=== PATIENT | female | born 1965 | race African-American/Black ===

== ENCOUNTER 2017-07-31 08:08 | Emergency (ER) | payer SELFPAY ==
[2017-07-31 08:39] LABS: #Basophils 0.1 thou/uL (0.0-0.2); #Eosinphils 0.2 thou/uL (0.0-0.7); #Lymphocytes 1.6 thou/uL (1.20-3.40); #Monocytes 0.5 thou/uL (0.11-0.59); #Neutrophils 3.9 thou/uL (1.40-6.50); %Eosinophils 3.8 % (0.0-10.0); %Lymphocytes 25.3 % (21.0-51.0); %Monocytes 7.4 % (0.0-10.0); Hematocrit 36.6 % (36.0-47.0); Mean Platelet Volume 6.9 fL (7.4-10.4); Red Blood Cell (RBC) Count 4.64 mill/uL (4.20-5.40); White Blood Cell (WBC) Count 6.3 thou/uL (4.8-10.8)
[2017-07-31] MEDS ORDERED: Insulin Regular 300 UNITS/3 ML VIAL ONE (08:43)
[2017-07-31 08:53] LABS: ALT (SGPT) 10 U/L (8-55); AST (SGOT) 18 U/L (5-34); Alkaline Phosphatase 95 U/L (40-150); Anion Gap 12 mmol/L (10-20); BUN (Urea Nitrogen) 6 mg/dL (9.8-20.1); Bilirubin, Total 0.2 mg/dL (0.2-1.2); Calc. Creatinine Clearance 0 mL/min (70-130); Calcium 9.2 mg/dL (7.8-10.44); Carbon Dioxide 24 mmol/L (22-29); Chloride 104 mmol/L (98-107); Estimated GFR-MDRD 80; Globulin 4.9 g/dL (2.4-3.5); Protein, Total 8.6 g/dL (6.0-8.3)
--- NOTE | 2017-09-07 12:18 | EKG ---
Test Reason : Blood Pressure : / mmHG Vent. Rate : 074 BPM Atrial Rate : 074 BPM P-R Int : 138 ms QRS Dur : 080 ms QT Int : 440 ms P-R-T Axes : 049 -37 012 degrees QTc Int : 488 ms Normal sinus rhythm Left axis deviation Prolonged QT Abnormal ECG Confirmed by ANDRÉS REILLY ([id number]), design editor IVANNA HOFF ([id number]) on 09/07/2017 12:17:53 PM Referred By: MELBA Confirmed By:ANDRÉS REILLY
== END 2017-07-31 09:42 | disposition home or self-care (01) ==
LOC: ERS 08:08
DX: E11.65 Type 2 diabetes mellitus with hyperglycemia (principal); E86.0 Dehydration; I10 Essential (primary) hypertension; D64.9 Anemia, unspecified; F41.9 Anxiety disorder, unspecified; F31.9 Bipolar disorder, unspecified; F20.9 Schizophrenia, unspecified; F17.210 Nicotine dependence, cigarettes, uncomplicated; Z71.6 Tobacco abuse counseling
CPT/HCPCS: 36415; 36416; 80053; 85025; 93005; 96361; 96374; J1815

== ENCOUNTER 2017-08-02 08:34 | Emergency (ER) | payer SELFPAY | END 2017-08-02 09:34 | disposition home or self-care (01) | LOC: ERS 08:34 | DX: M25.571 Pain in right ankle and joints of right foot (principal); E11.9 Type 2 diabetes mellitus without complications; D50.0 Iron deficiency anemia secondary to blood loss (chronic); I10 Essential (primary) hypertension; F20.9 Schizophrenia, unspecified; F31.9 Bipolar disorder, unspecified; F17.210 Nicotine dependence, cigarettes, uncomplicated | CPT/HCPCS: 99406 ==

== ENCOUNTER 2017-08-20 11:54 | Emergency (ER) | payer SELFPAY ==
--- NOTE | 2017-08-20 15:26 | ULT ---
RIGHT LOWER EXTREMITY VENOUS ULTRASOUND: Date: 08/20/17 COMPARISON: None. HISTORY: Right lower extremity pain and edema. TECHNIQUE: Multiplanar Blount scale and color Doppler images were obtained in a right lower extremity venous ultra sound. Spectral analysis of the Doppler waveforms were performed. FINDINGS: The right common femoral vein, profunda femoral vein, superficial femoral vein, and popliteal vein ar e normal in appearance without visible thrombus. These vessels demonstrate normal compression, flow, and augmentation. The right posterior tibial vein and greater saphenous vein are also patent. IMPRESSION: No evidence of right lower extremity deep venous thrombosis. POS: [facility]
[2017-08-20 15:28] LABS: #Eosinphils 0.3 thou/uL (0.0-0.7); #Lymphocytes 1.7 thou/uL (1.20-3.40); #Monocytes 0.8 thou/uL (0.11-0.59); #Neutrophils 5.6 thou/uL (1.40-6.50); %Basophils 0.3 % (0.0-1.0); %Eosinophils 3.1 % (0.0-10.0); %Lymphocytes 20.5 % (21.0-51.0); %Monocytes 9.1 % (0.0-10.0); Mean Platelet Volume 6.7 fL (7.4-10.4); Red Blood Cell (RBC) Count 4.13 mill/uL (4.20-5.40); White Blood Cell (WBC) Count 8.4 thou/uL (4.8-10.8)
[2017-08-20 15:47] LABS: Bilirubin Negative (Negative); Blood, Urine Small (Negative); Glucose, Urine (Dipstick) >=1000 mg/dL (Negative); Ketone, Urine Negative (Negative); Nitrite Negative (Negative); Protein, Urine (Dipstick) Negative (Neg-Trace); Urobilinogen 0.2 mg/dL (0.2-1.0)
[2017-08-20 15:50] LABS: Bacteria/HPF None Seen HPF (None Seen); Hyaline Casts/LPF 0-3 HYALINE CAST LPF (0-3 Hyaline); Squamous Epithelial None Seen HPF (0-3); WBC/HPF None Seen HPF (0-3)
[2017-08-20 15:51] LABS: ALT (SGPT) 8 U/L (8-55); AST (SGOT) 16 U/L (5-34); Alkaline Phosphatase 106 U/L (40-150); Anion Gap 12 mmol/L (10-20); BUN (Urea Nitrogen) 6 mg/dL (9.8-20.1); Bilirubin, Total 0.2 mg/dL (0.2-1.2); Calc. Creatinine Clearance 0 mL/min (70-130); Calcium 9.5 mg/dL (7.8-10.44); Carbon Dioxide 27 mmol/L (22-29); Chloride 99 mmol/L (98-107); Estimated GFR-MDRD 70; Globulin 5.4 g/dL (2.4-3.5); Protein, Total 8.8 g/dL (6.0-8.3)
== END 2017-08-20 16:41 | disposition home or self-care (01) ==
LOC: ERS 11:54
DX: E11.40 Type 2 diabetes mellitus with diabetic neuropathy, unspecified (principal); I10 Essential (primary) hypertension; I50.9 Heart failure, unspecified; F31.9 Bipolar disorder, unspecified; F41.9 Anxiety disorder, unspecified; F20.9 Schizophrenia, unspecified
CPT/HCPCS: 36415; 36416; 80053; 81003; 81015; 85025; 96360; 99406

== ENCOUNTER 2017-08-31 03:58 | Emergency (ER) | payer SELFPAY ==
[2017-08-31 04:27] LABS: Anion Gap 10 mmol/L (-14-95); T. Carbon Dioxide 23.5 mmol/L (1.0-85.0); pH (Venous) 7.434 (7.35-7.45); vO2 Saturation-calc 94.8 % (0.0-100.0)
[2017-08-31 04:38] LABS: #Basophils 0.1 thou/uL (0.0-0.2); #Lymphocytes 2.4 thou/uL (1.20-3.40); #Neutrophils 7.8 thou/uL (1.40-6.50); %Basophils 0.6 % (0.0-1.0); %Eosinophils 0.4 % (0.0-10.0); %Lymphocytes 21.4 % (21.0-51.0); %Monocytes 8.9 % (0.0-10.0); Hematocrit 31.7 % (36.0-47.0); Mean Platelet Volume 6.8 fL (7.4-10.4); Red Blood Cell (RBC) Count 4.03 mill/uL (4.20-5.40); White Blood Cell (WBC) Count 11.3 thou/uL (4.8-10.8)
[2017-08-31 04:49] LABS: ALT (SGPT) 9 U/L (8-55); AST (SGOT) 15 U/L (5-34); Alkaline Phosphatase 126 U/L (40-150); Anion Gap 18 mmol/L (10-20); BUN (Urea Nitrogen) 13 mg/dL (9.8-20.1); Bilirubin, Total 0.2 mg/dL (0.2-1.2); CK (CPK) 58 U/L (29-168); Calc. Creatinine Clearance 0 mL/min (70-130); Calcium 9.9 mg/dL (7.8-10.44); Carbon Dioxide 22 mmol/L (22-29); Chloride 97 mmol/L (98-107); Estimated GFR-MDRD 69; Globulin 5.7 g/dL (2.4-3.5); Lipase 25 U/L (8-78); Protein, Total 9.1 g/dL (6.0-8.3)
[2017-08-31 05:03] LABS: Troponin I 0.014 ng/mL (< 0.028)
[2017-08-31 05:08] LABS: Bilirubin Negative (Negative); Blood, Urine Trace (Negative); Glucose, Urine (Dipstick) >=1000 mg/dL (Negative); Ketone, Urine 40 mg/dL (Negative); Nitrite Negative (Negative); Protein, Urine (Dipstick) Trace mg/dL (Neg-Trace); Urobilinogen 0.2 mg/dL (0.2-1.0)
[2017-08-31] MEDS ORDERED: Insulin Regular 300 UNITS/3 ML VIAL ONE (05:10)
[2017-08-31 05:13] LABS: Bacteria/HPF 1+ HPF (None Seen); Hyaline Casts/LPF 0-3 HYALINE CAST LPF (0-3 Hyaline); Squamous Epithelial 0-3 HPF (0-3); WBC/HPF 21-50 HPF (0-3)
--- NOTE | 2017-08-31 08:33 | RAD ---
PORTABLE CHEST 1 VIEW: Date: 08/31/17 Time: 0418 hours HISTORY: Dyspnea, cough. FINDINGS: Comparison made with exam of 03/14/16. The heart size is normal. The lungs are well expanded without focal areas of consolidation, pneumotho rax, or pleural effusions. IMPRESSION: No radiographic evidence of acute cardiopulmonary process. POS: [facility]
== END 2017-08-31 06:00 | disposition home or self-care (01) ==
LOC: ERS 03:58
DX: E11.65 Type 2 diabetes mellitus with hyperglycemia (principal); J20.9 Acute bronchitis, unspecified; F41.9 Anxiety disorder, unspecified; N39.0 Urinary tract infection, site not specified; D64.9 Anemia, unspecified; D50.0 Iron deficiency anemia secondary to blood loss (chronic); I10 Essential (primary) hypertension; F20.9 Schizophrenia, unspecified; F31.9 Bipolar disorder, unspecified
CPT/HCPCS: 36416; 71010; 80053; 81003; 81015; 82010; 82330; 82553; 82803; 83690; 83880; 84484; 85025; 93005; 96361; 96374; J1815

== ENCOUNTER 2017-10-31 15:08 | Inpatient (IN) | payer SELFPAY ==
[2017-10-31 17:24] LABS: #Eosinphils 0.1 thou/uL (0.0-0.7); #Monocytes 0.9 thou/uL (0.11-0.59); #Neutrophils 9.4 thou/uL (1.40-6.50); %Basophils 0.3 % (0.0-1.0); %Eosinophils 1.1 % (0.0-10.0); %Lymphocytes 22.4 % (21.0-51.0); %Monocytes 6.8 % (0.0-10.0); %Neutrophils 69.4 % (42.0-75.0); Hemoglobin 9.3 g/dL (12.0-16.0); Mean Corpuscular HGB CONC 32.2 g/dL (32.0-36.0); Mean Corpuscular Hemoglobin 27.1 pg (27.0-31.0); Mean Corpuscular Volume 84.3 fl (81.0-99.0); Mean Platelet Volume 6.4 fL (7.4-10.4); Platelet Count 636 thou/uL (130-400); RBC Distribution Width 19.6 % (11.5-14.5); Red Blood Cell (RBC) Count 3.42 mill/uL (4.20-5.40); White Blood Cell (WBC) Count 13.5 thou/uL (4.8-10.8)
[2017-10-31 17:38] LABS: ALT (SGPT) 11 U/L (8-55); AST (SGOT) 15 U/L (5-34); Albumin 2.6 g/dL (3.5-5.0); Alkaline Phosphatase 107 U/L (40-150); Anion Gap 16 mmol/L (10-20); BUN (Urea Nitrogen) 14 mg/dL (9.8-20.1); Bilirubin, Total 0.2 mg/dL (0.2-1.2); Calc. Creatinine Clearance 0 mL/min (70-130); Calcium 9.3 mg/dL (7.8-10.44); Carbon Dioxide 23 mmol/L (22-29); Chloride 89 mmol/L (98-107); Estimated GFR-MDRD 47; Globulin 5.7 g/dL (2.4-3.5); Potassium 4.5 mmol/L (3.5-5.1); Protein, Total 8.3 g/dL (6.0-8.3); Sodium 123 mmol/L (136-145)
[2017-10-31 17:45] LABS: Glucose 599 mg/dL (70-105)
[2017-10-31 19:00] LABS: Base Excess-Venous -1.9 mmol/L (-30.0-30.0); Bicarbonate (HCO3v) 22.9 mmol/L (1.0-85.0); CO2 Tension (PvCO2) 38.1 mmHg (41.0-51.0); Calcium, Ionized 1.23 mmol/L (1.12-1.32); Hemoglobin - Calc 10.5 g/dL (12.0-18.0); O2 Tension (PvO2) 45.2 mmHg (35.0-45.0); Potassium 3.6 mmol/L (3.4-4.7); pH (Venous) 7.386 (7.35-7.45); vO2 Saturation-calc 80.5 % (0.0-100.0)
[2017-10-31] MEDS ORDERED: metFORMIN 500 MG TAB PO SCH (19:30)
--- NOTE | 2017-10-31 19:57 | PDOC.FPRHP ---
- History of Present Illness Chief Complaint: Weakness History of Present Illness: 52 year old female presents today with weakness. She was discharged today from [facility] where she was seen for DKA, NSTEMI, and sepsis 2/ 2 MRSA endocarditis s/p antibiotics for 6 weeks. She was hospitalized for approximately 2 months and was being treated with IV daptomycin for MRSA endocarditis. Last blood cultures were negative on 10/28/17. Patient was transitioned to oral antibiotics to include rifampin and minocycline to be taken for an additional month post discharge. Patient also had PICC line associated infection with Klebsiella which required treatment with Levoquin. Patient's friend reports that she went to visit patient in hospital today, and she was being prepped for discharge. She was given a voucher for [facility]. Her friend opted to take her to the facility, but upon getting there realized they were not capable of providing her with the care she needs. Patient 's friend then brought her to [facility] as she is still weak, cannot walk without assistance, and has difficulty caring for herself. Patient states that she has been weak and unable to walk with assistance or walker since being hospitalized. Additionally, patient endorses decreased appetite for about a month associated with nausea and vomiting. She reportedly vomited for 3 days last week, but denies diarrhea. Today patient complains of right shoulder pain. She denies any recent injury or trauma. She has had a productive cough over the last day, but denies associated fever or chills. ED Course: Given 500 mg metformin and 6 units insulin in ED. - Allergies/Adverse Reactions Allergies Allergy/AdvReac Type Severity Reaction Status Date / Time No Known Drug Allergies Allergy Verified 10/31/17 23:13 - Home Medications Medication Instructions Recorded Confirmed Type Aspirin [Ecotrin] 81 mg PO DAILY 11/01/17 11/01/17 History Atorvastatin Calcium [Lipitor] 20 mg PO HS 11/01/17 11/01/17 History Fluconazole [Diflucan] 150 mg PO Q72H 11/01/17 11/01/17 History Insulin Detemir 100 UNITS/ML 18 unit SQ HS 11/01/17 11/01/17 History [Levemir] Insulin Detemir 100 UNITS/ML 32 unit SQ QAM 11/01/17 11/01/17 History [Levemir] Lisinopril 2.5 mg PO DAILY 11/01/17 11/01/17 History Metoprolol Tartrate [Lopressor] 50 mg PO BID 11/01/17 11/01/17 History Minocycline [Minocycline] 100 mg PO BID 11/01/17 11/01/17 History Potassium Chloride [K-Dur] 20 meq PO DAILY 11/01/17 11/01/17 History QUEtiapine Fumarate [SEROquel] 50 mg PO HS 11/01/17 11/01/17 History Rifampin 300 mg PO BID 11/01/17 11/01/17 History metFORMIN [Glucophage] 500 mg PO BID-WM 11/01/17 11/01/17 History - History PMHx: Uncontrolled type II DM, CAD s/p NSTEMI in 09/2017, Chronic anemia, Urge incontinence, HTN, COPD, PVD small vessel, Schizophrenia PSHx: None FHx: Unknown Social: Patient denies tobacco use, although past records indicate that she has used to tobacco previously. Patient endorses cocaine and marijuana use. Last use was 3-4 months ago. Patient denies alcohol use. - Review of Systems General: reports: weight/appetite/sleep changes, fatigue. denies: fever/chills , night sweats ENT: denies: nasal congestion, rhinorrhea Respiratory: reports: cough (over past day), congestion. denies: shortness of breath Cardiovascular: reports: chest pain (pleuritic chest pain). denies: palpitation , edema, paroxysmal nocturnal dyspnea, orthopnea Gastrointestinal: reports: nausea, vomiting. denies: diarrhea, constipation, abdominal pain Genitourinary: reports: incontinence (urge incontinence requiring patient to wear briefs) Skin: denies: rashes, lesions Musculoskeletal: reports: pain, tenderness Neurological: reports: weakness. denies: numbness, syncope, seizure Psychological: reports: depression. denies: anxiety - Vital signs BP: 127/79 HR: 93 RR: 20 Tmax: 98 Pox: 100 % on RA Wt: 46 kg - Physical Exam Constitutional: NAD, awake, alert and oriented -Constitutional: Cachectic appearing HEENT: normocephalic and atraumatic, PERRLA, EOMI, no scleral icterus -HEENT: Poor dentition Neck: supple Heart: RRR, no murmurs/rubs/gallops, pulses present, no edema Lungs: no respiratory distress, no rales/rhonchi, no retractions -Lungs: Mild expiratory wheezing Abdomen: soft, non-tender, bowel sounds present, no masses/distention -Musculoskeletal: Poor tone Neurological: no focal deficit Skin: capillary refill <2 seconds -Skin: Plaque-like lesions on left hand and digits Psychiatric: other -Psychiatric: Depressed affect, tearful FMR H&P: Results - Labs Result Diagrams: 11/01/17 05:11 11/01/17 05:11 Lab results: WBC 13.5 thou/uL (4.8-10.8) H 10/31/17 17:11 Hgb 9.3 g/dL (12.0-16.0) L 10/31/17 17:11 Hct 28.8 % (36.0-47.0) L 10/31/17 17:11 MCV 84.3 fl (81.0-99.0) 10/31/17 17:11 Plt Count 636 thou/uL (130-400) H 10/31/17 17:11 Neutrophils % 69.4 % (42.0-75.0) 10/31/17 17:11 VBG pCO2 38.1 mmHg (41.0-51.0) L 10/31/17 18:59 VBG pO2 45.2 mmHg (35.0-45.0) H 10/31/17 18:59 Sodium 123 mmol/L (136-145) L 10/31/17 17:11 Potassium 4.5 mmol/L (3.5-5.1) 10/31/17 17:11 Chloride 89 mmol/L (98-107) L 10/31/17 17:11 Carbon Dioxide 23 mmol/L (22-29) 10/31/17 17:11 BUN 14 mg/dL (9.8-20.1) 10/31/17 17:11 Creatinine 1.43 mg/dL (0.6-1.1) H 10/31/17 17:11 Glucose 599 mg/dL (70-105) H* 10/31/17 17:11 Calcium 9.3 mg/dL (7.8-10.44) 10/31/17 17:11 Total Bilirubin 0.2 mg/dL (0.2-1.2) 10/31/17 17:11 AST 15 U/L (5-34) 10/31/17 17:11 ALT 11 U/L (8-55) 10/31/17 17:11 Alkaline Phosphatase 107 U/L (40-150) 10/31/17 17:11 Serum Total Protein 8.3 g/dL (6.0-8.3) 10/31/17 17:11 Albumin 2.6 g/dL (3.5-5.0) L 10/31/17 17:11 - Radiology Interpretation Other Status: image reviewed by me, report reviewed by me Additional comment: Mild AC degeneration on right FMR H&P: A/P - Problem List (1) Type 2 diabetes mellitus with hyperglycemia Current Visit: Yes Status: Suspected Code(s): E11.65 - TYPE 2 DIABETES MELLITUS WITH HYPERGLYCEMIA (2) Hyponatremia Current Visit: Yes Status: Acute Code(s): E87.1 - HYPO-OSMOLALITY AND HYPONATREMIA (3) Moderate protein-calorie malnutrition Current Visit: Yes Status: Chronic Code(s): E44.0 - MODERATE PROTEIN- CALORIE MALNUTRITION (4) CAD (coronary artery disease) Current Visit: Yes Status: Chronic Code(s): I25.10 - ATHSCL HEART DISEASE OF [place] CORONARY ARTERY W/O ANG PCTRS Qualifiers: Associated angina: without angina (5) Chronic anemia Current Visit: Yes Status: Chronic Code(s): D64.9 - ANEMIA, UNSPECIFIED (6) Physical deconditioning Current Visit: Yes Status: Chronic Code(s): R53.81 - OTHER MALAISE (7) Substance abuse Current Visit: Yes Status: Chronic Code(s): F19.10 - OTHER PSYCHOACTIVE SUBSTANCE ABUSE, UNCOMPLICATED (8) ECTOR (acute kidney injury) Current Visit: Yes Status: Resolved Code(s): N17.9 - ACUTE KIDNEY FAILURE, UNSPECIFIED (9) Urge incontinence Current Visit: Yes Status: Chronic Code(s): N39.41 - URGE INCONTINENCE (10) HTN (hypertension) Current Visit: Yes Status: Acute Code(s): I10 - ESSENTIAL (PRIMARY) HYPERTENSION (11) COPD (chronic obstructive pulmonary disease) Current Visit: Yes Status: Chronic (12) PVD (peripheral vascular disease) Current Visit: Yes Status: Chronic Code(s): I73.9 - PERIPHERAL VASCULAR DISEASE, UNSPECIFIED (13) Endocarditis due to Staphylococcus Current Visit: Yes Status: Resolved Code(s): I33.0 - ACUTE AND SUBACUTE INFECTIVE ENDOCARDITIS; B95.8 - UNSP STAPHYLOCOCCUS THE CAUSE OF DISEASES CLASSD ELSWHR - Plan 1. Physical Deconditioning - Patient unable to walk without assistance since being hospitalized past two months for sepsis 2/2 endocarditis, NSTEMI, and DKA at [facility] - Unable to care for self and homeless - No family support - CM consulted; appreciate recs - D/C planning process started - Linderman Operator consulted; appreciate recs - PT/OT to evaluate and treat patient - Working on potential harper bed at [facility] 2. Uncontrolled Type II DM with hyperglycemia - BG 599 on admission - Given 6 units of insulin in ED - Hyperglycemia protocol with mild SSI - Q4H accuchecks - HgA1c 15.2 during last hospitalization in September 3. Hyponatremia - Pseudohyponatremia 2/2 hyperglycemia - Na corrects to 135 - AM BMP 4. CAD s/p SC - Hospitalized recently at [facility]; discharged today - Lovenox for DVT PPX - Continue medications from last hospitalization - Echo with normal EF, no plans for cardiac catheterization - Troponin 4.4 with upper limit of 5, given lovenox 5. Moderate Protein-Calorie Malnutrition - Albumin 2.9 - Will check Mg and P to evaluate for other deficiencies - Ensure high protein supplementation - Linderman Operator consult; appreciate recommendations - Pre-albumin may be of utility as outpatient where a trend can be identified - TSH 6. Chronic Anemia - Has been iron deficiency in the past - Hg 9.4 on admission - Continue to trend - Patient asymptomatic currently - Normocytic today - Iron deficiency vs. ACD 7. ECTOR vs. CKD - GFR 47 - Uncertain whether CKD vs. ECTOR - IVF at 80 ml/hr - Continue to trend with AM BMP - Monitor I&O's 8. 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 Urge Incontinence - Unable to make it to restroom on time; wears briefs - Continue to supply briefs - Monitor I&O's 10. HTN - Continue metoprolol and lisinopril 11. COPD - Monitor O2 sats with goal >88% - Duoneb treatments PRN for shortness of breath/wheezing 12. PVD - Pulses intact 13. Endocarditis s/p treatment with IV abx - MRSA with pulmonary emboli, renal emboli, osteomyelitis, and discitis of C5-6 - Negative cultures on 10/28/2017 - s/p treatment with 6 weeks vancomycin/daptomycin - Complications include PICC line infection with Klebsiella requiring treatment with levoquin - Continue rifampin and minocycline x1 month - Echo showed normal EF 14. Mild anion gap metabolic acidosis - Likely 2/2 hyperglycemia - BMP in AM - HCO3 wnl - Anion gap 17 15. Sacral decubitus ulcer - Consult wound care - Frequent turning of patient 16. Schizophrenia - Was on quetiapine last hospitalization Disposition/LOS: Admit to telemetry for observation. D/C planning in process. Patient will likely need placement. Anticipate 1-2 day stay. FMR H&P: Upper Level - Plan Date/Time: 10/31/171948 IIban MD, have evaluated this patient and agree with findings/plan as outlined by graphics intern resident. Pertinent changes/additions are listed here. 52 yo F pmhx significant for T2DM, drug addiction, and medication non- compliance presents to [facility] for difficulty with ambulation and self-care after being discharged this morning from [facility] after an extended 2 month's stay for DKA , NSTEMI, ARF and sepsis 2/2 MRSA bacteremia w/ evidence of infectious seeding to the heart, lungs, kidneys, and cervical spine. Her friend was supposed to transport her to [facility] today but was apparently concerned that they would not provide her with the type of care she requires. On arrival, pt's blood sugar was also noted to be >500, and her friend stated that the patient has not had any of her medications today since they had not yet picked them up from the pharmacy. The patient denies any CP or SOB but does endorse chronic anorexia and a dry cough that has been ongoing for several days. States that she frequently abused marijuana and crack cocaine in the past but has not used any drugs in 3-4 months. States that, at baseline, she is able to ambulate with some difficulty if someone assists her or if she uses a walker. PE: Gen: cachectic and disheveled appearing, looks older than stated age CV: RRR, no m/g/r Lungs: CTAB Skin: seborrheic appearing plaques on distal fingertips and nails of L hand Ext: no c/c/e A/P: 52 yo AAF with: 1) Chronic deconditioning: likely 2/2 longtime drug use and chronic uncontrolled disease; needs PT/OT. CM consulted. Working on potential harper bed at [facility]. 2) Uncontrolled T2DM with acute hyperglycemia: Last A1c 15.2 upon review of records from recent hospitalization. 6 units regular insulin and metformin given in ER. Glucoses trending down. Will restart home medications and do q4 accuchecks until <250. Pt asx. B-hydroxybutyrate negative with minimal acidosis on labs. 3) MRSA bacteremia w/ endocarditis: s/p 6 wks IV daptomycin and transitioned to an additional 1 month of minocycline and rifampin prior to d/c from [facility], which has been resumed. Pt missed one dose of abx at the most. Last blood cultures negative 10/28/17. 4) Moderate protein-calorie malnutrition: Check Mg, phos. Verify TSH has been checked recently. Trending prealbumin would be of more utility if pt was here for extended stay. Nutrition supplementation. 2400 calorie CC diet. Linderman Operator consult placed. 5) CAD s/p SC: Restart BB, FRANTZ-I, ASA, statin, other related meds 6) Chronic anemia, ANDREW v. chronic disease: consider rechecking iron studies and restarting iron supplementation if indicated 7) H/o chronic substance abuse 8) Mild anion gap metabolic acidosis: BMP in AM, likely 2/2 #2 9) CKD: Believe this may be new baseline vs. pt still in the midst of recovery from acute renal insult 2 months ago 10) Pseudohyponatremia Attending Addendum - Attending Addendum Date/Time: 11/01/17 699 I personally evaluated the patient and discussed the management with Dr. Azul and Dr. Huertas at time of evaluation. I agree with the History, Examination, Assessment and Plan documented above with any addition or exceptions noted below. 52 yo unfortunate female admitted for further evaluation for shoulder/neck pain and deconditioning. Patient admitted on 09/14/17 and discharged on 10/31/17 at outside facility for MRSA bacteremia complicated by endocarditis, osteomylitis, pulmonary and renal septic emboli is brought to our facility by a friend due to concern for inability to care for herself. Patient currently homeless and uninsured. [facility]. Now reporting worsening pain to her neck and shoulder. Has not started outpatient antibiotics. Medical records from previous hospital stay reviewed extensively. Patient also dx with NSTEMI, sacral de-cub and PICC line infection with Klebsella. Reports completed 6 wk therapy of Daptomycin. Transitioned to Rifampin and Minocycline for discharge. Tearful on exam. Otherwise unchanged from above as documented. Afebrile. VS reviewed. Labs reviewed. A/P: Will admit. Restart antibx. Re-drawal blood cultures. Consult Hiro. Discuss osteo with ortho/neuro/gen surg. Consider repeating imaging to see if worsening. No significant neuro findings on exam today but limited due to patient's compliance with exam. Trend labs. Recent imaging and flow studies performed on patient's lower extremities. At that time no intervention needed. No evidence of DKA. Restart insulin. Need strict control due to seriousness of infection. CM consulted to see if able to set up correction care options. [facility] due to severe deconditioning. Will treat and adjust medications as needed for co-morbidities. Lovenox for VTE ppx. Filiberto
--- NOTE | 2017-10-31 20:15 | RAD ---
RIGHT SHOULDER THREE VIEW 10/31/17 HISTORY: Pain. COMPARISON: None. FINDINGS: No acute fracture or malalignment. Mild degenerative disease acromioclavicular joint. IMPRESSION: No acute abnormality. POS: [facility]
[2017-10-31] MEDS ORDERED: Insulin Regular 300 UNITS/3 ML VIAL ONE (20:54)
[2017-10-31] MEDS ORDERED: Ibuprofen 200 MG TAB ONE ×2 (20:54→20:59)
[2017-10-31] MEDS ORDERED: Ondansetron ODT 4 MG TAB PO PRN (22:13)
[2017-10-31] MEDS ORDERED: Enoxaparin Sodium 40 MG/0.4 ML SYRINGE SC SCH (22:13)
[2017-10-31] MEDS ORDERED: Dextrose 5% in Water 1,000 ML IV PRN (22:13)
[2017-10-31] MEDS ORDERED: Sodium Chloride 0.9% 1,000 ML IV SCH (22:13)
[2017-10-31] MEDS ORDERED: Dextrose 50% Abboject 50 ML SYRINGE SLOW IVP PRN (22:13)
[2017-10-31] MEDS ORDERED: Ondansetron HCl/PF 4 MG/2 ML Vial IVP PRN (22:13)
[2017-11-01] MEDS ORDERED: Rifampin 300 MG CAP PO SCH (02:00)
[2017-11-01 04:37] LABS: Amphetamine Not Detected (NotDetected); Barbiturates Screen Not Detected (NotDetected); Benzodiazepine Screen Not Detected (NotDetected); Cocaine Metabolite Screen Not Detected (NotDetected); Medtox Control Line Valid? VALID (VALID); Medtox Reader # READER 4; Methadone Not Detected (NotDetected); Methamphetamine Not Detected (NotDetected); Opiate Screen Not Detected (NotDetected); Oxycodone Screen Not Detected (NotDetected); Phencyclidine (PCP) Not Detected (NotDetected); THC/Cannabinoid Screen Not Detected (NotDetected); Tricyclic Screen Not Detected (NotDetected)
[2017-11-01] MEDS: Acetaminophen 325 MG TAB PO PRN ×3 (05:11→22:46)
[2017-11-01 05:29] LABS: #Eosinphils 0.2 thou/uL (0.0-0.7); #Lymphocytes 2.6 thou/uL (1.20-3.40); #Monocytes 0.7 thou/uL (0.11-0.59); #Neutrophils 10.7 thou/uL (1.40-6.50); %Basophils 0.1 % (0.0-1.0); %Eosinophils 1.7 % (0.0-10.0); %Monocytes 4.9 % (0.0-10.0); %Neutrophils 75.2 % (42.0-75.0); Hemoglobin 9.5 g/dL (12.0-16.0); Mean Corpuscular HGB CONC 32.1 g/dL (32.0-36.0); Mean Corpuscular Hemoglobin 27.3 pg (27.0-31.0); Mean Platelet Volume 5.7 fL (7.4-10.4); Platelet Count 652 thou/uL (130-400); RBC Distribution Width 19.3 % (11.5-14.5); Red Blood Cell (RBC) Count 3.48 mill/uL (4.20-5.40); White Blood Cell (WBC) Count 14.2 thou/uL (4.8-10.8)
[2017-11-01 05:37] LABS: Anion Gap 13 mmol/L (10-20); BUN (Urea Nitrogen) 13 mg/dL (9.8-20.1); Calc. Creatinine Clearance 53 mL/min (70-130); Calcium 9.3 mg/dL (7.8-10.44); Carbon Dioxide 23 mmol/L (22-29); Chloride 99 mmol/L (98-107); Estimated GFR-MDRD 79; Glucose 199 mg/dL (70-105); Magnesium 1.5 mg/dL (1.6-2.6); Potassium 3.5 mmol/L (3.5-5.1); Sodium 131 mmol/L (136-145)
--- NOTE | 2017-11-01 06:38 | PDOC.FM ---
- Subjective Subjective: Pt doing fine. Denies any acute events overnight. Just reports being weak. Says she needs someone to help her up and to walk. Pt very tearful during exam. Gets worked up easily. - Objective MAR Reviewed: Yes Vital Signs & Weight: Vital Signs (12 hours) Temp Pulse Resp BP BP Pulse Ox 11/01/17 04:00 97.7 F 111 H 18 124/73 97 10/31/17 22:13 100 10/31/17 21:40 98.0 F 93 20 127/79 127/79 100 Weight Weight 46.357 kg Result Diagrams: 11/01/17 05:11 11/01/17 05:11 EKG Reviewed by me: Yes Radiology Reviewed by me: Yes (Shoulder xray shows chronic changes) <Chilo Bhardwaj - Last Filed: 11/01/17 08:29> - Objective Vital Signs & Weight: Vital Signs (12 hours) Temp Pulse Pulse Pulse Resp BP BP 11/01/17 15:17 98.3 F 107 H 16 11/01/17 10:52 97.9 F 104 H 16 11/01/17 10:50 104 H 97 117/75 119/66 11/01/17 09:22 101 H 11/01/17 09:20 101 H 11/01/17 09:06 97.5 F L 101 H 16 11/01/17 08:41 101 H 120/82 BP Pulse Ox 11/01/17 15:17 120/76 99 11/01/17 10:52 117/75 98 11/01/17 10:50 11/01/17 09:22 11/01/17 09:20 11/01/17 09:06 120/82 98 11/01/17 08:41 Weight Admit Weight 46.357 kg Weight 46.357 kg Result Diagrams: 11/01/17 05:11 11/01/17 05:11 <Ariane Arguelles - Last Filed: 11/01/17 18:28> Phys Exam - Physical Examination Constitutional: NAD pt very thin HEENT: PERRLA dry mucous membranes Neck: no nodes, supple, full ROM Respiratory: no wheezing, no rales, clear to auscultation bilateral Cardiovascular: RRR Gastrointestinal: soft, non-tender, positive bowel sounds Musculoskeletal: no edema, pulses present Neurological: non-focal weak with movements. Strenght 3-4/5 Lymphatic: no nodes Psychiatric: A&O x 3 Deviation from normal: Very tearful Skin: no rash, normal turgor <BentonChilo - Last Filed: 11/01/17 08:29> Dx/Plan (1) HTN (hypertension) Code(s): I10 - ESSENTIAL (PRIMARY) HYPERTENSION Status: Acute (2) CAD (coronary artery disease) Code(s): I25.10 - ATHSCL HEART DISEASE OF [place] CORONARY ARTERY W/O ANG PCTRS Status: Chronic QualifierTitle: Associated angina: without angina (3) COPD (chronic obstructive pulmonary disease) Status: Chronic (4) Chronic anemia Code(s): D64.9 - ANEMIA, UNSPECIFIED Status: Chronic (5) Moderate protein-calorie malnutrition Code(s): E44.0 - MODERATE PROTEIN-CALORIE MALNUTRITION Status: Chronic (6) PVD (peripheral vascular disease) Code(s): I73.9 - PERIPHERAL VASCULAR DISEASE, UNSPECIFIED Status: Chronic (7) Physical deconditioning Code(s): R53.81 - OTHER MALAISE Status: Chronic (8) Substance abuse Code(s): F19.10 - OTHER PSYCHOACTIVE SUBSTANCE ABUSE, UNCOMPLICATED Status: Chronic (9) Urge incontinence Code(s): N39.41 - URGE INCONTINENCE Status: Chronic (10) Type 2 diabetes mellitus with hyperglycemia Code(s): E11.65 - TYPE 2 DIABETES MELLITUS WITH HYPERGLYCEMIA Status: Suspected (11) Endocarditis due to Staphylococcus Code(s): I33.0 - ACUTE AND SUBACUTE INFECTIVE ENDOCARDITIS; B95.8 - UNSP STAPHYLOCOCCUS THE CAUSE OF DISEASES CLASSD ELSWHR Status: Resolved (12) ECTOR (acute kidney injury) Code(s): N17.9 - ACUTE KIDNEY FAILURE, UNSPECIFIED Status: Resolved - Plan Plan: Physical Deconditioning - Patient unable to walk without assistance since being hospitalized past two months for sepsis 2/2 endocarditis, NSTEMI, and DKA at [facility] - Unable to care for self and homeless - No family support - CM consulted; appreciate recs - D/C planning process started - Hogshead Salvage consulted; appreciate recs - PT/OT to evaluate and treat patient - Working on potential harper bed at [facility] Uncontrolled Type II DM with hyperglycemia - BG 599 on admission - Given 6 units of insulin in ED - Hyperglycemia protocol with mild SSI -Levemir 36 u am and 18 u hs. Will continue to check blood sugar and adjust accordingly. this was her regimen on discharge from the med - Q4H accuchecks - HgA1c 15.2 during last hospitalization in September. Hgb A1c pending. CAD s/p [place] - Hospitalized recently at [facility]; discharged today - Lovenox for DVT PPX - Continue medications from last hospitalization - Echo with normal EF, no plans for cardiac catheterization Moderate Protein-Calorie Malnutrition - Albumin 2.6. Prealbumin pending, Prealbumin lower than 5 - P normal. Mag low replacing - Ensure high protein supplementation - Hogshead Salvage consult; appreciate recommendations - TSH Chronic Anemia - Has been iron deficiency in the past - Hg 9.4 on admission. At baseline - Continue to trend - Patient asymptomatic currently - Normocytic today - Iron deficiency vs. 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 - Has been hospitalized last 2 months; discharged today - Recent HIV, Hep B Ag, and RPR negative -UDS negative Urge Incontinence - Unable to make it to restroom on time; wears briefs - Continue to supply briefs - Monitor I&O's HTN - Continue metoprolol and lisinopril COPD - Monitor O2 sats with goal >88% - Duoneb treatments PRN for shortness of breath/wheezing PVD - Pulses intact Endocarditis s/p treatment with IV abx - MRSA with pulmonary emboli, renal emboli, osteomyelitis, and discitis of C5-6 - Negative cultures on 10/28/2017 - s/p treatment with 6 weeks vancomycin/daptomycin - Complications include PICC line infection with Klebsiella requiring treatment with levoquin - Continue rifampin and minocycline x1 month - Echo showed normal EF Mild anion gap metabolic acidosis-Resolved - Likely 2/2 hyperglycemia - BMP in AM - HCO3 wnl - Anion gap 17->11 Sacral decubitus ulcer - Consult wound care - Frequent turning of patient Schizophrenia - continue on home meds <Chilo Bhardwaj - Last Filed: 11/01/17 08:29> Attending Addendum - Attending Addendum Date/Time: [id number] I personally evaluated the patient and discussed the management with Dr. Bhardwaj. I agree with the History, Examination, Assessment and Plan documented above with any addition or exceptions noted below. Patient with necrotic right great and 5th toe as well as necrosis in fingers. Will consult surgery for debridement, amputation. Cultures are pending as patient's WBC is increasing. Continue antibiotics. Will add calorie count as pt is malnourished. <Ariane Arguelles - Last Filed: 11/01/17 18:28>
[2017-11-01 06:55] LABS: Hemoglobin A1c 7.3 % (4.0-6.0)
[2017-11-01] MEDS ORDERED: metFORMIN 500 MG TAB PO SCH (08:00)
[2017-11-01] MEDS ORDERED: Fluconazole 100 MG TAB PO SCH (09:00)
[2017-11-01] MEDS: Sodium Chloride 0.9% 1,000 ML IV SCH ×2 (09:10→22:41)
[2017-11-01] MEDS: Enoxaparin Sodium 40 MG/0.4 ML SYRINGE SC SCH (09:11)
[2017-11-01] MEDS: HumaLOG 300 UNITS/3 ML VIAL SC PRN ×2 (09:13→12:52)
[2017-11-01] MEDS ORDERED: Magnesium Sulfate 1 GM, Admixture Fee 1 EACH in Sodium Chloride 0.9% 100 ML IVPB SCH (09:15)
[2017-11-01] MEDS: Magnesium Chloride 64 MG TAB PO SCH ×2 (09:17→22:43)
[2017-11-01] MEDS: PRE FILLED SC SCH (09:17)
[2017-11-01] MEDS: INSULIN DETEMIR SC SCH (09:17)
[2017-11-01] MEDS: Rifampin 300 MG CAP PO SCH ×2 (09:20→22:46)
[2017-11-01] MEDS: Metoprolol Tartrate 50 MG TAB PO SCH ×2 (09:20→22:44)
[2017-11-01] MEDS: Lisinopril 2.5 MG TAB PO SCH ×2 (09:20→09:22)
[2017-11-01] MEDS: Potassium Chloride 20 MEQ TAB PO SCH (09:23)
[2017-11-01] MEDS: Aspirin 81 mg Enteric Coated Tablet PO SCH (09:23)
--- NOTE | 2017-11-01 12:42 | RAD ---
RIGHT FOOT 3 VIEWS: HISTORY: Necrotic toe. Assess for osteomyelitis. Tarsals appear unremarkable. Metatarsals are unremarkable. There may be mild soft tissue swelling involving the 5th toe. There is evidence of erosion involving the tuft and distal aspect of the distal phalanx of the 5th toe which could indicate osteomyelitis. The phalanges are otherwise unremarkable. IMPRESSION: Evidence of erosion involving the tuft and distal aspect of the distal phalanx of the 5th toe. POS: [facility]
--- NOTE | 2017-11-01 12:43 | RAD ---
LEFT HAND RADIOGRAPHS 3 VIEWS: DATE: 11/01/17. PROVIDED CLINICAL HISTORY: Cellulitis. FINDINGS: There is no evidence for fracture or other acute osseous abnormality. Alignment appears anatomic. J oint spaces appear preserved. No definite lytic or blastic processes are evident. IMPRESSION: No radiographic evidence for an acute osseous abnormality. Early changes of osteomyelitis may be rad iographically occult. If there is persistent clinical concern, consider further evaluation with MRI. POS: YOCASTA
[2017-11-01] MEDS ORDERED: Dexamethasone 20 MG/5 ML VIAL ONE (16:49)
[2017-11-01] MEDS ORDERED: Ondansetron HCl/PF 4 MG/2 ML Vial ONE (16:49)
[2017-11-01] MEDS ORDERED: PROPOFOL 200 MG/20 ML VIAL ONE (16:49)
[2017-11-01] MEDS ORDERED: PHENYLEPHRINE-NS 100 MCG/ML 10 ML SYRINGE ONE (16:49)
[2017-11-01] MEDS ORDERED: Lidocaine 1% PF 5 ML VIAL ONE (16:49)
[2017-11-01] MEDS ORDERED: Labetalol 100 MG/20 ML MDV ONE (16:49)
[2017-11-01] MEDS ORDERED: Thrombin 5000 UNITS/5 ML VIAL ONE (19:06)
[2017-11-01] MEDS ORDERED: Bacitracin Zinc Ointment 30 gm TUBE ONE (19:06)
[2017-11-01] MEDS ORDERED: Lidocaine 1% (PF) 30 ML VIAL ONE (19:06)
[2017-11-01] MEDS ORDERED: Bupivacaine 0.5% 10 ML VIAL ONE (19:06)
[2017-11-01] MEDS ORDERED: Fentanyl 100 MCG/2 ML VIAL ONE (19:17)
[2017-11-01] MEDS ORDERED: Promethazine HCl 25 MG/ML VIAL SLOW IVP PRN (20:53)
[2017-11-01] MEDS ORDERED: Promethazine HCl 25 MG/ML VIAL IM PRN (20:53)
[2017-11-01] MEDS ORDERED: Ondansetron HCl/PF 4 MG/2 ML Vial IVP PRN (20:53)
[2017-11-01] MEDS: Insulin Detemir 100 UNITS/ML 18 UNITS in Pre-Filled Syringe 1 EACH SC SCH (22:42)
[2017-11-01] MEDS: Atorvastatin Calcium 20 MG TAB PO SCH (22:42)
[2017-11-02 05:29] LABS: #Lymphocytes 3.2 thou/uL (1.20-3.40); #Monocytes 0.5 thou/uL (0.11-0.59); #Neutrophils 12.5 thou/uL (1.40-6.50); %Basophils 0.1 % (0.0-1.0); %Eosinophils 0.1 % (0.0-10.0); %Lymphocytes 19.6 % (21.0-51.0); %Monocytes 2.9 % (0.0-10.0); %Neutrophils 77.3 % (42.0-75.0); Hemoglobin 8.5 g/dL (12.0-16.0); Mean Corpuscular HGB CONC 31.5 g/dL (32.0-36.0); Mean Corpuscular Volume 85.7 fl (81.0-99.0); Mean Platelet Volume 5.6 fL (7.4-10.4); Platelet Count 657 thou/uL (130-400); Red Blood Cell (RBC) Count 3.16 mill/uL (4.20-5.40); White Blood Cell (WBC) Count 16.2 thou/uL (4.8-10.8)
[2017-11-02 05:37] LABS: Anion Gap 12 mmol/L (10-20); BUN (Urea Nitrogen) 14 mg/dL (9.8-20.1); Calc. Creatinine Clearance 62 mL/min (70-130); Calcium 9.1 mg/dL (7.8-10.44); Carbon Dioxide 23 mmol/L (22-29); Chloride 102 mmol/L (98-107); Estimated GFR-MDRD Greater than 90; Glucose 194 mg/dL (70-105); Potassium 4.1 mmol/L (3.5-5.1); Sodium 133 mmol/L (136-145)
--- NOTE | 2017-11-02 06:18 | CON ---
DATE OF CONSULT: 11/01/2017 HISTORY OF PRESENT ILLNESS: Shanique Stephenson is a 50-year-old female hospitalized recently [facility] for endocarditis, history of drug use. She presented here shortly after dischar from that facility. She was appreciated to have a severe infection left hand and dry gangrene suresh nges right small and great toe. She had purulent drainage from the right small toe medially. Explan benigno x-rays reveal osteomyelitis of the right small toe distal phalanx. Patient is admitted to [facility]. By the time, I saw her, she was asleep in the operating room for surgical debride ment of her left hand per Dr. Guerra. I was not informed that she was going to the operating room or else she would have had both procedures performed under the same anesthesia tonight. At this poin t, consent cannot be obtained. I will talk to the patient in the morning. PHYSICAL EXAMINATION: GENERAL: Patient is cachectic and thin. LUNGS: Clear to auscultation. CARDIAC: Regular rate and rhythm without murmur or gallop. ABDOMEN: Soft, nontender. EXTREMITIES: Palpable femoral, popliteal pulses, dry gangrene. Right great and small toe nonpalpabl e pedal pulses. Patient has a purulent discharge on compression of the right small toe. IMAGING: X-rays of the right foot reveals osteomyelitis of the distal right flank and small toe. Cu ltures pending. Basic metabolic profile essentially normal. White count 14, hemoglobin 9.5. ASSESSMENT AND PLAN: History of endocarditis. We will discuss with the patient tomorrow and obtain a history and obtain consent for amputation in the right small toe; cannot do that tonight as she is under anesthesia. She has dry gangrene of the right great toe. We will ask Cardiovascular to see re garding her PAD. She definitely has gzath-ypa-ldbi vascular disease related to her diabetes. She gillis s dry gangrene of right great toe and no surgical treatment is indicated. She has purulent discharge at right small toe, amputation of the small toe is indicated. Wound healing concern exists.
--- NOTE | 2017-11-02 06:43 | PDOC.FM ---
- Subjective Subjective: Pt again very tearful when talking with her. Hard to make sense of patient. Says that pain is being well controlled. Says she hasn't been hungry lately. Denies any other acute events overnight. Pt understands about needing surgery on her hand and foot. pt seemed to understand. - Objective Vital Signs & Weight: Vital Signs (12 hours) Temp Pulse Resp BP Pulse Ox 11/01/17 21:32 98.9 F 105 H 20 98/56 L 100 Weight Admit Weight 46.357 kg Weight 47.854 kg I&O: 10/31/17 11/01/17 11/02/17 06:59 06:59 06:59 Intake Total 1472 Balance 1472 Result Diagrams: 11/02/17 05:04 11/02/17 05:04 Radiology Reviewed by me: Yes Radiology: MRI UE: Possible osteomyelitis in L. thumb. Correlate with Foot MRI <Chilo Bhardwaj - Last Filed: 11/02/17 09:21> - Objective Vital Signs & Weight: Vital Signs (12 hours) Temp Pulse Resp BP Pulse Ox 11/02/17 08:19 98.8 F 106 H 17 126/74 100 Weight Admit Weight 46.357 kg Weight 47.854 kg I&O: 11/01/17 11/02/17 11/03/17 06:59 06:59 06:59 Intake Total 1472 Balance 1472 Result Diagrams: 11/02/17 05:04 11/02/17 05:04 <Ariane Arguelles - Last Filed: 11/02/17 11:02> Phys Exam - Physical Examination Constitutional: NAD dry mucous membranes Neck: no nodes, supple, full ROM Respiratory: clear to auscultation bilateral Cardiovascular: RRR, no significant murmur, no rub Gastrointestinal: soft, non-tender, no distention, positive bowel sounds Musculoskeletal: no edema Neurological: non-focal Lymphatic: no nodes Deviation from normal: tearful affect. Hard to get history Deviation from normal: L. thumb wrapped. No drainage noted -: R. big toe black. 5th toe black and some redness noted. Dry skin on feet <Chilo Bhardwaj - Last Filed: 11/02/17 09:21> Dx/Plan (1) Dry gangrene Code(s): I96 - GANGRENE, NOT ELSEWHERE CLASSIFIED Status: Acute (2) Osteomyelitis Code(s): M86.9 - OSTEOMYELITIS, UNSPECIFIED Status: Acute QualifierTitle: Osteomyelitis location: hand Laterality: left (3) HTN (hypertension) Code(s): I10 - ESSENTIAL (PRIMARY) HYPERTENSION Status: Acute (4) CAD (coronary artery disease) Code(s): I25.10 - ATHSCL HEART DISEASE OF [place] CORONARY ARTERY W/O ANG PCTRS Status: Chronic QualifierTitle: Associated angina: without angina (5) COPD (chronic obstructive pulmonary disease) Status: Chronic (6) Chronic anemia Code(s): D64.9 - ANEMIA, UNSPECIFIED Status: Chronic (7) Moderate protein-calorie malnutrition Code(s): E44.0 - MODERATE PROTEIN-CALORIE MALNUTRITION Status: Chronic (8) PVD (peripheral vascular disease) Code(s): I73.9 - PERIPHERAL VASCULAR DISEASE, UNSPECIFIED Status: Chronic (9) Physical deconditioning Code(s): R53.81 - OTHER MALAISE Status: Chronic (10) Substance abuse Code(s): F19.10 - OTHER PSYCHOACTIVE SUBSTANCE ABUSE, UNCOMPLICATED Status: Chronic (11) Urge incontinence Code(s): N39.41 - URGE INCONTINENCE Status: Chronic (12) Type 2 diabetes mellitus with hyperglycemia Code(s): E11.65 - TYPE 2 DIABETES MELLITUS WITH HYPERGLYCEMIA Status: Suspected (13) Endocarditis due to Staphylococcus Code(s): I33.0 - ACUTE AND SUBACUTE INFECTIVE ENDOCARDITIS; B95.8 - UNSP STAPHYLOCOCCUS THE CAUSE OF DISEASES CLASSD ELSWHR Status: Resolved (14) ECTOR (acute kidney injury) Code(s): N17.9 - ACUTE KIDNEY FAILURE, UNSPECIFIED Status: Resolved - Plan Plan: Gangrenous Toes -General Surgery Consulted-Aleksey- will follow recs -plan for amputation of 5 toe at this time. Big toe dry gangrene will continue to monitor -MRI foot pending Osteomyelitis R. Thumb -ESR elevated. X-ray shows early osteomyelitis -MRI UE- shows osteomyelitis of L. Thumb. Correlate with LE MRI as could be systemic disease as well. Scleroderma or Raynouds. -Hand Surgery consulted- Dr. Guerra- will follow recs Physical Deconditioning - Patient unable to walk without assistance since being hospitalized past two months for sepsis 2/2 endocarditis, NSTEMI, and DKA at [facility] - Unable to care for self and homeless - No family support - CM consulted; appreciate recs - D/C planning process started - Sleeve Wheel Maker consulted; appreciate recs - PT/OT to evaluate and treat patient - Working on potential harper bed at [facility] Uncontrolled Type II DM with hyperglycemia - BG 599 on admission, Has sicne stabilized - Given 6 units of insulin in ED - Hyperglycemia protocol with mild SSI -Levemir 36 u am and 18 u hs. Will continue to check blood sugar and adjust accordingly. this was her regimen on discharge from the [facility] - Q4H accuchecks - HgA1c 7.3 during last hospitalization in September. Hgb A1c pending. CAD s/p [place] - Hospitalized recently at [facility]; discharged today - Lovenox for DVT PPX - Continue medications from last hospitalization - Echo with normal EF, no plans for cardiac catheterization at outside hospital Moderate Protein-Calorie Malnutrition - Albumin 2.6. Prealbumin lower than 5 - P normal. Mag low replacing - Ensure high protein supplementation - Sleeve Wheel Maker consult; appreciate recommendations - TSH normal Chronic Anemia - Has been iron deficiency in the past - Hg 9.4 on admission. At baseline - Continue to trend - Patient asymptomatic currently - Normocytic today - Iron deficiency vs. 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 Bp a little low, may need to cut back on medication COPD - Monitor O2 sats with goal >88% - Duoneb treatments PRN for shortness of breath/wheezing PVD - Pulses intact -CV surgery consulted- Will assess PAD for healing in legs. Will follow recs Endocarditis s/p treatment with IV abx - MRSA with pulmonary emboli, renal emboli, osteomyelitis, and discitis of C5-6 - Negative cultures on 10/28/2017 - s/p treatment with 6 weeks vancomycin/daptomycin - Complications include PICC line infection with Klebsiella requiring treatment with levoquin at outside facility - Continue rifampin and minocycline x1 month - Echo showed normal EF Mild anion gap metabolic acidosis-Resolved - Likely 2/2 hyperglycemia - BMP in AM - HCO3 wnl - Anion gap 17->11 Sacral decubitus ulcer - Consult wound care - Frequent turning of patient Schizophrenia - continue on home meds <Chilo Bhardwaj - Last Filed: 11/02/17 09:21> Attending Addendum - Attending Addendum Date/Time: 11/02/17 1101 I personally evaluated the patient and discussed the management with Dr. Bhardwaj. I agree with the History, Examination, Assessment and Plan documented above with any addition or exceptions noted below. The patient had debridement of hand last night and cultures are pending. Osteomyelitis seen on MRI in the hand. WBC increasing. Will stop minocycline and start vancomycin. Dr. Bosch has been consulted and will f/u with his recommendations. Dr. Ryder plans to amputate right 5th toe. Continue wound care. Will also add mirtazapine as patient has depression and extremely poor appetite. <Ariane Arguelles - Last Filed: 11/02/17 11:02>
[2017-11-02] MEDS ORDERED: Sodium Chloride 0.9% 1,000 ML IV SCH (07:00)
[2017-11-02] MEDS: Sodium Chloride 0.9% 1,000 ML IV SCH ×2 (08:22→14:12)
[2017-11-02] MEDS: Aspirin 81 mg Enteric Coated Tablet PO SCH (08:22)
[2017-11-02] MEDS: Magnesium Chloride 64 MG TAB PO SCH ×2 (08:22→21:44)
[2017-11-02] MEDS: INSULIN DETEMIR SC SCH ×2 (08:22→13:57)
[2017-11-02] MEDS: PRE FILLED SC SCH ×2 (08:22→13:57)
[2017-11-02] MEDS: Potassium Chloride 20 MEQ TAB PO SCH (08:22)
[2017-11-02] MEDS: Enoxaparin Sodium 40 MG/0.4 ML SYRINGE SC SCH (08:22)
[2017-11-02] MEDS: Rifampin 300 MG CAP PO SCH ×2 (08:25→21:45)
[2017-11-02] MEDS: Metoprolol Tartrate 50 MG TAB PO SCH ×2 (08:26→21:44)
--- NOTE | 2017-11-02 09:21 | MRI ---
LEFT UPPER EXTREMITY MRI WITHOUT IV CONTRAST: Date: 11/01/17 HISTORY: 52-year-old female with history of abnormal distal thumb with clinical concern for osteomyelitis. FINDINGS: Exam is very limited because of severe patient motion artifact. There are some soft tissue changes involving the distal thumb with some minimally increased T2 hyperi ntensity within the phalanges of the thumb, as well as some mild T1 hypointensity. There appears to b e some intense T2 hyperintensity involving the thumb nail which appears to be thickened. No evidence for acute tenderness or ligamentous injury. IMPRESSION: Some abnormal marrow signal within the proximal and distal phalanges of the thumb with some associate d soft tissue changes, as well as some T2 hyperintensity and edematous changes and thickening of the thumb nail. These findings certainly could represent osteomyelitis, although given the abnormal zamudio es of the right first and fifth toes, some other type of acro-osteolysis, including Raynaud's disease or scleroderma, are considerations as well. Correlate with clinical findings. POS: TPC
--- NOTE | 2017-11-02 09:23 | MRI ---
RIGHT FOOT MRI WITHOUT IV CONTRAST: HISTORY: A 52-year-old female with a history of 1st and 5th toe abnormalities with clinical concern for osteom yelitis. COMPARISON: Plain film examination 11/01/17. FINDINGS: There are some bony destructive changes of the distal phalanx of the 5th toe with what also appears t o be some soft tissue loss of the distal tip of the 5th toe as well. The middle and proximal phalang es of the 5th toe, however, do not show any significant abnormal marrow signal. In the 1st toe, there are some abnormal soft tissue changes of the distal great toe with abnormal mar row signal within the distal phalanx. There is also some minimal scattered abnormal STIR and T2 hype rintensity within the 1st metatarsal which has more of a nonspecific appearance. There are some gene ralized degenerative changes. IMPRESSION: 1. Bony destructive changes of the distal portion of the distal phalanx of the 5th toe with some ass ociated soft tissue loss as well as some abnormal marrow signal and soft tissue changes in the distal aspect of the great toe, evidence for some type of acroosteolysis. The certainly could represent mu ltifocal distal toe osteomyelitis. However, other types of acroosteolysis including Raynaud's diseas e as well as scleroderma are possibilities as well. 2. Minimal nonspecific patchy signal changes in the 1st metatarsal would be very unlikely to represe nt osteomyelitis but could represent some nonspecific osteitis or possibly even reactive changes or s tress-related changes within the 1st toe metatarsal. POS: TPC
[2017-11-02] MEDS ORDERED: Fentanyl 100 MCG/2 ML VIAL ONE ×2 (11:55→13:03)
[2017-11-02] MEDS ORDERED: Ondansetron HCl/PF 4 MG/2 ML Vial IVP PRN (12:53)
[2017-11-02] MEDS ORDERED: Promethazine HCl 25 MG/ML VIAL SLOW IVP PRN (12:53)
[2017-11-02] MEDS ORDERED: Promethazine HCl 25 MG/ML VIAL IM PRN (12:53)
--- NOTE | 2017-11-02 13:53 | OP ---
DATE OF PROCEDURE: 11/02/2017 PREOPERATIVE DIAGNOSES: Peripheral artery disease, diabetes, history of IV drug abuse, endocarditis status post IV antibiotic treatment in [facility], dry gangrene right great toe o steomyelitis, right small toe distal phalanx with open wound, purulent discharge, and diabetic ulcera tion. POSTOPERATIVE DIAGNOSES: Peripheral artery disease, diabetes, history of IV drug abuse, endocarditis status post IV antibiotic treatment in [facility], dry gangrene right great toe osteomyelitis, right small toe distal phalanx with open wound, purulent discharge, and diabetic ulcer ation. PROCEDURE: Amputation of the right small toe through the proximal phalanx, wound left open healing b y secondary intention, good bleeding at the amputation site despite clinical evidence of PAD, and his tory of cocaine inhalational abuse. Wound care placed the wound VAC, right foot. Plan, change the w ound VAC on Sunday, view the wound and if it is looking good, she could have non-wound VAC care as an outpatient beginning Sunday. SURGEON: Brian Ryder M.D. ESTIMATED BLOOD LOSS: 5 mL. PROCEDURE IN DETAIL: Patient taken to the operating room, where under general anesthesia, right foot was prepared with ChloraPrep, draped in routine fashion. Amputation of right small toe through the proximal phalanx, carried out by making a skin incision, fishmouth type, carried down through the ski n and subcutaneous tissue and bone transected with a bone cutter, resected proximally with a rongeur. Good hemostasis obtained, not requiring cautery. Wound irrigated. Wound care team arrived to plac e the wound VAC. The patient tolerated the procedure well.
[2017-11-02] MEDS: Vancomycin HCl 750 MG, Admixture Fee 1 EACH in Sodium Chloride 0.9% 250 ML 250 ML IVPB SCH (14:12)
[2017-11-02] MEDS ORDERED: Lidocaine 1% PF 5 ML VIAL ONE (14:29)
[2017-11-02] MEDS ORDERED: Ondansetron HCl/PF 4 MG/2 ML Vial ONE (14:29)
[2017-11-02] MEDS ORDERED: PROPOFOL 200 MG/20 ML VIAL ONE (14:29)
[2017-11-02] MEDS: Acetaminophen 325 MG TAB PO PRN ×2 (16:18→21:49)
--- NOTE | 2017-11-02 16:42 | CON ---
DATE OF CONSULTATION: 11/02/2017 HISTORY OF PRESENT ILLNESS: This is a 52-year-old woman who was recently discharged from the [facility] she was treated for MRSA endocarditis. She was transitioned to [facility], but when arriv ing there, they were told that she could not be taking care of, and was brought to [facility]. Sin ce being here, she has had fingernails on her left hand debrided and right fifth toe amputation. The pattern of disease appears to me to be an embolic type pattern. She has had no atrial arrhythmias s james being in the hospital. She has not had an echocardiogram performed. I was asked to see her to evaluate her vascular status. PAST MEDICAL HISTORY: 1. History of IV drug abuse. 2. Diabetes mellitus. 3. Hypertension. 4. Methicillin-resistant Staphylococcus aureus endocarditis. 5. Hyperlipidemia. 6. COPD. 7. Small vessel peripheral vascular disease. 8. Schizophrenia. 9. Status post non-ST elevation myocardial infarction in 09/2017. SOCIAL HISTORY: The patient has not used any drugs in the last 3-4 months. She denies alcohol or to bacco use. REVIEW OF SYSTEMS: Not performed due to the patient's mental status currently. PHYSICAL EXAMINATION: VITAL SIGNS: Height 5 feet 1 inches, weight 105 pounds. Pulse is 100 and regular, blood pressure is 98/56. NECK: Supple, without adenopathy. CHEST: Clear bilaterally. HEART: Rhythm is regular. ABDOMEN: Soft and nontender. VASCULAR: She has palpable carotid, radial, femoral, and popliteal pulses bilaterally. Her right fo ot is wrapped and I cannot get her pulses to palpate them, but I can Doppler dorsalis pedis. Her lef t dorsalis pedis is dopplerable. ASSESSMENT AND PLAN: Known small vessel peripheral vascular disease and may have had an embolic even t causing both her finger and toe issues. I would put her on adult aspirin -- she is unreliable and I do not think she is going to take any medicines when she leaves the hospital anyway.
[2017-11-02] MEDS: HumaLOG 300 UNITS/3 ML VIAL SC PRN (18:05)
--- NOTE | 2017-11-02 20:15 | RAD ---
PORTABLE CHEST: 11/02/17 HISTORY: Endocarditis with septic emboli. Lungs are well aerated. No definite infiltrate. There is a question of a nodular density in the left upper lung. Heart and mediastinum are unremarkable. IMPRESSION: No evidence of inflammatory infiltrate. Question nodular density in the left upper lung. This may be vascular and is not adequately evaluated on this portable projection. Recommend followup PA and later al views of the chest. Code T POS: YOCASTA
[2017-11-02] MEDS ORDERED: Vancomycin HCl 1 GM in Premix Bag 1 BAG IVPB SCH (21:00)
[2017-11-02] MEDS: Mirtazapine 15 MG TAB PO SCH (21:44)
[2017-11-02] MEDS: Atorvastatin Calcium 20 MG TAB PO SCH (21:44)
[2017-11-02] MEDS: Insulin Detemir 100 UNITS/ML 18 UNITS in Pre-Filled Syringe 1 EACH SC SCH (21:44)
[2017-11-03] MEDS: Vancomycin HCl 750 MG, Admixture Fee 1 EACH in Sodium Chloride 0.9% 250 ML 250 ML IVPB SCH ×2 (02:07→12:19)
[2017-11-03] MEDS: Sodium Chloride 0.9% 1,000 ML IV SCH ×2 (04:41→21:58)
[2017-11-03 05:27] LABS: #Eosinphils 0.2 thou/uL (0.0-0.7); #Lymphocytes 2.4 thou/uL (1.20-3.40); #Monocytes 0.7 thou/uL (0.11-0.59); #Neutrophils 7.1 thou/uL (1.40-6.50); %Basophils 0.2 % (0.0-1.0); %Eosinophils 2.1 % (0.0-10.0); %Lymphocytes 23.4 % (21.0-51.0); %Monocytes 6.5 % (0.0-10.0); %Neutrophils 67.8 % (42.0-75.0); Hemoglobin 8.9 g/dL (12.0-16.0); Mean Corpuscular HGB CONC 31.9 g/dL (32.0-36.0); Mean Corpuscular Hemoglobin 27.4 pg (27.0-31.0); Mean Corpuscular Volume 85.9 fl (81.0-99.0); Mean Platelet Volume 5.6 fL (7.4-10.4); Platelet Count 659 thou/uL (130-400); RBC Distribution Width 20.3 % (11.5-14.5); Red Blood Cell (RBC) Count 3.23 mill/uL (4.20-5.40); White Blood Cell (WBC) Count 10.4 thou/uL (4.8-10.8)
[2017-11-03 05:44] LABS: Anion Gap 9 mmol/L (10-20); BUN (Urea Nitrogen) 13 mg/dL (9.8-20.1); Calc. Creatinine Clearance 76 mL/min (70-130); Calcium 9.3 mg/dL (7.8-10.44); Carbon Dioxide 26 mmol/L (22-29); Chloride 106 mmol/L (98-107); Estimated GFR-MDRD Greater than 90; Glucose 186 mg/dL (70-105); Potassium 3.5 mmol/L (3.5-5.1); Sodium 137 mmol/L (136-145)
--- NOTE | 2017-11-03 07:44 | PDOC.FM ---
- Subjective Subjective: Pt had a good night per nursing. She is still confused however this seems to be improving somewhat. She has significant R LE pain with motion and she cannot/ will not move it on her own. - Objective Vital Signs & Weight: Vital Signs (12 hours) Temp Resp BP Pulse Ox 11/03/17 04:40 98 11/03/17 03:29 99.3 F 17 164/83 H 98 Weight Admit Weight 46.357 kg Weight 49.759 kg I&O: 11/02/17 11/03/17 11/04/17 06:59 06:59 06:59 Intake Total 1472 3851 Balance 1472 3851 Result Diagrams: 11/03/17 04:40 11/03/17 04:40 <Xavier Padilla - Last Filed: 11/03/17 07:42> - Objective Vital Signs & Weight: Vital Signs (12 hours) Temp Pulse Resp BP BP Pulse Ox 11/03/17 08:55 98 F 112 H 16 160/93 H 97 11/03/17 08:24 98 F 112 H 16 11/03/17 04:40 98 11/03/17 03:29 99.3 F 17 164/83 H 98 Weight Admit Weight 46.357 kg Weight 49.759 kg I&O: 11/02/17 11/03/17 11/04/17 06:59 06:59 06:59 Intake Total 1472 3851 Balance 1472 3851 Result Diagrams: 11/03/17 04:40 11/03/17 04:40 <Ariane Arguelles - Last Filed: 11/03/17 11:19> Phys Exam - Physical Examination Constitutional: NAD HEENT: PERRLA, moist MMs Neck: no nodes Respiratory: clear to auscultation bilateral Cardiovascular: RRR Gastrointestinal: soft, non-tender Musculoskeletal: no edema Dressings on L hand and right foot are clean and dry Neurological: non-focal Psychiatric: normal affect, A&O x 3 Skin: no rash <Xavier Padilla - Last Filed: 11/03/17 07:42> Dx/Plan (1) Dry gangrene Code(s): I96 - GANGRENE, NOT ELSEWHERE CLASSIFIED Status: Acute (2) HTN (hypertension) Code(s): I10 - ESSENTIAL (PRIMARY) HYPERTENSION Status: Chronic (3) Osteomyelitis Code(s): M86.9 - OSTEOMYELITIS, UNSPECIFIED Status: Chronic QualifierTitle: Osteomyelitis location: hand Laterality: left (4) CAD (coronary artery disease) Code(s): I25.10 - ATHSCL HEART DISEASE OF [place] CORONARY ARTERY W/O ANG PCTRS Status: Chronic QualifierTitle: Associated angina: without angina (5) COPD (chronic obstructive pulmonary disease) Status: Chronic (6) Chronic anemia Code(s): D64.9 - ANEMIA, UNSPECIFIED Status: Chronic (7) Moderate protein-calorie malnutrition Code(s): E44.0 - MODERATE PROTEIN-CALORIE MALNUTRITION Status: Chronic (8) PVD (peripheral vascular disease) Code(s): I73.9 - PERIPHERAL VASCULAR DISEASE, UNSPECIFIED Status: Chronic (9) Physical deconditioning Code(s): R53.81 - OTHER MALAISE Status: Chronic (10) Substance abuse Code(s): F19.10 - OTHER PSYCHOACTIVE SUBSTANCE ABUSE, UNCOMPLICATED Status: Chronic (11) Urge incontinence Code(s): N39.41 - URGE INCONTINENCE Status: Chronic (12) Type 2 diabetes mellitus with hyperglycemia Code(s): E11.65 - TYPE 2 DIABETES MELLITUS WITH HYPERGLYCEMIA Status: Suspected (13) ECTOR (acute kidney injury) Code(s): N17.9 - ACUTE KIDNEY FAILURE, UNSPECIFIED Status: Resolved - Plan Plan: Gangrenous Toes -S/p amputation R 5th toe -MRI foot pending Osteomyelitis R. Thumb -ESR elevated. X-ray shows early osteomyelitis/ S/p I&D -MRI UE- shows osteomyelitis of L. Thumb. Correlate with LE MRI as could be systemic disease as well. Scleroderma or Raynouds. -Hand Surgery consulted- Dr. Guerra- will follow recs Physical Deconditioning - Patient unable to walk without assistance since being hospitalized past two months for sepsis 2/2 endocarditis, NSTEMI, and DKA at [facility] - Unable to care for self and homeless - No family support - CM consulted; appreciate recs - D/C planning process started - Acrylic Fabricator consulted; appreciate recs - PT/OT to evaluate and treat patient - Working on potential harper bed at [facility] Uncontrolled Type II DM with hyperglycemia - BG 599 on admission, Has since stabilized. - Hyperglycemia protocol with mild SSI -Levemir 36 u am and 18 u hs. Will continue to check blood sugar and adjust accordingly. this was her regimen on discharge from the med. Levemir morning dose was held yesterday. Will adjust insulin based on todays findings. - Q4H accuchecks CAD s/p [place] - Hospitalized recently at [facility]; discharged earlier this week. - Lovenox for DVT PPX - Continue medications from last hospitalization - Echo with normal EF, no plans for cardiac catheterization at outside hospital Moderate Protein-Calorie Malnutrition - Albumin 2.6. Prealbumin lower than 5 - P normal. Mag low replacing - Ensure high protein supplementation - Acrylic Fabricator consult; appreciate recommendations - TSH normal Chronic Anemia - Stable today - Has been iron deficiency in the past - Hg 9.4 on admission. At baseline - Continue to trend - Patient asymptomatic currently - Normocytic today - Iron deficiency vs. ACD ECTOR on CKD- Resolved - Stable. 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 Bp a little low, may need to cut back on medication COPD - Monitor O2 sats with goal >88% - Duoneb treatments PRN for shortness of breath/wheezing PVD - Pulses intact -CV surgery consulted- Will assess PAD for healing in legs. Will follow recs Endocarditis s/p treatment with IV abx - MRSA with pulmonary emboli, renal emboli, osteomyelitis, and discitis of C5-6 - Negative cultures on 10/28/2017 - s/p treatment with 6 weeks vancomycin/daptomycin - Complications include PICC line infection with Klebsiella requiring treatment with levoquin at outside facility - Continue rifampin and minocycline x1 month - Echo showed normal EF Mild anion gap metabolic acidosis-Resolved - Resolved Sacral decubitus ulcer - Consult wound care - Frequent turning of patient Schizophrenia - continue on home meds <Xavier Padilla - Last Filed: 11/03/17 07:42> Attending Addendum - Attending Addendum Date/Time: 11/03/17 1118 I personally evaluated the patient and discussed the management with Dr. Padilla. I agree with the History, Examination, Assessment and Plan documented above with any addition or exceptions noted below. The patient underwent amputation of toe yesterday. Pt now on IV vancomycin. Will get MRI and echo today. Dr. Bosch has been consulted. Case management is working with patient for discharge planning. Will also get CXR today. Patient is starting to feel hungry and will try to eat breakfast. <Ariane Arguelles - Last Filed: 11/03/17 11:19>
[2017-11-03] MEDS: Potassium Chloride 20 MEQ TAB PO SCH (08:55)
[2017-11-03] MEDS: Aspirin 325 mg Enteric Coated Tablet PO SCH (08:55)
[2017-11-03] MEDS: Lisinopril 2.5 MG TAB PO SCH (08:55)
[2017-11-03] MEDS: Aspirin 81 mg Enteric Coated Tablet PO SCH (08:55)
[2017-11-03] MEDS: Magnesium Chloride 64 MG TAB PO SCH ×2 (08:56→21:49)
[2017-11-03] MEDS: Enoxaparin Sodium 40 MG/0.4 ML SYRINGE SC SCH (08:56)
[2017-11-03] MEDS: Metoprolol Tartrate 50 MG TAB PO SCH ×2 (08:56→21:49)
[2017-11-03] MEDS: PRE FILLED SC SCH (08:57)
[2017-11-03] MEDS: INSULIN DETEMIR SC SCH (08:57)
[2017-11-03] MEDS: Acetaminophen 325 MG TAB PO PRN (08:59)
[2017-11-03] MEDS: Rifampin 300 MG CAP PO SCH ×2 (09:01→21:50)
--- NOTE | 2017-11-03 11:41 | RAD ---
PA AND LATERAL VIEWS OF CHEST: Date: 11/03/17 HISTORY: Endocarditis with septic emboli and questioned nodular density in the left upper lung on the previous day's portable exam. FINDINGS: Comparison made with exam of previous day. The heart size is normal. The aorta is tortuous. The lungs are expanded without focal areas of consol idation, pneumothorax, or pleural effusions. The questionable nodular density in the left upper lobe is not definitely seen on the current exam. IMPRESSION: No acute process. POS: [facility]
--- NOTE | 2017-11-03 15:18 | MRI ---
CERVICAL SPINE MRI WITHOUT CONTRAST: Date: 11/03/17 COMPARISON: None. HISTORY: Diskitis. TECHNIQUE: Multiplanar, multisequence MR imaging of the cervical spine is provided without contrast. FINDINGS: The STIR imaging demonstrates extensive abnormal increased signal intensity within the C5 and C6 vert ebral body and the C5-6 intervertebral disc. The T1-weighted imaging demonstrates abnormal decreased signal intensity within C5 and C6 with irregularity involving the inferior end plate of C5, superior end plate of C6, and anterior cortex of both the C5 and C6 vertebral body blending in to the adjacent prevertebral soft tissues. There is linear fluid signal intensity in the prevertebral space anterior to C3, C4, C5, and C6. STIR and T2-weighted imaging demonstrates fluid signal intensity in the region of bilateral facet melissa nts at the C5 and C6 levels extending into the interspinous ligament region at C5-6 and to a lesser d egree C6-7. Motion limits detailed assessment of axial T2 and T1-weighted imaging. No definite abnormal signal in tensity is identified within the cervical cord. C2-3: Intervertebral disc height and signal intensity grossly unremarkable with no significant central shalini l or neural foraminal stenosis. C3-4: There is disc desiccation and mild disc bulge with partial effacement of the intrathecal sac and mild central canal stenosis. No significant neural foraminal stenosis. C4-5: Disc desiccation and mild disc space narrowing. Minimal disc bulge with partial effacement of the rubina tral thecal sac. No significant central canal stenosis. Bilateral facet and uncovertebral osteophyte formation with mild bilateral neural foraminal stenosis noted. C5-6: The intervertebral disc is completely replaced with abnormal T1 and T2 signal as described above. Mil d disc bulge effaces ventral thecal sac and causes a mild degree of central canal stenosis. There is mild to moderate bilateral neural foraminal stenosis, left greater than right, which may be on the ba sis of inflammatory/infectious material extending into the neural foramina and/or facet and uncoverte bral osteophyte formation. C6-7: There is disc space narrowing and disc desiccation. There is anterior osteophyte formation. There is moderate to severe left neural foraminal stenosis and mild right neural foraminal stenosis on the bas is of degenerative osteophyte formation. C7-T1: No significant central canal or neural foraminal stenosis. The STIR imaging demonstrates increased signal intensity in the region of the first left costovertebr al junction. In addition, there is slight increased signal intensity on T2-weighted imaging just late ral to the neural foramen at T1-2 on the left, which may signify inflammatory/infectious process, inc ompletely assessed. IMPRESSION: 1. Findings concerning for prominent diskitis/osteomyelitis at C5-6 extending into the prevertebral regions with bilateral neural foraminal and central canal stenosis. In addition, there may be septic arthritis at the first costovertebral joint on the left, only partially imaged on this exam. This cou ld be better assessed with follow-up MRI of thoracic spine. Of note, the lack of contrast media limit s detailed assessment, as does the degree of motion artifact on the axial sequences. 2. Abnormal signal intensity in bilateral facet joints at C5-6 may represent bilateral facet joint s eptic arthritis. Results discussed with Dr. Kenny at approximately 1345 hours on 11/03/17. CODE CR. POS: [facility]
[2017-11-03] MEDS: HumaLOG 300 UNITS/3 ML VIAL SC PRN (16:11)
--- NOTE | 2017-11-03 16:28 | CON ---
DATE OF CONSULTATION: 11/03/2017 REASON FOR CONSULTATION: Readmission after recent discharge from [facility] where she was treated for extensive MRSA infection. HISTORY OF PRESENT ILLNESS: A 52-year-old known to me from recent admission to [facility] where she was admitted with sepsis. The patient remained in the hospital for 6 weeks, during which she had extensive evaluation. 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 The patient in addition to that had some issues related to psychiatric diagnosis stated as schizophrenia, homelessness, and for that reason she remained in the hospital for a protracted period of time. She was basically unwilling to be discharged from the other hospital, she was put in her friend's car and sent to the [facility] and reportedly the patient decided to instead come to the emergency room here at [facility] and has been admitted. The initial findings showed blood pressure 127/79, heart rate 93, respiratory rate 18, temperature 98, O2 sat 100%. She had areas of ischemic necrosis of the right first and fifth toes and areas of ulceration on the left thumb. She did not have any IV access on admission. Initial labs, her white cell count 14,000, hemoglobin 9.5, platelets 652 with sodium 131, creatinine 1.43, carbon dioxide 23, and glucose 599. Initial reports included a shoulder x-ray with normal findings. A foot x- ray right side with erosion of tuft distal aspect of the distal phalanx of fifth toe. Hand x-ray left with no evidence of osseous abnormality. The lower extremity MRI from the right foot with bony destructive changes fifth toe and soft tissue changes, abnormal marrow signal right great toe. The upper extremity MRI with abnormal marrow signal distal phalanges of the thumb, soft tissue changes as well. The patient had a chest x-ray with no inflammatory infiltrate with question of nodular density left upper lobe. Currently, Ms. Stephenson is awake. Her overall appearance is much improved compared with what I had seen in [facility]. She is awake and alert, and in good spirits. She denies any neck pain anymore when previously she had severe limitations of cervical motion due to pain. Still with quite a bit of pain in the left hand following surgical interventions, partial debridement and pain in the right foot associated with the recent procedure as well as ischemic process. The patient denies any respiratory symptoms. No abdominal pain or diarrhea. No genitourinary symptoms. No other joint symptoms outside the areas of involvement noted above. PAST MEDICAL HISTORY: Type 2 diabetes, coronary artery disease, schizophrenia, hypertension, COPD, peripheral vascular disease, and findings noted for the recent admission at [facility]. PAST SURGICAL HISTORY: Negative prior to this current admission. FAMILY HISTORY: Noncontributory. SOCIAL HISTORY: Homeless, former smoker. No IV drug use, but some use of cocaine. No alcoholic beverage use. CURRENT MEDICATIONS: Tylenol, aspirin, Lipitor, dextrose, Lovenox, insulin, lisinopril, lorazepam, metoprolol, mirtazapine, ondansetron, potassium, rifampin , and vancomycin. PHYSICAL EXAMINATION: VITAL SIGNS: The patient has been afebrile. T-max 99.3. Other vital signs are within normal limits. SKIN: Shows the areas of necrosis right first and fifth toe, area of amputation right fifth toe and areas of partial amputation of the left hand digits ulcerations. She has a stage I area of pressure damage presacral region. Peripheral IV access noted. No Carlos catheter. HEENT: Ocular movements are conjugate. Oral cavity is with numerous missing teeth. Remainder ones with marked decay. There is somewhat dry oral mucosa, but no lesions. NECK: Supple, much improved range of motion of the neck, both flexion as well as lateral movement. LUNGS: With a few scattered rhonchi and crackles, particularly on the right side. HEART: S1, S2, without obvious murmurs. Regular rate. No S3. ABDOMEN: Soft, not distended or tender. No ascites. No bladder distention. EXTREMITIES: No knee inflammatory process, no effusion, ankles also without any effusion and swelling, no inflammatory toe. Pulses are diminished in dorsalis pedis. She has cool distal extremities. She is able to move extremities with some limitation because of inflammatory process and ischemia. NEUROLOGIC: Cognitive function appears to be intact. LABORATORY DATA: White cell count is down to 10.4, hemoglobin 8.9, platelets 659 with still some neutrophilia in the differential, but no bands. Creatinine 0.68, sodium 137, glucose is down to 186. The liver profile was normal. Albumin is 2.6. Microbiology thus far we have Staph aureus and Melissa albicans from the thumb and nail cultures. Blood cultures 2 sets thus far negative 48 hours. ASSESSMENT AND PLAN: Extensive methicillin-resistant Staphylococcus aureus infection with bacteremia, C-spine, lung, endocardial involvements and embolic lesions noted above with extensive stay at the [facility] where she received complete treatment or what we felt would be a complete treatment course. Evidently, she still has evidence of inflammatory activity in view of the elevated white cell count and platelet count. The areas of concern include mostly the C-spine, the toes and the fingers on the left hand as well as the lung involvement. Repeat blood cultures will be monitored. Advised repeating C-spine MRI and a chest x-ray seems to be okay. For the time being, she will be on vancomycin if the blood cultures remain negative and depending on the findings in the C-spine film, and then would be able to go back to the oral regimen that she had been discharged on from [facility]. Again, the main issue here regarding disposition is homelessness and her psychiatric diagnosis. She obviously will need to have either a place to stay with family members to care for her or be admitted to a supervised setting, and this will be the main limitation in disposition. Followup echocardiogram also advised if not yet ordered. RICHARD
[2017-11-03] MEDS: Insulin Detemir 100 UNITS/ML 18 UNITS in Pre-Filled Syringe 1 EACH SC SCH (21:48)
[2017-11-03] MEDS: Atorvastatin Calcium 20 MG TAB PO SCH (21:48)
[2017-11-03] MEDS: Mirtazapine 15 MG TAB PO SCH (21:49)
[2017-11-04 00:53] LABS: Vancomycin, Trough 12.8 ug/mL
[2017-11-04] MEDS: Vancomycin HCl 750 MG, Admixture Fee 1 EACH in Sodium Chloride 0.9% 250 ML 250 ML IVPB SCH (01:15)
[2017-11-04] MEDS ORDERED: Dextrose 5% in Water 1,000 ML IV PRN (07:24)
[2017-11-04] MEDS ORDERED: Dextrose 50% Abboject 50 ML SYRINGE SLOW IVP PRN (07:24)
--- NOTE | 2017-11-04 07:28 | PDOC.FM ---
- Subjective Subjective: Pt states that she is doing well today and that her pain is well controlled. She has no specific complaints today. There were no acute events over night. She states that her appetite is improving and that she ate her dinner last night and plans to eat breakfast today. - Objective Vital Signs & Weight: Weight Admit Weight 46.357 kg Weight 49.759 kg I&O: 11/03/17 11/04/17 11/05/17 06:59 06:59 06:59 Intake Total 3851 2628 Balance 3851 2628 Result Diagrams: 11/03/17 04:40 11/03/17 04:40 <Xavier Padilla - Last Filed: 11/04/17 07:26> - Objective Vital Signs & Weight: Vital Signs (12 hours) Temp Pulse Resp BP BP Pulse Ox 11/04/17 12:04 97.7 F 88 20 120/76 98 11/04/17 08:40 100 141/81 H 11/04/17 08:17 98.2 F 100 20 141/81 H 100 11/04/17 08:00 98.2 F 100 20 100 11/04/17 04:00 96 Weight Admit Weight 46.357 kg Weight 49.85 kg I&O: 11/03/17 11/04/17 11/05/17 06:59 06:59 06:59 Intake Total 3851 4438 Balance 3851 4438 Result Diagrams: 11/03/17 04:40 11/03/17 04:40 <Ariane Arguelles - Last Filed: 11/04/17 14:01> Phys Exam - Physical Examination Constitutional: NAD HEENT: PERRLA, moist MMs Neck: full ROM No point tenderness. No pain w/ROM Respiratory: clear to auscultation bilateral Cardiovascular: RRR, no significant murmur Gastrointestinal: soft, non-tender Musculoskeletal: no edema Dressings are clean and dry. No change to right great toe which has known gangrene Neurological: non-focal, normal sensation Psychiatric: normal affect, A&O x 3 Skin: no rash, normal turgor <Xavier Padilla - Last Filed: 11/04/17 07:26> Dx/Plan (1) Septic arthritis of cervical spine Code(s): M46.52 - OTHER INFECTIVE SPONDYLOPATHIES, CERVICAL REGION Status: Acute (2) Discitis of cervical region Code(s): M46.42 - DISCITIS, UNSPECIFIED, CERVICAL REGION Status: Acute (3) Dry gangrene Code(s): I96 - GANGRENE, NOT ELSEWHERE CLASSIFIED Status: Acute (4) HTN (hypertension) Code(s): I10 - ESSENTIAL (PRIMARY) HYPERTENSION Status: Chronic (5) Osteomyelitis Code(s): M86.9 - OSTEOMYELITIS, UNSPECIFIED Status: Chronic QualifierTitle: Osteomyelitis location: hand Laterality: left (6) CAD (coronary artery disease) Code(s): I25.10 - ATHSCL HEART DISEASE OF [place] CORONARY ARTERY W/O ANG PCTRS Status: Chronic QualifierTitle: Associated angina: without angina (7) COPD (chronic obstructive pulmonary disease) Status: Chronic (8) Chronic anemia Code(s): D64.9 - ANEMIA, UNSPECIFIED Status: Chronic (9) Moderate protein-calorie malnutrition Code(s): E44.0 - MODERATE PROTEIN-CALORIE MALNUTRITION Status: Chronic (10) PVD (peripheral vascular disease) Code(s): I73.9 - PERIPHERAL VASCULAR DISEASE, UNSPECIFIED Status: Chronic (11) Physical deconditioning Code(s): R53.81 - OTHER MALAISE Status: Chronic (12) Substance abuse Code(s): F19.10 - OTHER PSYCHOACTIVE SUBSTANCE ABUSE, UNCOMPLICATED Status: Chronic (13) Urge incontinence Code(s): N39.41 - URGE INCONTINENCE Status: Chronic (14) Type 2 diabetes mellitus with hyperglycemia Code(s): E11.65 - TYPE 2 DIABETES MELLITUS WITH HYPERGLYCEMIA Status: Suspected (15) ECTOR (acute kidney injury) Code(s): N17.9 - ACUTE KIDNEY FAILURE, UNSPECIFIED Status: Resolved - Plan Plan: Discitis/Septic arthritis of C5-6 - Concern for this dx based on yesterdays MRI - Dr Bosch has been consulted, will continue IV vanc - Vanc trough low this morning, adjusted dose and recheck in 4 doses - Will consult neuro surg today Gangrenous Toes -S/p amputation R 5th toe -MRI foot pending Osteomyelitis R. Thumb -ESR elevated. X-ray shows early osteomyelitis/ S/p I&D -MRI UE- shows osteomyelitis of L. Thumb. Correlate with LE MRI as could be systemic disease as well. Scleroderma or Raynouds. -Hand Surgery consulted- Dr. Guerra- will follow recs Physical Deconditioning - Patient unable to walk without assistance since being hospitalized past two months for sepsis 2/2 endocarditis, NSTEMI, and DKA at [facility] - Unable to care for self and homeless - No family support - CM consulted; appreciate recs - D/C planning process started - Independent Crop Consultant consulted; appreciate recs - PT/OT to evaluate and treat patient - Working on potential harper bed at [facility] Uncontrolled Type II DM with hyperglycemia - BG 599 on admission, Has since stabilized. - Hyperglycemia protocol with mod SSI -Levemir 36 u am and 18 u hs. Will continue to check blood sugar and adjust accordingly. this was her regimen on discharge from the med. Still elevated this morning. Changed to mod SSI. Will look at total dosing and adjust basal/ scheduled Humalog - Q4H accuchecks CAD s/p SD - Hospitalized recently at [facility]; discharged earlier this week. - Lovenox for DVT PPX - Continue medications from last hospitalization - Echo with normal EF, no plans for cardiac catheterization at outside hospital Moderate Protein-Calorie Malnutrition - Albumin 2.6. Prealbumin lower than 5 - P normal. Mag low replacing - Ensure high protein supplementation - Independent Crop Consultant consult; appreciate recommendations - TSH normal Chronic Anemia - Stable today - Has been iron deficiency in the past - Hg 9.4 on admission. At baseline - Continue to trend - Patient asymptomatic currently - Normocytic today - Iron deficiency vs. ACD ECTOR on CKD- Resolved - Stable. 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 Bp a little low, may need to cut back on medication COPD - Monitor O2 sats with goal >88% - Duoneb treatments PRN for shortness of breath/wheezing PVD - Pulses intact -CV surgery consulted- Will assess PAD for healing in legs. Will follow recs Endocarditis s/p treatment with IV abx - MRSA with pulmonary emboli, renal emboli, osteomyelitis, and discitis of C5-6 - Negative cultures on 10/28/2017 - s/p treatment with 6 weeks vancomycin/daptomycin - Complications include PICC line infection with Klebsiella requiring treatment with levoquin at outside facility - Continue rifampin and minocycline x1 month - Echo showed normal EF Mild anion gap metabolic acidosis-Resolved - Resolved Sacral decubitus ulcer - Consult wound care - Frequent turning of patient Schizophrenia - continue on home meds <Xavier Padilla - Last Filed: 11/04/17 07:26> Attending Addendum - Attending Addendum Date/Time: 11/04/17 1400 I personally evaluated the patient and discussed the management with Dr. Padilla. I agree with the History, Examination, Assessment and Plan documented above with any addition or exceptions noted below. MRI c-spine reviewed. Will consult neurosurgery to see if further intervention is needed. Continue vancomycin. Dose being adjusted as trough was low. Pt will continue wound care. Appetite improving on remeron. Appreciate recs from Dr. Bosch. <Ariane Arguelles - Last Filed: 11/04/17 14:01>
[2017-11-04] MEDS: Polyethylene Glycol 3350 17 GM Packet PO SCH (08:37)
[2017-11-04] MEDS: Potassium Chloride 20 MEQ TAB PO SCH (08:37)
[2017-11-04] MEDS: Aspirin 325 mg Enteric Coated Tablet PO SCH (08:38)
[2017-11-04] MEDS: INSULIN DETEMIR SC SCH (08:38)
[2017-11-04] MEDS: Enoxaparin Sodium 40 MG/0.4 ML SYRINGE SC SCH (08:38)
[2017-11-04] MEDS: PRE FILLED SC SCH (08:38)
[2017-11-04] MEDS: Lisinopril 2.5 MG TAB PO SCH (08:40)
[2017-11-04] MEDS: Metoprolol Tartrate 50 MG TAB PO SCH ×2 (08:41→21:29)
[2017-11-04] MEDS: HumaLOG 300 UNITS/3 ML VIAL SC PRN ×3 (08:41→15:42)
[2017-11-04] MEDS: Magnesium Chloride 64 MG TAB PO SCH ×2 (08:41→21:30)
[2017-11-04] MEDS: Sodium Chloride 0.9% 1,000 ML IV SCH (08:52)
[2017-11-04] MEDS: Rifampin 300 MG CAP PO SCH (11:23)
--- NOTE | 2017-11-04 12:17 | CON ---
DATE OF CONSULTATION: 11/04/2017 DATE OF ADMISSION: 10/31/2017 HISTORY OF PRESENT ILLNESS: Ms. Stephenson is a 52-year-old female that presents with weakness. She wa s discharged on 10/31/2017 from [facility] as she was seen for DKA, N-STEMI, seps is, 2/2 MRSA endocarditis status post antibiotics for 6 weeks in which she was treated by Dr. Bosch. She was hospitalized for approximately 2 months and being treated with IV daptomycin for MRSA endoca rditis. Her last blood cultures were negative on 10/28/2017. She has been on oral antibiotics since that time in which she has taken an additional month post-discharge. She had a PICC line associated infection with Klebsiella, which required treatment with Levaquin. She is currently homeless and gillis s a history of cocaine use. Patient has generalized weakness, cannot walk without assistance. She h as had difficulty caring for herself. She has had decreased appetite for about a month associated wi th nausea and vomiting and looks cachectic on exam. She denies any recent injury or trauma and she h as had productive cough. Denies any fever or chills. CT scan of the cervical spine shows prominent diskitis, osteomyelitis at C5-C6 and bilateral neural foraminal and central canal stenosis. Since rob bates has been here at the hospital, she has had an amputation of the right first and fifth toes, evidenc e of PAD. She has osteomyelitis of the left thumb in which required an operation. Her white blood c ell count is currently at 10.4 and she was discharged. She is currently being treated with IV vancom ycin. On exam, she denies any cervical radicular symptoms; however, she has generalized weakness in the upper extremity. Her ESR is 87 and she is afebrile. She also had a history of cervical spine ep idural abscess, pneumonia secondary to septic MRSA and endocarditis. Neurosurgery was consulted edelmira use of the findings on CT scan of the C5-6 concerned for osteomyelitis. PAST MEDICAL HISTORY: Includes type 2 diabetes, coronary artery disease, schizophrenia, hypertension , COPD, peripheral artery disease, MRSA bacteremia, associated endocarditis, C-spine epidural abscess , pulmonary pneumonia secondary to septic MRSA. PAST SURGICAL HISTORY: Negative prior to this current admission. FAMILY HISTORY: Noncontributory. SOCIAL HISTORY: The patient is homeless. She is a former smoker. She has no IV drug use except cortney bernard use. No alcoholic beverages. CURRENT MEDICATIONS: Include Tylenol, aspirin, Lipitor, dextrose, Lovenox, insulin, lisinopril, ming zepam, metoprolol, mirtazapine, ondansetron, potassium, rifampin and vancomycin. PHYSICAL EXAMINATION: VITAL SIGNS: Have been reviewed and she is afebrile and stable. GENERAL: Patient is alert and oriented x4. She is cachectic in appearance and looks nutritional def icient. She is in no acute distress at this time. HEENT: Normocephalic, atraumatic. Hearing is intact. Moist mucous membranes. Oral cavity is kenton ng numerous teeth. Marked with decay the ones that are remaining. She has no lesions in the mouth. SKIN: Areas of necrosis of the right first and fifth toe, amputation of the right fifth toe and area s of partial amputation of the left hand digits ulceration. Stage I pressure ulcer in the presacral region and peripheral IV access noted. There is no Carlos catheter in placed. NECK: Supple. Limited range of motion due to pain. RESPIRATORY: Patient has bilateral symmetric chest rise. Appears to have no shortness of breath. S he has scattered rhonchi and crackles on the right lung. HEART: Regular rate and rhythm, normal S1, S2 heart sounds. MUSCULOSKELETAL: There is no distal cyanosis or clubbing noted other than necrotic toes. Extremitie s; patient has pulses that are diminished in the dorsal pedis pulse. She has cool extremities. She is able to move extremities with some limitations because of inflammatory process of ischemia. NEUROLOGIC: Cognitive function seems intact. Cranial nerves II-XII are grossly intact. Her speech is fluent. She answers to my questions appropriately. ASSESSMENT: Ms. Stephenson is a 52-year-old female with extensive methicillin-resistant Staphylococcus aureus infection with bacteremia, C-spine, lung, cardiac involvement with embolic lesions noted above with extensive stay at [facility] where she received complete treatment. She al so has C5-C6 osteomyelitis diskitis. PLAN: From a neurosurgical perspective, she should continue her antibiotic therapy. We will order a cervical orthosis for her to alleviate neck pain and to stabilize the cervical spine. I will collec t the images from [facility], so that we can better assess the changes that we se e at [facility] compared to the images at [facility]. Infectious Disease treatment with recommendations from Dr. Bosch. Dr. Herzog has reviewed the mariana n and has agreed with assessment and plan. If there are any further questions, please feel free to c ontact Neurosurgery.
[2017-11-04] MEDS: Vancomycin HCl 1 GM in Premix Bag 1 BAG IVPB SCH (13:48)
[2017-11-04] MEDS: Atorvastatin Calcium 20 MG TAB PO SCH (21:29)
[2017-11-04] MEDS: Mirtazapine 15 MG TAB PO SCH (21:29)
[2017-11-04] MEDS: Insulin Detemir 100 UNITS/ML 18 UNITS in Pre-Filled Syringe 1 EACH SC SCH (21:31)
[2017-11-04] MEDS: Acetaminophen 325 MG TAB PO PRN (21:37)
[2017-11-05] MEDS: Vancomycin HCl 1 GM in Premix Bag 1 BAG IVPB SCH ×2 (02:00→14:27)
[2017-11-05] MEDS: Rifampin 300 MG CAP PO SCH ×3 (02:04→22:17)
[2017-11-05] MEDS: Acetaminophen 325 MG TAB PO PRN ×3 (05:55→22:25)
[2017-11-05 06:54] LABS: #Basophils 0.1 thou/uL (0.0-0.2); #Eosinphils 0.2 thou/uL (0.0-0.7); #Lymphocytes 2.4 thou/uL (1.20-3.40); #Monocytes 0.6 thou/uL (0.11-0.59); #Neutrophils 6.4 thou/uL (1.40-6.50); %Basophils 0.5 % (0.0-1.0); %Eosinophils 2.2 % (0.0-10.0); %Lymphocytes 24.7 % (21.0-51.0); %Monocytes 6.1 % (0.0-10.0); %Neutrophils 66.5 % (42.0-75.0); Hemoglobin 9.2 g/dL (12.0-16.0); Mean Corpuscular HGB CONC 31.6 g/dL (32.0-36.0); Mean Corpuscular Hemoglobin 27.5 pg (27.0-31.0); Mean Corpuscular Volume 86.8 fl (81.0-99.0); Mean Platelet Volume 5.7 fL (7.4-10.4); Platelet Count 673 thou/uL (130-400); RBC Distribution Width 20.8 % (11.5-14.5); Red Blood Cell (RBC) Count 3.36 mill/uL (4.20-5.40); White Blood Cell (WBC) Count 9.6 thou/uL (4.8-10.8)
--- NOTE | 2017-11-05 08:02 | PRG ---
DATE OF SERVICE: 11/05/2017 I personally interviewed and examined the patient and agree with documentation of Khris Duarte PA-C, d ated 11/04/2017. Briefly, Shanique Stephenson is a 52-year-old woman, known to Dr. Bosch for endocarditis, cervical spine diskitis, and septic emboli. Our Neurosurgery team was consulted after MR imaging showed the diskiti s and osteomyelitis at C5-6 yesterday. We had the chance to review films at [facility] and compare those. I am seeing Ms. Stephenson this morning. I note that her last fever was on 11/03/2017 and that was 99.8 degrees Fahrenheit. Her neurological examination is stable. She has some neck pain. I reviewed the imaging and reviewed the [facility] imaging. I think the diskitis and osteomyelitis look stable to slightly improved. I am recommending we finish antibiotic therapy and avoid surgery. I asked Ms. Stephenson to wear her cervical collar when she is out of bed and when s he is sleeping she does not need it on. They can follow up in our neurosurgery clinic in 1 month aft er the antibiotics are done, and I will get a followup CBC, sed rate, and C-reactive protein.
--- NOTE | 2017-11-05 08:42 | PDOC.FM ---
- Subjective Subjective: Patient has no complaints this AM, but refused an examination. She would not let me uncover her and was angry that so many people kept coming in to wake her up. She reports that the pain in her hand and foot have improved as well as her neck. She just wanted me to leave her alone. - Objective MAR Reviewed: Yes Vital Signs & Weight: Vital Signs (12 hours) Temp Pulse Resp BP Pulse Ox 11/05/17 07:20 98.1 F 88 17 155/81 H 98 Weight Admit Weight 46.357 kg Weight 48.534 kg I&O: 11/04/17 11/05/17 11/06/17 06:59 06:59 06:59 Intake Total 4438 3328 Balance 4438 3328 Result Diagrams: 11/05/17 06:40 11/03/17 04:40 <Hayde Molina - Last Filed: 11/05/17 08:41> - Objective Vital Signs & Weight: Vital Signs (12 hours) Temp Pulse Resp BP BP Pulse Ox 11/05/17 15:30 98.3 F 76 16 141/80 H 97 11/05/17 09:18 88 155/81 H 11/05/17 07:20 98.1 F 88 17 155/81 H 98 Weight Admit Weight 46.357 kg Weight 48.534 kg I&O: 11/04/17 11/05/17 11/06/17 06:59 06:59 06:59 Intake Total 4476 332 Balance 4438 3328 Result Diagrams: 11/05/17 06:40 11/03/17 04:40 <Efren Albrecht - Last Filed: 11/05/17 18:05> Phys Exam - Physical Examination Constitutional: NAD HEENT: moist MMs no spinal tenderness Respiratory: no wheezing, no rales, no rhonchi, clear to auscultation bilateral Cardiovascular: RRR, no significant murmur, no rub Psychiatric: A&O x 3 Deviation from normal: agitated affect Deviation from normal: dressing in place on R foot, patient would not allow me to examine hands <Hayde Molina - Last Filed: 11/05/17 08:41> Dx/Plan (1) Discitis of cervical region Code(s): M46.42 - DISCITIS, UNSPECIFIED, CERVICAL REGION Status: Acute (2) Dry gangrene Code(s): I96 - GANGRENE, NOT ELSEWHERE CLASSIFIED Status: Acute (3) Septic arthritis of cervical spine Code(s): M46.52 - OTHER INFECTIVE SPONDYLOPATHIES, CERVICAL REGION Status: Acute (4) Endocarditis due to Staphylococcus Code(s): I33.0 - ACUTE AND SUBACUTE INFECTIVE ENDOCARDITIS; B95.8 - UNSP STAPHYLOCOCCUS THE CAUSE OF DISEASES CLASSD ELSWHR Status: Resolved (5) CAD (coronary artery disease) Code(s): I25.10 - ATHSCL HEART DISEASE OF [place] CORONARY ARTERY W/O ANG PCTRS Status: Chronic QualifierTitle: Associated angina: without angina (6) Chronic anemia Code(s): D64.9 - ANEMIA, UNSPECIFIED Status: Chronic (7) HTN (hypertension) Code(s): I10 - ESSENTIAL (PRIMARY) HYPERTENSION Status: Chronic QualifierTitle: Hypertension type: essential hypertension Qualified Code( s): I10 - Essential (primary) hypertension (8) Moderate protein-calorie malnutrition Code(s): E44.0 - MODERATE PROTEIN-CALORIE MALNUTRITION Status: Chronic (9) Osteomyelitis Code(s): M86.9 - OSTEOMYELITIS, UNSPECIFIED Status: Chronic QualifierTitle: Osteomyelitis location: hand Laterality: left (10) PVD (peripheral vascular disease) Code(s): I73.9 - PERIPHERAL VASCULAR DISEASE, UNSPECIFIED Status: Chronic (11) Physical deconditioning Code(s): R53.81 - OTHER MALAISE Status: Chronic (12) Type 2 diabetes mellitus with hyperglycemia Code(s): E11.65 - TYPE 2 DIABETES MELLITUS WITH HYPERGLYCEMIA Status: Suspected QualifierTitle: Diabetes mellitus mcfp insulin use: with mcfp use Qualified Code(s): E11.65 - Type 2 diabetes mellitus with hyperglycemia; Z79.4 - [facility] (current) use of insulin; Z79.4 - senior living (current) use of insulin; Z79.4 - [facility] (current) use of insulin; Z79.4 - senior living (current ) use of insulin (13) Schizophrenia Code(s): F20.9 - SCHIZOPHRENIA, UNSPECIFIED Status: Acute QualifierTitle: Schizophrenia type: unspecified Qualified Code(s): F20.9 - Schizophrenia, unspecified (14) Substance abuse Code(s): F19.10 - OTHER PSYCHOACTIVE SUBSTANCE ABUSE, UNCOMPLICATED Status: Chronic (15) COPD (chronic obstructive pulmonary disease) Status: Chronic QualifierTitle: COPD type: unspecified COPD Qualified Code(s): J44.9 - Chronic obstructive pulmonary disease, unspecified - Plan Plan: Discitis/Septic arthritis of C5-6 - Concern for this dx based on yesterdays MRI - Dr Bosch has been consulted, will continue IV vanc - Vanc day 4 - Vanc trough low yesterday, dose was adjusted, will be rechecked at midnight tonight - Neuro surgery on board, appreciate recs - will likely wear collar and f/u outpatient Gangrenous Toes -S/p amputation R 5th toe Osteomyelitis R. Thumb -ESR elevated. X-ray shows early osteomyelitis/ S/p I&D -MRI UE- shows osteomyelitis of L. Thumb. Correlate with LE MRI as could be systemic disease as well. Scleroderma or Raynouds. -Hand Surgery consulted- Dr. Guerra- will follow recs -R thumb cx grew MRSA and chloe albicans, continue vanc Physical Deconditioning - Patient unable to walk without assistance since being hospitalized past two months for sepsis 2/2 endocarditis, NSTEMI, and DKA at [facility] - Unable to care for self and homeless - No family support - CM consulted; appreciate recs - D/C planning process started - Cryogenic Transport Driver consulted; appreciate recs - PT/OT to evaluate and treat patient - [facility] Uncontrolled Type II DM with hyperglycemia - BG 599 on admission, Has since stabilized. - Hyperglycemia protocol with mod SSI -Levemir 36 u am and 18 u hs. Will continue to check blood sugar and adjust accordingly. this was her regimen on discharge from the med. Still elevated this morning. Changed to mod SSI. Will look at total dosing and adjust basal/ scheduled Humalog - Q4H accuchecks CAD s/p [place] - Hospitalized recently at [facility]; discharged earlier this week. - Lovenox for DVT PPX - Continue medications from last hospitalization - Echo with normal EF, no plans for cardiac catheterization at outside hospital Moderate Protein-Calorie Malnutrition - Albumin 2.6. Prealbumin lower than 5 - P normal. Mag low replacing - Ensure high protein supplementation - Cryogenic Transport Driver consult; appreciate recommendations - TSH normal Chronic Anemia - Stable today - Has been iron deficiency in the past - Hg 9.4 on admission. At baseline - Continue to trend - Patient asymptomatic currently - Normocytic today - Iron deficiency vs. ACD ECTOR on CKD- Resolved - Stable. Monitor BMP Hx of Chronic Substance Abuse - Last used crack and marijuana 3-4 months ago - Metallurgical Specialist on cessation - Has been hospitalized last 2 months; discharged today - Recent HIV, Hep B Ag, and RPR negative - UDS negative Urge Incontinence - Unable to make it to restroom on time; wears briefs - Continue to supply briefs - Monitor I&O's HTN - Continue metoprolol and lisinopril. BP elevated today, will monitor closely and adjust as needed COPD - Monitor O2 sats with goal >88% - Duoneb treatments PRN for shortness of breath/wheezing PVD - Pulses intact -CV surgery consulted- Will assess PAD for healing in legs. Will follow recs Endocarditis s/p treatment with IV abx - MRSA with pulmonary emboli, renal emboli, osteomyelitis, and discitis of C5-6 - Negative cultures on 10/28/2017 - s/p treatment with 6 weeks vancomycin/daptomycin - Complications include PICC line infection with Klebsiella requiring treatment with levaquin at outside facility - Continue rifampin x1 month - Echo showed normal EF Mild anion gap metabolic acidosis-Resolved - Resolved Sacral decubitus ulcer - Consult wound care - Frequent turning of patient Schizophrenia - continue on home meds <Hayde Molina - Last Filed: 11/05/17 08:41> Attending Addendum - Attending Addendum Date/Time: 11/05/17 1805 I personally evaluated the patient and discussed the management with Dr. Molina. I agree with the History, Examination, Assessment and Plan documented above with any addition or exceptions noted below. <Efren Albrecht - Last Filed: 11/05/17 18:05>
[2017-11-05] MEDS: Potassium Chloride 20 MEQ TAB PO SCH (09:15)
[2017-11-05] MEDS: Enoxaparin Sodium 40 MG/0.4 ML SYRINGE SC SCH (09:16)
[2017-11-05] MEDS: Aspirin 325 mg Enteric Coated Tablet PO SCH (09:16)
[2017-11-05] MEDS: INSULIN DETEMIR SC SCH (09:17)
[2017-11-05] MEDS: PRE FILLED SC SCH (09:17)
[2017-11-05] MEDS: Lisinopril 2.5 MG TAB PO SCH (09:18)
[2017-11-05] MEDS: Magnesium Chloride 64 MG TAB PO SCH ×2 (09:19→22:18)
[2017-11-05] MEDS: Metoprolol Tartrate 50 MG TAB PO SCH ×2 (09:19→22:18)
[2017-11-05] MEDS: Polyethylene Glycol 3350 17 GM Packet PO SCH (09:19)
[2017-11-05] MEDS: HumaLOG 300 UNITS/3 ML VIAL SC PRN ×2 (11:34→17:02)
[2017-11-05] MEDS ORDERED: Lorazepam 2 MG/ML VIAL SLOW IVP SCH (17:00)
[2017-11-05] MEDS ORDERED: HYDROcodone/Acetaminophen 5/325 mg Tablet PO SCH (17:00)
[2017-11-05] MEDS: Mirtazapine 15 MG TAB PO SCH (22:17)
[2017-11-05] MEDS: Atorvastatin Calcium 20 MG TAB PO SCH (22:17)
[2017-11-05] MEDS: Insulin Detemir 100 UNITS/ML 18 UNITS in Pre-Filled Syringe 1 EACH SC SCH (22:18)
[2017-11-06 00:59] LABS: Vancomycin, Trough 17.2 ug/mL
[2017-11-06] MEDS: Lorazepam 2 MG/ML VIAL SLOW IVP PRN ×2 (01:41→20:49)
[2017-11-06] MEDS: Vancomycin HCl 1 GM in Premix Bag 1 BAG IVPB SCH ×2 (01:42→13:37)
[2017-11-06] MEDS: HumaLOG 300 UNITS/3 ML VIAL SC PRN ×2 (03:39→16:58)
[2017-11-06 05:33] LABS: #Basophils 0.1 thou/uL (0.0-0.2); #Eosinphils 0.3 thou/uL (0.0-0.7); #Lymphocytes 2.4 thou/uL (1.20-3.40); #Monocytes 0.6 thou/uL (0.11-0.59); #Neutrophils 6.5 thou/uL (1.40-6.50); %Basophils 0.6 % (0.0-1.0); %Eosinophils 2.7 % (0.0-10.0); %Lymphocytes 24.6 % (21.0-51.0); %Monocytes 5.8 % (0.0-10.0); %Neutrophils 66.3 % (42.0-75.0); Hemoglobin 9.4 g/dL (12.0-16.0); Mean Corpuscular Volume 87.1 fl (81.0-99.0); Mean Platelet Volume 5.6 fL (7.4-10.4); Platelet Count 704 thou/uL (130-400); RBC Distribution Width 20.7 % (11.5-14.5); Red Blood Cell (RBC) Count 3.47 mill/uL (4.20-5.40); White Blood Cell (WBC) Count 9.8 thou/uL (4.8-10.8)
--- NOTE | 2017-11-06 08:22 | PRG ---
DATE OF SERVICE: 11/06/2016 Shanique isaacs is doing well today. Her wound VAC has been discontinued and she is undergoing non-VAC wound care. She can wash this foot wound with soap and water and apply antibiotic ointment and Band-Aid versus silver dressing every 1- 2 days. She can follow up in my office in about 2 weeks. She can weightbear as tolerated with a pos toperative shoe. At this point, I will see her as needed this hospitalization. Please call if marion [email or web address]. NOTE: The patient has dry gangrene of her great toe and I will follow this up as an outpatient. No antibiotics are necessary for this. She can complete a week and a half to 2 weeks of oral antibiotic s for the toe. She can discontinue antibiotics after that.
--- NOTE | 2017-11-06 09:12 | PDOC.FM ---
- Subjective Subjective: Patient has no complaints this AM. She is refusing the PICC line adamantly, even when risks/benefits are discussed with her. She denies pain in her foot, hand, or neck. She denies SOB, chest pain, N/V. She reports that she is eating well. - Objective MAR Reviewed: Yes Vital Signs & Weight: Vital Signs (12 hours) Temp Pulse Resp BP Pulse Ox 11/06/17 04:00 97.8 F 102 H 18 137/92 H 97 11/05/17 22:10 98.1 F 105 H 18 149/81 H 95 Weight Admit Weight 46.357 kg Weight 49.895 kg I&O: 11/05/17 11/06/17 11/07/17 06:59 06:59 06:59 Intake Total 3328 930 Balance 3328 930 Result Diagrams: 11/06/17 05:00 11/03/17 04:40 <Hayde Molina - Last Filed: 11/06/17 09:10> - Objective Vital Signs & Weight: Vital Signs (12 hours) Temp Pulse Resp BP Pulse Ox 11/06/17 10:08 102 H 11/06/17 04:00 97.8 F 102 H 18 137/92 H 97 Weight Admit Weight 46.357 kg Weight 49.895 kg I&O: 11/05/17 11/06/17 11/07/17 06:59 06:59 06:59 Intake Total 3328 930 Balance 3328 930 Result Diagrams: 11/06/17 05:00 11/03/17 04:40 <Miguel Reece - Last Filed: 11/06/17 11:42> - Objective Vital Signs & Weight: Vital Signs (12 hours) Temp Pulse Resp BP Pulse Ox 11/06/17 12:35 97.5 F L 86 16 132/90 97 11/06/17 10:08 102 H 11/06/17 08:30 98.5 F 100 16 133/87 97 11/06/17 04:00 97.8 F 102 H 18 137/92 H 97 Weight Admit Weight 46.357 kg Weight 49.895 kg I&O: 11/05/17 11/06/17 11/07/17 06:59 06:59 06:59 Intake Total 3328 930 Balance 3328 930 Result Diagrams: 11/06/17 05:00 11/03/17 04:40 <Juliane Bradford - Last Filed: 11/06/17 14:33> Phys Exam - Physical Examination Constitutional: NAD HEENT: moist MMs Respiratory: no wheezing, no rales, no rhonchi, clear to auscultation bilateral Cardiovascular: RRR, no significant murmur, no rub Musculoskeletal: no edema, pulses present dressing in place over R foot and L hand Psychiatric: A&O x 3 Deviation from normal: guarded affect <MolinaHayde - Last Filed: 11/06/17 09:10> Dx/Plan (1) Discitis of cervical region Code(s): M46.42 - DISCITIS, UNSPECIFIED, CERVICAL REGION Status: Acute (2) Dry gangrene Code(s): I96 - GANGRENE, NOT ELSEWHERE CLASSIFIED Status: Acute (3) Septic arthritis of cervical spine Code(s): M46.52 - OTHER INFECTIVE SPONDYLOPATHIES, CERVICAL REGION Status: Acute (4) Endocarditis due to Staphylococcus Code(s): I33.0 - ACUTE AND SUBACUTE INFECTIVE ENDOCARDITIS; B95.8 - UNSP STAPHYLOCOCCUS THE CAUSE OF DISEASES CLASSD ELSWHR Status: Resolved (5) CAD (coronary artery disease) Code(s): I25.10 - ATHSCL HEART DISEASE OF [place] CORONARY ARTERY W/O ANG PCTRS Status: Chronic QualifierTitle: Associated angina: without angina (6) Chronic anemia Code(s): D64.9 - ANEMIA, UNSPECIFIED Status: Chronic (7) HTN (hypertension) Code(s): I10 - ESSENTIAL (PRIMARY) HYPERTENSION Status: Chronic QualifierTitle: Hypertension type: essential hypertension Qualified Code( s): I10 - Essential (primary) hypertension (8) Moderate protein-calorie malnutrition Code(s): E44.0 - MODERATE PROTEIN-CALORIE MALNUTRITION Status: Chronic (9) Osteomyelitis Code(s): M86.9 - OSTEOMYELITIS, UNSPECIFIED Status: Chronic QualifierTitle: Osteomyelitis location: hand Laterality: left (10) PVD (peripheral vascular disease) Code(s): I73.9 - PERIPHERAL VASCULAR DISEASE, UNSPECIFIED Status: Chronic (11) Physical deconditioning Code(s): R53.81 - OTHER MALAISE Status: Chronic (12) Type 2 diabetes mellitus with hyperglycemia Code(s): E11.65 - TYPE 2 DIABETES MELLITUS WITH HYPERGLYCEMIA Status: Suspected QualifierTitle: Diabetes mellitus exterminator termite insulin use: with nursing home use Qualified Code(s): E11.65 - Type 2 diabetes mellitus with hyperglycemia; Z79.4 - group home (current) use of insulin; Z79.4 - group home (current) use of insulin; Z79.4 - group home (current) use of insulin; Z79.4 - group home (current ) use of insulin (13) Schizophrenia Code(s): F20.9 - SCHIZOPHRENIA, UNSPECIFIED Status: Acute QualifierTitle: Schizophrenia type: unspecified Qualified Code(s): F20.9 - Schizophrenia, unspecified (14) Substance abuse Code(s): F19.10 - OTHER PSYCHOACTIVE SUBSTANCE ABUSE, UNCOMPLICATED Status: Chronic (15) COPD (chronic obstructive pulmonary disease) Status: Chronic QualifierTitle: COPD type: unspecified COPD Qualified Code(s): J44.9 - Chronic obstructive pulmonary disease, unspecified - Plan Plan: Discitis/Septic arthritis of C5-6 - Concern for this dx based on MRI - Dr Bosch has been consulted, will continue IV vanc - Vanc day 5, vanc will be continued for 4 weeks. End date 12/03/2017. Patient refusing PICC line, will continue to prevocational/rehabilitation counselor about the importance of this as she will need 4 weeks of treatment. - Vanc trough appropriate - Neuro surgery on board, appreciate recs - will likely wear collar and f/u outpatient in 4 weeks. Gangrenous Toes -S/p amputation R 5th toe. -Continue wound care Osteomyelitis R. Thumb -ESR elevated. X-ray shows early osteomyelitis/ S/p I&D -MRI UE- shows osteomyelitis of L. Thumb. Correlate with LE MRI as could be systemic disease as well. Scleroderma or Raynouds. -Hand Surgery consulted- Dr. Guerra- will follow recs -R thumb cx grew MRSA and chloe albicans, continue vanc -Continue wound care Physical Deconditioning - Patient unable to walk without assistance since being hospitalized past two months for sepsis 2/2 endocarditis, NSTEMI, and DKA at [facility] - Unable to care for self and homeless - No family support - CM consulted; appreciate recs - D/C planning process started - Medicaid Service Coordinator consulted; appreciate recs - PT/OT to evaluate and treat patient - Working on potential [facility] bed at [facility] Uncontrolled Type II DM with hyperglycemia - BG 599 on admission, Has since stabilized. - Hyperglycemia protocol with mod SSI -Levemir 36 u am and 18 u hs, increased HS dose to 25 U as blood sugar has continued to be elevated and required 21 units of SSI in the past 24 hours - Q4H accuchecks CAD s/p PR - Hospitalized recently at [facility]; discharged earlier this week. - Lovenox for DVT PPX - Continue medications from last hospitalization - Echo with normal EF, no plans for cardiac catheterization at outside hospital Moderate Protein-Calorie Malnutrition - Albumin 2.6. Prealbumin lower than 5 - P normal. Mag low replacing - Ensure high protein supplementation - Medicaid Service Coordinator consult; appreciate recommendations - TSH normal Chronic Anemia - Stable today - Has been iron deficiency in the past - Hg 9.4 on admission. At baseline - Continue to trend - Patient asymptomatic currently - Normocytic today - Iron deficiency vs. ACD ECTOR on CKD- Resolved - Stable. Monitor BMP Hx of Chronic Substance Abuse - Last used crack and marijuana 3-4 months ago - Placement Interviewer on cessation - Has been hospitalized last 2 months; discharged today - Recent HIV, Hep B Ag, and RPR negative - UDS negative Urge Incontinence - Unable to make it to restroom on time; wears briefs - Continue to supply briefs - Monitor I&O's HTN - Continue metoprolol and lisinopril. BP elevated today, will monitor closely and adjust as needed COPD - Monitor O2 sats with goal >88% - Duoneb treatments PRN for shortness of breath/wheezing PVD - Pulses intact -CV surgery consulted- Will assess PAD for healing in legs. Will follow recs Endocarditis s/p treatment with IV abx - MRSA with pulmonary emboli, renal emboli, osteomyelitis, and discitis of C5-6 - Negative cultures on 10/28/2017 - s/p treatment with 6 weeks vancomycin/daptomycin - Complications include PICC line infection with Klebsiella requiring treatment with levaquin at outside facility - Continue rifampin x1 month - Echo showed normal EF Mild anion gap metabolic acidosis-Resolved - Resolved Sacral decubitus ulcer - Consult wound care - Frequent turning of patient Schizophrenia - continue on home meds <Hayde Molina - Last Filed: 11/06/17 09:10> - Plan Plan: I personally evaluated the patient and discussed it with Dr. Molina. I agree with her evaluation, assessment, and plan with exceptions as listed below: 1) Discitis/septic arthritis C5-6 - Continue IV antibiotics. Patient refusing PICC line. Discussed with patient at length. Neurosurg does not plan intervention at this time 2) Schizophrenia - Home meds. Dr. Molina is going to perform a mental status exam today to determine if patient is competent to make her own decisions or if ethics consult is needed. <Miguel Reece - Last Filed: 11/06/17 11:42> Attending Addendum - Attending Addendum Date/Time: 11/06/17 4113 I personally evaluated the patient and discussed the management with Dr. Molina on 11/06/17. I agree with the History, Examination, Assessment and Plan documented above with any addition or exceptions noted below. Patient needs a PICC line for treatment of endocarditis and possible osteomyelitis of the hand, failed oral abx. However, patient adamantly refuses a PICC line. She is unable to articulate further about why, other than she had pain with her last one at the [facility]. Apparently she had a PICC line infection while there, which may be the cause of her refusal. Discussed potentially treating her pain with medications, but patient continues to refuse. Patient angry that we are bringing it up so often. Given her underlying psychiatric and social history, there are questions given her capacity at this time. She does exhibit some paranoid behaviors. Will perform objective test of her capacity this afternoon, and discuss possible alternatives to PICC line with Dr. Bosch. If patient is felt based on further evaluation to be incapable of making this decision, will consider psychiatric or ethics consult. <Juliane Bradford - Last Filed: 11/06/17 14:33>
[2017-11-06] MEDS: Metoprolol Tartrate 50 MG TAB PO SCH ×2 (10:08→20:47)
[2017-11-06] MEDS: Lisinopril 2.5 MG TAB PO SCH (10:08)
[2017-11-06] MEDS: Rifampin 300 MG CAP PO SCH ×2 (10:09→21:13)
[2017-11-06] MEDS: PRE FILLED SC SCH (10:09)
[2017-11-06] MEDS: Potassium Chloride 20 MEQ TAB PO SCH (10:09)
[2017-11-06] MEDS: Aspirin 325 mg Enteric Coated Tablet PO SCH (10:09)
[2017-11-06] MEDS: INSULIN DETEMIR SC SCH (10:09)
[2017-11-06] MEDS: Magnesium Chloride 64 MG TAB PO SCH ×2 (10:10→20:47)
[2017-11-06] MEDS: Polyethylene Glycol 3350 17 GM Packet PO SCH ×2 (10:10→10:22)
[2017-11-06] MEDS: Enoxaparin Sodium 40 MG/0.4 ML SYRINGE SC SCH (10:10)
[2017-11-06 10:19] LABS: Fungus Stain Final report (.)
[2017-11-06 10:19] LABS: Fungus Stain Final report (.)
[2017-11-06] MEDS: Atorvastatin Calcium 20 MG TAB PO SCH (20:47)
[2017-11-06] MEDS: Acetaminophen 325 MG TAB PO PRN (20:47)
[2017-11-06] MEDS: Mirtazapine 15 MG TAB PO SCH (20:48)
[2017-11-06] MEDS ORDERED: Insulin Detemir 100 UNITS/ML 25 UNITS in Pre-Filled Syringe 1 EACH SC SCH (21:00)
[2017-11-07] MEDS: Vancomycin HCl 1 GM in Premix Bag 1 BAG IVPB SCH ×2 (01:11→12:34)
[2017-11-07] MEDS: Acetaminophen 325 MG TAB PO PRN ×4 (01:16→20:01)
[2017-11-07] MEDS: HumaLOG 300 UNITS/3 ML VIAL SC PRN ×4 (05:56→19:56)
[2017-11-07] MEDS: Enoxaparin Sodium 40 MG/0.4 ML SYRINGE SC SCH (08:30)
[2017-11-07] MEDS: Polyethylene Glycol 3350 17 GM Packet PO SCH (08:30)
[2017-11-07] MEDS: INSULIN DETEMIR SC SCH (08:31)
[2017-11-07] MEDS: PRE FILLED SC SCH (08:31)
[2017-11-07] MEDS: Aspirin 325 mg Enteric Coated Tablet PO SCH (08:32)
[2017-11-07] MEDS: Lisinopril 2.5 MG TAB PO SCH (08:32)
[2017-11-07] MEDS: Metoprolol Tartrate 50 MG TAB PO SCH ×2 (08:32→19:57)
[2017-11-07] MEDS: Magnesium Chloride 64 MG TAB PO SCH ×2 (08:33→19:58)
[2017-11-07] MEDS: Potassium Chloride 20 MEQ TAB PO SCH (08:33)
--- NOTE | 2017-11-07 09:15 | PDOC.FM ---
- Subjective Subjective: Patient doing well this morning and has no specific complaints. She has consented to the PICC line. Denies pain and is tolerating PO well. - Objective MAR Reviewed: Yes Vital Signs & Weight: Vital Signs (12 hours) Temp Pulse Resp BP Pulse Ox 11/07/17 08:32 95 11/07/17 08:00 98.4 F 90 16 128/88 11/07/17 04:00 98.0 F 95 16 131/88 99 11/07/17 00:00 98.1 F 93 18 114/73 96 Weight Admit Weight 46.357 kg Weight 45.841 kg I&O: 11/06/17 11/07/17 11/08/17 06:59 06:59 06:59 Intake Total 930 860 Balance 930 860 Result Diagrams: 11/06/17 05:00 11/03/17 04:40 <Hayde Molina - Last Filed: 11/07/17 09:13> - Objective Vital Signs & Weight: Vital Signs (12 hours) Temp Pulse Resp BP Pulse Ox 11/07/17 08:32 95 11/07/17 08:00 97.3 F L 95 18 128/88 98 11/07/17 04:00 98.0 F 95 16 131/88 99 Weight Admit Weight 46.357 kg Weight 45.841 kg I&O: 11/06/17 11/07/17 11/08/17 06:59 06:59 06:59 Intake Total 930 860 600 Balance 930 860 600 Result Diagrams: 11/06/17 05:00 11/03/17 04:40 <Juliane Bradford - Last Filed: 11/07/17 14:27> Phys Exam - Physical Examination Constitutional: NAD HEENT: moist MMs Respiratory: no wheezing, no rales, no rhonchi, clear to auscultation bilateral Cardiovascular: RRR, no significant murmur, no rub Gastrointestinal: soft, non-tender, no distention, positive bowel sounds Musculoskeletal: no edema, pulses present Neurological: non-focal, moves all 4 limbs Psychiatric: A&O x 3 Deviation from normal: guarded affect Deviation from normal: dry gangrene of R great toe, dressings in place over R foot and L hand <Hayde Molina - Last Filed: 11/07/17 09:13> Dx/Plan (1) Discitis of cervical region Code(s): M46.42 - DISCITIS, UNSPECIFIED, CERVICAL REGION Status: Acute (2) Dry gangrene Code(s): I96 - GANGRENE, NOT ELSEWHERE CLASSIFIED Status: Acute (3) Septic arthritis of cervical spine Code(s): M46.52 - OTHER INFECTIVE SPONDYLOPATHIES, CERVICAL REGION Status: Acute (4) Endocarditis due to Staphylococcus Code(s): I33.0 - ACUTE AND SUBACUTE INFECTIVE ENDOCARDITIS; B95.8 - UNSP STAPHYLOCOCCUS THE CAUSE OF DISEASES CLASSD ELSWHR Status: Resolved (5) CAD (coronary artery disease) Code(s): I25.10 - ATHSCL HEART DISEASE OF [place] CORONARY ARTERY W/O ANG PCTRS Status: Chronic QualifierTitle: Associated angina: without angina (6) Chronic anemia Code(s): D64.9 - ANEMIA, UNSPECIFIED Status: Chronic (7) HTN (hypertension) Code(s): I10 - ESSENTIAL (PRIMARY) HYPERTENSION Status: Chronic QualifierTitle: Hypertension type: essential hypertension Qualified Code( s): I10 - Essential (primary) hypertension (8) Moderate protein-calorie malnutrition Code(s): E44.0 - MODERATE PROTEIN-CALORIE MALNUTRITION Status: Chronic (9) Osteomyelitis Code(s): M86.9 - OSTEOMYELITIS, UNSPECIFIED Status: Chronic QualifierTitle: Osteomyelitis location: hand Laterality: left (10) PVD (peripheral vascular disease) Code(s): I73.9 - PERIPHERAL VASCULAR DISEASE, UNSPECIFIED Status: Chronic (11) Physical deconditioning Code(s): R53.81 - OTHER MALAISE Status: Chronic (12) Type 2 diabetes mellitus with hyperglycemia Code(s): E11.65 - TYPE 2 DIABETES MELLITUS WITH HYPERGLYCEMIA Status: Suspected QualifierTitle: Diabetes mellitus supervisor intermediates insulin use: with supervisor intermediates use Qualified Code(s): E11.65 - Type 2 diabetes mellitus with hyperglycemia; Z79.4 - detention (current) use of insulin; Z79.4 - long term care administrator (current) use of insulin; Z79.4 - long term care administrator (current) use of insulin; Z79.4 - long term care administrator (current ) use of insulin (13) Schizophrenia Code(s): F20.9 - SCHIZOPHRENIA, UNSPECIFIED Status: Acute QualifierTitle: Schizophrenia type: unspecified Qualified Code(s): F20.9 - Schizophrenia, unspecified (14) Substance abuse Code(s): F19.10 - OTHER PSYCHOACTIVE SUBSTANCE ABUSE, UNCOMPLICATED Status: Chronic (15) COPD (chronic obstructive pulmonary disease) Status: Chronic QualifierTitle: COPD type: unspecified COPD Qualified Code(s): J44.9 - Chronic obstructive pulmonary disease, unspecified - Plan Plan: Discitis/Septic arthritis of C5-6 - Concern for this dx based on MRI - Dr Bosch has been consulted, will continue IV vanc - Vanc day 5, vanc will be continued for 4 weeks. Patient consented to PICC line , will be placed today. - Vanc trough appropriate - Neuro surgery on board, appreciate recs - will likely wear collar and f/u outpatient in 4 weeks. Gangrenous Toes -S/p amputation R 5th toe. -Continue wound care Osteomyelitis R. Thumb -ESR elevated. X-ray shows early osteomyelitis/ S/p I&D -MRI UE- shows osteomyelitis of L. Thumb. Correlate with LE MRI as could be systemic disease as well. Scleroderma or Raynouds. -Hand Surgery consulted- Dr. Guerra- will follow recs -R thumb cx grew MRSA and chloe albicans, continue vanc -Continue wound care Physical Deconditioning - Patient unable to walk without assistance since being hospitalized past two months for sepsis 2/2 endocarditis, NSTEMI, and DKA at [facility] - Unable to care for self and homeless - No family support - CM consulted; appreciate recs - D/C planning process started - Water Quality Manager consulted; appreciate recs - PT/OT to evaluate and treat patient - [facility] Un[facility] Type II DM with hyperglycemia - BG 599 on admission, Has since stabilized. - Hyperglycemia protocol with mod SSI - Levemir 36 u am and 25 u hs, Glucose has remained elevated, likely 2/2 infection. Will continue to titrate as necessary. - Q4H accuchecks CAD s/p PA - Hospitalized recently at [facility]; discharged earlier this week. - Lovenox for DVT PPX - Continue medications from last hospitalization - Echo with normal EF, no plans for cardiac catheterization at outside hospital Moderate Protein-Calorie Malnutrition - Albumin 2.6. Prealbumin lower than 5 - P normal. Mag low replacing - Ensure high protein supplementation - Water Quality Manager consult; appreciate recommendations - TSH normal Chronic Anemia - Stable - Has been iron deficiency in the past - Hg 9.4 on admission. At baseline - Continue to trend with weekly labs - Patient asymptomatic currently - Normocytic today - Iron deficiency vs. ACD ECTOR on CKD- Resolved - Stable. 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 - Will monitor closely and adjust as needed COPD - Monitor O2 sats with goal >88% - Duoneb treatments PRN for shortness of breath/wheezing PVD - Pulses intact - CV surgery consulted- Will assess PAD for healing in legs. Will follow recs Endocarditis s/p treatment with IV abx - MRSA with pulmonary emboli, renal emboli, osteomyelitis, and discitis of C5-6 - Negative cultures on 10/28/2017 - s/p treatment with 6 weeks vancomycin/daptomycin - Complications include PICC line infection with Klebsiella requiring treatment with levaquin at outside facility - Continue rifampin x1 month - Echo showed normal EF Mild anion gap metabolic acidosis-Resolved - Resolved Sacral decubitus ulcer - Consult wound care - Frequent turning of patient Schizophrenia - continue on home meds <Hayde Molina - Last Filed: 11/07/17 09:13> Attending Addendum - Attending Addendum Date/Time: 11/07/17 4399 I personally evaluated the patient and discussed the management with Dr. Molina on 11/07/17. I agree with the History, Examination, Assessment and Plan documented above with any addition or exceptions noted below. PICC line placed. Will arrange outpatient Vanc and placement for aggressive PT and antibiotic management. <Juliane Bradford - Last Filed: 11/07/17 14:27>
[2017-11-07] MEDS: Rifampin 300 MG CAP PO SCH ×2 (11:40→19:57)
--- NOTE | 2017-11-07 12:36 | SPC ---
FLUOROSCOPIC GUIDED PICC LINE PLACEMENT: History Need for long-term IV access. COMPARISON: None. FINDINGS: The patient is brought to the specials suite. All questions were answered. Informed consent was alr shivani obtained. Timeout was performed. The patient's left arm was prepped and draped in normal sterile fashion. The left basilic vein was accessed after infiltration of the superficial soft tissues with 2 mL of bu ffered Lidocaine. Using a micropuncture set, the left basilic vein was accessed. Over and a wire and through a peelawa y sheath, a 40 cm single lumen and PICC was placed. The patient tolerated the procedure well. No co mplication. IMPRESSION: Technically successful left basilic vein fluoroscopic and ultrasound guided PICC line placement. POS: [facility]OCASTA
[2017-11-07 12:44] LABS: Vancomycin, Trough 20.4 ug/mL
[2017-11-07] MEDS ORDERED: Heparin 1,000 UNITS/ML VIAL ONE (16:29)
--- NOTE | 2017-11-07 17:25 | PRG ---
DATE OF SERVICE: 11/07/2017 SUBJECTIVE: Ms. Stephenson is upset with her sister for some reason. Still with some pain in the right foot, first toe from the ischemic lesion, some pain in the left hand, but other than that, her neck is feeling pretty good. She has no respiratory symptoms or abdominal pain, no diarrhea. She has had a PICC line reinserted and she is afebrile. Other vital signs are normal. OBJECTIVE: GENERAL: Awake, alert, oriented. LUNGS: Clear. The right lung is much improved compared with status at the [facility]. HEART: S1, S2, regular rate without murmurs. NECK: Range of motion of the neck is normal without tenderness. ABDOMEN: No abdominal pain. LABORATORY DATA: White cell count 9.8, hemoglobin 9.4, platelets 704,000. Neurosurgery has evaluated the patient and recommended continuation of conservative management. 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 Extensive sta y at [facility] where she was treated for 6 weeks and now has been readmitted rig after discharge, has completed some areas of debridement in the extremities and now she will paty nue with vancomycin intravenously for another extensive period of time. This time end date of therap y probably will be around 12/08, depending on progress of her markers for inflammatory change such as CBC, platelets, and C-reactive protein. Disposition will depend on case hardener assistance with placement.
[2017-11-07] MEDS: Insulin Detemir 100 UNITS/ML 30 UNITS in Pre-Filled Syringe 1 EACH SC SCH (19:56)
[2017-11-07] MEDS: Atorvastatin Calcium 20 MG TAB PO SCH (19:57)
[2017-11-07] MEDS: Mirtazapine 15 MG TAB PO SCH (19:57)
[2017-11-08] MEDS: Vancomycin HCl 1 GM in Premix Bag 1 BAG IVPB SCH ×2 (00:53→14:40)
[2017-11-08] MEDS: Acetaminophen 325 MG TAB PO PRN ×3 (01:48→17:15)
--- NOTE | 2017-11-08 08:39 | PDOC.FM ---
- Subjective Subjective: Patient reports continued pain in her L hand, R foot, and neck. She does not feel like the tylenol is helping with her pain. She denies any SOB, chest pain, abdominal pain, N/V. - Objective MAR Reviewed: Yes Vital Signs & Weight: Vital Signs (12 hours) Temp Pulse Resp BP BP Pulse Ox 11/08/17 08:06 98.2 F 101 H 18 141/97 H 97 11/08/17 04:00 98 F 95 18 160/90 H 99 11/08/17 00:00 98.3 F 99 18 149/99 H 95 Weight Admit Weight 46.357 kg Weight 45.841 kg I&O: 11/07/17 11/08/17 11/09/17 06:59 06:59 06:59 Intake Total 860 1960 240 Balance 860 1960 240 Result Diagrams: 11/06/17 05:00 11/03/17 04:40 <Hayde Molina - Last Filed: 11/08/17 08:36> - Objective Vital Signs & Weight: Vital Signs (12 hours) Temp Pulse Resp BP BP BP Pulse Ox 11/08/17 08:55 99 141/97 H 11/08/17 08:06 98.2 F 101 H 18 141/97 H 97 11/08/17 04:00 98 F 95 18 160/90 H 99 Weight Admit Weight 46.357 kg Weight 45.841 kg I&O: 11/07/17 11/08/17 11/09/17 06:59 06:59 06:59 Intake Total 860 1960 480 Balance 860 1960 480 Result Diagrams: 11/06/17 05:00 11/03/17 04:40 <Juliane Bradford - Last Filed: 11/08/17 12:38> Phys Exam - Physical Examination Constitutional: NAD HEENT: moist MMs Neck: supple Respiratory: no wheezing, no rales, no rhonchi, clear to auscultation bilateral Cardiovascular: RRR, no significant murmur, no rub Gastrointestinal: soft, non-tender, no distention, positive bowel sounds Musculoskeletal: no edema, pulses present Neurological: non-focal, normal sensation, moves all 4 limbs Psychiatric: A&O x 3 Deviation from normal: dressing in place over L hand and R foot <Hayde Molina - Last Filed: 11/08/17 08:36> Dx/Plan (1) Discitis of cervical region Code(s): M46.42 - DISCITIS, UNSPECIFIED, CERVICAL REGION Status: Acute (2) Dry gangrene Code(s): I96 - GANGRENE, NOT ELSEWHERE CLASSIFIED Status: Acute (3) Septic arthritis of cervical spine Code(s): M46.52 - OTHER INFECTIVE SPONDYLOPATHIES, CERVICAL REGION Status: Acute (4) Endocarditis due to Staphylococcus Code(s): I33.0 - ACUTE AND SUBACUTE INFECTIVE ENDOCARDITIS; B95.8 - UNSP STAPHYLOCOCCUS THE CAUSE OF DISEASES CLASSD ELSWHR Status: Resolved (5) CAD (coronary artery disease) Code(s): I25.10 - ATHSCL HEART DISEASE OF [place] CORONARY ARTERY W/O ANG PCTRS Status: Chronic QualifierTitle: Associated angina: without angina (6) Chronic anemia Code(s): D64.9 - ANEMIA, UNSPECIFIED Status: Chronic (7) HTN (hypertension) Code(s): I10 - ESSENTIAL (PRIMARY) HYPERTENSION Status: Chronic QualifierTitle: Hypertension type: essential hypertension Qualified Code( s): I10 - Essential (primary) hypertension (8) Moderate protein-calorie malnutrition Code(s): E44.0 - MODERATE PROTEIN-CALORIE MALNUTRITION Status: Chronic (9) Osteomyelitis Code(s): M86.9 - OSTEOMYELITIS, UNSPECIFIED Status: Chronic QualifierTitle: Osteomyelitis location: hand Laterality: left (10) PVD (peripheral vascular disease) Code(s): I73.9 - PERIPHERAL VASCULAR DISEASE, UNSPECIFIED Status: Chronic (11) Physical deconditioning Code(s): R53.81 - OTHER MALAISE Status: Chronic (12) Type 2 diabetes mellitus with hyperglycemia Code(s): E11.65 - TYPE 2 DIABETES MELLITUS WITH HYPERGLYCEMIA Status: Suspected QualifierTitle: Diabetes mellitus fdc insulin use: with fdc use Qualified Code(s): E11.65 - Type 2 diabetes mellitus with hyperglycemia; Z79.4 - [facility]CC (current) use of insulin; Z79.4 - long term care administrator (current) use of insulin; Z79.4 - MCC (current) use of insulin; Z79.4 - MCC (current ) use of insulin (13) Schizophrenia Code(s): F20.9 - SCHIZOPHRENIA, UNSPECIFIED Status: Acute QualifierTitle: Schizophrenia type: unspecified Qualified Code(s): F20.9 - Schizophrenia, unspecified (14) Substance abuse Code(s): F19.10 - OTHER PSYCHOACTIVE SUBSTANCE ABUSE, UNCOMPLICATED Status: Chronic (15) COPD (chronic obstructive pulmonary disease) Status: Chronic QualifierTitle: COPD type: unspecified COPD Qualified Code(s): J44.9 - Chronic obstructive pulmonary disease, unspecified - Plan Plan: Discitis/Septic arthritis of C5-6 - Concern for this dx based on MRI - Dr Bosch has been consulted, will continue IV vanc - Vanc day 6, vanc will be continued at least until 12/08/17. PICC line placed on 11/07 in L arm. - Vanc trough appropriate - Neuro surgery on board, appreciate recs - will likely wear collar and f/u outpatient in 4 weeks. - Patient pending placement, but has been declined from 3 facilities so far. CM is working on placement, but this might prove difficult with patient's homeless status - Will add ibuprofen for better pain control Gangrenous Toes -S/p amputation R 5th toe. -Continue wound care Osteomyelitis R. Thumb -ESR elevated. X-ray shows early osteomyelitis/ S/p I&D -MRI UE- shows osteomyelitis of L. Thumb. Correlate with LE MRI as could be systemic disease as well. Scleroderma or Raynouds. -Hand Surgery consulted- Dr. Guerra- will follow recs -R thumb cx grew MRSA and chloe albicans, continue vanc -Continue wound care Physical Deconditioning - Patient unable to walk without assistance since being hospitalized past two months for sepsis 2/2 endocarditis, NSTEMI, and DKA at [facility] - Unable to care for self and homeless - No family support - CM consulted; appreciate recs - D/C planning process started - Charcoal Kiln Burner consulted; appreciate recs - PT/OT to evaluate and treat patient - Working on placement Uncontrolled Type II DM with hyperglycemia - BG 599 on admission, Has since stabilized. - SSI increased to aggressive - Levemir 35 u am and 30 u hs, Glucose has remained elevated, likely 2/2 infection. Will continue to titrate as necessary. - Q4H accuchecks CAD s/p [place] - Hospitalized recently at [facility]; discharged earlier this week. - Lovenox for DVT PPX - Continue medications from last hospitalization - Echo with normal EF, no plans for cardiac catheterization at outside hospital Moderate Protein-Calorie Malnutrition - Albumin 2.6. Prealbumin lower than 5 - P normal. Mag low replaced - Ensure high protein supplementation - Charcoal Kiln Burner consult; appreciate recommendations - TSH normal Chronic Anemia - Stable - Has been iron deficiency in the past - Hg 9.4 on admission. At baseline - Continue to trend with weekly labs - Patient asymptomatic currently - Normocytic today - Iron deficiency vs. ACD ECTOR on CKD- Resolved - Stable. 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 - Will monitor closely and adjust as needed COPD - Monitor O2 sats with goal >88% - Duoneb treatments PRN for shortness of breath/wheezing PVD - Pulses intact - CV surgery consulted- Will assess PAD for healing in legs. Will follow recs Endocarditis s/p treatment with IV abx - MRSA with pulmonary emboli, renal emboli, osteomyelitis, and discitis of C5-6 - Negative cultures on 10/28/2017 - s/p treatment with 6 weeks vancomycin/daptomycin - Complications include PICC line infection with Klebsiella requiring treatment with levaquin at outside facility - Continue rifampin x1 month - Echo showed normal EF Mild anion gap metabolic acidosis-Resolved - Resolved Sacral decubitus ulcer - Consult wound care - Frequent turning of patient Schizophrenia - continue on home meds <Hayde Molina - Last Filed: 11/08/17 08:36> Attending Addendum - Attending Addendum Date/Time: 11/08/17 1233 I personally evaluated the patient and discussed the management with Dr. Molina on 11/08/17. I agree with the History, Examination, Assessment and Plan documented above with any addition or exceptions noted below. Attempted a prolonged discussion today with Ms. Stephenson to evaluate her mental status futher. She still has significant functional mental capacity, likely as an outcome of prolonged untreated schizophrenia. She has significantly decreased ability to reason and converse, with the conversational ability during our discussion of a 6-10 year old child. These symptoms do not appear to wax and wane and may indicate an underlying issue with significant intellectual disabilities as a result of her mental health issues. Her next of kin (her sister) have not returned phone messages and do not appear to be involved with her care. She would benefit from long-term placement and care because of her underlying mental health issues. She feels improved today although with some residual pain still in her neck. Will consider [facility] consult for further evaluation. <Juliane Bradford - Last Filed: 11/08/17 12:38>
[2017-11-08] MEDS: Polyethylene Glycol 3350 17 GM Packet PO SCH (08:54)
[2017-11-08] MEDS: metFORMIN 500 MG TAB PO SCH ×2 (08:54→17:15)
[2017-11-08] MEDS: Potassium Chloride 20 MEQ TAB PO SCH (08:54)
[2017-11-08] MEDS: Enoxaparin Sodium 40 MG/0.4 ML SYRINGE SC SCH (08:55)
[2017-11-08] MEDS: Lisinopril 2.5 MG TAB PO SCH (08:55)
[2017-11-08] MEDS: Metoprolol Tartrate 50 MG TAB PO SCH ×2 (08:55→20:20)
[2017-11-08] MEDS: Aspirin 325 mg Enteric Coated Tablet PO SCH (08:55)
[2017-11-08] MEDS: Magnesium Chloride 64 MG TAB PO SCH ×2 (08:55→21:00)
[2017-11-08] MEDS: Rifampin 300 MG CAP PO SCH ×2 (08:59→21:58)
[2017-11-08] MEDS: Insulin Detemir 100 UNITS/ML 35 UNITS in Pre-Filled Syringe 1 EACH SC SCH (09:56)
[2017-11-08] MEDS: HumaLOG 300 UNITS/3 ML VIAL SC PRN ×3 (09:59→17:15)
[2017-11-08 14:21] VITALS: BMI 19.1
[2017-11-08] MEDS: Atorvastatin Calcium 20 MG TAB PO SCH (20:20)
[2017-11-08] MEDS: Insulin Detemir 100 UNITS/ML 30 UNITS in Pre-Filled Syringe 1 EACH SC SCH (20:20)
[2017-11-08] MEDS: Mirtazapine 15 MG TAB PO SCH (20:20)
[2017-11-09] MEDS: Vancomycin HCl 1 GM in Premix Bag 1 BAG IVPB SCH ×2 (01:30→15:24)
[2017-11-09] MEDS: Ibuprofen 800 MG TAB PO PRN ×2 (01:40→21:09)
--- NOTE | 2017-11-09 07:00 | PDOC.FM ---
- Subjective Subjective: Patient reports no complaints this AM. She reports that the ibuprofen helped with her pain. She is eating and drinking without difficulty. She denies any fevers or chills. - Objective MAR Reviewed: Yes Vital Signs & Weight: Vital Signs (12 hours) Temp Pulse Resp BP Pulse Ox 11/08/17 20:00 98.4 F 108 H 18 137/91 H 97 Weight Admit Weight 46.357 kg Weight 45.813 kg I&O: 11/07/17 11/08/17 11/09/17 06:59 06:59 06:59 Intake Total 860 1960 1690 Output Total 2 Balance 860 1960 1688 Result Diagrams: 11/06/17 05:00 11/03/17 04:40 <Hayde Molina - Last Filed: 11/09/17 08:10> - Objective Vital Signs & Weight: Vital Signs (12 hours) Temp Pulse Resp BP BP Pulse Ox 11/10/17 08:25 96 125/84 11/10/17 08:00 97.5 F L 96 18 125/84 99 11/10/17 00:00 98.2 F 89 18 137/90 99 Weight Admit Weight 46.357 kg Weight 45.813 kg I&O: 11/09/17 11/10/17 11/11/17 06:59 06:59 06:59 Intake Total 1690 2230 Output Total 2 Balance 168 2230 Result Diagrams: 11/06/17 05:00 11/03/17 04:40 <Juliane Bradford - Last Filed: 11/10/17 09:03> Phys Exam - Physical Examination Constitutional: NAD HEENT: moist MMs Respiratory: no wheezing, no rales, no rhonchi, clear to auscultation bilateral Cardiovascular: RRR, no significant murmur, no rub Gastrointestinal: soft, non-tender, no distention, positive bowel sounds Musculoskeletal: no edema, pulses present Neurological: non-focal, moves all 4 limbs Psychiatric: A&O x 3 Deviation from normal: wound dressings in place over L hand and R foot <Hayde Molina - Last Filed: 11/09/17 08:10> Dx/Plan (1) Discitis of cervical region Code(s): M46.42 - DISCITIS, UNSPECIFIED, CERVICAL REGION Status: Acute (2) Dry gangrene Code(s): I96 - GANGRENE, NOT ELSEWHERE CLASSIFIED Status: Acute (3) Septic arthritis of cervical spine Code(s): M46.52 - OTHER INFECTIVE SPONDYLOPATHIES, CERVICAL REGION Status: Acute (4) Endocarditis due to Staphylococcus Code(s): I33.0 - ACUTE AND SUBACUTE INFECTIVE ENDOCARDITIS; B95.8 - UNSP STAPHYLOCOCCUS THE CAUSE OF DISEASES CLASSD ELSWHR Status: Resolved (5) CAD (coronary artery disease) Code(s): I25.10 - ATHSCL HEART DISEASE OF [place] CORONARY ARTERY W/O ANG PCTRS Status: Chronic QualifierTitle: Associated angina: without angina (6) Chronic anemia Code(s): D64.9 - ANEMIA, UNSPECIFIED Status: Chronic (7) HTN (hypertension) Code(s): I10 - ESSENTIAL (PRIMARY) HYPERTENSION Status: Chronic QualifierTitle: Hypertension type: essential hypertension Qualified Code( s): I10 - Essential (primary) hypertension (8) Moderate protein-calorie malnutrition Code(s): E44.0 - MODERATE PROTEIN-CALORIE MALNUTRITION Status: Chronic (9) Osteomyelitis Code(s): M86.9 - OSTEOMYELITIS, UNSPECIFIED Status: Chronic QualifierTitle: Osteomyelitis location: hand Laterality: left (10) PVD (peripheral vascular disease) Code(s): I73.9 - PERIPHERAL VASCULAR DISEASE, UNSPECIFIED Status: Chronic (11) Physical deconditioning Code(s): R53.81 - OTHER MALAISE Status: Chronic (12) Type 2 diabetes mellitus with hyperglycemia Code(s): E11.65 - TYPE 2 DIABETES MELLITUS WITH HYPERGLYCEMIA Status: Suspected QualifierTitle: Diabetes mellitus terminal clerk insulin use: with [facility] use Qualified Code(s): E11.65 - Type 2 diabetes mellitus with hyperglycemia; Z79.4 - buttermaker (current) use of insulin; Z79.4 - [facility] (current) use of insulin; Z79.4 - [facility] (current) use of insulin; Z79.4 - [facility] (current ) use of insulin (13) Schizophrenia Code(s): F20.9 - SCHIZOPHRENIA, UNSPECIFIED Status: Acute QualifierTitle: Schizophrenia type: unspecified Qualified Code(s): F20.9 - Schizophrenia, unspecified (14) Substance abuse Code(s): F19.10 - OTHER PSYCHOACTIVE SUBSTANCE ABUSE, UNCOMPLICATED Status: Chronic (15) COPD (chronic obstructive pulmonary disease) Status: Chronic QualifierTitle: COPD type: unspecified COPD Qualified Code(s): J44.9 - Chronic obstructive pulmonary disease, unspecified (16) Mental disability Code(s): F79 - UNSPECIFIED INTELLECTUAL DISABILITIES Status: Acute - Plan Plan: Discitis/Septic arthritis of C5-6 - Concern for this dx based on MRI - Dr Bosch has been consulted, will continue IV vanc - Vanc day 7, vanc will be continued at least until 12/08/17. PICC line placed on 11/07 in L arm. - Vanc trough appropriate - Neuro surgery on board, appreciate recs - will likely wear collar and f/u outpatient in 4 weeks. - Patient pending placement, but has been declined from 3 facilities so far. CM is working on placement, but this might prove difficult with patient's homeless status - Ibuprofen and tylenol for pain control Gangrenous Toes -S/p amputation R 5th toe. -Continue wound care Osteomyelitis R. Thumb -ESR elevated. X-ray shows early osteomyelitis/ S/p I&D -MRI UE- shows osteomyelitis of L. Thumb. Correlate with LE MRI as could be systemic disease as well. Scleroderma or Raynouds. -Hand Surgery consulted- Dr. Guerra- will follow recs -R thumb cx grew MRSA and chloe albicans, continue vanc -Continue wound care Physical Deconditioning - Patient unable to walk without assistance since being hospitalized past two months for sepsis 2/2 endocarditis, NSTEMI, and DKA at [facility] - Unable to care for self and homeless - No family support - CM consulted; appreciate recs - D/C planning process started - Press Officer consulted; appreciate recs - PT/OT to evaluate and treat patient - Working on placement Uncontrolled Type II DM with hyperglycemia - BG 599 on admission, Has since stabilized. - SSI increased to aggressive - Levemir 35 u am and 30 u hs, Glucose has improved on this regimen, will continue to monitor closely for hypoglycemia - Q4H accuchecks Mental Disability 2/2 schizophrenia. The patient has decreased mental functional capacity. She functions at the level of a child. It is likely that this is part of the natural progression of her schizophrenia. The patient does not have the ability to care for herself in any capacity. - Will consult case management for potential [facility] placement - Will contact [facility] and attempt to have them come evaluate her as well CAD s/p CA - Hospitalized recently at [facility]; discharged earlier this week. - Lovenox for DVT PPX - Continue medications from last hospitalization - Echo with normal EF, no plans for cardiac catheterization at outside hospital Moderate Protein-Calorie Malnutrition - Albumin 2.6. Prealbumin lower than 5 - P normal. Mag low replaced - Ensure high protein supplementation - Press Officer consult; appreciate recommendations - TSH normal Chronic Normocytic Anemia - Stable - Has been iron deficiency in the past - Hg 9.4 on admission. At baseline - Continue to trend with weekly labs - Patient asymptomatic currently - Iron deficiency vs. ACD ECTOR on CKD- Resolved - Stable. 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 - Will monitor closely and adjust as needed COPD - Monitor O2 sats with goal >88% - Duoneb treatments PRN for shortness of breath/wheezing PVD - Pulses intact - CV surgery consulted- Will assess PAD for healing in legs. Will follow recs Endocarditis s/p treatment with IV abx - MRSA with pulmonary emboli, renal emboli, osteomyelitis, and discitis of C5-6 - Negative cultures on 10/28/2017 - s/p treatment with 6 weeks vancomycin/daptomycin - Complications include PICC line infection with Klebsiella requiring treatment with levaquin at outside facility - Continue rifampin x1 month - Echo showed normal EF Mild anion gap metabolic acidosis-Resolved - Resolved Sacral decubitus ulcer - Consult wound care - Frequent turning of patient Schizophrenia - continue on home meds <Hayde Molina - Last Filed: 11/09/17 08:10> Attending Addendum - Attending Addendum Date/Time: 11/10/17 0903 I personally evaluated the patient and discussed the management with Dr. Molina on 11/09/17. I agree with the History, Examination, Assessment and Plan documented above with any addition or exceptions noted below. Doing well, no pain today. Eating, working with PT. PICC in place, getting IV abx until December 08. Case management working on dispo, pt needs SNF, rehab, or permanent NH placement, but does not have insurance. <Juliane Bradford - Last Filed: 11/10/17 09:03>
[2017-11-09] MEDS: Magnesium Chloride 64 MG TAB PO SCH ×2 (08:40→20:51)
[2017-11-09] MEDS: Enoxaparin Sodium 40 MG/0.4 ML SYRINGE SC SCH (08:41)
[2017-11-09] MEDS: Lisinopril 2.5 MG TAB PO SCH (08:41)
[2017-11-09] MEDS: Aspirin 325 mg Enteric Coated Tablet PO SCH (08:42)
[2017-11-09] MEDS: Metoprolol Tartrate 50 MG TAB PO SCH ×2 (08:42→20:52)
[2017-11-09] MEDS: Potassium Chloride 20 MEQ TAB PO SCH (08:42)
[2017-11-09] MEDS: metFORMIN 500 MG TAB PO SCH ×2 (08:42→17:24)
[2017-11-09] MEDS: Insulin Detemir 100 UNITS/ML 35 UNITS in Pre-Filled Syringe 1 EACH SC SCH (08:43)
[2017-11-09] MEDS: Polyethylene Glycol 3350 17 GM Packet PO SCH (08:43)
[2017-11-09] MEDS: Acetaminophen 325 MG TAB PO PRN (08:46)
[2017-11-09] MEDS: HumaLOG 300 UNITS/3 ML VIAL SC PRN (11:53)
[2017-11-09] MEDS: Rifampin 300 MG CAP PO SCH ×2 (11:54→20:52)
[2017-11-09] MEDS ORDERED: Insulin Detemir 100 UNITS/ML 15 UNITS in Pre-Filled Syringe 1 EACH SC SCH (12:15)
[2017-11-09 13:02] LABS: Vancomycin, Trough 24.8 ug/mL
[2017-11-09] MEDS: Mirtazapine 15 MG TAB PO SCH (20:52)
[2017-11-09] MEDS: Insulin Detemir 100 UNITS/ML 25 UNITS in Pre-Filled Syringe 1 EACH SC SCH (20:52)
[2017-11-09] MEDS: Atorvastatin Calcium 20 MG TAB PO SCH (20:52)
[2017-11-09] MEDS: Vancomycin HCl 750 MG in Sodium Chloride 0.9% 250 ML 250 ML IVPB SCH (20:53)
[2017-11-10] MEDS: HumaLOG 300 UNITS/3 ML VIAL SC PRN ×2 (06:39→21:34)
[2017-11-10] MEDS: Ibuprofen 800 MG TAB PO PRN ×2 (06:41→17:39)
--- NOTE | 2017-11-10 07:17 | PDOC.FM ---
- Subjective Subjective: Patient doing well this AM. She reports some R shoulder pain that has been resolved with ibuprofen. The patient is tolerating PO well and denies N/V. - Objective MAR Reviewed: Yes Vital Signs & Weight: Vital Signs (12 hours) Temp Pulse Resp BP Pulse Ox 11/10/17 00:00 98.2 F 89 18 137/90 99 11/09/17 20:00 98.4 F 98 18 99 Weight Admit Weight 46.357 kg Weight 45.813 kg I&O: 11/09/17 11/10/17 11/11/17 06:59 06:59 06:59 Intake Total 1690 2230 Output Total 2 Balance 1688 2230 Result Diagrams: 11/06/17 05:00 11/03/17 04:40 <Hayde Molina - Last Filed: 11/10/17 07:14> - Objective Vital Signs & Weight: Vital Signs (12 hours) Temp Pulse Resp BP BP Pulse Ox 11/10/17 08:25 96 125/84 11/10/17 08:00 97.5 F L 96 18 125/84 99 11/10/17 00:00 98.2 F 89 18 137/90 99 Weight Admit Weight 46.357 kg Weight 45.813 kg I&O: 11/09/17 11/10/17 11/11/17 06:59 06:59 06:59 Intake Total 1690 2230 Output Total 2 Balance 1688 2230 Result Diagrams: 11/06/17 05:00 11/03/17 04:40 <Kevin Kelley - Last Filed: 11/10/17 10:40> Phys Exam - Physical Examination Constitutional: NAD HEENT: moist MMs Respiratory: no wheezing, no rales, no rhonchi, clear to auscultation bilateral Cardiovascular: RRR, no significant murmur, no rub Gastrointestinal: soft, non-tender, no distention, positive bowel sounds Musculoskeletal: no edema, pulses present Neurological: non-focal, moves all 4 limbs Psychiatric: A&O x 3 Deviation from normal: guarded affect Skin: normal turgor Deviation from normal: dressings in place over R foot and L hand <Hayde Molina - Last Filed: 11/10/17 07:14> Dx/Plan (1) Discitis of cervical region Code(s): M46.42 - DISCITIS, UNSPECIFIED, CERVICAL REGION Status: Acute (2) Dry gangrene Code(s): I96 - GANGRENE, NOT ELSEWHERE CLASSIFIED Status: Acute (3) Septic arthritis of cervical spine Code(s): M46.52 - OTHER INFECTIVE SPONDYLOPATHIES, CERVICAL REGION Status: Acute (4) Endocarditis due to Staphylococcus Code(s): I33.0 - ACUTE AND SUBACUTE INFECTIVE ENDOCARDITIS; B95.8 - UNSP STAPHYLOCOCCUS THE CAUSE OF DISEASES CLASSD ELSWHR Status: Resolved (5) CAD (coronary artery disease) Code(s): I25.10 - ATHSCL HEART DISEASE OF [place] CORONARY ARTERY W/O ANG PCTRS Status: Chronic QualifierTitle: Associated angina: without angina (6) Chronic anemia Code(s): D64.9 - ANEMIA, UNSPECIFIED Status: Chronic (7) HTN (hypertension) Code(s): I10 - ESSENTIAL (PRIMARY) HYPERTENSION Status: Chronic QualifierTitle: Hypertension type: essential hypertension Qualified Code( s): I10 - Essential (primary) hypertension (8) Moderate protein-calorie malnutrition Code(s): E44.0 - MODERATE PROTEIN-CALORIE MALNUTRITION Status: Chronic (9) Osteomyelitis Code(s): M86.9 - OSTEOMYELITIS, UNSPECIFIED Status: Chronic QualifierTitle: Osteomyelitis location: hand Laterality: left (10) PVD (peripheral vascular disease) Code(s): I73.9 - PERIPHERAL VASCULAR DISEASE, UNSPECIFIED Status: Chronic (11) Physical deconditioning Code(s): R53.81 - OTHER MALAISE Status: Chronic (12) Type 2 diabetes mellitus with hyperglycemia Code(s): E11.65 - TYPE 2 DIABETES MELLITUS WITH HYPERGLYCEMIA Status: Suspected QualifierTitle: Diabetes mellitus intermodal truck driver insulin use: with prison use Qualified Code(s): E11.65 - Type 2 diabetes mellitus with hyperglycemia; Z79.4 - retirement (current) use of insulin; Z79.4 - retirement (current) use of insulin; Z79.4 - exterminator helper (current) use of insulin; Z79.4 - retirement (current ) use of insulin (13) Schizophrenia Code(s): F20.9 - SCHIZOPHRENIA, UNSPECIFIED Status: Acute QualifierTitle: Schizophrenia type: unspecified Qualified Code(s): F20.9 - Schizophrenia, unspecified (14) Substance abuse Code(s): F19.10 - OTHER PSYCHOACTIVE SUBSTANCE ABUSE, UNCOMPLICATED Status: Chronic (15) COPD (chronic obstructive pulmonary disease) Status: Chronic QualifierTitle: COPD type: unspecified COPD Qualified Code(s): J44.9 - Chronic obstructive pulmonary disease, unspecified (16) Mental disability Code(s): F79 - UNSPECIFIED INTELLECTUAL DISABILITIES Status: Acute - Plan Plan: Discitis/Septic arthritis of C5-6 - Concern for this dx based on MRI - Dr Bosch has been consulted, will continue IV vanc - Vanc day 8, vanc will be continued at least until 12/08/17. PICC line placed on 11/07 in L arm. - Vanc trough appropriate - Neuro surgery on board, appreciate recs - will likely wear collar and f/u outpatient in 4 weeks. - Patient pending placement, but has been declined from 3 facilities so far. CM is working on placement, but this might prove difficult with patient's homeless status - Ibuprofen and tylenol for pain control Gangrenous Toes -S/p amputation R 5th toe. -Continue wound care Osteomyelitis R. Thumb -ESR elevated. X-ray shows early osteomyelitis/ S/p I&D -MRI UE- shows osteomyelitis of L. Thumb. Correlate with LE MRI as could be systemic disease as well. Scleroderma or Raynouds. -Hand Surgery consulted- Dr. Guerra- will follow recs -R thumb cx grew MRSA and chloe albicans, continue vanc -Continue wound care Physical Deconditioning - Patient unable to walk without assistance since being hospitalized past two months for sepsis 2/2 endocarditis, NSTEMI, and DKA at [facility] - Unable to care for self and homeless - No family support - CM consulted; appreciate recs - D/C planning process started - Psych Sales Specialist consulted; appreciate recs - PT/OT to evaluate and treat patient - Working on placement Uncontrolled Type II DM with hyperglycemia - BG 599 on admission, Has since stabilized. - SSI increased to aggressive - Levemir 35 u am and 25 u hs - Q4H accuchecks Mental Disability 2/2 schizophrenia. The patient has decreased mental functional capacity. She functions at the level of a child. It is likely that this is part of the natural progression of her schizophrenia. The patient does not have the ability to care for herself in any capacity. - Will consult case management for potential prison placement - Will contact [facility] and attempt to have them come evaluate her as well CAD s/p MS - Hospitalized recently at [facility]; discharged earlier this week. - Lovenox for DVT PPX - Continue medications from last hospitalization - Echo with normal EF, no plans for cardiac catheterization at outside hospital Moderate Protein-Calorie Malnutrition - Albumin 2.6. Prealbumin lower than 5 - P normal. Mag low replaced - Ensure high protein supplementation - Psych Sales Specialist consult; appreciate recommendations - TSH normal Chronic Normocytic Anemia - Stable - Has been iron deficiency in the past - Hg 9.4 on admission. At baseline - Continue to trend with weekly labs - Patient asymptomatic currently - Iron deficiency vs. ACD ECTOR on CKD- Resolved - Stable. 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 - Will monitor closely and adjust as needed COPD - Monitor O2 sats with goal >88% - Duoneb treatments PRN for shortness of breath/wheezing PVD - Pulses intact - CV surgery consulted- Will assess PAD for healing in legs. Will follow recs Endocarditis s/p treatment with IV abx - MRSA with pulmonary emboli, renal emboli, osteomyelitis, and discitis of C5-6 - Negative cultures on 10/28/2017 - s/p treatment with 6 weeks vancomycin/daptomycin - Complications include PICC line infection with Klebsiella requiring treatment with levaquin at outside facility - Continue rifampin x1 month - Echo showed normal EF Mild anion gap metabolic acidosis-Resolved - Resolved Sacral decubitus ulcer - Consult wound care - Frequent turning of patient Schizophrenia - continue on home meds <Hayde Molina - Last Filed: 11/10/17 07:14> Attending Addendum - Attending Addendum Date/Time: 11/10/17 1039 I personally evaluated the patient and discussed the management with Dr. Molina. I agree with the History, Examination, Assessment and Plan documented above with any addition or exceptions noted below. Patient doing well. Stable. Continuing antibiotic therapy till approximately . Will work on improving glycemic control with increasing insulin regimen. No other changes to plan at this time. <Kevin Kelley - Last Filed: 11/10/17 10:40>
[2017-11-10] MEDS: metFORMIN 500 MG TAB PO SCH ×2 (08:21→17:39)
[2017-11-10] MEDS: Magnesium Chloride 64 MG TAB PO SCH ×2 (08:22→21:39)
[2017-11-10] MEDS: Aspirin 325 mg Enteric Coated Tablet PO SCH (08:22)
[2017-11-10] MEDS: Potassium Chloride 20 MEQ TAB PO SCH (08:22)
[2017-11-10] MEDS: Metoprolol Tartrate 50 MG TAB PO SCH ×2 (08:23→21:29)
[2017-11-10] MEDS: Rifampin 300 MG CAP PO SCH ×2 (08:23→21:28)
[2017-11-10] MEDS: Polyethylene Glycol 3350 17 GM Packet PO SCH (08:23)
[2017-11-10] MEDS: Lisinopril 2.5 MG TAB PO SCH (08:25)
[2017-11-10] MEDS: Enoxaparin Sodium 40 MG/0.4 ML SYRINGE SC SCH (08:31)
[2017-11-10] MEDS: Vancomycin HCl 750 MG in Sodium Chloride 0.9% 250 ML 250 ML IVPB SCH ×2 (08:36→21:28)
[2017-11-10] MEDS: Acetaminophen 325 MG TAB PO PRN ×2 (08:36→21:39)
[2017-11-10] MEDS: Insulin Detemir 100 UNITS/ML 35 UNITS in Pre-Filled Syringe 1 EACH SC SCH (08:41)
[2017-11-10] MEDS: Insulin Detemir 100 UNITS/ML 25 UNITS in Pre-Filled Syringe 1 EACH SC SCH (21:27)
[2017-11-10] MEDS: Mirtazapine 15 MG TAB PO SCH (21:29)
[2017-11-10] MEDS: Atorvastatin Calcium 20 MG TAB PO SCH (21:29)
[2017-11-11] MEDS: HumaLOG 300 UNITS/3 ML VIAL SC PRN ×2 (06:34→16:43)
[2017-11-11] MEDS: metFORMIN 500 MG TAB PO SCH ×2 (07:49→16:43)
[2017-11-11] MEDS: Lisinopril 2.5 MG TAB PO SCH (07:49)
[2017-11-11] MEDS: Magnesium Chloride 64 MG TAB PO SCH ×2 (07:50→21:21)
[2017-11-11] MEDS: Aspirin 325 mg Enteric Coated Tablet PO SCH (07:50)
[2017-11-11] MEDS: Metoprolol Tartrate 50 MG TAB PO SCH ×2 (07:50→21:20)
[2017-11-11] MEDS: Potassium Chloride 20 MEQ TAB PO SCH (07:50)
[2017-11-11] MEDS: Enoxaparin Sodium 40 MG/0.4 ML SYRINGE SC SCH (07:51)
[2017-11-11] MEDS: Rifampin 300 MG CAP PO SCH ×2 (07:51→21:20)
[2017-11-11] MEDS: Insulin Detemir 100 UNITS/ML 35 UNITS in Pre-Filled Syringe 1 EACH SC SCH (07:52)
[2017-11-11] MEDS: Polyethylene Glycol 3350 17 GM Packet PO SCH (07:52)
[2017-11-11] MEDS: Ibuprofen 800 MG TAB PO PRN (07:54)
--- NOTE | 2017-11-11 07:59 | PDOC.FM ---
- Subjective Subjective: Patient has no complaints this AM. She is excited that her aunt is going to come visit the hospital today since it is her aunts birthday. She denies any pain, N/V, F/C. She reports that she is eating well. - Objective MAR Reviewed: Yes Vital Signs & Weight: Vital Signs (12 hours) Temp Pulse Resp BP Pulse Ox 11/10/17 20:41 98.2 F 97 18 142/94 H 99 11/10/17 20:00 98.2 F 97 18 99 Weight Admit Weight 46.357 kg Weight 45.813 kg I&O: 11/10/17 11/11/17 11/12/17 06:59 06:59 06:59 Intake Total 2230 1700 Balance 2230 1700 Result Diagrams: 11/06/17 05:00 11/03/17 04:40 <Hayde Molina - Last Filed: 11/11/17 07:57> - Objective Vital Signs & Weight: Vital Signs (12 hours) Temp Pulse Resp BP BP Pulse Ox 11/11/17 08:00 97.6 F 96 16 100 11/11/17 07:49 96 124/83 11/11/17 07:45 97.6 F 97 16 124/83 100 Weight Admit Weight 46.357 kg Weight 45.813 kg I&O: 11/10/17 11/11/17 11/12/17 06:59 06:59 06:59 Intake Total 2230 1700 Balance 2230 1700 Result Diagrams: 11/06/17 05:00 11/03/17 04:40 <Kevin Kelley - Last Filed: 11/11/17 11:10> Phys Exam - Physical Examination Constitutional: NAD HEENT: moist MMs Respiratory: no wheezing, no rales, no rhonchi, clear to auscultation bilateral Cardiovascular: RRR, no significant murmur, no rub Gastrointestinal: soft, non-tender, no distention, positive bowel sounds Musculoskeletal: no edema, pulses present Neurological: non-focal, moves all 4 limbs Psychiatric: normal affect, A&O x 3 Skin: normal turgor, cap refill <2 seconds Deviation from normal: Dressing in place over L hand and R foot <Hayde Molina - Last Filed: 11/11/17 07:57> Dx/Plan (1) Discitis of cervical region Code(s): M46.42 - DISCITIS, UNSPECIFIED, CERVICAL REGION Status: Acute (2) Dry gangrene Code(s): I96 - GANGRENE, NOT ELSEWHERE CLASSIFIED Status: Acute (3) Septic arthritis of cervical spine Code(s): M46.52 - OTHER INFECTIVE SPONDYLOPATHIES, CERVICAL REGION Status: Acute (4) Endocarditis due to Staphylococcus Code(s): I33.0 - ACUTE AND SUBACUTE INFECTIVE ENDOCARDITIS; B95.8 - UNSP STAPHYLOCOCCUS THE CAUSE OF DISEASES CLASSD ELSWHR Status: Resolved (5) CAD (coronary artery disease) Code(s): I25.10 - ATHSCL HEART DISEASE OF [place] CORONARY ARTERY W/O ANG PCTRS Status: Chronic QualifierTitle: Associated angina: without angina (6) Chronic anemia Code(s): D64.9 - ANEMIA, UNSPECIFIED Status: Chronic (7) HTN (hypertension) Code(s): I10 - ESSENTIAL (PRIMARY) HYPERTENSION Status: Chronic QualifierTitle: Hypertension type: essential hypertension Qualified Code( s): I10 - Essential (primary) hypertension (8) Moderate protein-calorie malnutrition Code(s): E44.0 - MODERATE PROTEIN-CALORIE MALNUTRITION Status: Chronic (9) Osteomyelitis Code(s): M86.9 - OSTEOMYELITIS, UNSPECIFIED Status: Chronic QualifierTitle: Osteomyelitis location: hand Laterality: left (10) PVD (peripheral vascular disease) Code(s): I73.9 - PERIPHERAL VASCULAR DISEASE, UNSPECIFIED Status: Chronic (11) Physical deconditioning Code(s): R53.81 - OTHER MALAISE Status: Chronic (12) Type 2 diabetes mellitus with hyperglycemia Code(s): E11.65 - TYPE 2 DIABETES MELLITUS WITH HYPERGLYCEMIA Status: Suspected QualifierTitle: Diabetes mellitus longterm insulin use: with 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 Qualified Code(s): E11.65 - Type 2 diabetes mellitus with hyperglycemia; Z79.4 - residential (current) use of insulin; Z79.4 - residential (current) use of insulin; Z79.4 - intermediate card tender (current) use of insulin; Z79.4 - intermediate card tender (current ) use of insulin (13) Schizophrenia Code(s): F20.9 - SCHIZOPHRENIA, UNSPECIFIED Status: Acute QualifierTitle: Schizophrenia type: unspecified Qualified Code(s): F20.9 - Schizophrenia, unspecified (14) Substance abuse Code(s): F19.10 - OTHER PSYCHOACTIVE SUBSTANCE ABUSE, UNCOMPLICATED Status: Chronic (15) COPD (chronic obstructive pulmonary disease) Status: Chronic QualifierTitle: COPD type: unspecified COPD Qualified Code(s): J44.9 - Chronic obstructive pulmonary disease, unspecified (16) Mental disability Code(s): F79 - UNSPECIFIED INTELLECTUAL DISABILITIES Status: Acute - Plan Plan: Discitis/Septic arthritis of C5-6 - Concern for this dx based on MRI - Dr Bosch has been consulted, will continue IV vanc - Vanc day 9, vanc will be continued at least until 12/08/17. PICC line placed on 11/07 in L arm. - Neuro surgery on board, appreciate recs - will likely wear collar and f/u outpatient in 4 weeks. - Patient pending placement, but has been declined from 3 facilities so far. CM is working on placement, but this might prove difficult with patient's homeless status - Ibuprofen and tylenol for pain control Gangrenous Toes -S/p amputation R 5th toe. -Continue wound care Osteomyelitis R. Thumb -ESR elevated. X-ray shows early osteomyelitis/ S/p I&D -MRI UE- shows osteomyelitis of L. Thumb. Correlate with LE MRI as could be systemic disease as well. Scleroderma or Raynouds. -Hand Surgery consulted- Dr. Guerra- will follow recs -R thumb cx grew MRSA and chloe albicans, continue vanc -Continue wound care Physical Deconditioning - Patient unable to walk without assistance since being hospitalized past two months for sepsis 2/2 endocarditis, NSTEMI, and DKA at [facility] - Unable to care for self and homeless - No family support - CM consulted; appreciate recs - D/C planning process started - Director Of Vital Statistics consulted; appreciate recs - PT/OT to evaluate and treat patient - Working on placement Uncontrolled Type II DM with hyperglycemia - BG 599 on admission, Has since stabilized. - SSI increased to aggressive - Levemir 35 u am and 25 u hs - Q4H accuchecks Mental Disability 2/2 schizophrenia. The patient has decreased mental functional capacity. She functions at the level of a child. It is likely that this is part of the natural progression of her schizophrenia. The patient does not have the ability to care for herself in any capacity. - Will consult case management for potential longterm placement - Will contact [facility] and attempt to have them come evaluate her as well CAD s/p LA - Hospitalized recently at [facility]; discharged earlier this week. - Lovenox for DVT PPX - Continue medications from last hospitalization - Echo with normal EF, no plans for cardiac catheterization at outside hospital Moderate Protein-Calorie Malnutrition - Albumin 2.6. Prealbumin lower than 5 - P normal. Mag low replaced - Ensure high protein supplementation - Director Of Vital Statistics consult; appreciate recommendations - TSH normal Chronic Normocytic Anemia - Stable - Has been iron deficiency in the past - Hg 9.4 on admission. At baseline - Continue to trend with weekly labs - Patient asymptomatic currently - Iron deficiency vs. ACD ECTOR on CKD- Resolved - Stable. 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 - Will monitor closely and adjust as needed COPD - Monitor O2 sats with goal >88% - Duoneb treatments PRN for shortness of breath/wheezing PVD - Pulses intact - CV surgery consulted- Will assess PAD for healing in legs. Will follow recs Endocarditis s/p treatment with IV abx - MRSA with pulmonary emboli, renal emboli, osteomyelitis, and discitis of C5-6 - Negative cultures on 10/28/2017 - s/p treatment with 6 weeks vancomycin/daptomycin - Complications include PICC line infection with Klebsiella requiring treatment with levaquin at outside facility - Continue rifampin x1 month - Echo showed normal EF Mild anion gap metabolic acidosis-Resolved - Resolved Sacral decubitus ulcer - Consult wound care - Frequent turning of patient Schizophrenia - continue on home meds - Will attempt to obtain records from [facility] to see if pt is supposed to be on any other psych meds <Hayde Molina - Last Filed: 11/11/17 07:57> Attending Addendum - Attending Addendum Date/Time: 11/11/17 9458 I personally evaluated the patient and discussed the management with Dr. Molina. I agree with the History, Examination, Assessment and Plan documented above with any addition or exceptions noted below. Patient stable. Continue on antibiotics for her severe infections. Denies complaints. Her blood sugars continue to need augmentation of insulin therapy. <Kevin Kelley - Last Filed: 11/11/17 11:10>
[2017-11-11 08:30] LABS: Vancomycin, Trough 16.5 ug/mL
[2017-11-11] MEDS: Vancomycin HCl 750 MG in Sodium Chloride 0.9% 250 ML 250 ML IVPB SCH ×2 (09:58→21:19)
[2017-11-11] MEDS: Acetaminophen 325 MG TAB PO PRN (16:43)
[2017-11-11] MEDS: Atorvastatin Calcium 20 MG TAB PO SCH (21:20)
[2017-11-11] MEDS: Mirtazapine 15 MG TAB PO SCH (21:20)
[2017-11-11] MEDS: Insulin Detemir 100 UNITS/ML 30 UNITS in Pre-Filled Syringe 1 EACH SC SCH (21:21)
[2017-11-12] MEDS: Ibuprofen 800 MG TAB PO PRN ×2 (01:16→23:44)
[2017-11-12] MEDS: HumaLOG 300 UNITS/3 ML VIAL SC PRN ×2 (06:27→20:50)
[2017-11-12] MEDS: Vancomycin HCl 750 MG in Sodium Chloride 0.9% 250 ML 250 ML IVPB SCH ×2 (08:37→20:42)
[2017-11-12] MEDS: metFORMIN 500 MG TAB PO SCH ×2 (08:38→16:47)
[2017-11-12] MEDS: Metoprolol Tartrate 50 MG TAB PO SCH ×2 (08:38→20:43)
[2017-11-12] MEDS: Rifampin 300 MG CAP PO SCH ×2 (08:39→21:09)
[2017-11-12] MEDS: Lisinopril 2.5 MG TAB PO SCH (08:40)
[2017-11-12] MEDS: Polyethylene Glycol 3350 17 GM Packet PO SCH (08:40)
[2017-11-12] MEDS: Aspirin 325 mg Enteric Coated Tablet PO SCH (08:40)
[2017-11-12] MEDS: Magnesium Chloride 64 MG TAB PO SCH ×2 (08:40→20:43)
[2017-11-12] MEDS: Potassium Chloride 20 MEQ TAB PO SCH (08:40)
[2017-11-12] MEDS: Enoxaparin Sodium 40 MG/0.4 ML SYRINGE SC SCH (08:41)
[2017-11-12] MEDS: Insulin Detemir 100 UNITS/ML 35 UNITS in Pre-Filled Syringe 1 EACH SC SCH (08:41)
--- NOTE | 2017-11-12 09:23 | PDOC.FM ---
- Subjective Subjective: Patient doing well this AM. No problems or complaints. She is not having any pain today. She is eating well. She denies D/C, F/C - Objective MAR Reviewed: Yes Vital Signs & Weight: Vital Signs (12 hours) Temp Pulse Resp BP BP Pulse Ox 11/12/17 08:00 98.1 F 97 16 132/88 99 11/12/17 04:44 97.4 F L 89 20 128/89 98 Weight Admit Weight 46.357 kg Weight 45.813 kg I&O: 11/11/17 11/12/17 11/13/17 06:59 06:59 06:59 Intake Total 1700 1900 Balance 1700 1900 Result Diagrams: 11/06/17 05:00 11/03/17 04:40 <Hayde Molina - Last Filed: 11/12/17 09:21> - Objective Vital Signs & Weight: Vital Signs (12 hours) Temp Pulse Resp BP BP BP Pulse Ox 11/12/17 08:40 97 122/83 11/12/17 08:00 98.1 F 97 16 132/88 99 11/12/17 04:44 97.4 F L 89 20 128/89 98 Weight Admit Weight 46.357 kg Weight 45.813 kg I&O: 11/11/17 11/12/17 11/13/17 06:59 06:59 06:59 Intake Total 1700 1900 Balance 1700 1900 Result Diagrams: 11/06/17 05:00 11/03/17 04:40 <Efren Albrecht - Last Filed: 11/12/17 16:03> Phys Exam - Physical Examination Constitutional: NAD HEENT: moist MMs Respiratory: no wheezing, no rales, no rhonchi, clear to auscultation bilateral Cardiovascular: RRR, no significant murmur, no rub Gastrointestinal: soft, non-tender, no distention, positive bowel sounds Musculoskeletal: no edema, pulses present Neurological: non-focal, moves all 4 limbs Psychiatric: normal affect, A&O x 3 Skin: normal turgor, cap refill <2 seconds <Hayde Molina - Last Filed: 11/12/17 09:21> Dx/Plan (1) Discitis of cervical region Code(s): M46.42 - DISCITIS, UNSPECIFIED, CERVICAL REGION Status: Acute (2) Dry gangrene Code(s): I96 - GANGRENE, NOT ELSEWHERE CLASSIFIED Status: Acute (3) Septic arthritis of cervical spine Code(s): M46.52 - OTHER INFECTIVE SPONDYLOPATHIES, CERVICAL REGION Status: Acute (4) Endocarditis due to Staphylococcus Code(s): I33.0 - ACUTE AND SUBACUTE INFECTIVE ENDOCARDITIS; B95.8 - UNSP STAPHYLOCOCCUS THE CAUSE OF DISEASES CLASSD ELSWHR Status: Resolved (5) CAD (coronary artery disease) Code(s): I25.10 - ATHSCL HEART DISEASE OF [place] CORONARY ARTERY W/O ANG PCTRS Status: Chronic QualifierTitle: Associated angina: without angina (6) Chronic anemia Code(s): D64.9 - ANEMIA, UNSPECIFIED Status: Chronic (7) HTN (hypertension) Code(s): I10 - ESSENTIAL (PRIMARY) HYPERTENSION Status: Chronic QualifierTitle: Hypertension type: essential hypertension Qualified Code( s): I10 - Essential (primary) hypertension (8) Moderate protein-calorie malnutrition Code(s): E44.0 - MODERATE PROTEIN-CALORIE MALNUTRITION Status: Chronic (9) Osteomyelitis Code(s): M86.9 - OSTEOMYELITIS, UNSPECIFIED Status: Chronic QualifierTitle: Osteomyelitis location: hand Laterality: left (10) PVD (peripheral vascular disease) Code(s): I73.9 - PERIPHERAL VASCULAR DISEASE, UNSPECIFIED Status: Chronic (11) Physical deconditioning Code(s): R53.81 - OTHER MALAISE Status: Chronic (12) Type 2 diabetes mellitus with hyperglycemia Code(s): E11.65 - TYPE 2 DIABETES MELLITUS WITH HYPERGLYCEMIA Status: Suspected QualifierTitle: Diabetes mellitus residential insulin use: with residential use Qualified Code(s): E11.65 - Type 2 diabetes mellitus with hyperglycemia; Z79.4 - prison (current) use of insulin; Z79.4 - prison (current) use of insulin; Z79.4 - traveling passenger agent (current) use of insulin; Z79.4 - traveling passenger agent (current ) use of insulin (13) Schizophrenia Code(s): F20.9 - SCHIZOPHRENIA, UNSPECIFIED Status: Acute QualifierTitle: Schizophrenia type: unspecified Qualified Code(s): F20.9 - Schizophrenia, unspecified (14) Substance abuse Code(s): F19.10 - OTHER PSYCHOACTIVE SUBSTANCE ABUSE, UNCOMPLICATED Status: Chronic (15) COPD (chronic obstructive pulmonary disease) Status: Chronic QualifierTitle: COPD type: unspecified COPD Qualified Code(s): J44.9 - Chronic obstructive pulmonary disease, unspecified (16) Mental disability Code(s): F79 - UNSPECIFIED INTELLECTUAL DISABILITIES Status: Acute - Plan Plan: Discitis/Septic arthritis of C5-6 - Concern for this dx based on MRI - Dr Bosch has been consulted, will continue IV vanc - Vanc day 10, vanc will be continued at least until 12/08/17. PICC line placed on 11/07 in L arm. - Neuro surgery on board, appreciate recs - will likely wear collar and f/u outpatient in 4 weeks. - Patient pending placement, but has been declined from 3 facilities so far. CM is working on placement, but this might prove difficult with patient's homeless status - Ibuprofen and tylenol for pain control Gangrenous Toes -S/p amputation R 5th toe. -Continue wound care Osteomyelitis R. Thumb -ESR elevated. X-ray shows early osteomyelitis/ S/p I&D -MRI UE- shows osteomyelitis of L. Thumb. Correlate with LE MRI as could be systemic disease as well. Scleroderma or Raynouds. -Hand Surgery consulted- Dr. Guerra- will follow recs -R thumb cx grew MRSA and chloe albicans, continue vanc -Continue wound care Physical Deconditioning - Patient unable to walk without assistance since being hospitalized past two months for sepsis 2/2 endocarditis, NSTEMI, and DKA at [facility] - Unable to care for self and homeless - No family support - CM consulted; appreciate recs - D/C planning process started - Director [employer] consulted; appreciate recs - PT/OT to evaluate and treat patient - Working on placement Uncontrolled Type II DM with hyperglycemia - BG 599 on admission, Has since stabilized. - SSI increased to aggressive - Levemir 35 u am and 30 u hs - Q4H accuchecks Mental Disability 2/2 schizophrenia. The patient has decreased mental functional capacity. She functions at the level of a child. It is likely that this is part of the natural progression of her schizophrenia. The patient does not have the ability to care for herself in any capacity. 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 - Lovenox for DVT PPX - Continue medications from last hospitalization - Echo with normal EF, no plans for cardiac catheterization at outside hospital Moderate Protein-Calorie Malnutrition - Albumin 2.6. Prealbumin lower than 5 - P normal. Mag low replaced - Ensure high protein supplementation - Director [employer] consult; appreciate recommendations - TSH normal Chronic Normocytic Anemia - Stable - Has been iron deficiency in the past - Hg 9.4 on admission. At baseline - Continue to trend with weekly labs - Patient asymptomatic currently - Iron deficiency vs. ACD ECTOR on CKD- Resolved - Stable. 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 - Will monitor closely and adjust as needed COPD - Monitor O2 sats with goal >88% - Duoneb treatments PRN for shortness of breath/wheezing PVD - Pulses intact - CV surgery consulted- Will assess PAD for healing in legs. Will follow recs Endocarditis s/p treatment with IV abx - MRSA with pulmonary emboli, renal emboli, osteomyelitis, and discitis of C5-6 - Negative cultures on 10/28/2017 - s/p treatment with 6 weeks vancomycin/daptomycin - Complications include PICC line infection with Klebsiella requiring treatment with levaquin at outside facility - Continue rifampin x1 month - Echo showed normal EF Mild anion gap metabolic acidosis-Resolved - Resolved Sacral decubitus ulcer - Consult wound care - Frequent turning of patient Schizophrenia - continue on home meds - Will attempt to obtain records from [facility] to see if pt is supposed to be on any other psych meds <Hayde Molina - Last Filed: 11/12/17 09:21> Attending Addendum - Attending Addendum Date/Time: 11/12/17 0281 I personally evaluated the patient and discussed the management with Dr. Molina. I agree with the History, Examination, Assessment and Plan documented above with any addition or exceptions noted below. <Efren Albrecht - Last Filed: 11/12/17 16:03>
[2017-11-12] MEDS: Acetaminophen 325 MG TAB PO PRN (12:50)
--- NOTE | 2017-11-12 15:46 | PRG ---
DATE OF SERVICE: 11/12/2017 SUBJECTIVE: Ms. Stephenson is sitting up. She was able to walk today, is feeling stronger every day. OBJECTIVE: VITAL SIGNS: Normal. GENERAL: Exam shows she is smiling and has a neck brace in place. LUNGS: Clear. HEART: S1 and S2, regular rate. ABDOMEN: Soft, but distended. LABORATORY DATA: White cell count 9.8, hemoglobin 9.4, platelets 704. ASSESSMENT AND DISCUSSION: Extended methicillin-resistant Staphylococcus aureus infection involving multiple areas of her body, particularly C-spine and lungs as well as endocarditis and necrotic lesio ns in the toes from embolic phenomenon, steadily improving. Scheduled to continue with antimicrobial therapy with vancomycin until the end of this month. The right first toe is necrotic and will event ually probably self-amputate.
[2017-11-12] MEDS: Atorvastatin Calcium 20 MG TAB PO SCH (20:43)
[2017-11-12] MEDS: Mirtazapine 15 MG TAB PO SCH (20:45)
[2017-11-12] MEDS: Insulin Detemir 100 UNITS/ML 30 UNITS in Pre-Filled Syringe 1 EACH SC SCH (20:49)
[2017-11-13 08:20] LABS: #Basophils 0.1 thou/uL (0.0-0.2); #Eosinphils 0.2 thou/uL (0.0-0.7); #Lymphocytes 2.2 thou/uL (1.20-3.40); #Monocytes 0.5 thou/uL (0.11-0.59); #Neutrophils 3.9 thou/uL (1.40-6.50); %Basophils 0.9 % (0.0-1.0); %Eosinophils 2.8 % (0.0-10.0); %Lymphocytes 32.5 % (21.0-51.0); %Monocytes 7.2 % (0.0-10.0); %Neutrophils 56.7 % (42.0-75.0); Hemoglobin 9.8 g/dL (12.0-16.0); Mean Corpuscular HGB CONC 31.4 g/dL (32.0-36.0); Mean Corpuscular Hemoglobin 28.2 pg (27.0-31.0); Mean Corpuscular Volume 89.7 fl (81.0-99.0); Mean Platelet Volume 5.9 fL (7.4-10.4); Platelet Count 484 thou/uL (130-400); RBC Distribution Width 20.6 % (11.5-14.5); Red Blood Cell (RBC) Count 3.47 mill/uL (4.20-5.40); White Blood Cell (WBC) Count 6.8 thou/uL (4.8-10.8)
[2017-11-13 08:29] LABS: Vancomycin, Trough 16.8 ug/mL
[2017-11-13 08:54] LABS: Calcium 10.4 mg/dL (7.8-10.44); Chloride 102 mmol/L (98-107); Potassium 4.4 mmol/L (3.5-5.1); Sodium 134 mmol/L (136-145)
[2017-11-13 08:55] LABS: Glucose 121 mg/dL (70-105)
[2017-11-13 08:57] LABS: Anion Gap 11 mmol/L (10-20); Carbon Dioxide 25 mmol/L (22-29)
[2017-11-13 08:58] LABS: Calc. Creatinine Clearance 65 mL/min (70-130); Estimated GFR-MDRD Greater than 90
--- NOTE | 2017-11-13 08:58 | PDOC.FM ---
- Subjective Subjective: Patient doing well this AM. She is eating well and reports that she got up and took two steps with PT yesterday and then spent 30 minutes sitting in the chair with her neck collar in place. She also had a BM yesterday. She denies any hand or foot pain. She denies N/V, F/C. - Objective MAR Reviewed: Yes Vital Signs & Weight: Weight Admit Weight 46.357 kg Weight 45.813 kg I&O: 11/12/17 11/13/17 11/14/17 06:59 06:59 06:59 Intake Total 1900 2180 Balance 1900 2180 Result Diagrams: 11/13/17 08:06 11/13/17 08:06 <Hayde Molina - Last Filed: 11/13/17 11:11> - Objective Vital Signs & Weight: Vital Signs (12 hours) Temp Pulse Resp BP BP Pulse Ox 11/13/17 09:26 85 135/90 11/13/17 08:00 97.6 F 85 18 135/90 98 Weight Admit Weight 46.357 kg Weight 45.813 kg I&O: 11/12/17 11/13/17 11/14/17 06:59 06:59 06:59 Intake Total 1900 2180 Balance 1900 2180 Result Diagrams: 11/13/17 08:06 11/13/17 08:06 <Efren Albrecht - Last Filed: 11/13/17 16:38> Phys Exam - Physical Examination Constitutional: NAD HEENT: moist MMs Respiratory: no wheezing, no rales, no rhonchi, clear to auscultation bilateral Cardiovascular: RRR, no significant murmur, no rub Gastrointestinal: soft, non-tender, no distention, positive bowel sounds Musculoskeletal: no edema, pulses present Neurological: non-focal, moves all 4 limbs Psychiatric: A&O x 3 Skin: normal turgor, cap refill <2 seconds Deviation from normal: dry skin on the palms of the hands, L thumb with healing incision -: R foot dressing in place <Hayde Molina - Last Filed: 11/13/17 11:11> Dx/Plan (1) Discitis of cervical region Code(s): M46.42 - DISCITIS, UNSPECIFIED, CERVICAL REGION Status: Acute (2) Dry gangrene Code(s): I96 - GANGRENE, NOT ELSEWHERE CLASSIFIED Status: Acute (3) Septic arthritis of cervical spine Code(s): M46.52 - OTHER INFECTIVE SPONDYLOPATHIES, CERVICAL REGION Status: Acute (4) Endocarditis due to Staphylococcus Code(s): I33.0 - ACUTE AND SUBACUTE INFECTIVE ENDOCARDITIS; B95.8 - UNSP STAPHYLOCOCCUS THE CAUSE OF DISEASES CLASSD ELSWHR Status: Resolved (5) CAD (coronary artery disease) Code(s): I25.10 - ATHSCL HEART DISEASE OF [place] CORONARY ARTERY W/O ANG PCTRS Status: Chronic QualifierTitle: Associated angina: without angina (6) Chronic anemia Code(s): D64.9 - ANEMIA, UNSPECIFIED Status: Chronic (7) HTN (hypertension) Code(s): I10 - ESSENTIAL (PRIMARY) HYPERTENSION Status: Chronic QualifierTitle: Hypertension type: essential hypertension Qualified Code( s): I10 - Essential (primary) hypertension (8) Moderate protein-calorie malnutrition Code(s): E44.0 - MODERATE PROTEIN-CALORIE MALNUTRITION Status: Chronic (9) Osteomyelitis Code(s): M86.9 - OSTEOMYELITIS, UNSPECIFIED Status: Chronic QualifierTitle: Osteomyelitis location: hand Laterality: left (10) PVD (peripheral vascular disease) Code(s): I73.9 - PERIPHERAL VASCULAR DISEASE, UNSPECIFIED Status: Chronic (11) Physical deconditioning Code(s): R53.81 - OTHER MALAISE Status: Chronic (12) Type 2 diabetes mellitus with hyperglycemia Code(s): E11.65 - TYPE 2 DIABETES MELLITUS WITH HYPERGLYCEMIA Status: Suspected QualifierTitle: Diabetes mellitus terminal gauger insulin use: with alf use Qualified Code(s): E11.65 - Type 2 diabetes mellitus with hyperglycemia; Z79.4 - senior care (current) use of insulin; Z79.4 - senior care (current) use of insulin; Z79.4 - joint terminal attack controller (current) use of insulin; Z79.4 - joint terminal attack controller (current ) use of insulin (13) Schizophrenia Code(s): F20.9 - SCHIZOPHRENIA, UNSPECIFIED Status: Acute QualifierTitle: Schizophrenia type: unspecified Qualified Code(s): F20.9 - Schizophrenia, unspecified (14) Substance abuse Code(s): F19.10 - OTHER PSYCHOACTIVE SUBSTANCE ABUSE, UNCOMPLICATED Status: Chronic (15) COPD (chronic obstructive pulmonary disease) Status: Chronic QualifierTitle: COPD type: unspecified COPD Qualified Code(s): J44.9 - Chronic obstructive pulmonary disease, unspecified (16) Mental disability Code(s): F79 - UNSPECIFIED INTELLECTUAL DISABILITIES Status: Acute - Plan Plan: Discitis/Septic arthritis of C5-6 - Concern for this dx based on MRI - Dr Bosch has been consulted, will continue IV vanc - Vanc day 11, vanc will be continued at least until 12/08/17. PICC line placed on 11/07 in L arm. - Neuro surgery on board, appreciate recs - will likely wear collar and f/u outpatient in 4 weeks. - Patient pending placement, but has been declined from 3 facilities so far. CM is working on placement, but this might prove difficult with patient's homeless status - Ibuprofen and tylenol for pain control Gangrenous Toes -S/p amputation R 5th toe. -Continue wound care Osteomyelitis R. Thumb -ESR elevated. X-ray shows early osteomyelitis/ S/p I&D -MRI UE- shows osteomyelitis of L. Thumb. Correlate with LE MRI as could be systemic disease as well. Scleroderma or Raynouds. -Hand Surgery consulted- Dr. Guerra- will follow recs -R thumb cx grew MRSA and chloe albicans, continue vanc -Continue wound care Physical Deconditioning - Patient unable to walk without assistance since being hospitalized past two months for sepsis 2/2 endocarditis, NSTEMI, and DKA at [facility] - Unable to care for self and homeless - No family support - CM consulted; appreciate recs - D/C planning process started - District Recruiter consulted; appreciate recs - PT/OT to evaluate and treat patient - Working on placement Uncontrolled Type II DM with hyperglycemia - BG 599 on admission, Has since stabilized. - SSI increased to aggressive - Levemir 35 u am and 30 u hs - Q4H accuchecks Mental Disability 2/2 schizophrenia. The patient has decreased mental functional capacity. She functions at the level of a child. It is likely that this is part of the natural progression of her schizophrenia. The patient does not have the ability to care for herself in any capacity. - Will consult case management for potential alf placement - Will contact [facility] and attempt to have them come evaluate her as well CAD s/p OR - Hospitalized recently at [facility]; discharged earlier this week. - Lovenox for DVT PPX - Continue medications from last hospitalization - Echo with normal EF, no plans for cardiac catheterization at outside hospital Moderate Protein-Calorie Malnutrition - Albumin 2.6. Prealbumin lower than 5 - P normal. Mag low replaced - Ensure high protein supplementation - District Recruiter consult; appreciate recommendations - TSH normal Chronic Normocytic Anemia - Stable - Has been iron deficiency in the past - Hg 9.4 on admission. At baseline - Continue to trend with weekly labs - Patient asymptomatic currently - Iron deficiency vs. ACD ECTOR on CKD- Resolved - Stable. Monitor BMP Hx of Chronic Substance Abuse - Last used crack and marijuana 3-4 months ago - Goal Umpire on cessation - Has been hospitalized last 2 months - Recent HIV, Hep B Ag, and RPR negative - UDS negative Urge Incontinence - Unable to make it to restroom on time; wears briefs - Continue to supply briefs - Monitor I&O's HTN - Continue metoprolol and lisinopril. - Will monitor closely and adjust as needed COPD - Monitor O2 sats with goal >88% - Duoneb treatments PRN for shortness of breath/wheezing PVD - Pulses intact - CV surgery consulted- Will assess PAD for healing in legs. Will follow recs Endocarditis s/p treatment with IV abx - MRSA with pulmonary emboli, renal emboli, osteomyelitis, and discitis of C5-6 - Negative cultures on 10/28/2017 - s/p treatment with 6 weeks vancomycin/daptomycin - Complications include PICC line infection with Klebsiella requiring treatment with levaquin at outside facility - Continue rifampin x1 month - Echo showed normal EF Mild anion gap metabolic acidosis-Resolved - Resolved Sacral decubitus ulcer - Consult wound care - Frequent turning of patient Schizophrenia - continue on home meds - Will attempt to obtain records from [facility] to see if pt is supposed to be on any other psych meds <Hayde Molina - Last Filed: 11/13/17 11:11> Attending Addendum - Attending Addendum Date/Time: 11/13/17 7728 I personally evaluated the patient and discussed the management with Dr. Molina. I agree with the History, Examination, Assessment and Plan documented above with any addition or exceptions noted below. <Efren Albrecht - Last Filed: 11/13/17 16:38>
[2017-11-13 08:59] LABS: BUN (Urea Nitrogen) 17 mg/dL (9.8-20.1)
[2017-11-13] MEDS: Potassium Chloride 20 MEQ TAB PO SCH (09:24)
[2017-11-13] MEDS: metFORMIN 500 MG TAB PO SCH ×2 (09:25→17:33)
[2017-11-13] MEDS: Metoprolol Tartrate 50 MG TAB PO SCH ×2 (09:26→20:57)
[2017-11-13] MEDS: Lisinopril 2.5 MG TAB PO SCH (09:26)
[2017-11-13] MEDS: Aspirin 325 mg Enteric Coated Tablet PO SCH (09:26)
[2017-11-13] MEDS: Magnesium Chloride 64 MG TAB PO SCH ×2 (09:27→20:55)
[2017-11-13] MEDS: Enoxaparin Sodium 40 MG/0.4 ML SYRINGE SC SCH (09:27)
[2017-11-13] MEDS: Rifampin 300 MG CAP PO SCH ×2 (09:27→21:16)
[2017-11-13] MEDS: Insulin Detemir 100 UNITS/ML 35 UNITS in Pre-Filled Syringe 1 EACH SC SCH (09:29)
[2017-11-13] MEDS: Vancomycin HCl 750 MG in Sodium Chloride 0.9% 250 ML 250 ML IVPB SCH ×2 (09:30→20:59)
[2017-11-13] MEDS: Polyethylene Glycol 3350 17 GM Packet PO SCH (09:30)
[2017-11-13] MEDS: Ibuprofen 800 MG TAB PO PRN ×2 (09:37→17:33)
[2017-11-13] MEDS: HumaLOG 300 UNITS/3 ML VIAL SC PRN ×3 (11:41→21:00)
[2017-11-13] MEDS: Atorvastatin Calcium 20 MG TAB PO SCH (20:54)
[2017-11-13] MEDS: Insulin Detemir 100 UNITS/ML 30 UNITS in Pre-Filled Syringe 1 EACH SC SCH (20:55)
[2017-11-13] MEDS: Mirtazapine 15 MG TAB PO SCH (20:57)
[2017-11-13] MEDS: Acetaminophen 325 MG TAB PO PRN (20:59)
[2017-11-14] MEDS: Ibuprofen 800 MG TAB PO PRN ×3 (05:07→20:01)
[2017-11-14] MEDS: Lisinopril 2.5 MG TAB PO SCH (08:25)
[2017-11-14] MEDS: Metoprolol Tartrate 50 MG TAB PO SCH ×2 (08:25→20:01)
[2017-11-14] MEDS: Rifampin 300 MG CAP PO SCH ×2 (08:25→20:02)
[2017-11-14] MEDS: metFORMIN 500 MG TAB PO SCH ×2 (08:25→16:39)
[2017-11-14] MEDS: Aspirin 325 mg Enteric Coated Tablet PO SCH (08:25)
[2017-11-14] MEDS: Enoxaparin Sodium 40 MG/0.4 ML SYRINGE SC SCH (08:26)
[2017-11-14] MEDS: Polyethylene Glycol 3350 17 GM Packet PO SCH (08:26)
[2017-11-14] MEDS: Magnesium Chloride 64 MG TAB PO SCH ×2 (08:26→19:58)
[2017-11-14] MEDS: Potassium Chloride 20 MEQ TAB PO SCH (08:27)
[2017-11-14] MEDS: Insulin Detemir 100 UNITS/ML 40 UNITS in Pre-Filled Syringe 1 EACH SC SCH (08:33)
[2017-11-14] MEDS: Vancomycin HCl 750 MG in Sodium Chloride 0.9% 250 ML 250 ML IVPB SCH ×2 (08:34→20:01)
--- NOTE | 2017-11-14 08:52 | PDOC.FM ---
- Subjective Subjective: Patient doing well this AM. She has been working with PT and got up and walked to the door of her room and back twice yesterday. She also sat in her chair yesterday. Denies F/C. Denies pain. She is eating well. - Objective MAR Reviewed: Yes Vital Signs & Weight: Vital Signs (12 hours) Temp Pulse Resp BP BP Pulse Ox 11/14/17 08:25 83 144/91 H 11/14/17 08:10 97.7 F 83 16 144/91 H 100 Weight Admit Weight 46.357 kg Weight 45.813 kg I&O: 11/13/17 11/14/17 11/15/17 06:59 06:59 06:59 Intake Total 2180 370 Balance 2180 370 Result Diagrams: 11/13/17 08:06 11/13/17 08:06 <Hayde Molina - Last Filed: 11/14/17 08:51> - Objective Vital Signs & Weight: Vital Signs (12 hours) Temp Pulse Resp BP BP Pulse Ox 11/14/17 08:25 83 144/91 H 11/14/17 08:10 97.7 F 83 16 144/91 H 100 11/14/17 08:00 97.7 F 83 16 Weight Admit Weight 46.357 kg Weight 45.813 kg I&O: 11/13/17 11/14/17 11/15/17 06:59 06:59 06:59 Intake Total 2180 370 Balance 2180 370 Result Diagrams: 11/13/17 08:06 11/13/17 08:06 <Efren Albrecht - Last Filed: 11/14/17 17:08> Phys Exam - Physical Examination Constitutional: NAD HEENT: moist MMs Respiratory: no wheezing, no rales, no rhonchi, clear to auscultation bilateral Cardiovascular: RRR, no significant murmur, no rub Gastrointestinal: soft, non-tender, no distention, positive bowel sounds Musculoskeletal: no edema, pulses present Neurological: non-focal, moves all 4 limbs Psychiatric: normal affect, A&O x 3 Skin: no rash, cap refill <2 seconds <Hayde Molina - Last Filed: 11/14/17 08:51> Dx/Plan (1) Discitis of cervical region Code(s): M46.42 - DISCITIS, UNSPECIFIED, CERVICAL REGION Status: Acute (2) Dry gangrene Code(s): I96 - GANGRENE, NOT ELSEWHERE CLASSIFIED Status: Acute (3) Septic arthritis of cervical spine Code(s): M46.52 - OTHER INFECTIVE SPONDYLOPATHIES, CERVICAL REGION Status: Acute (4) Endocarditis due to Staphylococcus Code(s): I33.0 - ACUTE AND SUBACUTE INFECTIVE ENDOCARDITIS; B95.8 - UNSP STAPHYLOCOCCUS THE CAUSE OF DISEASES CLASSD ELSWHR Status: Resolved (5) CAD (coronary artery disease) Code(s): I25.10 - ATHSCL HEART DISEASE OF [place] CORONARY ARTERY W/O ANG PCTRS Status: Chronic QualifierTitle: Associated angina: without angina (6) Chronic anemia Code(s): D64.9 - ANEMIA, UNSPECIFIED Status: Chronic (7) HTN (hypertension) Code(s): I10 - ESSENTIAL (PRIMARY) HYPERTENSION Status: Chronic QualifierTitle: Hypertension type: essential hypertension Qualified Code( s): I10 - Essential (primary) hypertension (8) Moderate protein-calorie malnutrition Code(s): E44.0 - MODERATE PROTEIN-CALORIE MALNUTRITION Status: Chronic (9) Osteomyelitis Code(s): M86.9 - OSTEOMYELITIS, UNSPECIFIED Status: Chronic QualifierTitle: Osteomyelitis location: hand Laterality: left (10) PVD (peripheral vascular disease) Code(s): I73.9 - PERIPHERAL VASCULAR DISEASE, UNSPECIFIED Status: Chronic (11) Physical deconditioning Code(s): R53.81 - OTHER MALAISE Status: Chronic (12) Type 2 diabetes mellitus with hyperglycemia Code(s): E11.65 - TYPE 2 DIABETES MELLITUS WITH HYPERGLYCEMIA Status: Suspected QualifierTitle: Diabetes mellitus terminal system operator insulin use: with care home use Qualified Code(s): E11.65 - Type 2 diabetes mellitus with hyperglycemia; Z79.4 - terminal system operator (current) use of insulin; Z79.4 - penitentiary (current) use of insulin; Z79.4 - penitentiary (current) use of insulin; Z79.4 - penitentiary (current ) use of insulin (13) Schizophrenia Code(s): F20.9 - SCHIZOPHRENIA, UNSPECIFIED Status: Acute QualifierTitle: Schizophrenia type: unspecified Qualified Code(s): F20.9 - Schizophrenia, unspecified (14) Substance abuse Code(s): F19.10 - OTHER PSYCHOACTIVE SUBSTANCE ABUSE, UNCOMPLICATED Status: Chronic (15) COPD (chronic obstructive pulmonary disease) Status: Chronic QualifierTitle: COPD type: unspecified COPD Qualified Code(s): J44.9 - Chronic obstructive pulmonary disease, unspecified (16) Mental disability Code(s): F79 - UNSPECIFIED INTELLECTUAL DISABILITIES Status: Acute - Plan Plan: Discitis/Septic arthritis of C5-6 - Concern for this dx based on MRI - Dr Bosch has been consulted, will continue IV vanc - Vanc day 12, vanc will be continued at least until 12/08/17. PICC line placed on 11/07 in L arm. - Neuro surgery on board, appreciate recs - will likely wear collar and f/u outpatient in 4 weeks. - Patient pending placement, but has been declined from 3 facilities so far. CM is working on placement, but this might prove difficult with patient's homeless status - Ibuprofen and tylenol for pain control Gangrenous Toes -S/p amputation R 5th toe. -Continue wound care Osteomyelitis R. Thumb -ESR elevated. X-ray shows early osteomyelitis/ S/p I&D -MRI UE- shows osteomyelitis of L. Thumb. Correlate with LE MRI as could be systemic disease as well. Scleroderma or Raynouds. -Hand Surgery consulted- Dr. Guerra- will follow recs -R thumb cx grew MRSA and chloe albicans, continue vanc -Continue wound care Physical Deconditioning - Patient unable to walk without assistance since being hospitalized past two months for sepsis 2/2 endocarditis, NSTEMI, and DKA at [facility] - Unable to care for self and homeless - No family support - CM consulted; appreciate recs - D/C planning process started - M[employer] Records Clerk consulted; appreciate recs - PT/OT to evaluate and treat patient - Working on placement Uncontrolled Type II DM with hyperglycemia - BG 599 on admission, Has since stabilized. - SSI increased to aggressive - Levemir 35 u am and 30 u hs - Q4H accuchecks Mental Disability 2/2 schizophrenia. The patient has decreased mental functional capacity. She functions at the level of a child. It is likely that this is part of the natural progression of her schizophrenia. The patient does not have the ability to care for herself in any capacity. - Will consult case management for potential care home placement - Will contact [facility] and attempt to have them come evaluate her as well CAD s/p PR - Hospitalized recently at [facility]; discharged earlier this week. - Lovenox for DVT PPX - Continue medications from last hospitalization - Echo with normal EF, no plans for cardiac catheterization at outside hospital Moderate Protein-Calorie Malnutrition - Albumin 2.6. Prealbumin lower than 5 - P normal. Mag low replaced - Ensure high protein supplementation - Meter Changes Records Clerk consult; appreciate recommendations - TSH normal Chronic Normocytic Anemia - Stable - Has been iron deficiency in the past - Hg 9.4 on admission. At baseline - Continue to trend with weekly labs - Patient asymptomatic currently - Iron deficiency vs. ACD ECTOR on CKD- Resolved - Stable. Monitor BMP Hx of Chronic Substance Abuse - Last used crack and marijuana 3-4 months ago - Sugar Boiler on cessation - Has been hospitalized last 2 months - Recent HIV, Hep B Ag, and RPR negative - UDS negative Urge Incontinence - Unable to make it to restroom on time; wears briefs - Continue to supply briefs - Monitor I&O's HTN - Continue metoprolol and lisinopril. - Will monitor closely and adjust as needed COPD - Monitor O2 sats with goal >88% - Duoneb treatments PRN for shortness of breath/wheezing PVD - Pulses intact - CV surgery consulted- Will assess PAD for healing in legs. Will follow recs Endocarditis s/p treatment with IV abx - MRSA with pulmonary emboli, renal emboli, osteomyelitis, and discitis of C5-6 - Negative cultures on 10/28/2017 - s/p treatment with 6 weeks vancomycin/daptomycin - Complications include PICC line infection with Klebsiella requiring treatment with levaquin at outside facility - Continue rifampin x1 month - Echo showed normal EF Mild anion gap metabolic acidosis-Resolved - Resolved Sacral decubitus ulcer - Consult wound care - Frequent turning of patient Schizophrenia - continue on home meds - Will attempt to obtain records from [facility] to see if pt is supposed to be on any other psych meds <Hayde Molina - Last Filed: 11/14/17 08:51> Attending Addendum - Attending Addendum Date/Time: 11/14/17 9343 I personally evaluated the patient and discussed the management with Dr. Molina. I agree with the History, Examination, Assessment and Plan documented above with any addition or exceptions noted below. <Efren Albrecht - Last Filed: 11/14/17 17:08>
[2017-11-14] MEDS: Mirtazapine 15 MG TAB PO SCH (19:58)
[2017-11-14] MEDS: Atorvastatin Calcium 20 MG TAB PO SCH (19:58)
[2017-11-14] MEDS: Insulin Detemir 100 UNITS/ML 30 UNITS in Pre-Filled Syringe 1 EACH SC SCH (19:58)
[2017-11-15] MEDS: Magnesium Chloride 64 MG TAB PO SCH ×2 (08:33→20:59)
[2017-11-15] MEDS: Ibuprofen 800 MG TAB PO PRN ×3 (08:33→21:01)
[2017-11-15] MEDS: Polyethylene Glycol 3350 17 GM Packet PO SCH (08:34)
[2017-11-15] MEDS: Metoprolol Tartrate 50 MG TAB PO SCH ×2 (08:35→21:00)
[2017-11-15] MEDS: Rifampin 300 MG CAP PO SCH ×2 (08:35→21:01)
[2017-11-15] MEDS: Lisinopril 2.5 MG TAB PO SCH (08:35)
[2017-11-15] MEDS: Potassium Chloride 20 MEQ TAB PO SCH (08:35)
[2017-11-15] MEDS: Insulin Detemir 100 UNITS/ML 40 UNITS in Pre-Filled Syringe 1 EACH SC SCH (08:36)
[2017-11-15] MEDS: metFORMIN 500 MG TAB PO SCH ×2 (08:36→16:30)
[2017-11-15] MEDS: Aspirin 325 mg Enteric Coated Tablet PO SCH (08:36)
[2017-11-15] MEDS: Enoxaparin Sodium 40 MG/0.4 ML SYRINGE SC SCH (08:36)
[2017-11-15] MEDS: Vancomycin HCl 750 MG in Sodium Chloride 0.9% 250 ML 250 ML IVPB SCH ×2 (08:37→21:01)
--- NOTE | 2017-11-15 09:01 | PDOC.FM ---
- Subjective Subjective: Patient doing well this AM. She reports that she has a headache, but otherwise has no complaints. She is eating well. She worked with PT yesterday and walked to the door and back 10 times. She denies pain in her hand, foot, or neck. She denies N/V. - Objective MAR Reviewed: Yes Vital Signs & Weight: Vital Signs (12 hours) Pulse BP 11/15/17 08:35 92 139/86 Weight Admit Weight 46.357 kg Weight 45.813 kg I&O: 11/14/17 11/15/17 11/16/17 06:59 06:59 06:59 Intake Total 370 400 Balance 370 400 Result Diagrams: 11/13/17 08:06 11/13/17 08:06 <Hayde Molina - Last Filed: 11/15/17 11:48> - Objective Vital Signs & Weight: Vital Signs (12 hours) Temp Pulse Resp BP BP Pulse Ox 11/15/17 08:35 92 139/86 11/15/17 08:00 98.1 F 92 18 151/98 H 100 Weight Admit Weight 46.357 kg Weight 45.813 kg I&O: 11/14/17 11/15/17 11/16/17 06:59 06:59 06:59 Intake Total 370 400 Balance 370 400 Result Diagrams: 11/13/17 08:06 11/13/17 08:06 <Efren Albrecht - Last Filed: 11/15/17 13:48> Phys Exam - Physical Examination Constitutional: NAD HEENT: moist MMs Respiratory: no wheezing, no rales, no rhonchi, clear to auscultation bilateral Cardiovascular: RRR, no significant murmur, no rub Gastrointestinal: soft, non-tender, no distention, positive bowel sounds Musculoskeletal: no edema, pulses present Neurological: non-focal, moves all 4 limbs Psychiatric: normal affect, A&O x 3 Skin: no rash, cap refill <2 seconds <Hayde Molina - Last Filed: 11/15/17 11:48> Dx/Plan (1) Discitis of cervical region Code(s): M46.42 - DISCITIS, UNSPECIFIED, CERVICAL REGION Status: Acute (2) Dry gangrene Code(s): I96 - GANGRENE, NOT ELSEWHERE CLASSIFIED Status: Acute (3) Septic arthritis of cervical spine Code(s): M46.52 - OTHER INFECTIVE SPONDYLOPATHIES, CERVICAL REGION Status: Acute (4) Endocarditis due to Staphylococcus Code(s): I33.0 - ACUTE AND SUBACUTE INFECTIVE ENDOCARDITIS; B95.8 - UNSP STAPHYLOCOCCUS THE CAUSE OF DISEASES CLASSD ELSWHR Status: Resolved (5) CAD (coronary artery disease) Code(s): I25.10 - ATHSCL HEART DISEASE OF [place] CORONARY ARTERY W/O ANG PCTRS Status: Chronic QualifierTitle: Associated angina: without angina (6) Chronic anemia Code(s): D64.9 - ANEMIA, UNSPECIFIED Status: Chronic (7) HTN (hypertension) Code(s): I10 - ESSENTIAL (PRIMARY) HYPERTENSION Status: Chronic QualifierTitle: Hypertension type: essential hypertension Qualified Code( s): I10 - Essential (primary) hypertension (8) Moderate protein-calorie malnutrition Code(s): E44.0 - MODERATE PROTEIN-CALORIE MALNUTRITION Status: Chronic (9) Osteomyelitis Code(s): M86.9 - OSTEOMYELITIS, UNSPECIFIED Status: Chronic QualifierTitle: Osteomyelitis location: hand Laterality: left (10) PVD (peripheral vascular disease) Code(s): I73.9 - PERIPHERAL VASCULAR DISEASE, UNSPECIFIED Status: Chronic (11) Physical deconditioning Code(s): R53.81 - OTHER MALAISE Status: Chronic (12) Type 2 diabetes mellitus with hyperglycemia Code(s): E11.65 - TYPE 2 DIABETES MELLITUS WITH HYPERGLYCEMIA Status: Suspected QualifierTitle: Diabetes mellitus terminal worker insulin use: with terminal worker use Qualified Code(s): E11.65 - Type 2 diabetes mellitus with hyperglycemia; Z79.4 - snf (current) use of insulin; Z79.4 - termite helper (current) use of insulin; Z79.4 - termite helper (current) use of insulin; Z79.4 - snf (current ) use of insulin (13) Schizophrenia Code(s): F20.9 - SCHIZOPHRENIA, UNSPECIFIED Status: Acute QualifierTitle: Schizophrenia type: unspecified Qualified Code(s): F20.9 - Schizophrenia, unspecified (14) Substance abuse Code(s): F19.10 - OTHER PSYCHOACTIVE SUBSTANCE ABUSE, UNCOMPLICATED Status: Chronic (15) COPD (chronic obstructive pulmonary disease) Status: Chronic QualifierTitle: COPD type: unspecified COPD Qualified Code(s): J44.9 - Chronic obstructive pulmonary disease, unspecified (16) Mental disability Code(s): F79 - UNSPECIFIED INTELLECTUAL DISABILITIES Status: Acute - Plan Plan: Discitis/Septic arthritis of C5-6 - Concern for this dx based on MRI - Dr Bosch has been consulted, will continue IV vanc - Vanc day 13, vanc will be continued at least until 12/08/17. PICC line placed on 11/07 in L arm. - Neuro surgery on board, appreciate recs - will likely wear collar and f/u outpatient in 4 weeks. - Patient pending placement, but has been declined from 3 facilities so far. CM is working on placement, but this might prove difficult with patient's homeless status - Ibuprofen and tylenol for pain control Gangrenous Toes -S/p amputation R 5th toe. -Continue wound care Osteomyelitis R. Thumb -ESR elevated. X-ray shows early osteomyelitis/ S/p I&D -MRI UE- shows osteomyelitis of L. Thumb. Correlate with LE MRI as could be systemic disease as well. Scleroderma or Raynouds. -Hand Surgery consulted- Dr. Guerra- will follow recs -R thumb cx grew MRSA and chloe albicans, continue vanc -Continue wound care Physical Deconditioning - Patient unable to walk without assistance since being hospitalized past two months for sepsis 2/2 endocarditis, NSTEMI, and DKA at [facility] - Unable to care for self and homeless - No family support - CM consulted; appreciate recs - D/C planning process started - Morning Nanny consulted; appreciate recs - PT/OT to evaluate and treat patient - Working on placement Uncontrolled Type II DM with hyperglycemia - BG 599 on admission, Has since stabilized. - SSI increased to aggressive - Levemir 40 u am and 30 u hs, will likely need to be titrated down once infection starts resolving. - Q4H accuchecks Mental Disability 2/2 schizophrenia. The patient has decreased mental functional capacity. She functions at the level of a child. It is likely that this is part of the natural progression of her schizophrenia. The patient does not have the ability to care for herself in any capacity. - Will consult case management for potential residential placement - Will contact [facility] and attempt to have them come evaluate her as well CAD s/p [place] - Hospitalized recently at [facility]; discharged earlier this week. - Lovenox for DVT PPX - Continue medications from last hospitalization - Echo with normal EF, no plans for cardiac catheterization at outside hospital Moderate Protein-Calorie Malnutrition - Albumin 2.6. Prealbumin lower than 5 - P normal. Mag low replaced - Ensure high protein supplementation - Morning Nanny consult; appreciate recommendations - TSH normal Chronic Normocytic Anemia - Stable - Has been iron deficiency in the past - Hg 9.4 on admission. At baseline - Continue to trend with weekly labs - Patient asymptomatic currently - Iron deficiency vs. ACD ECTOR on CKD- Resolved - Stable. Monitor BMP Hx of Chronic Substance Abuse - Last used crack and marijuana 3-4 months ago - Ply Bander on cessation - Has been hospitalized last 2 months - Recent HIV, Hep B Ag, and RPR negative - UDS negative Urge Incontinence - Unable to make it to restroom on time; wears briefs - Continue to supply briefs - Monitor I&O's HTN - Continue metoprolol and lisinopril. - Will monitor closely and adjust as needed COPD - Monitor O2 sats with goal >88% - Duoneb treatments PRN for shortness of breath/wheezing PVD - Pulses intact - CV surgery consulted- Will assess PAD for healing in legs. Will follow recs Endocarditis s/p treatment with IV abx - MRSA with pulmonary emboli, renal emboli, osteomyelitis, and discitis of C5-6 - Negative cultures on 10/28/2017 - s/p treatment with 6 weeks vancomycin/daptomycin - Complications include PICC line infection with Klebsiella requiring treatment with levaquin at outside facility - Continue rifampin x1 month - Echo showed normal EF Mild anion gap metabolic acidosis-Resolved - Resolved Sacral decubitus ulcer - Consult wound care - Frequent turning of patient Schizophrenia - continue on home meds - Will attempt to obtain records from [facility] to see if pt is supposed to be on any other psych meds <Hayde Molina - Last Filed: 11/15/17 11:48> Attending Addendum - Attending Addendum Date/Time: 11/15/17 1348 I personally evaluated the patient and discussed the management with Dr. Molina. I agree with the History, Examination, Assessment and Plan documented above with any addition or exceptions noted below. <Efren Albrecht - Last Filed: 11/15/17 13:48>
[2017-11-15] MEDS: HumaLOG 300 UNITS/3 ML VIAL SC PRN ×2 (16:28→22:20)
[2017-11-15] MEDS: Atorvastatin Calcium 20 MG TAB PO SCH (20:59)
[2017-11-15] MEDS: Insulin Detemir 100 UNITS/ML 30 UNITS in Pre-Filled Syringe 1 EACH SC SCH (20:59)
[2017-11-15] MEDS: Mirtazapine 15 MG TAB PO SCH (21:00)
--- NOTE | 2017-11-16 08:52 | PDOC.FM ---
- Subjective Subjective: Patient doing well this AM. She denies pain in her L hand, R foot, or neck. She is eating well and having regular BM's. She reports that she is working with PT and wearing her neck brace while she is not laying in bed. - Objective MAR Reviewed: Yes Vital Signs & Weight: Vital Signs (12 hours) Temp Pulse Resp BP Pulse Ox 11/16/17 07:45 98.3 F 72 18 144/89 H 99 Weight Admit Weight 46.357 kg Weight 45.813 kg I&O: 11/15/17 11/16/17 11/17/17 06:59 06:59 06:59 Intake Total 400 460 Balance 400 460 Result Diagrams: 11/13/17 08:06 11/13/17 08:06 <Hayde Molina - Last Filed: 11/16/17 10:57> - Objective Vital Signs & Weight: Vital Signs (12 hours) Temp Pulse Resp BP BP Pulse Ox 11/16/17 09:01 72 144/89 H 11/16/17 07:45 98.3 F 72 18 144/89 H 99 Weight Admit Weight 46.357 kg Weight 45.813 kg I&O: 11/15/17 11/16/17 11/17/17 06:59 06:59 06:59 Intake Total 400 460 Balance 400 460 Result Diagrams: 11/13/17 08:06 11/13/17 08:06 <Efren Albrecht - Last Filed: 11/16/17 11:19> Phys Exam - Physical Examination Constitutional: NAD HEENT: moist MMs Neck: supple, full ROM no tenderness of the spinous processes Respiratory: no wheezing, no rales, no rhonchi, clear to auscultation bilateral Cardiovascular: RRR, no significant murmur, no rub Gastrointestinal: soft, non-tender, no distention, positive bowel sounds Musculoskeletal: no edema, pulses present Neurological: non-focal, moves all 4 limbs Psychiatric: normal affect, A&O x 3 Skin: normal turgor, cap refill <2 seconds <Hayde Molina - Last Filed: 11/16/17 10:57> Dx/Plan (1) Discitis of cervical region Code(s): M46.42 - DISCITIS, UNSPECIFIED, CERVICAL REGION Status: Acute (2) Dry gangrene Code(s): I96 - GANGRENE, NOT ELSEWHERE CLASSIFIED Status: Acute (3) Septic arthritis of cervical spine Code(s): M46.52 - OTHER INFECTIVE SPONDYLOPATHIES, CERVICAL REGION Status: Acute (4) Endocarditis due to Staphylococcus Code(s): I33.0 - ACUTE AND SUBACUTE INFECTIVE ENDOCARDITIS; B95.8 - UNSP STAPHYLOCOCCUS THE CAUSE OF DISEASES CLASSD ELSWHR Status: Resolved (5) CAD (coronary artery disease) Code(s): I25.10 - ATHSCL HEART DISEASE OF [place] CORONARY ARTERY W/O ANG PCTRS Status: Chronic QualifierTitle: Associated angina: without angina (6) Chronic anemia Code(s): D64.9 - ANEMIA, UNSPECIFIED Status: Chronic (7) HTN (hypertension) Code(s): I10 - ESSENTIAL (PRIMARY) HYPERTENSION Status: Chronic QualifierTitle: Hypertension type: essential hypertension Qualified Code( s): I10 - Essential (primary) hypertension (8) Moderate protein-calorie malnutrition Code(s): E44.0 - MODERATE PROTEIN-CALORIE MALNUTRITION Status: Chronic (9) Osteomyelitis Code(s): M86.9 - OSTEOMYELITIS, UNSPECIFIED Status: Chronic QualifierTitle: Osteomyelitis location: hand Laterality: left (10) PVD (peripheral vascular disease) Code(s): I73.9 - PERIPHERAL VASCULAR DISEASE, UNSPECIFIED Status: Chronic (11) Physical deconditioning Code(s): R53.81 - OTHER MALAISE Status: Chronic (12) Type 2 diabetes mellitus with hyperglycemia Code(s): E11.65 - TYPE 2 DIABETES MELLITUS WITH HYPERGLYCEMIA Status: Suspected QualifierTitle: Diabetes mellitus termite renewal inspector insulin use: with termite renewal inspector use Qualified Code(s): E11.65 - Type 2 diabetes mellitus with hyperglycemia; Z79.4 - intermediate (current) use of insulin; Z79.4 - intermediate (current) use of insulin; Z79.4 - intermediate (current) use of insulin; Z79.4 - termite renewal inspector (current ) use of insulin (13) Schizophrenia Code(s): F20.9 - SCHIZOPHRENIA, UNSPECIFIED Status: Acute QualifierTitle: Schizophrenia type: unspecified Qualified Code(s): F20.9 - Schizophrenia, unspecified (14) Substance abuse Code(s): F19.10 - OTHER PSYCHOACTIVE SUBSTANCE ABUSE, UNCOMPLICATED Status: Chronic (15) COPD (chronic obstructive pulmonary disease) Status: Chronic QualifierTitle: COPD type: unspecified COPD Qualified Code(s): J44.9 - Chronic obstructive pulmonary disease, unspecified (16) Mental disability Code(s): F79 - UNSPECIFIED INTELLECTUAL DISABILITIES Status: Acute - Plan Plan: Discitis/Septic arthritis of C5-6 - Concern for this dx based on MRI - Dr Bosch has been consulted, will continue IV vanc - Vanc day 14, vanc will be continued at least until 12/08/17. PICC line placed on 11/07 in L arm. - Neuro surgery on board, appreciate recs - will likely wear collar and f/u outpatient in 4 weeks. - Patient pending placement, but has been declined from 3 facilities so far. CM is working on placement, but this might prove difficult with patient's homeless status - Ibuprofen and tylenol for pain control Gangrenous Toes -S/p amputation R 5th toe. -Continue wound care Osteomyelitis R. Thumb -ESR elevated. X-ray shows early osteomyelitis/ S/p I&D -MRI UE- shows osteomyelitis of L. Thumb. Correlate with LE MRI as could be systemic disease as well. Scleroderma or Raynouds. -Hand Surgery consulted- Dr. Guerra- will follow recs -R thumb cx grew MRSA and chloe albicans, continue vanc -Continue wound care Physical Deconditioning - Patient unable to walk without assistance since being hospitalized past two months for sepsis 2/2 endocarditis, NSTEMI, and DKA at [facility] - Unable to care for self and homeless - No family support - CM consulted; appreciate recs - D/C planning process started - Motor Man consulted; appreciate recs - PT/OT to evaluate and treat patient - Working on placement Uncontrolled Type II DM with hyperglycemia - BG 599 on admission, Has since stabilized. - SSI increased to aggressive - Levemir 35 u am and 30 u hs, will likely need to be titrated down once infection starts resolving. - accuchecks ACHS Mental Disability 2/2 schizophrenia. The patient has decreased mental functional capacity. She functions at the level of a child. It is likely that this is part of the natural progression of her schizophrenia. The patient does not have the ability to care for herself in any capacity. - Will consult case management for potential [place] [facility] [place] placement - Will contact [facility] and attempt to have them come evaluate her as well CAD s/p CT - Hospitalized recently at [facility]; discharged earlier this week. - Lovenox for DVT PPX - Continue medications from last hospitalization - Echo with normal EF, no plans for cardiac catheterization at outside hospital Moderate Protein-Calorie Malnutrition - Albumin 2.6. Prealbumin lower than 5 - P normal. Mag low replaced - Ensure high protein supplementation - Motor Man consult; appreciate recommendations - TSH normal Chronic Normocytic Anemia - Stable - Has been iron deficiency in the past - Hg 9.4 on admission. At baseline - Continue to trend with weekly labs - Patient asymptomatic currently - Iron deficiency vs. ACD ECTOR on CKD- Resolved - Stable. Monitor BMP Hx of Chronic Substance Abuse - Last used crack and marijuana 3-4 months ago - Sound Tester on cessation - Has been hospitalized last 2 months - Recent HIV, Hep B Ag, and RPR negative - UDS negative Urge Incontinence - Unable to make it to restroom on time; wears briefs - Continue to supply briefs - Monitor I&O's HTN - Continue metoprolol and lisinopril. - Will monitor closely and adjust as needed COPD - Monitor O2 sats with goal >88% - Duoneb treatments PRN for shortness of breath/wheezing PVD - Pulses intact - CV surgery consulted- Will assess PAD for healing in legs. Will follow recs Endocarditis s/p treatment with IV abx - MRSA with pulmonary emboli, renal emboli, osteomyelitis, and discitis of C5-6 - Negative cultures on 10/28/2017 - s/p treatment with 6 weeks vancomycin/daptomycin - Complications include PICC line infection with Klebsiella requiring treatment with levaquin at outside facility - Continue rifampin x1 month - Echo showed normal EF Mild anion gap metabolic acidosis-Resolved - Resolved Sacral decubitus ulcer - Consult wound care - Frequent turning of patient Schizophrenia - continue on home meds - Will attempt to obtain records from [facility] to see if pt is supposed to be on any other psych meds <Hayde Molina - Last Filed: 11/16/17 10:57> Attending Addendum - Attending Addendum Date/Time: 11/16/17 1119 I personally evaluated the patient and discussed the management with Dr. Molina. I agree with the History, Examination, Assessment and Plan documented above with any addition or exceptions noted below. Patient requires several weeks of IV antibiotics. She is stable. <Efren Albrecht - Last Filed: 11/16/17 11:19>
[2017-11-16] MEDS: Lisinopril 2.5 MG TAB PO SCH (09:01)
[2017-11-16] MEDS: metFORMIN 500 MG TAB PO SCH ×2 (09:02→17:11)
[2017-11-16] MEDS: Metoprolol Tartrate 50 MG TAB PO SCH ×2 (09:03→20:37)
[2017-11-16] MEDS: Insulin Detemir 100 UNITS/ML 35 UNITS in Pre-Filled Syringe 1 EACH SC SCH (09:03)
[2017-11-16] MEDS: Aspirin 325 mg Enteric Coated Tablet PO SCH (09:03)
[2017-11-16] MEDS: Rifampin 300 MG CAP PO SCH ×2 (09:04→20:37)
[2017-11-16] MEDS: Polyethylene Glycol 3350 17 GM Packet PO SCH (09:04)
[2017-11-16] MEDS: Magnesium Chloride 64 MG TAB PO SCH ×2 (09:04→20:34)
[2017-11-16] MEDS: Enoxaparin Sodium 40 MG/0.4 ML SYRINGE SC SCH ×2 (09:05→09:08)
[2017-11-16] MEDS: Vancomycin HCl 750 MG in Sodium Chloride 0.9% 250 ML 250 ML IVPB SCH ×2 (09:05→20:38)
[2017-11-16] MEDS: Acetaminophen 325 MG TAB PO PRN ×2 (09:20→21:43)
[2017-11-16 09:47] LABS: Vancomycin, Trough 14.5 ug/mL
[2017-11-16] MEDS: HumaLOG 300 UNITS/3 ML VIAL SC PRN ×3 (11:31→20:41)
[2017-11-16] MEDS: Ibuprofen 800 MG TAB PO PRN (17:25)
[2017-11-16] MEDS: Mirtazapine 15 MG TAB PO SCH (20:36)
[2017-11-16] MEDS: Atorvastatin Calcium 20 MG TAB PO SCH (20:37)
[2017-11-16] MEDS: Insulin Detemir 100 UNITS/ML 30 UNITS in Pre-Filled Syringe 1 EACH SC SCH (20:40)
[2017-11-17] MEDS: Acetaminophen 325 MG TAB PO PRN (06:24)
[2017-11-17] MEDS: HumaLOG 300 UNITS/3 ML VIAL SC PRN ×3 (06:26→21:20)
--- NOTE | 2017-11-17 07:47 | PDOC.FM ---
- Subjective Subjective: this morning patient states she is doing well. She is enjoying the food here. No nausea, vomiting, or diarrhea. Denies any pain. Denies any pain in her hands or neck. - Objective Vital Signs & Weight: Vital Signs (12 hours) Temp Pulse Resp BP Pulse Ox 11/16/17 20:23 98.1 F 91 16 155/93 H 98 11/16/17 20:00 98.1 F 91 16 Weight Admit Weight 46.357 kg Weight 45.813 kg I&O: 11/16/17 11/17/17 11/18/17 06:59 06:59 07:59 Intake Total 460 2510 Balance 460 2510 Result Diagrams: 11/13/17 08:06 11/13/17 08:06 <Dash Sanon - Last Filed: 11/17/17 07:44> - Objective Vital Signs & Weight: Vital Signs (12 hours) Temp Pulse Resp BP BP Pulse Ox 11/17/17 08:26 73 157/93 H 11/17/17 08:11 97.9 F 73 20 157/93 H 99 11/17/17 08:00 97.9 F 73 20 99 Weight Admit Weight 46.357 kg Weight 45.813 kg I&O: 11/16/17 11/17/17 11/18/17 06:59 06:59 07:59 Intake Total 460 2510 Balance 460 2510 Result Diagrams: 11/13/17 08:06 11/13/17 08:06 <Efren Albrecht - Last Filed: 11/17/17 11:44> Phys Exam - Physical Examination Constitutional: NAD HEENT: PERRLA, moist MMs Neck: no nodes, full ROM Respiratory: no wheezing, clear to auscultation bilateral Cardiovascular: RRR, no significant murmur Gastrointestinal: soft, non-tender, no distention, positive bowel sounds Musculoskeletal: no edema, pulses present Neurological: non-focal, moves all 4 limbs Lymphatic: no nodes Psychiatric: normal affect, A&O x 3 Skin: no rash, cap refill <2 seconds <Dash Sanon - Last Filed: 11/17/17 07:44> Dx/Plan (1) Discitis of cervical region Code(s): M46.42 - DISCITIS, UNSPECIFIED, CERVICAL REGION Status: Acute (2) Dry gangrene Code(s): I96 - GANGRENE, NOT ELSEWHERE CLASSIFIED Status: Acute (3) Mental disability Code(s): F79 - UNSPECIFIED INTELLECTUAL DISABILITIES Status: Acute (4) Schizophrenia Code(s): F20.9 - SCHIZOPHRENIA, UNSPECIFIED Status: Acute QualifierTitle: Schizophrenia type: unspecified Qualified Code(s): F20.9 - Schizophrenia, unspecified (5) Septic arthritis of cervical spine Code(s): M46.52 - OTHER INFECTIVE SPONDYLOPATHIES, CERVICAL REGION Status: Acute (6) CAD (coronary artery disease) Code(s): I25.10 - ATHSCL HEART DISEASE OF [place] CORONARY ARTERY W/O ANG PCTRS Status: Chronic QualifierTitle: Associated angina: without angina (7) COPD (chronic obstructive pulmonary disease) Status: Chronic QualifierTitle: COPD type: unspecified COPD Qualified Code(s): J44.9 - Chronic obstructive pulmonary disease, unspecified (8) HTN (hypertension) Code(s): I10 - ESSENTIAL (PRIMARY) HYPERTENSION Status: Chronic QualifierTitle: Hypertension type: essential hypertension Qualified Code( s): I10 - Essential (primary) hypertension (9) Moderate protein-calorie malnutrition Code(s): E44.0 - MODERATE PROTEIN-CALORIE MALNUTRITION Status: Chronic (10) Osteomyelitis Code(s): M86.9 - OSTEOMYELITIS, UNSPECIFIED Status: Chronic QualifierTitle: Osteomyelitis location: hand Laterality: left (11) PVD (peripheral vascular disease) Code(s): I73.9 - PERIPHERAL VASCULAR DISEASE, UNSPECIFIED Status: Chronic (12) Physical deconditioning Code(s): R53.81 - OTHER MALAISE Status: Chronic (13) Substance abuse Code(s): F19.10 - OTHER PSYCHOACTIVE SUBSTANCE ABUSE, UNCOMPLICATED Status: Chronic (14) Urge incontinence Code(s): N39.41 - URGE INCONTINENCE Status: Chronic (15) Type 2 diabetes mellitus with hyperglycemia Code(s): E11.65 - TYPE 2 DIABETES MELLITUS WITH HYPERGLYCEMIA Status: Suspected QualifierTitle: Diabetes mellitus dredge or barge shore hand insulin use: with dredge or barge shore hand use Qualified Code(s): E11.65 - Type 2 diabetes mellitus with hyperglycemia; Z79.4 - chucking machine operator (current) use of insulin; Z79.4 - chucking machine operator (current) use of insulin; Z79.4 - [facility] (current) use of insulin; Z79.4 - [facility] (current ) use of insulin (16) ECTOR (acute kidney injury) Code(s): N17.9 - ACUTE KIDNEY FAILURE, UNSPECIFIED Status: Resolved (17) Endocarditis due to Staphylococcus Code(s): I33.0 - ACUTE AND SUBACUTE INFECTIVE ENDOCARDITIS; B95.8 - UNSP STAPHYLOCOCCUS THE CAUSE OF DISEASES CLASSD ELSWHR Status: Resolved - Plan Plan: 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 PICC line placed on 11/07 in L arm. - Neuro surgery on board, appreciate recs - will likely wear collar and f/u outpatient in 4 weeks. - Patient pending placement, but has been declined from 3 facilities so far. CM is working on placement, but this has proved difficult with patient's homeless status - Ibuprofen and tylenol for pain control Gangrenous Toes -S/p amputation R 5th toe. -Continue wound care Osteomyelitis R. Thumb -ESR elevated. X-ray shows early osteomyelitis/ S/p I&D -MRI UE- shows osteomyelitis of L. Thumb. Correlate with LE MRI as could be systemic disease as well. Scleroderma or Raynouds. -Hand Surgery consulted- Dr. Guerra- will follow recs -R thumb cx grew MRSA and chloe albicans, continue vanc -Continue wound care Physical Deconditioning - Patient unable to walk without assistance since being hospitalized past two months for sepsis 2/2 endocarditis, NSTEMI, and DKA at [facility] - Unable to care for self and homeless - No family support - CM consulted; appreciate recs - D/C planning process started - Mine Wirer consulted; appreciate recs - PT/OT to evaluate and treat patient - Working on placement Uncontrolled Type II DM with hyperglycemia - BG 599 on admission, Has since stabilized. - SSI increased to aggressive - Levemir 35 u am and 35 u hs, will likely need to be titrated down once infection starts resolving. - accuchecks ACHS Mental Disability 2/2 schizophrenia. The patient has decreased mental functional capacity. She functions at the level of a child. It is likely that this is part of the natural progression of her schizophrenia. The patient does not have the ability to care for herself in any capacity. - Will consult case management for potential dredge or barge shore hand placement - Will contact [facility] and attempt to have them come evaluate her as well CAD s/p MS - Hospitalized recently at [facility]; discharged earlier this week. - Lovenox for DVT PPX - Continue medications from last hospitalization - Echo with normal EF, no plans for cardiac catheterization at outside hospital Moderate Protein-Calorie Malnutrition - Albumin 2.6. Prealbumin lower than 5 - P normal. Mag low replaced - Ensure high protein supplementation - Mine Wirer consult; appreciate recommendations - TSH normal Chronic Normocytic Anemia - Stable - Has been iron deficiency in the past - Hg 9.4 on admission. At baseline - Continue to trend with weekly labs - Patient asymptomatic currently - Iron deficiency vs. ACD ECTOR on CKD- Resolved - Stable. 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 - Will monitor closely and adjust as needed COPD - Monitor O2 sats with goal >88% - Duoneb treatments PRN for shortness of breath/wheezing PVD - Pulses intact - CV surgery consulted- Will assess PAD for healing in legs. Will follow recs Endocarditis s/p treatment with IV abx - MRSA with pulmonary emboli, renal emboli, osteomyelitis, and discitis of C5-6 - Negative cultures on 10/28/2017 - s/p treatment with 6 weeks vancomycin/daptomycin - Complications include PICC line infection with Klebsiella requiring treatment with levaquin at outside facility - Continue rifampin x1 month - Echo showed normal EF Mild anion gap metabolic acidosis-Resolved - Resolved Sacral decubitus ulcer - Consult wound care - Frequent turning of patient Schizophrenia - continue on home meds - Will attempt to obtain records from [facility] to see if pt is supposed to be on any other psych meds Dispo: 12/08/17, working to find placement <Dash Sanon - Last Filed: 11/17/17 07:44> Attending Addendum - Attending Addendum Date/Time: 11/17/17 [id number] I personally evaluated the patient and discussed the management with Dr. Sanon. I agree with the History, Examination, Assessment and Plan documented above with any addition or exceptions noted below. <Efren Albrecht - Last Filed: 11/17/17 11:44>
[2017-11-17] MEDS: Magnesium Chloride 64 MG TAB PO SCH ×2 (08:25→21:18)
[2017-11-17] MEDS: Lisinopril 2.5 MG TAB PO SCH (08:26)
[2017-11-17] MEDS: Aspirin 325 mg Enteric Coated Tablet PO SCH (08:26)
[2017-11-17] MEDS: metFORMIN 500 MG TAB PO SCH ×2 (08:26→16:58)
[2017-11-17] MEDS: Metoprolol Tartrate 50 MG TAB PO SCH ×2 (08:26→21:19)
[2017-11-17] MEDS: Insulin Detemir 100 UNITS/ML 35 UNITS in Pre-Filled Syringe 1 EACH SC SCH (08:28)
[2017-11-17] MEDS: Ibuprofen 800 MG TAB PO PRN ×2 (08:37→21:18)
[2017-11-17] MEDS: Enoxaparin Sodium 40 MG/0.4 ML SYRINGE SC SCH (08:43)
[2017-11-17] MEDS: Polyethylene Glycol 3350 17 GM Packet PO SCH (08:44)
[2017-11-17 09:00] LABS: Vancomycin, Trough 14.7 ug/mL
[2017-11-17] MEDS: Vancomycin HCl 750 MG in Sodium Chloride 0.9% 250 ML 250 ML IVPB SCH (09:08)
[2017-11-17] MEDS: Rifampin 300 MG CAP PO SCH ×2 (09:14→22:55)
[2017-11-17] MEDS ORDERED: Insulin Detemir 100 UNITS/ML 35 UNITS in Pre-Filled Syringe 1 EACH SC SCH (21:00)
[2017-11-17] MEDS: Vancomycin HCl 1 GM in Premix Bag 1 BAG IVPB SCH (21:07)
[2017-11-17] MEDS: Atorvastatin Calcium 20 MG TAB PO SCH (21:18)
[2017-11-17] MEDS: Mirtazapine 15 MG TAB PO SCH (21:18)
--- NOTE | 2017-11-18 01:49 | PDOC.EVN ---
Event Note - Event Note Event Note: This is a Transition of Care note for the team who will be taking over the care of this patient moving forward. This is a 52 y/o F with a PMHx of Schizophrenia and Polysubstance Abuse who presented on 10/31/2017 after being discharged from [facility] earlier that day where she was treated for DKA, an NSTEMI, and MRSA endocarditis where she received IV Daptomycin for 6 weeks. She also had PICC line associated infection with Klebsiella which required treatment with Levaquin. She presented to the hospital complaining of weakness and was found to have an elevated blood sugar to 599. The patient was severely deconditioned and was found to be unable to care for herself, and to have moderate protein-calorie malnutrition. She was also found to have multiple septic emboli 2/2 endocarditis resulting in discitis/septic joint in C5-C6, necrotic R 5th toe with bony destructive changes seen on MRI, soft tissue changes/abnormal marrow signal of R great toe, and soft tissue changes/abnormal marrow signal of distal L thumb. Of note, she has also been treated for septic pulmonary pneumonia 2/2 MRSA at [facility]. The patient initially had an elevated WBC count to 13.5, but this downtrended after a few days of hospitalization. Blood cultures drawn on admission were negative at 5 days. On 11/01/17 the patient had surgical debridement of her L hand ulceration by Dr. Guerra due to concern for osteo of the L thumb, and the culture of her thumb nail grew out MRSA and chloe. On 11/02/17 the patient had an amputation of the R 5th toe by Dr. Ryder due to concern for osteomyelitis and necrotic ulceration with dry gangrene. On 11/03/17 an MRI of the cervical spine was done to assess the status of her discitis as the patient was still having neck pain. This showed C5-6 discitis and concern for septic bilateral facet joints. Dr. Herzog with Neurosurgery compared these images to those done at [facility] and reported that they were slightly improved. The patient was given a cervical collar to wear whenever out of bed and the plan was discussed with neurosurgery and Dr. Bosch to continue IV vancomycin until 12/08/17. On 11/07/17 a PICC line was placed in the patient's left arm. The patient's glucose had been initially elevated to 599, but this improved after treatment with insulin. However, over the first several days of her hospitalization, the patient's blood sugar was very difficult to control. She was discharged from the [facility] on Levemir 36 U qAM and 18 U qHS, however this had to be increased over several days as the patient was getting 15-18 U of SSI and her glucose checks were still in the 300's. After some changes were made, there was much better control of her glucose on a regimen of 35 U qAM and 30 U qHS, with the knowledge that this may need to be titrated down as the patient's infection starts resolving. The patient was initially very physically deconditioned where she was unable to get to the chair beside the bed on her own or really sit up in bed. The patient was malnourished and had spent much of the past few months in bed. After working with physical therapy, the patient made significant improvement in her functional status. She still required a walker, but was able to walk a significant length and spend time sitting up in the chair throughout the day. As she did this, her countenance also changed. She initially was very angry and guarded, but after the first week of her hospitalization as she started feeling better and getting up to move more with PT she developed a more normal affect.
--- NOTE | 2017-11-18 07:40 | PDOC.FM ---
- Subjective Subjective: This morning the patient states she is feeling well overall. She states she ate a hamburger for supper last night which was particularly exciting. She denies headache, nausea, vomiting, or diarrhea. She denies any pain in the neck or the hands. She participated in PT yesterday. - Objective Vital Signs & Weight: Vital Signs (12 hours) Temp Pulse Resp BP Pulse Ox 11/17/17 20:51 99 F 89 14 98 11/17/17 20:00 99 F 89 14 169/100 H 98 Weight Admit Weight 46.357 kg Weight 45.813 kg I&O: 11/17/17 11/18/17 11/19/17 05:59 06:59 06:59 Intake Total Balance Result Diagrams: 11/13/17 08:06 11/13/17 08:06 <Dash Sanon - Last Filed: 11/18/17 07:38> - Objective Vital Signs & Weight: Vital Signs (12 hours) Temp Pulse Resp BP BP Pulse Ox 11/18/17 08:48 75 138/87 11/18/17 07:47 98.1 F 75 20 138/87 98 Weight Admit Weight 46.357 kg Weight 45.813 kg I&O: 11/17/17 11/18/17 11/19/17 05:59 06:59 06:59 Intake Total 240 Balance 240 Result Diagrams: 11/13/17 08:06 11/13/17 08:06 <Efren Albrecht - Last Filed: 11/18/17 10:24> Phys Exam - Physical Examination Constitutional: NAD HEENT: PERRLA, moist MMs Neck: no nodes, full ROM Respiratory: no wheezing, clear to auscultation bilateral Cardiovascular: RRR, no significant murmur Gastrointestinal: soft, non-tender, no distention, positive bowel sounds Musculoskeletal: no edema, pulses present Neurological: non-focal, moves all 4 limbs Lymphatic: no nodes Psychiatric: normal affect, A&O x 3 Skin: no rash, cap refill <2 seconds <Dash Sanon - Last Filed: 11/18/17 07:38> Dx/Plan (1) Discitis of cervical region Code(s): M46.42 - DISCITIS, UNSPECIFIED, CERVICAL REGION Status: Acute (2) Dry gangrene Code(s): I96 - GANGRENE, NOT ELSEWHERE CLASSIFIED Status: Acute (3) Mental disability Code(s): F79 - UNSPECIFIED INTELLECTUAL DISABILITIES Status: Acute (4) Schizophrenia Code(s): F20.9 - SCHIZOPHRENIA, UNSPECIFIED Status: Acute QualifierTitle: Schizophrenia type: unspecified Qualified Code(s): F20.9 - Schizophrenia, unspecified (5) Septic arthritis of cervical spine Code(s): M46.52 - OTHER INFECTIVE SPONDYLOPATHIES, CERVICAL REGION Status: Acute (6) CAD (coronary artery disease) Code(s): I25.10 - ATHSCL HEART DISEASE OF [place] CORONARY ARTERY W/O ANG PCTRS Status: Chronic QualifierTitle: Associated angina: without angina (7) COPD (chronic obstructive pulmonary disease) Status: Chronic QualifierTitle: COPD type: unspecified COPD Qualified Code(s): J44.9 - Chronic obstructive pulmonary disease, unspecified (8) HTN (hypertension) Code(s): I10 - ESSENTIAL (PRIMARY) HYPERTENSION Status: Chronic QualifierTitle: Hypertension type: essential hypertension Qualified Code( s): I10 - Essential (primary) hypertension (9) Moderate protein-calorie malnutrition Code(s): E44.0 - MODERATE PROTEIN-CALORIE MALNUTRITION Status: Chronic (10) Osteomyelitis Code(s): M86.9 - OSTEOMYELITIS, UNSPECIFIED Status: Chronic QualifierTitle: Osteomyelitis location: hand Laterality: left (11) PVD (peripheral vascular disease) Code(s): I73.9 - PERIPHERAL VASCULAR DISEASE, UNSPECIFIED Status: Chronic (12) Physical deconditioning Code(s): R53.81 - OTHER MALAISE Status: Chronic (13) Substance abuse Code(s): F19.10 - OTHER PSYCHOACTIVE SUBSTANCE ABUSE, UNCOMPLICATED Status: Chronic (14) Urge incontinence Code(s): N39.41 - URGE INCONTINENCE Status: Chronic (15) Type 2 diabetes mellitus with hyperglycemia Code(s): E11.65 - TYPE 2 DIABETES MELLITUS WITH HYPERGLYCEMIA Status: Suspected QualifierTitle: Diabetes mellitus shelter insulin use: with white metal corrosion proofer use Qualified Code(s): E11.65 - Type 2 diabetes mellitus with hyperglycemia; Z79.4 - [facility] (current) use of insulin; Z79.4 - embedded software engineer (current) use of insulin; Z79.4 - embedded software engineer (current) use of insulin; Z79.4 - embedded software engineer (current ) use of insulin (16) ECTOR (acute kidney injury) Code(s): N17.9 - ACUTE KIDNEY FAILURE, UNSPECIFIED Status: Resolved (17) Endocarditis due to Staphylococcus Code(s): I33.0 - ACUTE AND SUBACUTE INFECTIVE ENDOCARDITIS; B95.8 - UNSP STAPHYLOCOCCUS THE CAUSE OF DISEASES CLASSD ELSWHR Status: Resolved - Plan Plan: 11/18 - decreased night-time levemir to 30U - Vanc trough 11/19, Vancomycin through 12/08 - continue to work towards long-term placement - continue PT/OT 2/2 deconditioning 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 PICC line placed on 11/07 in L arm. - Neuro surgery on board, appreciate recs - will likely wear collar and f/u outpatient in 4 weeks. - Patient pending placement, but has been declined from 3 facilities so far. CM is working on placement, but this has proved difficult with patient's homeless status - Ibuprofen and tylenol for pain control Gangrenous Toes -S/p amputation R 5th toe. -Continue wound care Osteomyelitis R. Thumb -ESR elevated. X-ray shows early osteomyelitis/ S/p I&D -MRI UE- shows osteomyelitis of L. Thumb. Correlate with LE MRI as could be systemic disease as well. Scleroderma or Raynouds. -Hand Surgery consulted- Dr. Guerra- will follow recs -R thumb cx grew MRSA and chloe albicans, continue vanc -Continue wound care Physical Deconditioning - Patient unable to walk without assistance since being hospitalized past two months for sepsis 2/2 endocarditis, NSTEMI, and DKA at [facility] - Unable to care for self and homeless - No family support - CM consulted; appreciate recs - D/C planning process started - Conveyor Monitor consulted; appreciate recs - PT/OT to evaluate and treat patient - Working on placement Uncontrolled Type II DM with hyperglycemia - BG 599 on admission, Has since stabilized. - SSI increased to aggressive - Levemir 35 u am and 30 u hs, will likely need to be titrated down once infection starts resolving. - accuchecks ACHS Mental Disability 2/2 schizophrenia. The patient has decreased mental functional capacity. She functions at the level of a child. It is likely that this is part of the natural progression of her schizophrenia. The patient does not have the ability to care for herself in any capacity. - Will consult case management for potential shelter placement - Will contact [facility] and attempt to have them come evaluate her as well CAD s/p [place] - Hospitalized recently at [facility]; discharged earlier this week. - Lovenox for DVT PPX - Continue medications from last hospitalization - Echo with normal EF, no plans for cardiac catheterization at outside hospital Moderate Protein-Calorie Malnutrition - Albumin 2.6. Prealbumin lower than 5 - P normal. Mag low replaced - Ensure high protein supplementation - Conveyor Monitor consult; appreciate recommendations - TSH normal Chronic Normocytic Anemia - Stable - Has been iron deficiency in the past - Hg 9.4 on admission. At baseline - Continue to trend with weekly labs - Patient asymptomatic currently - Iron deficiency vs. ACD ECTOR on CKD- Resolved - Stable. 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 - Will monitor closely and adjust as needed COPD - Monitor O2 sats with goal >88% - Duoneb treatments PRN for shortness of breath/wheezing PVD - Pulses intact - CV surgery consulted- Will assess PAD for healing in legs. Will follow recs Endocarditis s/p treatment with IV abx - MRSA with pulmonary emboli, renal emboli, osteomyelitis, and discitis of C5-6 - Negative cultures on 10/28/2017 - s/p treatment with 6 weeks vancomycin/daptomycin - Complications include PICC line infection with Klebsiella requiring treatment with levaquin at outside facility - Continue rifampin x1 month - Echo showed normal EF Mild anion gap metabolic acidosis-Resolved - Resolved Sacral decubitus ulcer - Consult wound care - Frequent turning of patient Schizophrenia - continue on home meds - Will attempt to obtain records from [facility] to see if pt is supposed to be on any other psych meds Dispo: 12/08/17, working to find placement <Dash Sanon - Last Filed: 11/18/17 07:38> Attending Addendum - Attending Addendum Date/Time: 11/18/17 1023 I personally evaluated the patient and discussed the management with Dr. Sanon. I agree with the History, Examination, Assessment and Plan documented above with any addition or exceptions noted below. <Efren Albrecht - Last Filed: 11/18/17 10:24>
[2017-11-18] MEDS: Insulin Detemir 100 UNITS/ML 35 UNITS in Pre-Filled Syringe 1 EACH SC SCH (08:46)
[2017-11-18] MEDS: Enoxaparin Sodium 40 MG/0.4 ML SYRINGE SC SCH (08:47)
[2017-11-18] MEDS: metFORMIN 500 MG TAB PO SCH ×2 (08:48→16:51)
[2017-11-18] MEDS: Lisinopril 2.5 MG TAB PO SCH (08:48)
[2017-11-18] MEDS: Polyethylene Glycol 3350 17 GM Packet PO SCH (08:49)
[2017-11-18] MEDS: Aspirin 325 mg Enteric Coated Tablet PO SCH (08:49)
[2017-11-18] MEDS: Metoprolol Tartrate 50 MG TAB PO SCH ×2 (08:49→21:30)
[2017-11-18] MEDS: Magnesium Chloride 64 MG TAB PO SCH ×2 (08:49→21:29)
[2017-11-18] MEDS: Vancomycin HCl 1 GM in Premix Bag 1 BAG IVPB SCH ×2 (08:50→21:28)
[2017-11-18] MEDS: Rifampin 300 MG CAP PO SCH ×2 (10:30→21:29)
[2017-11-18] MEDS: Ibuprofen 800 MG TAB PO PRN ×2 (10:30→21:30)
[2017-11-18] MEDS: HumaLOG 300 UNITS/3 ML VIAL SC PRN ×2 (12:48→21:31)
[2017-11-18] MEDS: Mirtazapine 15 MG TAB PO SCH (21:30)
[2017-11-18] MEDS: Atorvastatin Calcium 20 MG TAB PO SCH (21:30)
[2017-11-18] MEDS: Insulin Detemir 100 UNITS/ML 30 UNITS in Pre-Filled Syringe 1 EACH SC SCH (21:30)
[2017-11-19] MEDS: HumaLOG 300 UNITS/3 ML VIAL SC PRN ×4 (05:49→21:49)
[2017-11-19] MEDS: Ibuprofen 800 MG TAB PO PRN ×3 (05:56→21:42)
--- NOTE | 2017-11-19 07:54 | PDOC.FM ---
- Subjective Subjective: This morning the patient states that she slept well overnight. She denies pain in the hands, feet, or neck. She states her appetite is normal w/ no N/V/D. She is looking forward to PT today. - Objective Vital Signs & Weight: Vital Signs (12 hours) Temp Pulse Resp BP Pulse Ox 11/19/17 07:30 98.2 F 97 16 99 11/18/17 21:58 98.2 F 97 16 155/93 H 99 11/18/17 20:37 98.2 F 97 16 99 Weight Admit Weight 46.357 kg Weight 45.813 kg I&O: 11/18/17 11/19/17 11/20/17 06:59 06:59 06:59 Intake Total 2200 Balance 2200 Result Diagrams: 11/13/17 08:06 11/13/17 08:06 <Dash Sanon - Last Filed: 11/19/17 07:54> - Objective Vital Signs & Weight: Vital Signs (12 hours) Temp Pulse Resp BP BP Pulse Ox 11/19/17 09:14 131/88 11/19/17 08:44 97.3 F L 86 16 131/88 97 11/19/17 07:30 98.2 F 97 16 99 Weight Admit Weight 46.357 kg Weight 45.813 kg I&O: 11/18/17 11/19/17 11/20/17 06:59 06:59 06:59 Intake Total 2200 240 Balance 2200 240 Result Diagrams: 11/13/17 08:06 11/13/17 08:06 <Aubrey Hoyso - Last Filed: 11/19/17 11:21> Phys Exam - Physical Examination Constitutional: NAD HEENT: PERRLA, moist MMs Neck: no nodes, full ROM Respiratory: no wheezing, clear to auscultation bilateral Cardiovascular: RRR, no significant murmur, no rub Gastrointestinal: soft, non-tender, no distention, positive bowel sounds Musculoskeletal: no edema, pulses present Neurological: non-focal, moves all 4 limbs Lymphatic: no nodes Psychiatric: normal affect, A&O x 3 Skin: no rash, cap refill <2 seconds <Dash Sanon - Last Filed: 11/19/17 07:54> Dx/Plan (1) Discitis of cervical region Code(s): M46.42 - DISCITIS, UNSPECIFIED, CERVICAL REGION Status: Acute (2) Dry gangrene Code(s): I96 - GANGRENE, NOT ELSEWHERE CLASSIFIED Status: Acute (3) Mental disability Code(s): F79 - UNSPECIFIED INTELLECTUAL DISABILITIES Status: Acute (4) Schizophrenia Code(s): F20.9 - SCHIZOPHRENIA, UNSPECIFIED Status: Acute QualifierTitle: Schizophrenia type: unspecified Qualified Code(s): F20.9 - Schizophrenia, unspecified (5) Septic arthritis of cervical spine Code(s): M46.52 - OTHER INFECTIVE SPONDYLOPATHIES, CERVICAL REGION Status: Acute (6) CAD (coronary artery disease) Code(s): I25.10 - ATHSCL HEART DISEASE OF [place] CORONARY ARTERY W/O ANG PCTRS Status: Chronic QualifierTitle: Associated angina: without angina (7) COPD (chronic obstructive pulmonary disease) Status: Chronic QualifierTitle: COPD type: unspecified COPD Qualified Code(s): J44.9 - Chronic obstructive pulmonary disease, unspecified (8) HTN (hypertension) Code(s): I10 - ESSENTIAL (PRIMARY) HYPERTENSION Status: Chronic QualifierTitle: Hypertension type: essential hypertension Qualified Code( s): I10 - Essential (primary) hypertension (9) Moderate protein-calorie malnutrition Code(s): E44.0 - MODERATE PROTEIN-CALORIE MALNUTRITION Status: Chronic (10) Osteomyelitis Code(s): M86.9 - OSTEOMYELITIS, UNSPECIFIED Status: Chronic QualifierTitle: Osteomyelitis location: hand Laterality: left (11) PVD (peripheral vascular disease) Code(s): I73.9 - PERIPHERAL VASCULAR DISEASE, UNSPECIFIED Status: Chronic (12) Physical deconditioning Code(s): R53.81 - OTHER MALAISE Status: Chronic (13) Substance abuse Code(s): F19.10 - OTHER PSYCHOACTIVE SUBSTANCE ABUSE, UNCOMPLICATED Status: Chronic (14) Urge incontinence Code(s): N39.41 - URGE INCONTINENCE Status: Chronic (15) Type 2 diabetes mellitus with hyperglycemia Code(s): E11.65 - TYPE 2 DIABETES MELLITUS WITH HYPERGLYCEMIA Status: Suspected QualifierTitle: Diabetes mellitus detention insulin use: with detention use Qualified Code(s): E11.65 - Type 2 diabetes mellitus with hyperglycemia; Z79.4 - senior living (current) use of insulin; Z79.4 - middle or intermediate school principal (current) use of insulin; Z79.4 - senior living (current) use of insulin; Z79.4 - middle or intermediate school principal (current ) use of insulin (16) ECTOR (acute kidney injury) Code(s): N17.9 - ACUTE KIDNEY FAILURE, UNSPECIFIED Status: Resolved (17) Endocarditis due to Staphylococcus Code(s): I33.0 - ACUTE AND SUBACUTE INFECTIVE ENDOCARDITIS; B95.8 - UNSP STAPHYLOCOCCUS THE CAUSE OF DISEASES CLASSD ELSWHR Status: Resolved - Plan Plan: 11/18 - same insulin dose today, accucheck q6hr while titrating insulin - Vanc trough 11/19, Vancomycin through 12/08 - continue to work towards long-term placement - continue PT/OT 2/2 deconditioning 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 PICC line placed on 11/07 in L arm. - Neuro surgery on board, appreciate recs - will likely wear collar and f/u outpatient in 4 weeks. - Patient pending placement, but has been declined from 3 facilities so far. CM is working on placement, but this has proved difficult with patient's homeless status - Ibuprofen and tylenol for pain control Gangrenous Toes -S/p amputation R 5th toe. -Continue wound care Osteomyelitis R. Thumb -ESR elevated. X-ray shows early osteomyelitis/ S/p I&D -MRI UE- shows osteomyelitis of L. Thumb. Correlate with LE MRI as could be systemic disease as well. Scleroderma or Raynouds. -Hand Surgery consulted- Dr. Guerra- will follow recs -R thumb cx grew MRSA and chloe albicans, continue vanc -Continue wound care Physical Deconditioning - Patient unable to walk without assistance since being hospitalized past two months for sepsis 2/2 endocarditis, NSTEMI, and DKA at [facility] - Unable to care for self and homeless - No family support - CM consulted; appreciate recs - D/C planning process started - Tobacco Grower consulted; appreciate recs - PT/OT to evaluate and treat patient - Working on placement Uncontrolled Type II DM with hyperglycemia - BG 599 on admission, Has since stabilized. - SSI increased to aggressive - Levemir 35 u am and 30 u hs, will likely need to be titrated down once infection starts resolving. - accnagaeckfrida BHATTS Mental Disability 2/2 schizophrenia. The patient has decreased mental functional capacity. She functions at the level of a child. It is likely that this is part of the natural progression of her schizophrenia. The patient does not have the ability to care for herself in any capacity. - Will consult case management for potential detention placement - Will contact [facility] and attempt to have them come evaluate her as well CAD s/p CT - Hospitalized recently at [facility]; discharged earlier this week. - Lovenox for DVT PPX - Continue medications from last hospitalization - Echo with normal EF, no plans for cardiac catheterization at outside hospital Moderate Protein-Calorie Malnutrition - Albumin 2.6. Prealbumin lower than 5 - P normal. Mag low replaced - Ensure high protein supplementation - Tobacco Grower consult; appreciate recommendations - TSH normal Chronic Normocytic Anemia - Stable - Has been iron deficiency in the past - Hg 9.4 on admission. At baseline - Continue to trend with weekly labs - Patient asymptomatic currently - Iron deficiency vs. ACD ECTOR on CKD- Resolved - Stable. 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 - Will monitor closely and adjust as needed COPD - Monitor O2 sats with goal >88% - Duoneb treatments PRN for shortness of breath/wheezing PVD - Pulses intact - CV surgery consulted- Will assess PAD for healing in legs. Will follow recs Endocarditis s/p treatment with IV abx - MRSA with pulmonary emboli, renal emboli, osteomyelitis, and discitis of C5-6 - Negative cultures on 10/28/2017 - s/p treatment with 6 weeks vancomycin/daptomycin - Complications include PICC line infection with Klebsiella requiring treatment with levaquin at outside facility - Continue rifampin x1 month - Echo showed normal EF Mild anion gap metabolic acidosis-Resolved - Resolved Sacral decubitus ulcer - Consult wound care - Frequent turning of patient Schizophrenia - continue on home meds - Will attempt to obtain records from [facility] to see if pt is supposed to be on any other psych meds Dispo: 12/08/17, working to find placement <Dash Sanon - Last Filed: 11/19/17 07:54> Attending Addendum - Attending Addendum Date/Time: 11/19/17 1121 I personally evaluated the patient and discussed the management with Dr. Sanon I agree with the History, Examination, Assessment and Plan documented above with any addition or exceptions noted below.Continue inpt ABX. <Aubrey Hoyos - Last Filed: 11/19/17 11:21>
[2017-11-19 08:16] LABS: Vancomycin, Trough 19.8 ug/mL
[2017-11-19] MEDS: Insulin Detemir 100 UNITS/ML 35 UNITS in Pre-Filled Syringe 1 EACH SC SCH (09:13)
[2017-11-19] MEDS: Vancomycin HCl 1 GM in Premix Bag 1 BAG IVPB SCH ×2 (09:13→21:43)
[2017-11-19] MEDS: Lisinopril 10 MG TAB PO SCH (09:14)
[2017-11-19] MEDS: Aspirin 325 mg Enteric Coated Tablet PO SCH (09:14)
[2017-11-19] MEDS: Metoprolol Tartrate 50 MG TAB PO SCH ×2 (09:14→21:41)
[2017-11-19] MEDS: metFORMIN 500 MG TAB PO SCH ×2 (09:14→17:41)
[2017-11-19] MEDS: Enoxaparin Sodium 40 MG/0.4 ML SYRINGE SC SCH (09:14)
[2017-11-19] MEDS: Polyethylene Glycol 3350 17 GM Packet PO SCH (09:15)
[2017-11-19] MEDS: Magnesium Chloride 64 MG TAB PO SCH ×2 (09:29→21:42)
[2017-11-19] MEDS: Rifampin 300 MG CAP PO SCH ×2 (09:29→21:48)
[2017-11-19] MEDS: Mirtazapine 15 MG TAB PO SCH (21:42)
[2017-11-19] MEDS: Atorvastatin Calcium 20 MG TAB PO SCH (21:42)
[2017-11-19] MEDS: Insulin Detemir 100 UNITS/ML 30 UNITS in Pre-Filled Syringe 1 EACH SC SCH (21:49)
[2017-11-20] MEDS: Acetaminophen 325 MG TAB PO PRN ×2 (01:54→14:16)
[2017-11-20] MEDS: HumaLOG 300 UNITS/3 ML VIAL SC PRN ×3 (05:40→21:38)
[2017-11-20] MEDS: Ibuprofen 800 MG TAB PO PRN ×2 (05:40→23:30)
--- NOTE | 2017-11-20 06:04 | PDOC.FM ---
Addendum entered and electronically signed by Dash Sanon MD 11/21/17 06:07: 11/20 - same insulin dose today, accucheck to qAC-HS - Vanc trough 11/21, Vancomycin through 12/08 - continue to work towards long-term placement -spoke to STEW[facility] [place], who is working with [employer] to try to attain placement -CM states family has been difficult to work with - continue PT/OT 2/2 deconditioning Original Note: - Subjective Subjective: This morning the patient states she is feeling well overall with no complaints. She enjoyed participating in PT yesterday. She denies pain in the hands or feet. Is tolerating PO well. - Objective Vital Signs & Weight: Vital Signs (12 hours) Temp Pulse Resp BP Pulse Ox 11/19/17 20:11 98.3 F 95 18 146/89 H 99 11/19/17 19:34 98.3 F 95 18 99 Weight Admit Weight 46.357 kg Weight 45.813 kg I&O: 11/18/17 11/19/17 11/20/17 06:59 06:59 06:59 Intake Total 2200 1130 Balance 2200 1130 Result Diagrams: 11/13/17 08:06 11/13/17 08:06 <Dash Sanon - Last Filed: 11/20/17 06:03> - Objective Vital Signs & Weight: Vital Signs (12 hours) Temp Pulse Resp BP BP Pulse Ox 11/21/17 08:55 136/91 H 11/21/17 08:00 97.9 F 84 18 136/91 H 98 11/21/17 04:00 97.9 F 84 18 143/95 H 98 Weight Admit Weight 46.357 kg Weight 45.813 kg I&O: 11/20/17 11/21/17 11/22/17 06:59 06:59 06:59 Intake Total 2310 1660 240 Balance 2310 1660 240 Result Diagrams: 11/20/17 10:48 11/20/17 10:48 <Aubrey Hoyos - Last Filed: 11/21/17 12:25> Phys Exam - Physical Examination Constitutional: NAD HEENT: PERRLA, moist MMs Neck: no nodes, full ROM Respiratory: no wheezing, clear to auscultation bilateral Cardiovascular: RRR, no significant murmur Gastrointestinal: soft, non-tender, no distention, positive bowel sounds Musculoskeletal: no edema, pulses present Neurological: non-focal, moves all 4 limbs Lymphatic: no nodes Psychiatric: normal affect, A&O x 3 Skin: no rash, cap refill <2 seconds <Dash Sanon - Last Filed: 11/20/17 06:03> Dx/Plan (1) Discitis of cervical region Code(s): M46.42 - DISCITIS, UNSPECIFIED, CERVICAL REGION Status: Acute (2) Dry gangrene Code(s): I96 - GANGRENE, NOT ELSEWHERE CLASSIFIED Status: Acute (3) Mental disability Code(s): F79 - UNSPECIFIED INTELLECTUAL DISABILITIES Status: Acute (4) Schizophrenia Code(s): F20.9 - SCHIZOPHRENIA, UNSPECIFIED Status: Acute QualifierTitle: Schizophrenia type: unspecified Qualified Code(s): F20.9 - Schizophrenia, unspecified (5) Septic arthritis of cervical spine Code(s): M46.52 - OTHER INFECTIVE SPONDYLOPATHIES, CERVICAL REGION Status: Acute (6) CAD (coronary artery disease) Code(s): I25.10 - ATHSCL HEART DISEASE OF [place] CORONARY ARTERY W/O ANG PCTRS Status: Chronic QualifierTitle: Associated angina: without angina (7) COPD (chronic obstructive pulmonary disease) Status: Chronic QualifierTitle: COPD type: unspecified COPD Qualified Code(s): J44.9 - Chronic obstructive pulmonary disease, unspecified (8) HTN (hypertension) Code(s): I10 - ESSENTIAL (PRIMARY) HYPERTENSION Status: Chronic QualifierTitle: Hypertension type: essential hypertension Qualified Code( s): I10 - Essential (primary) hypertension (9) Moderate protein-calorie malnutrition Code(s): E44.0 - MODERATE PROTEIN-CALORIE MALNUTRITION Status: Chronic (10) Osteomyelitis Code(s): M86.9 - OSTEOMYELITIS, UNSPECIFIED Status: Chronic QualifierTitle: Osteomyelitis location: hand Laterality: left (11) PVD (peripheral vascular disease) Code(s): I73.9 - PERIPHERAL VASCULAR DISEASE, UNSPECIFIED Status: Chronic (12) Physical deconditioning Code(s): R53.81 - OTHER MALAISE Status: Chronic (13) Substance abuse Code(s): F19.10 - OTHER PSYCHOACTIVE SUBSTANCE ABUSE, UNCOMPLICATED Status: Chronic (14) Urge incontinence Code(s): N39.41 - URGE INCONTINENCE Status: Chronic (15) Type 2 diabetes mellitus with hyperglycemia Code(s): E11.65 - TYPE 2 DIABETES MELLITUS WITH HYPERGLYCEMIA Status: Suspected QualifierTitle: Diabetes mellitus custodial insulin use: with custodial use Qualified Code(s): - ; Z79.4 - intermediate manager (current) use of insulin; Z79.4 - retirement (current) use of insulin; Z79.4 - intermediate manager (current) use of insulin ; Z79.4 - retirement (current) use of insulin (16) ECTOR (acute kidney injury) Code(s): N17.9 - ACUTE KIDNEY FAILURE, UNSPECIFIED Status: Resolved (17) Endocarditis due to Staphylococcus Code(s): I33.0 - ACUTE AND SUBACUTE INFECTIVE ENDOCARDITIS; B95.8 - UNSP STAPHYLOCOCCUS THE CAUSE OF DISEASES CLASSD ELSWHR Status: Resolved - Plan Plan: 11/18 - same insulin dose today, accucheck q6hr while titrating insulin - Vanc trough 11/19, Vancomycin through 12/08 - continue to work towards long-term placement - continue PT/OT 2/2 deconditioning 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 PICC line placed on 11/07 in L arm. - Neuro surgery on board, appreciate recs - will likely wear collar and f/u outpatient in 4 weeks. - Patient pending placement, but has been declined from 3 facilities so far. CM is working on placement, but this has proved difficult with patient's homeless status - Ibuprofen and tylenol for pain control Gangrenous Toes -S/p amputation R 5th toe. -Continue wound care Osteomyelitis R. Thumb -ESR elevated. X-ray shows early osteomyelitis/ S/p I&D -MRI UE- shows osteomyelitis of L. Thumb. Correlate with LE MRI as could be systemic disease as well. Scleroderma or Raynouds. -Hand Surgery consulted- Dr. Guerra- will follow recs -R thumb cx grew MRSA and chloe albicans, continue vanc -Continue wound care Physical Deconditioning - Patient unable to walk without assistance since being hospitalized past two months for sepsis 2/2 endocarditis, NSTEMI, and DKA at [facility] - Unable to care for self and homeless - No family support - CM consulted; appreciate recs - D/C planning process started - Market Superintendent consulted; appreciate recs - PT/OT to evaluate and treat patient - Working on placement Uncontrolled Type II DM with hyperglycemia - BG 599 on admission, Has since stabilized. - SSI increased to aggressive - Levemir 35 u am and 30 u hs, will likely need to be titrated down once infection starts resolving. - accbertha TYLER Mental Disability 2/2 schizophrenia. The patient has decreased mental functional capacity. She functions at the level of a child. It is likely that this is part of the natural progression of her schizophrenia. The patient does not have the ability to care for herself in any capacity. - Will consult case management for potential custodial placement - Will contact [facility] and attempt to have them come evaluate her as well CAD s/p CA - Hospitalized recently at [facility]; discharged earlier this week. - Lovenox for DVT PPX - Continue medications from last hospitalization - Echo with normal EF, no plans for cardiac catheterization at outside hospital Moderate Protein-Calorie Malnutrition - Albumin 2.6. Prealbumin lower than 5 - P normal. Mag low replaced - Ensure high protein supplementation - Market Superintendent consult; appreciate recommendations - TSH normal Chronic Normocytic Anemia - Stable - Has been iron deficiency in the past - Hg 9.4 on admission. At baseline - Continue to trend with weekly labs - Patient asymptomatic currently - Iron deficiency vs. ACD ECTOR on CKD- Resolved - Stable. 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 - Will monitor closely and adjust as needed COPD - Monitor O2 sats with goal >88% - Duoneb treatments PRN for shortness of breath/wheezing PVD - Pulses intact - CV surgery consulted- Will assess PAD for healing in legs. Will follow recs Endocarditis s/p treatment with IV abx - MRSA with pulmonary emboli, renal emboli, osteomyelitis, and discitis of C5-6 - Negative cultures on 10/28/2017 - s/p treatment with 6 weeks vancomycin/daptomycin - Complications include PICC line infection with Klebsiella requiring treatment with levaquin at outside facility - Continue rifampin x1 month - Echo showed normal EF Mild anion gap metabolic acidosis-Resolved - Resolved Sacral decubitus ulcer - Consult wound care - Frequent turning of patient Schizophrenia - continue on home meds - Will attempt to obtain records from [facility] to see if pt is supposed to be on any other psych meds Dispo: 12/08/17, working to find placement <Dash Sanon - Last Filed: 11/20/17 06:03> Attending Addendum - Attending Addendum Date/Time: 11/21/17 1225 I personally evaluated the patient and discussed the management with Dr. Sanon I agree with the History, Examination, Assessment and Plan documented above with any addition or exceptions noted below. <Aubrey Hoyos - Last Filed: 11/21/17 12:25>
[2017-11-20] MEDS: Lisinopril 10 MG TAB PO SCH (07:46)
[2017-11-20] MEDS: Aspirin 325 mg Enteric Coated Tablet PO SCH (07:46)
[2017-11-20] MEDS: metFORMIN 500 MG TAB PO SCH ×2 (07:46→18:11)
[2017-11-20] MEDS: Metoprolol Tartrate 50 MG TAB PO SCH ×2 (07:46→21:35)
[2017-11-20] MEDS: Magnesium Chloride 64 MG TAB PO SCH ×2 (07:46→21:35)
[2017-11-20] MEDS: Polyethylene Glycol 3350 17 GM Packet PO SCH (07:47)
[2017-11-20] MEDS: Enoxaparin Sodium 40 MG/0.4 ML SYRINGE SC SCH (07:48)
[2017-11-20] MEDS: Vancomycin HCl 1 GM in Premix Bag 1 BAG IVPB SCH ×2 (07:48→21:38)
[2017-11-20] MEDS: Rifampin 300 MG CAP PO SCH ×3 (07:56→23:30)
[2017-11-20] MEDS ORDERED: INSULIN DETEMIR SC SCH ×2 (09:00→21:00)
[2017-11-20] MEDS ORDERED: PRE FILLED SC SCH ×2 (09:00→21:00)
[2017-11-20 10:58] LABS: #Eosinphils 0.2 thou/uL (0.0-0.7); #Lymphocytes 2.4 thou/uL (1.20-3.40); #Monocytes 0.8 thou/uL (0.11-0.59); #Neutrophils 5.9 thou/uL (1.40-6.50); %Basophils 0.4 % (0.0-1.0); %Eosinophils 1.9 % (0.0-10.0); %Lymphocytes 25.9 % (21.0-51.0); %Monocytes 8.8 % (0.0-10.0); Hemoglobin 10.3 g/dL (12.0-16.0); Mean Corpuscular HGB CONC 32.5 g/dL (32.0-36.0); Mean Corpuscular Hemoglobin 28.8 pg (27.0-31.0); Mean Corpuscular Volume 88.7 fl (81.0-99.0); Mean Platelet Volume 5.9 fL (7.4-10.4); Platelet Count 484 thou/uL (130-400); RBC Distribution Width 20.5 % (11.5-14.5); Red Blood Cell (RBC) Count 3.57 mill/uL (4.20-5.40); White Blood Cell (WBC) Count 9.4 thou/uL (4.8-10.8)
[2017-11-20 11:18] LABS: Anion Gap 13 mmol/L (10-20); BUN (Urea Nitrogen) 13 mg/dL (9.8-20.1); Calc. Creatinine Clearance 67 mL/min (70-130); Calcium 10.1 mg/dL (7.8-10.44); Carbon Dioxide 23 mmol/L (22-29); Chloride 103 mmol/L (98-107); Estimated GFR-MDRD Greater than 90; Glucose 107 mg/dL (70-105); Potassium 4.6 mmol/L (3.5-5.1); Sodium 134 mmol/L (136-145)
[2017-11-20] MEDS: Atorvastatin Calcium 20 MG TAB PO SCH (21:34)
[2017-11-20] MEDS: Mirtazapine 15 MG TAB PO SCH (21:35)
--- NOTE | 2017-11-21 06:10 | PDOC.FM ---
- Subjective Subjective: Patient denies any pain or issues overnight. She is looking forward to physical therapy today. - Objective Vital Signs & Weight: Vital Signs (12 hours) Temp Pulse Resp BP Pulse Ox 11/21/17 00:00 98.2 F 94 16 145/97 H 95 11/20/17 20:00 98.1 F 109 H 18 149/88 H 98 Weight Admit Weight 46.357 kg Weight 45.813 kg I&O: 11/19/17 11/20/17 11/21/17 06:59 06:59 06:59 Intake Total 2200 2310 1160 Balance 2200 2310 1160 Result Diagrams: 11/20/17 10:48 11/20/17 10:48 <Dash Sanon - Last Filed: 11/22/17 05:47> - Objective Vital Signs & Weight: Vital Signs (12 hours) Temp Pulse Resp BP Pulse Ox 11/22/17 08:00 98.3 F 99 18 97 11/22/17 07:37 136/91 H Weight Admit Weight 46.357 kg Weight 45.813 kg I&O: 11/21/17 11/22/17 11/23/17 06:59 06:59 06:59 Intake Total 1660 1880 360 Balance 1660 1880 360 Result Diagrams: 11/20/17 10:48 11/20/17 10:48 <Aubrey Hoyos - Last Filed: 11/22/17 12:33> Phys Exam - Physical Examination Constitutional: NAD HEENT: PERRLA, moist MMs Neck: no nodes, full ROM Respiratory: no wheezing, clear to auscultation bilateral Cardiovascular: RRR, no significant murmur Gastrointestinal: soft, non-tender, no distention, positive bowel sounds Musculoskeletal: no edema, pulses present Neurological: non-focal, moves all 4 limbs Lymphatic: no nodes Psychiatric: normal affect, A&O x 3 Skin: no rash, cap refill <2 seconds <Dash Sanon - Last Filed: 11/22/17 05:47> Dx/Plan (1) Discitis of cervical region Code(s): M46.42 - DISCITIS, UNSPECIFIED, CERVICAL REGION Status: Acute (2) Dry gangrene Code(s): I96 - GANGRENE, NOT ELSEWHERE CLASSIFIED Status: Acute (3) Mental disability Code(s): F79 - UNSPECIFIED INTELLECTUAL DISABILITIES Status: Acute (4) Schizophrenia Code(s): F20.9 - SCHIZOPHRENIA, UNSPECIFIED Status: Acute QualifierTitle: Schizophrenia type: unspecified Qualified Code(s): F20.9 - Schizophrenia, unspecified (5) Septic arthritis of cervical spine Code(s): M46.52 - OTHER INFECTIVE SPONDYLOPATHIES, CERVICAL REGION Status: Acute (6) CAD (coronary artery disease) Code(s): I25.10 - ATHSCL HEART DISEASE OF [place] CORONARY ARTERY W/O ANG PCTRS Status: Chronic QualifierTitle: Associated angina: without angina (7) COPD (chronic obstructive pulmonary disease) Status: Chronic QualifierTitle: COPD type: unspecified COPD Qualified Code(s): J44.9 - Chronic obstructive pulmonary disease, unspecified (8) HTN (hypertension) Code(s): I10 - ESSENTIAL (PRIMARY) HYPERTENSION Status: Chronic QualifierTitle: Hypertension type: essential hypertension Qualified Code( s): I10 - Essential (primary) hypertension (9) Moderate protein-calorie malnutrition Code(s): E44.0 - MODERATE PROTEIN-CALORIE MALNUTRITION Status: Chronic (10) Osteomyelitis Code(s): M86.9 - OSTEOMYELITIS, UNSPECIFIED Status: Chronic QualifierTitle: Osteomyelitis location: hand Laterality: left (11) PVD (peripheral vascular disease) Code(s): I73.9 - PERIPHERAL VASCULAR DISEASE, UNSPECIFIED Status: Chronic (12) Physical deconditioning Code(s): R53.81 - OTHER MALAISE Status: Chronic (13) Substance abuse Code(s): F19.10 - OTHER PSYCHOACTIVE SUBSTANCE ABUSE, UNCOMPLICATED Status: Chronic (14) Urge incontinence Code(s): N39.41 - URGE INCONTINENCE Status: Chronic (15) Type 2 diabetes mellitus with hyperglycemia Code(s): E11.65 - TYPE 2 DIABETES MELLITUS WITH HYPERGLYCEMIA Status: Suspected QualifierTitle: Diabetes mellitus oil heaterman insulin use: with fpc use Qualified Code(s): E11.65 - Type 2 diabetes mellitus with hyperglycemia; Z79.4 - oil heaterman (current) use of insulin; Z79.4 - oil heaterman (current) use of insulin; Z79.4 - longterm (current) use of insulin; Z79.4 - oil heaterman (current ) use of insulin (16) ECTOR (acute kidney injury) Code(s): N17.9 - ACUTE KIDNEY FAILURE, UNSPECIFIED Status: Resolved (17) Endocarditis due to Staphylococcus Code(s): I33.0 - ACUTE AND SUBACUTE INFECTIVE ENDOCARDITIS; B95.8 - UNSP STAPHYLOCOCCUS THE CAUSE OF DISEASES CLASSD ELSWHR Status: Resolved - Plan Plan: 11/21 - same insulin dose today, accucheck qAC-HS - Vanc trough 11/23, Vancomycin through 12/08 - Rifampin through 11/28 - continue to work towards long-term placement -CM working w/ family and [employer], patient will have difficulties qualifying 2/2 work history - continue PT/OT 2/2 deconditioning 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 PICC line placed on 11/07 in L arm. - Neuro surgery on board, appreciate recs - will likely wear collar and f/u outpatient in 4 weeks. - Patient pending placement, but has been declined from 3 facilities so far. CM is working on placement, but this has proved difficult with patient's homeless status - Ibuprofen and tylenol for pain control Gangrenous Toes -S/p amputation R 5th toe. -Continue wound care Osteomyelitis R. Thumb -ESR elevated. X-ray shows early osteomyelitis/ S/p I&D -MRI UE- shows osteomyelitis of L. Thumb. Correlate with LE MRI as could be systemic disease as well. Scleroderma or Raynouds. -Hand Surgery consulted- Dr. Guerra- will follow recs -R thumb cx grew MRSA and chloe albicans, continue vanc -Continue wound care Physical Deconditioning - Patient unable to walk without assistance since being hospitalized past two months for sepsis 2/2 endocarditis, NSTEMI, and DKA at [facility] - Unable to care for self and homeless - No family support - CM consulted; appreciate recs - D/C planning process started - Manager Labor Delivery consulted; appreciate recs - PT/OT to evaluate and treat patient - Working on placement Uncontrolled Type II DM with hyperglycemia - BG 599 on admission, Has since stabilized. - SSI increased to aggressive - Levemir 35 u am and 30 u hs, will likely need to be titrated down once infection starts resolving. - accuchecks ACHS Mental Disability 2/2 schizophrenia. The patient has decreased mental functional capacity. She functions at the level of a child. It is likely that this is part of the natural progression of her schizophrenia. The patient does not have the ability to care for herself in any capacity. - Will consult case management for potential fpc placement - Will contact [facility] and attempt to have them come evaluate her as well CAD s/p CA - Hospitalized recently at [facility]; discharged earlier this week. - Lovenox for DVT PPX - Continue medications from last hospitalization - Echo with normal EF, no plans for cardiac catheterization at outside hospital Moderate Protein-Calorie Malnutrition - Albumin 2.6. Prealbumin lower than 5 - P normal. Mag low replaced - Ensure high protein supplementation - Manager Labor Delivery consult; appreciate recommendations - TSH normal Chronic Normocytic Anemia - Stable - Has been iron deficiency in the past - Hg 9.4 on admission. At baseline - Continue to trend with weekly labs - Patient asymptomatic currently - Iron deficiency vs. ACD ECTOR on CKD- Resolved - Stable. 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 - Will monitor closely and adjust as needed COPD - Monitor O2 sats with goal >88% - Duoneb treatments PRN for shortness of breath/wheezing PVD - Pulses intact - CV surgery consulted- Will assess PAD for healing in legs. Will follow recs Endocarditis s/p treatment with IV abx - MRSA with pulmonary emboli, renal emboli, osteomyelitis, and discitis of C5-6 - Negative cultures on 10/28/2017 - s/p treatment with 6 weeks vancomycin/daptomycin - Complications include PICC line infection with Klebsiella requiring treatment with levaquin at outside facility - Continue rifampin x1 month - Echo showed normal EF Mild anion gap metabolic acidosis-Resolved - Resolved Sacral decubitus ulcer - Consult wound care - Frequent turning of patient Schizophrenia - continue on home meds - Will attempt to obtain records from [facility] to see if pt is supposed to be on any other psych meds Dispo: 12/08/17, working to find placement <Dash Sanon - Last Filed: 11/22/17 05:47> Attending Addendum - Attending Addendum Date/Time: 11/22/17 1232 I personally evaluated the patient and discussed the management with Dr. Sanon I agree with the History, Examination, Assessment and Plan documented above with any addition or exceptions noted below.Patient with multiple aggrevating co -morbid conditions continuing to look into oil heaterman, stable supportive environment for her. <Aubrey Hoyos - Last Filed: 11/22/17 12:33>
[2017-11-21 08:17] LABS: Vancomycin, Trough 19.7 ug/mL
[2017-11-21] MEDS: Enoxaparin Sodium 40 MG/0.4 ML SYRINGE SC SCH (08:50)
[2017-11-21] MEDS: metFORMIN 500 MG TAB PO SCH ×2 (08:54→16:26)
[2017-11-21] MEDS: Aspirin 325 mg Enteric Coated Tablet PO SCH (08:54)
[2017-11-21] MEDS: Metoprolol Tartrate 50 MG TAB PO SCH ×2 (08:55→20:39)
[2017-11-21] MEDS: Magnesium Chloride 64 MG TAB PO SCH ×2 (08:55→20:40)
[2017-11-21] MEDS: Lisinopril 10 MG TAB PO SCH (08:55)
[2017-11-21] MEDS: Rifampin 300 MG CAP PO SCH ×2 (08:56→22:48)
[2017-11-21] MEDS: Polyethylene Glycol 3350 17 GM Packet PO SCH (08:57)
[2017-11-21] MEDS ORDERED: Insulin Detemir 100 UNITS/ML 40 UNITS in Pre-Filled Syringe 1 EACH SC SCH ×2 (09:00→21:00)
[2017-11-21] MEDS: Vancomycin HCl 1 GM in Premix Bag 1 BAG IVPB SCH ×2 (10:00→20:41)
[2017-11-21] MEDS: Acetaminophen 325 MG TAB PO PRN (11:56)
[2017-11-21] MEDS: HumaLOG 300 UNITS/3 ML VIAL SC PRN ×2 (11:59→20:37)
[2017-11-21] MEDS: Atorvastatin Calcium 20 MG TAB PO SCH (20:39)
[2017-11-21] MEDS: Mirtazapine 15 MG TAB PO SCH (20:39)
[2017-11-21] MEDS: Ibuprofen 800 MG TAB PO PRN (22:47)
[2017-11-22] MEDS ORDERED: Insulin Detemir 100 UNITS/ML 44 UNITS in Pre-Filled Syringe 1 EACH SC SCH (06:16)
--- NOTE | 2017-11-22 06:22 | OP ---
DATE OF PROCEDURE: 10/31/2017 PREOPERATIVE DIAGNOSES: Necrosis with cellulitis in thumb, left with multiple subcutaneous ulcers ne ar the nailbed of the index and long finger. POSTOPERATIVE DIAGNOSES: 1. Possible early necrosis of vasculitis type ulcers, thumb great index finger greater than long fin brooks, none at the small finger and ring finger. 2. Markedly contaminated nail with grossly elongated nails, possible early nail bed infection. PROCEDURES PERFORMED: At the left thumb, 1. Removal of nail. 2. Debridement of wound using the following techniques. A. Tenotomy scissors, Adson and a [place]. B. Depth of debridement is down to and including the subcutaneous skin and fat. C. Findings of gross necrosis, minimal abscess formation less than 1 cm, subcutaneous not involving bone or deep fascia. D. Excisional technique. At the index finger, 1. Debridement (same technique as the thumb) of small necrotic ulcer 5 mm . 2. Removal of nail. At the long finger, 1. Cleaned of nail subungual area. 2. Manicure/cutting of nail to healthy level. At the left ring finger, 1. Cleaned of nail subungual area. 2. Manicure/cutting of nail to healthy level. At the left small finger, 1. Cleaned of nail subungual area. 2. Manicure/cutting of nail to healthy level. INDICATION: The patient was hospitalized after just being discharged from another local hospital for sepsis. Had obvious abscess and obvious nail deformity as described above in treatment. DESCRIPTION OF PROCEDURE: After successful general LMA technique performed by Togolese Anesthesiolog y, limb was prepped and draped. Timeout was done appropriately in the site and procedure planned mat ched the consent and the records. We then first addressed the thumb where we removed the nail bang bates there was some gross purulence that she had right at the junction of the nail eponychial fold, jovanna antony of abscess, but did not find a deep penetration, so we debrided the abscess using the technique listed above and left the wound open. We then had a small 5 mm radial side index finger also underne ath the nail, removed the nail, debrided the small abscess in the same technique used in the thumb. What follow next at the long, ring and small finger on this left side in sequential order, was a jamie carmelita of a deep-seated dirt and a smegma from underneath the nails, trimmed these 1 cm long nail was b ack to stable rim, and I cleaned it again. Then, with all the nails completed, we put a finger tube gauze on the thumb and index finger with bacitracin, Adaptic, 4 x 4, and the patient left the operati ng room without evidence of anesthetic or operative complication.
[2017-11-22] MEDS: Enoxaparin Sodium 40 MG/0.4 ML SYRINGE SC SCH (07:36)
[2017-11-22] MEDS: metFORMIN 500 MG TAB PO SCH ×2 (07:37→16:21)
[2017-11-22] MEDS: Metoprolol Tartrate 50 MG TAB PO SCH ×2 (07:37→21:09)
[2017-11-22] MEDS: Ibuprofen 800 MG TAB PO PRN ×2 (07:37→14:45)
[2017-11-22] MEDS: Lisinopril 10 MG TAB PO SCH (07:37)
[2017-11-22] MEDS: Aspirin 325 mg Enteric Coated Tablet PO SCH (07:37)
[2017-11-22] MEDS: Vancomycin HCl 1 GM in Premix Bag 1 BAG IVPB SCH ×2 (07:37→21:10)
[2017-11-22] MEDS: Polyethylene Glycol 3350 17 GM Packet PO SCH (07:39)
[2017-11-22] MEDS: Magnesium Chloride 64 MG TAB PO SCH ×2 (08:33→21:10)
[2017-11-22] MEDS: Rifampin 300 MG CAP PO SCH ×2 (09:20→21:09)
--- NOTE | 2017-11-22 11:18 | PDOC.FM ---
Addendum entered and electronically signed by Dash Sanon MD 11/22/17 11:18: 11/22 - increased insulin 10%, accucheck qAC-HS - Vanc trough 11/23, Vancomycin through 12/08 - Rifampin through 11/28 - continue to work towards long-term placement -CM working w/ family and [employer], patient will have difficulties qualifying 2/2 work history - continue PT/OT 2/2 deconditioning - nail debridement and removal w/ Dr. 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 PICC line placed on 11/07 in L arm. - Neuro surgery on board, appreciate recs - will likely wear collar and f/u outpatient in 4 weeks. - Patient pending placement, but has been declined from 3 facilities so far. CM is working on placement, but this has proved difficult with patient's homeless status - Ibuprofen and tylenol for pain control Gangrenous Toes -S/p amputation R 5th toe. -Continue wound care Osteomyelitis R. Thumb -ESR elevated. X-ray shows early osteomyelitis/ S/p I&D -MRI UE- shows osteomyelitis of L. Thumb. Correlate with LE MRI as could be systemic disease as well. Scleroderma or Raynouds. -Hand Surgery consulted- Dr. Guerra- will follow recs -R thumb cx grew MRSA and chloe albicans, continue vanc -Continue wound care Physical Deconditioning - Patient unable to walk without assistance since being hospitalized past two months for sepsis 2/2 endocarditis, NSTEMI, and DKA at [facility] - Unable to care for self and homeless - No family support - CM consulted; appreciate recs - D/C planning process started - In Flight Crew Member consulted; appreciate recs - PT/OT to evaluate and treat patient - Working on placement Uncontrolled Type II DM with hyperglycemia - BG 599 on admission, Has since stabilized. - SSI increased to aggressive - Levemir 35 u am and 30 u hs, will likely need to be titrated down once infection starts resolving. - accuchecks ACHS Mental Disability 2/2 schizophrenia. The patient has decreased mental functional capacity. She functions at the level of a child. It is likely that this is part of the natural progression of her schizophrenia. The patient does not have the ability to care for herself in any capacity. - Will consult case management [place] potential [place] [facility] [place] placement - Will contact [facility] and attempt to have them come evaluate her as well CAD s/p [place] - Hospitalized recently at [facility]; discharged earlier this week. - Lovenox for DVT PPX - Continue medications from last hospitalization - Echo with normal EF, no plans for cardiac catheterization at outside hospital Moderate Protein-Calorie Malnutrition - Albumin 2.6. Prealbumin lower than 5 - P normal. Mag low replaced - Ensure high protein supplementation - In Flight Crew Member consult; appreciate recommendations - TSH normal Chronic Normocytic Anemia - Stable - Has been iron deficiency in the past - Hg 9.4 on admission. At baseline - Continue to trend with weekly labs - Patient asymptomatic currently - Iron deficiency vs. ACD ECTOR on CKD- Resolved - Stable. 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 - Will monitor closely and adjust as needed COPD - Monitor O2 sats with goal >88% - Duoneb treatments PRN for shortness of breath/wheezing PVD - Pulses intact - CV surgery consulted- Will assess PAD for healing in legs. Will follow recs Endocarditis s/p treatment with IV abx - MRSA with pulmonary emboli, renal emboli, osteomyelitis, and discitis of C5-6 - Negative cultures on 10/28/2017 - s/p treatment with 6 weeks vancomycin/daptomycin - Complications include PICC line infection with Klebsiella requiring treatment with levaquin at outside facility - Continue rifampin x1 month - Echo showed normal EF Mild anion gap metabolic acidosis-Resolved - Resolved Sacral decubitus ulcer - Consult wound care - Frequent turning of patient Schizophrenia - continue on home meds - Will attempt to obtain records from [facility] to see if pt is supposed to be on any other psych meds Dispo: 12/08/17, working to find placement Original Note: - Subjective Subjective: Patient denies any pain this AM. She is making great strides with PT, she is walknig w/o a walker. She denies pain this AM. She states her hands are not hurting, had nail removal and debridement in w/ Dr. Guerra yesterday. - Objective Vital Signs & Weight: Vital Signs (12 hours) Temp Pulse Resp BP Pulse Ox 11/22/17 08:00 98.3 F 99 18 97 11/22/17 07:37 136/91 H Weight Admit Weight 46.357 kg Weight 45.813 kg I&O: 11/21/17 11/22/17 11/23/17 06:59 06:59 06:59 Intake Total 1660 1880 360 Balance 1660 1880 360 Result Diagrams: 11/20/17 10:48 11/20/17 10:48 <Dash Sanon - Last Filed: 11/22/17 11:16> - Objective Vital Signs & Weight: Vital Signs (12 hours) Temp Pulse Resp BP Pulse Ox 11/22/17 08:00 98.3 F 99 18 97 11/22/17 07:37 136/91 H Weight Admit Weight 46.357 kg Weight 45.813 kg I&O: 11/21/17 11/22/17 11/23/17 06:59 06:59 06:59 Intake Total 1660 1880 360 Balance 1660 1880 360 Result Diagrams: 11/20/17 10:48 11/20/17 10:48 <Aubrey Hoyos - Last Filed: 11/22/17 12:35> Phys Exam - Physical Examination Constitutional: NAD HEENT: PERRLA, moist MMs Neck: no nodes, full ROM Respiratory: no wheezing, clear to auscultation bilateral Cardiovascular: RRR, no significant murmur Gastrointestinal: soft, non-tender, no distention, positive bowel sounds Musculoskeletal: no edema, pulses present Neurological: non-focal, moves all 4 limbs Lymphatic: no nodes Psychiatric: normal affect, A&O x 3 Skin: no rash, cap refill <2 seconds <Dash Sanon - Last Filed: 11/22/17 11:16> Dx/Plan (1) Discitis of cervical region Code(s): M46.42 - DISCITIS, UNSPECIFIED, CERVICAL REGION Status: Acute (2) Dry gangrene Code(s): I96 - GANGRENE, NOT ELSEWHERE CLASSIFIED Status: Acute (3) Mental disability Code(s): F79 - UNSPECIFIED INTELLECTUAL DISABILITIES Status: Acute (4) Schizophrenia Code(s): F20.9 - SCHIZOPHRENIA, UNSPECIFIED Status: Acute QualifierTitle: Schizophrenia type: unspecified Qualified Code(s): F20.9 - Schizophrenia, unspecified (5) Septic arthritis of cervical spine Code(s): M46.52 - OTHER INFECTIVE SPONDYLOPATHIES, CERVICAL REGION Status: Acute (6) CAD (coronary artery disease) Code(s): I25.10 - ATHSCL HEART DISEASE OF [place] CORONARY ARTERY W/O ANG PCTRS Status: Chronic QualifierTitle: Associated angina: without angina (7) COPD (chronic obstructive pulmonary disease) Status: Chronic QualifierTitle: COPD type: unspecified COPD Qualified Code(s): J44.9 - Chronic obstructive pulmonary disease, unspecified (8) HTN (hypertension) Code(s): I10 - ESSENTIAL (PRIMARY) HYPERTENSION Status: Chronic QualifierTitle: Hypertension type: essential hypertension Qualified Code( s): I10 - Essential (primary) hypertension (9) Moderate protein-calorie malnutrition Code(s): E44.0 - MODERATE PROTEIN-CALORIE MALNUTRITION Status: Chronic (10) Osteomyelitis Code(s): M86.9 - OSTEOMYELITIS, UNSPECIFIED Status: Chronic QualifierTitle: Osteomyelitis location: hand Laterality: left (11) PVD (peripheral vascular disease) Code(s): I73.9 - PERIPHERAL VASCULAR DISEASE, UNSPECIFIED Status: Chronic (12) Physical deconditioning Code(s): R53.81 - OTHER MALAISE Status: Chronic (13) Substance abuse Code(s): F19.10 - OTHER PSYCHOACTIVE SUBSTANCE ABUSE, UNCOMPLICATED Status: Chronic (14) Urge incontinence Code(s): N39.41 - URGE INCONTINENCE Status: Chronic (15) Type 2 diabetes mellitus with hyperglycemia Code(s): E11.65 - TYPE 2 DIABETES MELLITUS WITH HYPERGLYCEMIA Status: Suspected QualifierTitle: Diabetes mellitus [place] [facility] [place] use: with [place] [facility] [place] use Qualified Code(s): E11.65 - Type 2 diabetes mellitus with hyperglycemia; Z79.4 - local company intermodal truck driver (current) use of insulin; Z79.4 - nursing home (current) use of insulin; Z79.4 - local company intermodal truck driver (current) use of insulin; Z79.4 - local company intermodal truck driver (current ) use of insulin (16) ECTOR (acute kidney injury) Code(s): N17.9 - ACUTE KIDNEY FAILURE, UNSPECIFIED Status: Resolved (17) Endocarditis due to Staphylococcus Code(s): I33.0 - ACUTE AND SUBACUTE INFECTIVE ENDOCARDITIS; B95.8 - UNSP STAPHYLOCOCCUS THE CAUSE OF DISEASES CLASSD ELSWHR Status: Resolved <Dash Sanon - Last Filed: 11/22/17 11:16> Attending Addendum - Attending Addendum Date/Time: 11/22/17 1234 I personally evaluated the patient and discussed the management with Dr. Sanon I agree with the History, Examination, Assessment and Plan documented above with any addition or exceptions noted below. See note recent procedure per hand surgery. <Aubrey Hoyos - Last Filed: 11/22/17 12:35>
[2017-11-22] MEDS: HumaLOG 300 UNITS/3 ML VIAL SC PRN (16:22)
[2017-11-22] MEDS: Atorvastatin Calcium 20 MG TAB PO SCH (21:09)
[2017-11-22] MEDS: Mirtazapine 15 MG TAB PO SCH (21:09)
[2017-11-23] MEDS: Ibuprofen 800 MG TAB PO PRN ×2 (00:48→16:37)
[2017-11-23] MEDS: HumaLOG 300 UNITS/3 ML VIAL SC PRN (05:50)
[2017-11-23] MEDS: Enoxaparin Sodium 40 MG/0.4 ML SYRINGE SC SCH (08:31)
[2017-11-23] MEDS: Insulin Detemir 100 UNITS/ML 50 UNITS in Pre-Filled Syringe 1 EACH SC SCH ×2 (08:31→20:48)
[2017-11-23] MEDS: metFORMIN 500 MG TAB PO SCH ×2 (08:32→17:09)
[2017-11-23] MEDS: Lisinopril 10 MG TAB PO SCH (08:32)
[2017-11-23] MEDS: Metoprolol Tartrate 50 MG TAB PO SCH ×2 (08:32→20:47)
[2017-11-23] MEDS: Magnesium Chloride 64 MG TAB PO SCH ×2 (08:32→20:48)
[2017-11-23] MEDS: Aspirin 325 mg Enteric Coated Tablet PO SCH (08:32)
[2017-11-23] MEDS: Vancomycin HCl 1 GM in Premix Bag 1 BAG IVPB SCH ×2 (08:33→20:49)
[2017-11-23] MEDS: Polyethylene Glycol 3350 17 GM Packet PO SCH (08:44)
--- NOTE | 2017-11-23 08:50 | PDOC.FM ---
- Subjective Subjective: This morning patient denies any pain in her hands. Her family members came to visit her yesterday and she did PT x2. She was very excited about yesterday but said she was quite tired at the end. Denies N/V/D. - Objective Vital Signs & Weight: Vital Signs (12 hours) Temp Pulse Resp BP BP Pulse Ox 11/23/17 08:32 136/91 H 11/23/17 07:36 97.6 F 92 16 143/85 H 99 Weight Admit Weight 46.357 kg Weight 45.813 kg I&O: 11/22/17 11/23/17 11/24/17 06:59 06:59 06:59 Intake Total 1880 1610 Balance 1880 1610 Result Diagrams: 11/20/17 10:48 11/20/17 10:48 <Dash Sanon - Last Filed: 11/23/17 08:48> - Objective Vital Signs & Weight: Vital Signs (12 hours) Temp Pulse Resp BP BP BP Pulse Ox 11/23/17 11:59 98.2 F 88 16 145/83 H 99 11/23/17 08:32 136/91 H 11/23/17 08:00 97.6 F 92 16 97 11/23/17 07:36 97.6 F 92 16 143/85 H 99 Weight Admit Weight 46.357 kg Weight 45.813 kg I&O: 11/22/17 11/23/17 11/24/17 06:59 06:59 06:59 Intake Total 1880 1610 240 Balance 1880 1610 240 Result Diagrams: 11/20/17 10:48 11/20/17 10:48 <Aubrey Hoyos - Last Filed: 11/23/17 13:01> Phys Exam - Physical Examination Constitutional: NAD HEENT: PERRLA, TM's clear Neck: no nodes, no JVD Respiratory: no wheezing, clear to auscultation bilateral Cardiovascular: RRR, no significant murmur Gastrointestinal: soft, non-tender, no distention, positive bowel sounds Musculoskeletal: no edema, pulses present Neurological: non-focal, moves all 4 limbs Lymphatic: no nodes Psychiatric: normal affect, A&O x 3 Skin: no rash, cap refill <2 seconds Deviation from normal: wounds show no signs of progression <Dash Sanon - Last Filed: 11/23/17 08:48> Dx/Plan (1) Discitis of cervical region Code(s): M46.42 - DISCITIS, UNSPECIFIED, CERVICAL REGION Status: Acute (2) Dry gangrene Code(s): I96 - GANGRENE, NOT ELSEWHERE CLASSIFIED Status: Acute (3) Mental disability Code(s): F79 - UNSPECIFIED INTELLECTUAL DISABILITIES Status: Acute (4) Schizophrenia Code(s): F20.9 - SCHIZOPHRENIA, UNSPECIFIED Status: Acute QualifierTitle: Schizophrenia type: unspecified Qualified Code(s): F20.9 - Schizophrenia, unspecified (5) Septic arthritis of cervical spine Code(s): M46.52 - OTHER INFECTIVE SPONDYLOPATHIES, CERVICAL REGION Status: Acute (6) CAD (coronary artery disease) Code(s): I25.10 - ATHSCL HEART DISEASE OF [place] CORONARY ARTERY W/O ANG PCTRS Status: Chronic QualifierTitle: Associated angina: without angina (7) COPD (chronic obstructive pulmonary disease) Status: Chronic QualifierTitle: COPD type: unspecified COPD Qualified Code(s): J44.9 - Chronic obstructive pulmonary disease, unspecified (8) HTN (hypertension) Code(s): I10 - ESSENTIAL (PRIMARY) HYPERTENSION Status: Chronic QualifierTitle: Hypertension type: essential hypertension Qualified Code( s): I10 - Essential (primary) hypertension (9) Moderate protein-calorie malnutrition Code(s): E44.0 - MODERATE PROTEIN-CALORIE MALNUTRITION Status: Chronic (10) Osteomyelitis Code(s): M86.9 - OSTEOMYELITIS, UNSPECIFIED Status: Chronic QualifierTitle: Osteomyelitis location: hand Laterality: left (11) PVD (peripheral vascular disease) Code(s): I73.9 - PERIPHERAL VASCULAR DISEASE, UNSPECIFIED Status: Chronic (12) Physical deconditioning Code(s): R53.81 - OTHER MALAISE Status: Chronic (13) Substance abuse Code(s): F19.10 - OTHER PSYCHOACTIVE SUBSTANCE ABUSE, UNCOMPLICATED Status: Chronic (14) Urge incontinence Code(s): N39.41 - URGE INCONTINENCE Status: Chronic (15) Type 2 diabetes mellitus with hyperglycemia Code(s): E11.65 - TYPE 2 DIABETES MELLITUS WITH HYPERGLYCEMIA Status: Suspected QualifierTitle: 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 insulin use: with mcc use Qualified Code(s): E11.65 - Type 2 diabetes mellitus with hyperglycemia; Z79.4 - oil heaterman (current) use of insulin; Z79.4 - oil heaterman (current) use of insulin; Z79.4 - oil heaterman (current) use of insulin; Z79.4 - halfway (current ) use of insulin (16) ECTOR (acute kidney injury) Code(s): N17.9 - ACUTE KIDNEY FAILURE, UNSPECIFIED Status: Resolved (17) Endocarditis due to Staphylococcus Code(s): I33.0 - ACUTE AND SUBACUTE INFECTIVE ENDOCARDITIS; B95.8 - UNSP STAPHYLOCOCCUS THE CAUSE OF DISEASES CLASSD ELSWHR Status: Resolved - Plan Plan: 11/23 - increased insulin 50U levemir BID, accucheck qAC-HS, difficult to control sugars - Vanc trough 11/23, Vancomycin through 12/08 - Rifampin through 11/28 - continue to work towards long-term placement -CM working w/ family and [employer], patient will have difficulties qualifying 2/2 work history, not much progress as of yet - continue PT/OT 2/2 deconditioning - nail debridement and removal w/ Dr. 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 PICC line placed on 11/07 in L arm. - Neuro surgery on board, appreciate recs - will likely wear collar and f/u outpatient in 4 weeks. - Patient pending placement, but has been declined from 3 facilities so far. CM is working on placement, but this has proved difficult with patient's homeless status - Ibuprofen and tylenol for pain control Gangrenous Toes -S/p amputation R 5th toe. -Continue wound care Osteomyelitis R. Thumb -ESR elevated. X-ray shows early osteomyelitis/ S/p I&D -MRI UE- shows osteomyelitis of L. Thumb. Correlate with LE MRI as could be systemic disease as well. Scleroderma or Raynouds. -Hand Surgery consulted- Dr. Guerra- will follow recs -R thumb cx grew MRSA and chloe albicans, continue vanc -Continue wound care Physical Deconditioning - Patient unable to walk without assistance since being hospitalized past two months for sepsis 2/2 endocarditis, NSTEMI, and DKA at [facility] - Unable to care for self and homeless - No family support - CM consulted; appreciate recs - D/C planning process started - Bulk Filler consulted; appreciate recs - PT/OT to evaluate and treat patient - Working on placement Uncontrolled Type II DM with hyperglycemia - BG 599 on admission, Has since stabilized. - SSI increased to aggressive - Levemir 35 u am and 30 u hs, will likely need to be titrated down once infection starts resolving. - accbertha TYLER Mental Disability 2/2 schizophrenia. The patient has decreased mental functional capacity. She functions at the level of a child. It is likely that this is part of the natural progression of her schizophrenia. The patient does not have the ability to care for herself in any capacity. - Will consult case management for potential mcc placement - Will contact [facility] and attempt to have them come evaluate her as well CAD s/p [place] - Hospitalized recently at [facility]; discharged earlier this week. - Lovenox for DVT PPX - Continue medications from last hospitalization - Echo with normal EF, no plans for cardiac catheterization at outside hospital Moderate Protein-Calorie Malnutrition - Albumin 2.6. Prealbumin lower than 5 - P normal. Mag low replaced - Ensure high protein supplementation - Bulk Filler consult; appreciate recommendations - TSH normal Chronic Normocytic Anemia - Stable - Has been iron deficiency in the past - Hg 9.4 on admission. At baseline - Continue to trend with weekly labs - Patient asymptomatic currently - Iron deficiency vs. ACD ECTOR on CKD- Resolved - Stable. 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 - Will monitor closely and adjust as needed COPD - Monitor O2 sats with goal >88% - Duoneb treatments PRN for shortness of breath/wheezing PVD - Pulses intact - CV surgery consulted- Will assess PAD for healing in legs. Will follow recs Endocarditis s/p treatment with IV abx - MRSA with pulmonary emboli, renal emboli, osteomyelitis, and discitis of C5-6 - Negative cultures on 10/28/2017 - s/p treatment with 6 weeks vancomycin/daptomycin - Complications include PICC line infection with Klebsiella requiring treatment with levaquin at outside facility - Continue rifampin x1 month - Echo showed normal EF Mild anion gap metabolic acidosis-Resolved - Resolved Sacral decubitus ulcer - Consult wound care - Frequent turning of patient Schizophrenia - continue on home meds - Will attempt to obtain records from [facility] to see if pt is supposed to be on any other psych meds Dispo: 12/08/17, working to find placement <Dash Sanon - Last Filed: 11/23/17 08:48> Attending Addendum - Attending Addendum Date/Time: 11/23/17 [id number] I personally evaluated the patient and discussed the management with Dr. Sanon I agree with the History, Examination, Assessment and Plan documented above with any addition or exceptions noted below. Continue to adjust basal insulin and educational opportunities while patient remains inpatient. <Aubrey Hoyos - Last Filed: 11/23/17 13:01>
[2017-11-23] MEDS: Rifampin 300 MG CAP PO SCH ×2 (10:09→20:48)
[2017-11-23] MEDS: Atorvastatin Calcium 20 MG TAB PO SCH (20:48)
[2017-11-23] MEDS: Mirtazapine 15 MG TAB PO SCH (20:48)
--- NOTE | 2017-11-24 06:41 | PDOC.FM ---
- Subjective Subjective: Patient is very pleasant this morning. She reports she slept well overnight. She has no pain today and is wanting to get outside today to walk around. - Objective MAR Reviewed: Yes Vital Signs & Weight: Vital Signs (12 hours) Temp Pulse Resp BP Pulse Ox 11/23/17 20:00 98.5 F 101 H 16 152/88 H 96 Weight Admit Weight 46.357 kg Weight 45.813 kg I&O: 11/22/17 11/23/17 11/24/17 06:59 06:59 06:59 Intake Total 1880 1610 1780 Balance 1880 1610 1780 Result Diagrams: 11/20/17 10:48 11/20/17 10:48 <Teodora Cabello - Last Filed: 11/24/17 10:43> - Objective Vital Signs & Weight: Vital Signs (12 hours) Temp Pulse Resp BP BP Pulse Ox 11/24/17 09:14 135/80 11/24/17 08:00 98 F 87 16 144/89 H 99 Weight Admit Weight 46.357 kg Weight 45.813 kg I&O: 11/23/17 11/24/17 11/25/17 06:59 06:59 06:59 Intake Total 1610 1780 Balance 1610 1780 Result Diagrams: 11/20/17 10:48 11/20/17 10:48 <Aubrey Hoyos - Last Filed: 11/24/17 11:33> Phys Exam - Physical Examination Constitutional: NAD HEENT: moist MMs, sclera anicteric Respiratory: no wheezing, no rales, clear to auscultation bilateral Cardiovascular: RRR, no significant murmur Gastrointestinal: soft, non-tender Musculoskeletal: no edema gangrenous toes Neurological: moves all 4 limbs Psychiatric: normal affect <Teodora Cabello - Last Filed: 11/24/17 10:43> Dx/Plan (1) Endocarditis due to Staphylococcus Code(s): I33.0 - ACUTE AND SUBACUTE INFECTIVE ENDOCARDITIS; B95.8 - UNSP STAPHYLOCOCCUS THE CAUSE OF DISEASES CLASSD ELSWHR Status: Resolved (2) Septic arthritis of cervical spine Code(s): M46.52 - OTHER INFECTIVE SPONDYLOPATHIES, CERVICAL REGION Status: Acute (3) Discitis of cervical region Code(s): M46.42 - DISCITIS, UNSPECIFIED, CERVICAL REGION Status: Acute (4) Type 2 diabetes mellitus with hyperglycemia Code(s): E11.65 - TYPE 2 DIABETES MELLITUS WITH HYPERGLYCEMIA Status: Suspected QualifierTitle: 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 use: with petroleum terminal plant operator use Qualified Code(s): E11.65 - Type 2 diabetes mellitus with hyperglycemia; Z79.4 - penitentiary (current) use of insulin; Z79.4 - penitentiary (current) use of insulin; Z79.4 - rat exterminator (current) use of insulin; Z79.4 - penitentiary (current ) use of insulin (5) Dry gangrene Code(s): I96 - GANGRENE, NOT ELSEWHERE CLASSIFIED Status: Acute (6) Mental disability Code(s): F79 - UNSPECIFIED INTELLECTUAL DISABILITIES Status: Acute (7) Schizophrenia Code(s): F20.9 - SCHIZOPHRENIA, UNSPECIFIED Status: Acute QualifierTitle: Schizophrenia type: unspecified Qualified Code(s): F20.9 - Schizophrenia, unspecified (8) CAD (coronary artery disease) Code(s): I25.10 - ATHSCL HEART DISEASE OF [place] CORONARY ARTERY W/O ANG PCTRS Status: Chronic QualifierTitle: Associated angina: without angina (9) COPD (chronic obstructive pulmonary disease) Status: Chronic QualifierTitle: COPD type: unspecified COPD Qualified Code(s): J44.9 - Chronic obstructive pulmonary disease, unspecified (10) HTN (hypertension) Code(s): I10 - ESSENTIAL (PRIMARY) HYPERTENSION Status: Chronic QualifierTitle: Hypertension type: essential hypertension Qualified Code( s): I10 - Essential (primary) hypertension (11) Moderate protein-calorie malnutrition Code(s): E44.0 - MODERATE PROTEIN-CALORIE MALNUTRITION Status: Chronic (12) Physical deconditioning Code(s): R53.81 - OTHER MALAISE Status: Chronic (13) Substance abuse Code(s): F19.10 - OTHER PSYCHOACTIVE SUBSTANCE ABUSE, UNCOMPLICATED Status: Chronic - Plan Plan: Discitis/Septic arthritis of C5-6 - Concern for this dx based on MRI - Dr Bosch has been consulted, will continue IV vanc until 12/08 (PICC line placed on 11/07 in L arm) - Neuro surgery on board, appreciate recs - Patient pending placement, but has been declined from 3 facilities so far. CM is working on placement, but this has proved difficult with patient's homeless status - Ibuprofen and tylenol for pain control Endocarditis s/p treatment with IV abx - MRSA with pulmonary emboli, renal emboli, osteomyelitis, and discitis of C5-6 - Negative cultures on 10/28/2017 - s/p treatment with 6 weeks vancomycin/daptomycin - Complications include PICC line infection with Klebsiella requiring treatment with levaquin at outside facility - Continue rifampin x1 month (end date 11/28) - Echo showed normal EF Gangrenous Toes -S/p amputation R 5th toe. -Continue wound care Osteomyelitis R. Thumb -ESR elevated. X-ray shows early osteomyelitis/ S/p I&D -MRI UE- shows osteomyelitis of L. Thumb. Correlate with LE MRI as could be systemic disease as well. Scleroderma or Raynouds. -Hand Surgery consulted- Dr. Guerra- will follow recs -R thumb cx grew MRSA and chloe albicans, continue vanc -nail debridement and removal w/ Dr. Guerra 11/21 -Continue wound care Physical Deconditioning - Patient unable to walk without assistance since being hospitalized past two months for sepsis 2/2 endocarditis, NSTEMI, and DKA at [facility] - Unable to care for self and homeless - No family support - CM consulted; appreciate recs - D/C planning process started - Improvement Intern consulted; appreciate recs - PT/OT to evaluate and treat patient - Working on placement Uncontrolled Type II DM with hyperglycemia - BG 599 on admission - SSI aggressive, required 8 units SSI yesterday. - have titrated up to Levemir 50units BID, this morning sugar wnl, will continue to monitor throughout the day, increase basal insulin tomorrow if not at goal. - accuchecks [place] Mental Disability 2/2 schizophrenia. The patient has decreased mental functional capacity. She functions at the level of a child. It is likely that this is part of the natural progression of her schizophrenia. The patient does not have the ability to care for herself in any capacity. - Will consult case management for potential petroleum terminal plant operator placement - Will contact [facility] and attempt to have them come evaluate her as well CAD s/p [place] - Hospitalized recently at [facility]; discharged earlier this week. - Lovenox for DVT PPX - Continue medications from last hospitalization - Echo with normal EF, no plans for cardiac catheterization at outside hospital Moderate Protein-Calorie Malnutrition - Albumin 2.6. Prealbumin lower than 5 - P normal. Mag low replaced - Ensure high protein supplementation - Improvement Intern consult; appreciate recommendations - TSH normal - continue PT/OT Chronic Normocytic Anemia - Stable - Has been iron deficiency in the past - Hg 9.4 on admission. At baseline - Continue to trend with weekly labs - Patient asymptomatic currently - Iron deficiency vs. ACD ECTOR on CKD- Resolved - Stable. 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 - Will monitor closely and adjust as needed COPD - Monitor O2 sats with goal >88% - Duoneb treatments PRN for shortness of breath/wheezing PVD - Pulses intact - CV surgery consulted- Will assess PAD for healing in legs. Will follow recs Mild anion gap metabolic acidosis-Resolved - Resolved Sacral decubitus ulcer - Consult wound care - Frequent turning of patient Schizophrenia - continue on home meds - Will attempt to obtain records from [facility] to see if pt is supposed to be on any other psych meds <Teodora Cabello - Last Filed: 11/24/17 10:43> Attending Addendum - Attending Addendum Date/Time: 11/24/17 1132 I personally evaluated the patient and discussed the management with Dr. Cabello I agree with the History, Examination, Assessment and Plan documented above with any addition or exceptions noted below. <Aubrey Hoyos - Last Filed: 11/24/17 11:33>
[2017-11-24] MEDS: Ibuprofen 800 MG TAB PO PRN ×2 (07:03→17:36)
[2017-11-24] MEDS: Magnesium Chloride 64 MG TAB PO SCH ×2 (09:13→21:22)
[2017-11-24] MEDS: Lisinopril 10 MG TAB PO SCH (09:14)
[2017-11-24] MEDS: Insulin Detemir 100 UNITS/ML 50 UNITS in Pre-Filled Syringe 1 EACH SC SCH ×2 (09:14→21:24)
[2017-11-24] MEDS: Metoprolol Tartrate 50 MG TAB PO SCH ×2 (09:16→21:20)
[2017-11-24] MEDS: Polyethylene Glycol 3350 17 GM Packet PO SCH ×2 (09:16→09:29)
[2017-11-24] MEDS: metFORMIN 500 MG TAB PO SCH ×2 (09:16→17:35)
[2017-11-24] MEDS: Aspirin 325 mg Enteric Coated Tablet PO SCH (09:17)
[2017-11-24] MEDS: Enoxaparin Sodium 40 MG/0.4 ML SYRINGE SC SCH (09:17)
[2017-11-24] MEDS: Vancomycin HCl 750 MG in Sodium Chloride 0.9% 250 ML 250 ML IVPB SCH ×2 (11:57→21:21)
[2017-11-24] MEDS: Rifampin 300 MG CAP PO SCH ×2 (11:57→21:20)
[2017-11-24] MEDS: HumaLOG 300 UNITS/3 ML VIAL SC PRN ×2 (12:00→21:24)
[2017-11-24] MEDS: Atorvastatin Calcium 20 MG TAB PO SCH (21:20)
[2017-11-24] MEDS: Mirtazapine 15 MG TAB PO SCH (21:20)
[2017-11-25] MEDS: Ibuprofen 800 MG TAB PO PRN ×2 (05:13→23:53)
--- NOTE | 2017-11-25 06:46 | PDOC.FM ---
- Subjective Subjective: Patient is very pleasant this morning. Has no complaints today. No acute events overnight. - Objective MAR Reviewed: Yes Vital Signs & Weight: Vital Signs (12 hours) Temp Pulse Resp BP Pulse Ox 11/24/17 20:16 97.3 F L 86 18 98 11/24/17 19:53 97.3 F L 86 18 143/91 H 98 Weight Admit Weight 46.357 kg Weight 45.813 kg I&O: 11/23/17 11/24/17 11/25/17 06:59 06:59 06:59 Intake Total 1610 1780 1220 Balance 1610 1780 1220 Result Diagrams: 11/20/17 10:48 11/20/17 10:48 <Teodora Cabello - Last Filed: 11/25/17 11:59> - Objective Vital Signs & Weight: Vital Signs (12 hours) Temp Pulse Resp BP BP Pulse Ox 11/25/17 08:57 148/87 H 11/25/17 08:05 98.2 F 82 16 148/87 H 99 11/25/17 08:00 98.2 F 82 16 99 Weight Admit Weight 46.357 kg Weight 45.813 kg I&O: 11/24/17 11/25/17 11/26/17 06:59 06:59 06:59 Intake Total 1780 1220 Balance 1780 1220 Result Diagrams: 11/20/17 10:48 11/20/17 10:48 <Aubrey Hoyos - Last Filed: 11/25/17 17:15> Phys Exam - Physical Examination Constitutional: NAD HEENT: PERRLA, moist MMs Respiratory: no wheezing, no rales, clear to auscultation bilateral Cardiovascular: RRR, no significant murmur Psychiatric: normal affect, A&O x 3 <Teodora Cabello - Last Filed: 11/25/17 11:59> Dx/Plan (1) Endocarditis due to Staphylococcus Code(s): I33.0 - ACUTE AND SUBACUTE INFECTIVE ENDOCARDITIS; B95.8 - UNSP STAPHYLOCOCCUS THE CAUSE OF DISEASES CLASSD ELSWHR Status: Resolved (2) Septic arthritis of cervical spine Code(s): M46.52 - OTHER INFECTIVE SPONDYLOPATHIES, CERVICAL REGION Status: Acute (3) Discitis of cervical region Code(s): M46.42 - DISCITIS, UNSPECIFIED, CERVICAL REGION Status: Acute (4) Type 2 diabetes mellitus with hyperglycemia Code(s): E11.65 - TYPE 2 DIABETES MELLITUS WITH HYPERGLYCEMIA Status: Suspected QualifierTitle: Diabetes mellitus vermin exterminator insulin use: with fdc use Qualified Code(s): E11.65 - Type 2 diabetes mellitus with hyperglycemia; Z79.4 - residential (current) use of insulin; Z79.4 - terminal gauger supervisor (current) use of insulin; Z79.4 - terminal gauger supervisor (current) use of insulin; Z79.4 - residential (current ) use of insulin (5) Dry gangrene Code(s): I96 - GANGRENE, NOT ELSEWHERE CLASSIFIED Status: Acute (6) Mental disability Code(s): F79 - UNSPECIFIED INTELLECTUAL DISABILITIES Status: Acute (7) Schizophrenia Code(s): F20.9 - SCHIZOPHRENIA, UNSPECIFIED Status: Acute QualifierTitle: Schizophrenia type: unspecified Qualified Code(s): F20.9 - Schizophrenia, unspecified (8) CAD (coronary artery disease) Code(s): I25.10 - ATHSCL HEART DISEASE OF [place] CORONARY ARTERY W/O ANG PCTRS Status: Chronic QualifierTitle: Associated angina: without angina (9) COPD (chronic obstructive pulmonary disease) Status: Chronic QualifierTitle: COPD type: unspecified COPD Qualified Code(s): J44.9 - Chronic obstructive pulmonary disease, unspecified (10) HTN (hypertension) Code(s): I10 - ESSENTIAL (PRIMARY) HYPERTENSION Status: Chronic QualifierTitle: Hypertension type: essential hypertension Qualified Code( s): I10 - Essential (primary) hypertension (11) Moderate protein-calorie malnutrition Code(s): E44.0 - MODERATE PROTEIN-CALORIE MALNUTRITION Status: Chronic (12) Physical deconditioning Code(s): R53.81 - OTHER MALAISE Status: Chronic (13) Substance abuse Code(s): F19.10 - OTHER PSYCHOACTIVE SUBSTANCE ABUSE, UNCOMPLICATED Status: Chronic - Plan Plan: Discitis/Septic arthritis of C5-6 - Concern for this dx based on MRI - Dr Bosch has been consulted, will continue IV vanc until 12/08 (PICC line placed on 11/07 in L arm) - Neuro surgery on board, appreciate recs - Patient pending placement, but has been declined from 3 facilities so far. CM is working on placement, but this has proved difficult with patient's homeless status - Ibuprofen and tylenol for pain control Endocarditis s/p treatment with IV abx - MRSA with pulmonary emboli, renal emboli, osteomyelitis, and discitis of C5-6 - Negative cultures on 10/28/2017 - s/p treatment with 6 weeks vancomycin/daptomycin - Complications include PICC line infection with Klebsiella requiring treatment with levaquin at outside facility - Continue rifampin x1 month (end date 11/28) - Echo showed normal EF Gangrenous Toes -S/p amputation R 5th toe. -Continue wound care Osteomyelitis R. Thumb -ESR elevated. X-ray shows early osteomyelitis/ S/p I&D -MRI UE- shows osteomyelitis of L. Thumb. Correlate with LE MRI as could be systemic disease as well. Scleroderma or Raynouds. -Hand Surgery consulted- Dr. Guerra- will follow recs -R thumb cx grew MRSA and chloe albicans, continue vanc -nail debridement and removal w/ Dr. Guerra 11/21 -Continue wound care Physical Deconditioning - Patient unable to walk without assistance since being hospitalized past two months for sepsis 2/2 endocarditis, NSTEMI, and DKA at [facility] - Unable to care for self and homeless - No family support - CM consulted; appreciate recs - D/C planning process started - Power Cleaner Operator consulted; appreciate recs - PT/OT to evaluate and treat patient - Working on placement Uncontrolled Type II DM with hyperglycemia - BG 599 on admission - SSI aggressive, required 8 units SSI yesterday. - have titrated up to Levemir 50units BID, this morning sugar wnl, will continue to monitor throughout the day, increase basal insulin tomorrow if not at goal. - accuchecks ACHS Mental Disability with Schizophrenia 2/2 schizophrenia. The patient has decreased mental functional capacity. She functions at the level of a child. It is likely that this is part of the natural progression of her schizophrenia. The patient does not have the ability to care for herself in any capacity. - CM on board for placement - Continue Remeron and Quetiapine CAD s/p [place] - Hospitalized recently at [facility]; discharged earlier this week. - Lovenox for DVT PPX - Continue medications from last hospitalization - Echo with normal EF, no plans for cardiac catheterization at outside hospital Moderate Protein-Calorie Malnutrition - Albumin 2.6. Prealbumin lower than 5 - P normal. Mag low replaced - Ensure high protein supplementation - Power Cleaner Operator consult; appreciate recommendations - TSH normal - continue PT/OT Chronic Normocytic Anemia - Stable - Has been iron deficiency in the past - Hg 9.4 on admission. At baseline - Continue to trend with weekly labs - Patient asymptomatic currently - Iron deficiency vs. ACD ECTOR on CKD- Resolved - Stable. Monitor BMP Hx of Chronic Substance Abuse - Last used crack and marijuana 3-4 months ago - [employer] on cessation - Has been hospitalized last 2 months - Recent HIV, Hep B Ag, and RPR negative - UDS negative Urge Incontinence - resolved - continue bedside toileting and work up to bathroom toileting HTN - Continue metoprolol and lisinopril. - Will monitor closely and adjust as needed COPD - Monitor O2 sats with goal >88% - Duoneb treatments PRN for shortness of breath/wheezing PVD - Pulses intact - CV surgery consulted- Will assess PAD for healing in legs. Will follow recs Mild anion gap metabolic acidosis-Resolved - Resolved Sacral decubitus ulcer - Consult wound care - Frequent turning of patient <Teodora Cabello - Last Filed: 11/25/17 11:59> Attending Addendum - Attending Addendum Date/Time: 11/25/17 0267 I personally evaluated the patient and discussed the management with Dr. Cabello I agree with the History, Examination, Assessment and Plan documented above with any addition or exceptions noted below. <Aubrey Hoyos - Last Filed: 11/25/17 17:15>
[2017-11-25] MEDS: Metoprolol Tartrate 50 MG TAB PO SCH ×2 (08:57→21:43)
[2017-11-25] MEDS: Lisinopril 10 MG TAB PO SCH (08:57)
[2017-11-25] MEDS: Aspirin 325 mg Enteric Coated Tablet PO SCH (08:58)
[2017-11-25] MEDS: Enoxaparin Sodium 40 MG/0.4 ML SYRINGE SC SCH ×2 (08:58→09:07)
[2017-11-25] MEDS: metFORMIN 500 MG TAB PO SCH ×2 (08:58→16:25)
[2017-11-25] MEDS: Magnesium Chloride 64 MG TAB PO SCH ×2 (08:59→21:42)
[2017-11-25] MEDS: Vancomycin HCl 750 MG in Sodium Chloride 0.9% 250 ML 250 ML IVPB SCH ×2 (09:00→21:45)
[2017-11-25] MEDS: Rifampin 300 MG CAP PO SCH ×2 (09:00→21:42)
[2017-11-25] MEDS: Polyethylene Glycol 3350 17 GM Packet PO SCH (09:02)
[2017-11-25] MEDS: Insulin Detemir 100 UNITS/ML 50 UNITS in Pre-Filled Syringe 1 EACH SC SCH ×2 (09:18→21:46)
[2017-11-25] MEDS ORDERED: Dextrose 50% Abboject 50 ML SYRINGE SLOW IVP PRN (12:06)
[2017-11-25] MEDS ORDERED: Dextrose 5% in Water 1,000 ML IV PRN (12:06)
[2017-11-25] MEDS: HumaLOG 300 UNITS/3 ML VIAL SC PRN (12:18)
[2017-11-25] MEDS: Acetaminophen 325 MG TAB PO PRN ×2 (13:11→21:56)
[2017-11-25 20:57] LABS: Vancomycin, Trough 16.4 ug/mL
[2017-11-25] MEDS: Mirtazapine 15 MG TAB PO SCH (21:42)
[2017-11-25] MEDS: Atorvastatin Calcium 20 MG TAB PO SCH (21:43)
[2017-11-26] MEDS: HumaLOG 300 UNITS/3 ML VIAL SC PRN ×2 (05:03→20:54)
[2017-11-26] MEDS: Acetaminophen 325 MG TAB PO PRN ×4 (05:08→21:04)
--- NOTE | 2017-11-26 06:31 | PDOC.FM ---
- Subjective Subjective: This morning patient reports she is doing well overall. She is excited to walk outside with PT today. She denies any pain in the hands or any pain in general. Discussed disposition with the patient and she became tearful. She said her step -father would take her in and she feels safe there. CM will follow up on this. - Objective Vital Signs & Weight: Vital Signs (12 hours) Temp Pulse Resp BP Pulse Ox 11/25/17 20:00 97.2 F L 107 H 18 155/92 H 98 11/25/17 19:52 97.2 F L 107 H 18 98 Weight Admit Weight 46.357 kg Weight 45.813 kg I&O: 11/24/17 11/25/17 11/26/17 06:59 06:59 06:59 Intake Total 1780 1220 1969 Balance 1780 1220 1969 Result Diagrams: 11/20/17 10:48 11/20/17 10:48 Phys Exam - Physical Examination Constitutional: NAD HEENT: PERRLA, moist MMs Neck: no nodes, full ROM Respiratory: no wheezing, clear to auscultation bilateral Cardiovascular: RRR, no significant murmur Gastrointestinal: soft, non-tender, no distention, positive bowel sounds Musculoskeletal: no edema, pulses present Neurological: non-focal, moves all 4 limbs Psychiatric: normal affect Deviation from normal: wounds on hands appear to be healing, no signs of increased inflammation Dx/Plan (1) Discitis of cervical region Code(s): M46.42 - DISCITIS, UNSPECIFIED, CERVICAL REGION Status: Acute (2) Dry gangrene Code(s): I96 - GANGRENE, NOT ELSEWHERE CLASSIFIED Status: Acute (3) Mental disability Code(s): F79 - UNSPECIFIED INTELLECTUAL DISABILITIES Status: Acute (4) Schizophrenia Code(s): F20.9 - SCHIZOPHRENIA, UNSPECIFIED Status: Acute Qualifiers: Schizophrenia type: unspecified Qualified Code(s): F20.9 - Schizophrenia, unspecified (5) Septic arthritis of cervical spine Code(s): M46.52 - OTHER INFECTIVE SPONDYLOPATHIES, CERVICAL REGION Status: Acute (6) CAD (coronary artery disease) Code(s): I25.10 - ATHSCL HEART DISEASE OF [place] CORONARY ARTERY W/O ANG PCTRS Status: Chronic Qualifiers: Associated angina: without angina (7) COPD (chronic obstructive pulmonary disease) Status: Chronic Qualifiers: COPD type: unspecified COPD Qualified Code(s): J44.9 - Chronic obstructive pulmonary disease, unspecified (8) HTN (hypertension) Code(s): I10 - ESSENTIAL (PRIMARY) HYPERTENSION Status: Chronic Qualifiers: Hypertension type: essential hypertension Qualified Code(s): I10 - Essential (primary) hypertension (9) Moderate protein-calorie malnutrition Code(s): E44.0 - MODERATE PROTEIN-CALORIE MALNUTRITION Status: Chronic (10) Osteomyelitis Code(s): M86.9 - OSTEOMYELITIS, UNSPECIFIED Status: Chronic Qualifiers: Osteomyelitis location: hand Laterality: left (11) PVD (peripheral vascular disease) Code(s): I73.9 - PERIPHERAL VASCULAR DISEASE, UNSPECIFIED Status: Chronic (12) Physical deconditioning Code(s): R53.81 - OTHER MALAISE Status: Chronic (13) Substance abuse Code(s): F19.10 - OTHER PSYCHOACTIVE SUBSTANCE ABUSE, UNCOMPLICATED Status: Chronic (14) Urge incontinence Code(s): N39.41 - URGE INCONTINENCE Status: Chronic (15) Type 2 diabetes mellitus with hyperglycemia Code(s): E11.65 - TYPE 2 DIABETES MELLITUS WITH HYPERGLYCEMIA Status: Suspected Qualifiers: Diabetes mellitus fdc insulin use: with fdc use Qualified Code( s): E11.65 - Type 2 diabetes mellitus with hyperglycemia; Z79.4 - [facility] ( current) use of insulin; Z79.4 - [facility] (current) use of insulin; Z79.4 - termite control servicer (current) use of insulin; Z79.4 - [facility] (current) use of insulin (16) ECTOR (acute kidney injury) Code(s): N17.9 - ACUTE KIDNEY FAILURE, UNSPECIFIED Status: Resolved (17) Endocarditis due to Staphylococcus Code(s): I33.0 - ACUTE AND SUBACUTE INFECTIVE ENDOCARDITIS; B95.8 - UNSP STAPHYLOCOCCUS THE CAUSE OF DISEASES CLASSD ELSWHR Status: Resolved - Plan Plan: - increased metformin to 1,000 BID, lantus at 50U BID, accucheck qAC-HS -will increase SSI tomorrow if not improved, did have 1 low sugar 11/25 - working hard on dispo. Hospital financial office unable to assist. CM will f/ u with [employer]. - Patient says Step-father will take her in, will investigate this - Rifampin through 11/28, Vanc through 12/08 - Debridement of hands last week with Dr. Guerra - consulted [facility] for psych eval, patient has obvious mental disability researching psych history - will check Hep C, RPR tomorrow AM Discitis/Septic arthritis of C5-6 - Concern for this dx based on MRI - Dr Bosch has been consulted, will continue IV vanc until 12/08 (PICC line placed on 11/07 in L arm) - Neuro surgery on board, appreciate recs - Patient pending placement, but has been declined from 3 facilities so far. CM is working on placement, but this has proved difficult with patient's homeless status - Ibuprofen and tylenol for pain control Endocarditis s/p treatment with IV abx - MRSA with pulmonary emboli, renal emboli, osteomyelitis, and discitis of C5-6 - Negative cultures on 10/28/2017 - s/p treatment with 6 weeks vancomycin/daptomycin - Complications include PICC line infection with Klebsiella requiring treatment with levaquin at outside facility - Continue rifampin x1 month (end date 11/28) - Echo showed normal EF - Echo completed 10/31 Gangrenous Toes -S/p amputation R 5th toe. -Continue wound care Osteomyelitis R. Thumb -ESR elevated. X-ray shows early osteomyelitis/ S/p I&D -MRI UE- shows osteomyelitis of L. Thumb. Correlate with LE MRI as could be systemic disease as well. Scleroderma or Raynouds. -Hand Surgery consulted- Dr. Guerra- will follow recs -R thumb cx grew MRSA and chloe albicans, continue vanc -nail debridement and removal w/ Dr. Guerra 11/21 -Continue wound care Physical Deconditioning - Patient unable to walk without assistance since being hospitalized past two months for sepsis 2/2 endocarditis, NSTEMI, and DKA at [facility] - Unable to care for self and homeless - No family support - CM consulted; appreciate recs - D/C planning process started - Compliance Engineer Products consulted; appreciate recs - PT/OT to evaluate and treat patient - Working on placement Uncontrolled Type II DM with hyperglycemia - BG 599 on admission - SSI aggressive, required 8 units SSI yesterday. - have titrated up to Levemir 50units BID, this morning sugar wnl, will continue to monitor throughout the day, increase basal insulin tomorrow if not at goal. - accuchecks ACHS Mental Disability with Schizophrenia 2/2 schizophrenia. The patient has decreased mental functional capacity. She functions at the level of a child. It is likely that this is part of the natural progression of her schizophrenia. The patient does not have the ability to care for herself in any capacity. - CM on board for placement - Continue Remeron and Quetiapine CAD s/p [place] - Hospitalized recently at [facility]; discharged earlier this week. - Lovenox for DVT PPX - Continue medications from last hospitalization - Echo with normal EF, no plans for cardiac catheterization at outside hospital Moderate Protein-Calorie Malnutrition - Albumin 2.6. Prealbumin lower than 5 - P normal. Mag low replaced - Ensure high protein supplementation - Compliance Engineer Products consult; appreciate recommendations - TSH normal - continue PT/OT Chronic Normocytic Anemia - Stable - Has been iron deficiency in the past - Hg 9.4 on admission. At baseline - Continue to trend with weekly labs - Patient asymptomatic currently - Iron deficiency vs. ACD ECTOR on CKD- Resolved - Stable. Monitor BMP Hx of Chronic Substance Abuse - Last used crack and marijuana 3-4 months ago - [employer] on cessation - Has been hospitalized last 2 months - Recent HIV, Hep B Ag, and RPR negative - UDS negative Urge Incontinence - resolved - continue bedside toileting and work up to bathroom toileting HTN - Continue metoprolol and lisinopril. - Will monitor closely and adjust as needed COPD - Monitor O2 sats with goal >88% - Duoneb treatments PRN for shortness of breath/wheezing PVD - Pulses intact - CV surgery consulted- Will assess PAD for healing in legs. Will follow recs Mild anion gap metabolic acidosis-Resolved - Resolved Sacral decubitus ulcer - Consult wound care - Frequent turning of patient
[2017-11-26] MEDS: metFORMIN 500 MG TAB PO SCH ×2 (08:43→16:44)
[2017-11-26] MEDS: Enoxaparin Sodium 40 MG/0.4 ML SYRINGE SC SCH (08:43)
[2017-11-26] MEDS: Lisinopril 10 MG TAB PO SCH (08:43)
[2017-11-26] MEDS: Metoprolol Tartrate 50 MG TAB PO SCH ×2 (08:43→20:51)
[2017-11-26] MEDS: Aspirin 325 mg Enteric Coated Tablet PO SCH (08:43)
[2017-11-26] MEDS: Insulin Detemir 100 UNITS/ML 50 UNITS in Pre-Filled Syringe 1 EACH SC SCH ×2 (08:44→20:54)
[2017-11-26] MEDS: Magnesium Chloride 64 MG TAB PO SCH ×2 (08:50→20:52)
[2017-11-26] MEDS: Polyethylene Glycol 3350 17 GM Packet PO SCH (08:55)
[2017-11-26] MEDS: Vancomycin HCl 750 MG in Sodium Chloride 0.9% 250 ML 250 ML IVPB SCH ×2 (08:56→20:51)
[2017-11-26] MEDS: Rifampin 300 MG CAP PO SCH ×2 (10:33→21:05)
--- NOTE | 2017-11-26 13:38 | ADD-PRG ---
DATE OF SERVICE: 11/26/2017 This is an addendum to the note of Dr. Dash Sanon. Ms. Stephenson this morning is a pleasant, mentally challenged black female who was admitted with septic joint diskitis and dry gangrene of her first right toe and methicillin-resistant Staphylococcus suzanne us endocarditis with embolization. She is currently undergoing treatment with antibiotics and treatm ent for her mental condition as well. We are awaiting placement as she will need long-term therapy f or her endocarditis and osteomyelitis of the hand. Clinically, she is stable and in fact alert and p clint.
[2017-11-26] MEDS: Ibuprofen 800 MG TAB PO PRN (16:44)
[2017-11-26] MEDS: Mirtazapine 15 MG TAB PO SCH (20:51)
[2017-11-26] MEDS: Atorvastatin Calcium 20 MG TAB PO SCH (20:51)
[2017-11-27 05:15] LABS: Fungus Culture Final report (.)
[2017-11-27] MEDS: Acetaminophen 325 MG TAB PO PRN ×3 (05:41→21:12)
[2017-11-27] MEDS: HumaLOG 300 UNITS/3 ML VIAL SC PRN ×3 (05:45→17:43)
[2017-11-27 06:00] LABS: Anion Gap 12 mmol/L (10-20); BUN (Urea Nitrogen) 16 mg/dL (9.8-20.1); Calc. Creatinine Clearance 64 mL/min (70-130); Calcium 9.9 mg/dL (7.8-10.44); Carbon Dioxide 22 mmol/L (22-29); Chloride 106 mmol/L (98-107); Estimated GFR-MDRD Greater than 90; Glucose 242 mg/dL (70-105); Potassium 4.4 mmol/L (3.5-5.1); Sodium 136 mmol/L (136-145)
[2017-11-27 08:16] LABS: Vancomycin, Trough 15.3 ug/mL
--- NOTE | 2017-11-27 08:22 | PDOC.FM ---
- Subjective Subjective: This morning patient denies pain. She states she is feeling well overall. She was able to walk with PT x2 yesterday. Discussed dispo plan with her, she is not interested in going to [place], she is planning to live with her step-father. CM is making good progress figuring out SSI situation with [employer] although outlook for SSI soon is still guarded. - Objective Vital Signs & Weight: Vital Signs (12 hours) Temp Pulse Resp Pulse Ox 11/26/17 20:50 98.0 F 105 H 18 99 Weight Admit Weight 46.357 kg Weight 45.813 kg I&O: 11/26/17 11/27/17 11/28/17 06:59 06:59 06:59 Intake Total 1969 2299 Balance 1969 2299 Result Diagrams: 11/20/17 10:48 11/27/17 03:55 Phys Exam - Physical Examination Constitutional: NAD HEENT: PERRLA, moist MMs Neck: no nodes, full ROM Respiratory: no wheezing, clear to auscultation bilateral Cardiovascular: RRR, no significant murmur Gastrointestinal: soft, non-tender, no distention, positive bowel sounds Musculoskeletal: no edema, pulses present Neurological: non-focal, moves all 4 limbs Psychiatric: normal affect, A&O x 3 Skin: no rash, cap refill <2 seconds Dx/Plan (1) Discitis of cervical region Code(s): M46.42 - DISCITIS, UNSPECIFIED, CERVICAL REGION Status: Acute (2) Dry gangrene Code(s): I96 - GANGRENE, NOT ELSEWHERE CLASSIFIED Status: Acute (3) Mental disability Code(s): F79 - UNSPECIFIED INTELLECTUAL DISABILITIES Status: Acute (4) Schizophrenia Code(s): F20.9 - SCHIZOPHRENIA, UNSPECIFIED Status: Acute Qualifiers: Schizophrenia type: unspecified Qualified Code(s): F20.9 - Schizophrenia, unspecified (5) Septic arthritis of cervical spine Code(s): M46.52 - OTHER INFECTIVE SPONDYLOPATHIES, CERVICAL REGION Status: Acute (6) CAD (coronary artery disease) Code(s): I25.10 - ATHSCL HEART DISEASE OF [place] CORONARY ARTERY W/O ANG PCTRS Status: Chronic Qualifiers: Associated angina: without angina (7) COPD (chronic obstructive pulmonary disease) Status: Chronic Qualifiers: COPD type: unspecified COPD Qualified Code(s): J44.9 - Chronic obstructive pulmonary disease, unspecified (8) HTN (hypertension) Code(s): I10 - ESSENTIAL (PRIMARY) HYPERTENSION Status: Chronic Qualifiers: Hypertension type: essential hypertension Qualified Code(s): I10 - Essential (primary) hypertension (9) Moderate protein-calorie malnutrition Code(s): E44.0 - MODERATE PROTEIN-CALORIE MALNUTRITION Status: Chronic (10) Osteomyelitis Code(s): M86.9 - OSTEOMYELITIS, UNSPECIFIED Status: Chronic Qualifiers: Osteomyelitis location: hand Laterality: left (11) PVD (peripheral vascular disease) Code(s): I73.9 - PERIPHERAL VASCULAR DISEASE, UNSPECIFIED Status: Chronic (12) Physical deconditioning Code(s): R53.81 - OTHER MALAISE Status: Chronic (13) Substance abuse Code(s): F19.10 - OTHER PSYCHOACTIVE SUBSTANCE ABUSE, UNCOMPLICATED Status: Chronic (14) Urge incontinence Code(s): N39.41 - URGE INCONTINENCE Status: Chronic (15) Type 2 diabetes mellitus with hyperglycemia Code(s): E11.65 - TYPE 2 DIABETES MELLITUS WITH HYPERGLYCEMIA Status: Suspected Qualifiers: Diabetes mellitus usp insulin use: with usp use Qualified Code( s): E11.65 - Type 2 diabetes mellitus with hyperglycemia; Z79.4 - terminal worker ( current) use of insulin; Z79.4 - assisted (current) use of insulin; Z79.4 - assisted (current) use of insulin; Z79.4 - terminal worker (current) use of insulin (16) ECTOR (acute kidney injury) Code(s): N17.9 - ACUTE KIDNEY FAILURE, UNSPECIFIED Status: Resolved (17) Endocarditis due to Staphylococcus Code(s): I33.0 - ACUTE AND SUBACUTE INFECTIVE ENDOCARDITIS; B95.8 - UNSP STAPHYLOCOCCUS THE CAUSE OF DISEASES CLASSD ELSWHR Status: Resolved - Plan Plan: 11/26/17 - increased metformin to 1,000 BID 11/26, lantus to 54U BID, accucheck qAC-HS - working hard on dispo. Hospital financial office unable to assist. CM will f/ u with [employer]. -CM making progress with family and [employer], hard work appreciated - Patient says Step-father will take her in, will investigate this - Rifampin through 11/28, Vanc through 12/08 - Debridement of hands last week with Dr. 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 CM is working on placement, but this has proved difficult with patient's homeless status - Ibuprofen and tylenol for pain control Endocarditis s/p treatment with IV abx - MRSA with pulmonary emboli, renal emboli, osteomyelitis, and discitis of C5-6 - Negative cultures on 10/28/2017 - s/p treatment with 6 weeks vancomycin/daptomycin - Complications include PICC line infection with Klebsiella requiring treatment with levaquin at outside facility - Continue rifampin x1 month (end date 11/28) - Echo showed normal EF - Echo completed 10/31 Gangrenous Toes -S/p amputation R 5th toe. -Continue wound care Osteomyelitis R. Thumb -ESR elevated. X-ray shows early osteomyelitis/ S/p I&D -MRI UE- shows osteomyelitis of L. Thumb. Correlate with LE MRI as could be systemic disease as well. Scleroderma or Raynouds. -Hand Surgery consulted- Dr. Guerra- will follow recs -R thumb cx grew MRSA and chloe albicans, continue vanc -nail debridement and removal w/ Dr. Guerra 11/21 -Continue wound care Physical Deconditioning - Patient unable to walk without assistance since being hospitalized past two months for sepsis 2/2 endocarditis, NSTEMI, and DKA at [facility] - Unable to care for self and homeless - No family support - CM consulted; appreciate recs - D/C planning process started - Director Of Career Resources consulted; appreciate recs - PT/OT to evaluate and treat patient - Working on placement Uncontrolled Type II DM with hyperglycemia - BG 599 on admission - SSI aggressive, required 8 units SSI yesterday. - have titrated up to Levemir 50units BID, this morning sugar wnl, will continue to monitor throughout the day, increase basal insulin tomorrow if not at goal. - accuchecks ACHS Mental Disability with Schizophrenia 2/2 schizophrenia. The patient has decreased mental functional capacity. She functions at the level of a child. It is likely that this is part of the natural progression of her schizophrenia. The patient does not have the ability to care for herself in any capacity. - CM on board for placement - Continue Remeron and Quetiapine CAD s/p [place] - Hospitalized recently at [facility]; discharged earlier this week. - Lovenox for DVT PPX - Continue medications from last hospitalization - Echo with normal EF, no plans for cardiac catheterization at outside hospital Moderate Protein-Calorie Malnutrition - Albumin 2.6. Prealbumin lower than 5 - P normal. Mag low replaced - Ensure high protein supplementation - Director Of Career Resources consult; appreciate recommendations - TSH normal - continue PT/OT Chronic Normocytic Anemia - Stable - Has been iron deficiency in the past - Hg 9.4 on admission. At baseline - Continue to trend with weekly labs - Patient asymptomatic currently - Iron deficiency vs. ACD ECTOR on CKD- Resolved - Stable. 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 - Will monitor closely and adjust as needed COPD - Monitor O2 sats with goal >88% - Duoneb treatments PRN for shortness of breath/wheezing PVD - Pulses intact - CV surgery consulted- Will assess PAD for healing in legs. Will follow recs Mild anion gap metabolic acidosis-Resolved - Resolved Sacral decubitus ulcer - Consult wound care - Frequent turning of patient
[2017-11-27] MEDS ORDERED: PRE FILLED SC SCH (08:26)
[2017-11-27] MEDS ORDERED: INSULIN DETEMIR SC SCH (08:26)
[2017-11-27] MEDS ORDERED: Dextrose 50% Abboject 50 ML SYRINGE SLOW IVP PRN (08:27)
[2017-11-27] MEDS ORDERED: Dextrose 5% in Water 1,000 ML IV PRN (08:27)
[2017-11-27] MEDS ORDERED: Sodium Chloride 0.9% 500 ML IV SCH (08:30)
[2017-11-27] MEDS: Lisinopril 10 MG TAB PO SCH (10:39)
[2017-11-27] MEDS: metFORMIN 500 MG TAB PO SCH ×2 (10:39→17:42)
[2017-11-27] MEDS: Metoprolol Tartrate 50 MG TAB PO SCH ×2 (10:39→21:09)
[2017-11-27] MEDS: Aspirin 325 mg Enteric Coated Tablet PO SCH (10:39)
[2017-11-27] MEDS: Enoxaparin Sodium 40 MG/0.4 ML SYRINGE SC SCH (10:40)
[2017-11-27] MEDS: INSULIN DETEMIR SC SCH (10:40)
[2017-11-27] MEDS: PRE FILLED SC SCH (10:40)
[2017-11-27] MEDS: Magnesium Chloride 64 MG TAB PO SCH ×2 (10:40→21:09)
[2017-11-27] MEDS: Vancomycin HCl 750 MG in Sodium Chloride 0.9% 250 ML 250 ML IVPB SCH (10:41)
[2017-11-27] MEDS: Rifampin 300 MG CAP PO SCH ×2 (10:41→21:09)
[2017-11-27] MEDS: Polyethylene Glycol 3350 17 GM Packet PO SCH (10:41)
[2017-11-27 11:20] LABS: #Lymphocytes 1.7 thou/uL (1.20-3.40); #Monocytes 0.5 thou/uL (0.11-0.59); #Neutrophils 6.7 thou/uL (1.40-6.50); %Eosinophils 0.5 % (0.0-10.0); %Lymphocytes 19.3 % (21.0-51.0); %Monocytes 5.2 % (0.0-10.0); %Neutrophils 74.9 % (42.0-75.0); Hemoglobin 10.8 g/dL (12.0-16.0); Mean Corpuscular HGB CONC 31.6 g/dL (32.0-36.0); Mean Corpuscular Hemoglobin 29.4 pg (27.0-31.0); Mean Platelet Volume 6.2 fL (7.4-10.4); Platelet Count 494 thou/uL (130-400); RBC Distribution Width 19.3 % (11.5-14.5); Red Blood Cell (RBC) Count 3.66 mill/uL (4.20-5.40); White Blood Cell (WBC) Count 8.9 thou/uL (4.8-10.8)
[2017-11-27 11:44] LABS: Anion Gap 10 mmol/L (10-20); BUN (Urea Nitrogen) 16 mg/dL (9.8-20.1); Calc. Creatinine Clearance 56 mL/min (70-130); Calcium 10.5 mg/dL (7.8-10.44); Carbon Dioxide 26 mmol/L (22-29); Chloride 104 mmol/L (98-107); Estimated GFR-MDRD 85; Glucose 278 mg/dL (70-105); Sodium 135 mmol/L (136-145)
[2017-11-27 11:51] LABS: HIV (1/2) Antibody/Antigen Non-Reactive (NonReactive); HIV 1/2 INDEX 0.09 S/CO (<1.00)
--- NOTE | 2017-11-27 12:47 | ADD-PRG ---
DATE OF SERVICE: 11/27/2017 This is an addendum to the note of Dr. Dash Sanon. Ms. Stephenson is again her usual cheerful self this morning. She was awake, alert, in no distress. Her blood pressure is 150/90, respirations 16. She is afebrile. Her glucose levels are ranging betw een 200 and 260 demonstrating much better control than in the past. She will be able to stay with he r stepfather so arrangements for discharge are being made for today or tomorrow.
[2017-11-27] MEDS ORDERED: Vancomycin HCl 1 GM in Premix Bag 1 BAG IVPB SCH (13:00)
[2017-11-27] MEDS: Mirtazapine 15 MG TAB PO SCH (21:09)
[2017-11-27] MEDS: Atorvastatin Calcium 20 MG TAB PO SCH (21:09)
[2017-11-27 23:18] LABS: Syphilis Antibody INDETERMINATE (Nonreactive); Syphilis Titer Non-Reactive (Negative)
[2017-11-28] MEDS: Vancomycin HCl 1 GM in Premix Bag 1 BAG IVPB SCH ×2 (00:52→12:48)
[2017-11-28] MEDS: Ibuprofen 800 MG TAB PO PRN ×2 (00:52→20:34)
[2017-11-28] MEDS ORDERED: Insulin Detemir 100 UNITS/ML 40 UNITS in Pre-Filled Syringe 1 EACH SC SCH (09:00)
--- NOTE | 2017-11-28 09:05 | PDOC.FM ---
- Subjective Subjective: This morning patient states she is doing well overall. She is hoping to go outside at some point today. Still planning to go home with step father. Had some hypoglycemic episodes overnight. - Objective Vital Signs & Weight: Vital Signs (12 hours) Temp Pulse Resp BP Pulse Ox 11/28/17 07:33 97.6 F 79 16 146/92 H 99 Weight Admit Weight 46.357 kg Weight 45.813 kg I&O: 11/27/17 11/28/17 11/29/17 06:59 06:59 06:59 Intake Total 2300 3630 Balance 2300 3630 Result Diagrams: 11/27/17 11:03 11/27/17 11:03 Phys Exam - Physical Examination Constitutional: NAD HEENT: PERRLA, moist MMs Neck: no nodes, full ROM Respiratory: no wheezing, clear to auscultation bilateral Cardiovascular: RRR, no significant murmur Gastrointestinal: soft, non-tender, no distention, positive bowel sounds Musculoskeletal: no edema, pulses present Neurological: non-focal, moves all 4 limbs Lymphatic: no nodes Psychiatric: normal affect, A&O x 3 Skin: no rash, cap refill <2 seconds Dx/Plan (1) Discitis of cervical region Code(s): M46.42 - DISCITIS, UNSPECIFIED, CERVICAL REGION Status: Acute (2) Dry gangrene Code(s): I96 - GANGRENE, NOT ELSEWHERE CLASSIFIED Status: Acute (3) Mental disability Code(s): F79 - UNSPECIFIED INTELLECTUAL DISABILITIES Status: Acute (4) Schizophrenia Code(s): F20.9 - SCHIZOPHRENIA, UNSPECIFIED Status: Acute Qualifiers: Schizophrenia type: unspecified Qualified Code(s): F20.9 - Schizophrenia, unspecified (5) Septic arthritis of cervical spine Code(s): M46.52 - OTHER INFECTIVE SPONDYLOPATHIES, CERVICAL REGION Status: Acute (6) CAD (coronary artery disease) Code(s): I25.10 - ATHSCL HEART DISEASE OF [place] CORONARY ARTERY W/O ANG PCTRS Status: Chronic Qualifiers: Associated angina: without angina (7) COPD (chronic obstructive pulmonary disease) Status: Chronic Qualifiers: COPD type: unspecified COPD Qualified Code(s): J44.9 - Chronic obstructive pulmonary disease, unspecified (8) HTN (hypertension) Code(s): I10 - ESSENTIAL (PRIMARY) HYPERTENSION Status: Chronic Qualifiers: Hypertension type: essential hypertension Qualified Code(s): I10 - Essential (primary) hypertension (9) Moderate protein-calorie malnutrition Code(s): E44.0 - MODERATE PROTEIN-CALORIE MALNUTRITION Status: Chronic (10) Osteomyelitis Code(s): M86.9 - OSTEOMYELITIS, UNSPECIFIED Status: Chronic Qualifiers: Osteomyelitis location: hand Laterality: left (11) PVD (peripheral vascular disease) Code(s): I73.9 - PERIPHERAL VASCULAR DISEASE, UNSPECIFIED Status: Chronic (12) Physical deconditioning Code(s): R53.81 - OTHER MALAISE Status: Chronic (13) Substance abuse Code(s): F19.10 - OTHER PSYCHOACTIVE SUBSTANCE ABUSE, UNCOMPLICATED Status: Chronic (14) Urge incontinence Code(s): N39.41 - URGE INCONTINENCE Status: Chronic (15) Type 2 diabetes mellitus with hyperglycemia Code(s): E11.65 - TYPE 2 DIABETES MELLITUS WITH HYPERGLYCEMIA Status: Suspected Qualifiers: Diabetes mellitus parts counterman insulin use: with parts counterman use Qualified Code( s): E11.65 - Type 2 diabetes mellitus with hyperglycemia; Z79.4 - petroleum terminal plant operator ( current) use of insulin; Z79.4 - [facility] (current) use of insulin; Z79.4 - petroleum terminal plant operator (current) use of insulin; Z79.4 - [facility] (current) use of insulin (16) ECTOR (acute kidney injury) Code(s): N17.9 - ACUTE KIDNEY FAILURE, UNSPECIFIED Status: Resolved (17) Endocarditis due to Staphylococcus Code(s): I33.0 - ACUTE AND SUBACUTE INFECTIVE ENDOCARDITIS; B95.8 - UNSP STAPHYLOCOCCUS THE CAUSE OF DISEASES CLASSD ELSWHR Status: Resolved - Plan Plan: 11/28/17 - increased metformin to 1,000 BID 11/26, lantus to 60 AM, 40 PM, accucheck qAC- HS - working hard on dispo. Hospital financial office unable to assist. CM will f/ u with [employer]. -CM making progress with family and [employer], hard work appreciated - Patient says Step-father will take her in, will investigate this - Rifampin through 11/28, Vanc through 12/08 - Increased Lisinopril to 20mg daily - Debridement of hands last week with Dr. 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 CM is working on placement, but this has proved difficult with patient's homeless status - Ibuprofen and tylenol for pain control Endocarditis s/p treatment with IV abx - MRSA with pulmonary emboli, renal emboli, osteomyelitis, and discitis of C5-6 - Negative cultures on 10/28/2017 - s/p treatment with 6 weeks vancomycin/daptomycin - Complications include PICC line infection with Klebsiella requiring treatment with levaquin at outside facility - Continue rifampin x1 month (end date 11/28) - Echo showed normal EF - Echo completed 10/31 Gangrenous Toes -S/p amputation R 5th toe. -Continue wound care Osteomyelitis R. Thumb -ESR elevated. X-ray shows early osteomyelitis/ S/p I&D -MRI UE- shows osteomyelitis of L. Thumb. Correlate with LE MRI as could be systemic disease as well. Scleroderma or Raynouds. -Hand Surgery consulted- Dr. Guerra- will follow recs -R thumb cx grew MRSA and chloe albicans, continue vanc -nail debridement and removal w/ Dr. Guerra 11/21 -Continue wound care Physical Deconditioning - Patient unable to walk without assistance since being hospitalized past two months for sepsis 2/2 endocarditis, NSTEMI, and DKA at [facility] - Unable to care for self and homeless - No family support - CM consulted; appreciate recs - D/C planning process started - [employer] Ticket Cashier consulted; appreciate recs - PT/OT to evaluate and treat patient - Working on placement Uncontrolled Type II DM with hyperglycemia - BG 599 on admission - SSI aggressive, required 8 units SSI yesterday. - have titrated up to Levemir 50units BID, this morning sugar wnl, will continue to monitor throughout the day, increase basal insulin tomorrow if not at goal. - accuchecks ACHS Mental Disability with Schizophrenia 2/2 schizophrenia. The patient has decreased mental functional capacity. She functions at the level of a child. It is likely that this is part of the natural progression of her schizophrenia. The patient does not have the ability to care for herself in any capacity. - CM on board for placement - Continue Remeron and Quetiapine CAD s/p [place] - Hospitalized recently at [facility]; discharged earlier this week. - Lovenox for DVT PPX - Continue medications from last hospitalization - Echo with normal EF, no plans for cardiac catheterization at outside hospital Moderate Protein-Calorie Malnutrition - Albumin 2.6. Prealbumin lower than 5 - P normal. Mag low replaced - Ensure high protein supplementation - [employer] Cashier consult; appreciate recommendations - TSH normal - continue PT/OT Chronic Normocytic Anemia - Stable - Has been iron deficiency in the past - Hg 9.4 on admission. At baseline - Continue to trend with weekly labs - Patient asymptomatic currently - Iron deficiency vs. ACD ECTOR on CKD- Resolved - Stable. Monitor BMP Hx of Chronic Substance Abuse - Last used crack and marijuana 3-4 months ago - [employer] on cessation - Has been hospitalized last 2 months - Recent HIV, Hep B Ag, and RPR negative - UDS negative Urge Incontinence - resolved - continue bedside toileting and work up to bathroom toileting HTN - Continue metoprolol and lisinopril. - Will monitor closely and adjust as needed COPD - Monitor O2 sats with goal >88% - Duoneb treatments PRN for shortness of breath/wheezing PVD - Pulses intact - CV surgery consulted- Will assess PAD for healing in legs. Will follow recs Mild anion gap metabolic acidosis-Resolved - Resolved Sacral decubitus ulcer - Consult wound care - Frequent turning of patient
[2017-11-28] MEDS: Magnesium Chloride 64 MG TAB PO SCH ×2 (09:10→20:32)
[2017-11-28] MEDS: Metoprolol Tartrate 50 MG TAB PO SCH ×2 (09:10→20:32)
[2017-11-28] MEDS: metFORMIN 500 MG TAB PO SCH ×2 (09:10→17:17)
[2017-11-28] MEDS: Enoxaparin Sodium 40 MG/0.4 ML SYRINGE SC SCH (09:11)
[2017-11-28] MEDS: INSULIN DETEMIR SC SCH (09:11)
[2017-11-28] MEDS: Aspirin 325 mg Enteric Coated Tablet PO SCH (09:11)
[2017-11-28] MEDS: PRE FILLED SC SCH (09:11)
[2017-11-28] MEDS: Polyethylene Glycol 3350 17 GM Packet PO SCH (09:12)
[2017-11-28] MEDS: Lisinopril 10 MG TAB PO SCH (09:21)
[2017-11-28] MEDS: Acetaminophen 325 MG TAB PO PRN (09:23)
[2017-11-28] MEDS: Rifampin 300 MG CAP PO SCH ×2 (10:38→20:32)
--- NOTE | 2017-11-28 11:40 | ADD-PRG ---
DATE OF SERVICE: 11/28/2017 This is an addendum to the note of Dr. Dash Sanon. Ms. Stephenson is happy and alert this morning. We are still awaiting placement with her stepfather and geriatric case manager is working on this. Her blood glucose levels are highly variable. She is noncompliant , particularly with diet, sneaking snacks all day long. We will continue to monitor in anticipation hopefully of discharging her in the next day or two.
[2017-11-28] MEDS: HumaLOG 300 UNITS/3 ML VIAL SC PRN (12:48)
[2017-11-28] MEDS: Mirtazapine 15 MG TAB PO SCH (20:32)
[2017-11-28] MEDS: Atorvastatin Calcium 20 MG TAB PO SCH (20:32)
[2017-11-28] MEDS ORDERED: Insulin Detemir 100 UNITS/ML 60 UNITS in Pre-Filled Syringe 1 EACH SC SCH (21:00)
[2017-11-29] MEDS: Vancomycin HCl 1 GM in Premix Bag 1 BAG IVPB SCH (00:02)
[2017-11-29] MEDS: Insulin Detemir 100 UNITS/ML 60 UNITS in Pre-Filled Syringe 1 EACH SC SCH (09:19)
[2017-11-29] MEDS: Lisinopril 20 MG TAB PO SCH (09:19)
[2017-11-29] MEDS: Aspirin 325 mg Enteric Coated Tablet PO SCH (09:19)
[2017-11-29] MEDS: metFORMIN 500 MG TAB PO SCH ×2 (09:19→17:42)
[2017-11-29] MEDS: Metoprolol Tartrate 50 MG TAB PO SCH ×2 (09:19→20:23)
[2017-11-29] MEDS: Magnesium Chloride 64 MG TAB PO SCH ×2 (09:20→20:24)
[2017-11-29] MEDS: Enoxaparin Sodium 40 MG/0.4 ML SYRINGE SC SCH (09:20)
[2017-11-29] MEDS: Polyethylene Glycol 3350 17 GM Packet PO SCH (09:20)
--- NOTE | 2017-11-29 12:08 | PDOC.FM ---
- Subjective Subjective: This morning patient states she is feeling well. She is making multiple loops around the unit walking without difficulty. Denies pain. - Objective Vital Signs & Weight: Vital Signs (12 hours) Temp Pulse Resp BP Pulse Ox 11/29/17 08:00 97.8 F 90 16 144/78 H 98 Weight Admit Weight 46.357 kg Weight 45.813 kg I&O: 11/28/17 11/29/17 11/30/17 06:59 06:59 06:59 Intake Total 3630 2280 Balance 3630 2280 Result Diagrams: 11/27/17 11:03 11/27/17 11:03 Phys Exam - Physical Examination Constitutional: NAD HEENT: PERRLA, moist MMs Neck: no nodes, full ROM Respiratory: no wheezing, clear to auscultation bilateral Cardiovascular: RRR, no significant murmur Gastrointestinal: soft, non-tender, no distention, positive bowel sounds Musculoskeletal: no edema, pulses present Neurological: non-focal, moves all 4 limbs Lymphatic: no nodes Psychiatric: normal affect, A&O x 3 Skin: no rash, cap refill <2 seconds Dx/Plan (1) Discitis of cervical region Code(s): M46.42 - DISCITIS, UNSPECIFIED, CERVICAL REGION Status: Acute (2) Dry gangrene Code(s): I96 - GANGRENE, NOT ELSEWHERE CLASSIFIED Status: Acute (3) Mental disability Code(s): F79 - UNSPECIFIED INTELLECTUAL DISABILITIES Status: Acute (4) Schizophrenia Code(s): F20.9 - SCHIZOPHRENIA, UNSPECIFIED Status: Acute Qualifiers: Schizophrenia type: unspecified Qualified Code(s): F20.9 - Schizophrenia, unspecified (5) Septic arthritis of cervical spine Code(s): M46.52 - OTHER INFECTIVE SPONDYLOPATHIES, CERVICAL REGION Status: Acute (6) CAD (coronary artery disease) Code(s): I25.10 - ATHSCL HEART DISEASE OF [place] CORONARY ARTERY W/O ANG PCTRS Status: Chronic Qualifiers: Associated angina: without angina (7) COPD (chronic obstructive pulmonary disease) Status: Chronic Qualifiers: COPD type: unspecified COPD Qualified Code(s): J44.9 - Chronic obstructive pulmonary disease, unspecified (8) HTN (hypertension) Code(s): I10 - ESSENTIAL (PRIMARY) HYPERTENSION Status: Chronic Qualifiers: Hypertension type: essential hypertension Qualified Code(s): I10 - Essential (primary) hypertension (9) Moderate protein-calorie malnutrition Code(s): E44.0 - MODERATE PROTEIN-CALORIE MALNUTRITION Status: Chronic (10) Osteomyelitis Code(s): M86.9 - OSTEOMYELITIS, UNSPECIFIED Status: Chronic Qualifiers: Osteomyelitis location: hand Laterality: left (11) PVD (peripheral vascular disease) Code(s): I73.9 - PERIPHERAL VASCULAR DISEASE, UNSPECIFIED Status: Chronic (12) Physical deconditioning Code(s): R53.81 - OTHER MALAISE Status: Chronic (13) Substance abuse Code(s): F19.10 - OTHER PSYCHOACTIVE SUBSTANCE ABUSE, UNCOMPLICATED Status: Chronic (14) Urge incontinence Code(s): N39.41 - URGE INCONTINENCE Status: Chronic (15) Type 2 diabetes mellitus with hyperglycemia Code(s): E11.65 - TYPE 2 DIABETES MELLITUS WITH HYPERGLYCEMIA Status: Suspected Qualifiers: Diabetes mellitus group home insulin use: with exterminator termite use Qualified Code( s): E11.65 - Type 2 diabetes mellitus with hyperglycemia; Z79.4 - intermodal truck driver ( current) use of insulin; Z79.4 - care home (current) use of insulin; Z79.4 - care home (current) use of insulin; Z79.4 - care home (current) use of insulin (16) ECTOR (acute kidney injury) Code(s): N17.9 - ACUTE KIDNEY FAILURE, UNSPECIFIED Status: Resolved (17) Endocarditis due to Staphylococcus Code(s): I33.0 - ACUTE AND SUBACUTE INFECTIVE ENDOCARDITIS; B95.8 - UNSP STAPHYLOCOCCUS THE CAUSE OF DISEASES CLASSD ELSWHR Status: Resolved - Plan Plan: Plan: 11/29/17 - increased metformin to 1,000 BID 11/26, lantus to 60 AM, 50 PM, accucheck qAC- HS - working hard on dispo. Possibly home with step-dad. SSI application is submitted. Placement applications submitted to [facility]. - Rifampin through 11/28, Vanc through 12/08 - Increased Lisinopril to 20mg daily on 11/28 - Debridement of hands last week with Dr. 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 CM is working on placement, but this has proved difficult with patient's homeless status - Ibuprofen and tylenol for pain control Endocarditis s/p treatment with IV abx - MRSA with pulmonary emboli, renal emboli, osteomyelitis, and discitis of C5-6 - Negative cultures on 10/28/2017 - s/p treatment with 6 weeks vancomycin/daptomycin - Complications include PICC line infection with Klebsiella requiring treatment with levaquin at outside facility - Continue rifampin x1 month (end date 11/28) - Echo showed normal EF - Echo completed 10/31 Gangrenous Toes -S/p amputation R 5th toe. -Continue wound care Osteomyelitis R. Thumb -ESR elevated. X-ray shows early osteomyelitis/ S/p I&D -MRI UE- shows osteomyelitis of L. Thumb. Correlate with LE MRI as could be systemic disease as well. Scleroderma or Raynouds. -Hand Surgery consulted- Dr. Guerra- will follow recs -R thumb cx grew MRSA and chloe albicans, continue vanc -nail debridement and removal w/ Dr. Guerra 11/21 -Continue wound care Physical Deconditioning - Patient unable to walk without assistance since being hospitalized past two months for sepsis 2/2 endocarditis, NSTEMI, and DKA at [facility] - Unable to care for self and homeless - No family support - CM consulted; appreciate recs - D/C planning process started - Emery Grinder consulted; appreciate recs - PT/OT to evaluate and treat patient - Working on placement Uncontrolled Type II DM with hyperglycemia - BG 599 on admission - SSI aggressive, required 8 units SSI yesterday. - have titrated up to Levemir 50units BID, this morning sugar wnl, will continue to monitor throughout the day, increase basal insulin tomorrow if not at goal. - accuchecks ACHS Mental Disability with Schizophrenia 2/2 schizophrenia. The patient has decreased mental functional capacity. She functions at the level of a child. It is likely that this is part of the natural progression of her schizophrenia. The patient does not have the ability to care for herself in any capacity. - CM on board for placement - Continue Remeron and Quetiapine CAD s/p OR - Hospitalized recently at [facility]; discharged earlier this week. - Lovenox for DVT PPX - Continue medications from last hospitalization - Echo with normal EF, no plans for cardiac catheterization at outside hospital Moderate Protein-Calorie Malnutrition - Albumin 2.6. Prealbumin lower than 5 - P normal. Mag low replaced - Ensure high protein supplementation - Emery Grinder consult; appreciate recommendations - TSH normal - continue PT/OT Chronic Normocytic Anemia - Stable - Has been iron deficiency in the past - Hg 9.4 on admission. At baseline - Continue to trend with weekly labs - Patient asymptomatic currently - Iron deficiency vs. ACD ECTOR on CKD- Resolved - Stable. 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 - Will monitor closely and adjust as needed COPD - Monitor O2 sats with goal >88% - Duoneb treatments PRN for shortness of breath/wheezing PVD - Pulses intact - CV surgery consulted- Will assess PAD for healing in legs. Will follow recs Mild anion gap metabolic acidosis-Resolved - Resolved Sacral decubitus ulcer - Consult wound care - Frequent turning of patient
[2017-11-29 12:28] LABS: Vancomycin, Trough 22.1 ug/mL
[2017-11-29] MEDS: Vancomycin HCl 750 MG in Sodium Chloride 0.9% 250 ML 250 ML IVPB SCH ×2 (13:03→23:35)
--- NOTE | 2017-11-29 13:57 | ADD-PRG ---
ADDENDUM To the note of Dr. Dash Sanon. Ms. Stephenson is awake, alert and cheerful this morning. Her blood pressure is 144/78 and respirations 16. She is afebrile with a pulse rate of 90. Her blood glucose levels are improving and now aver ed between 94-130. Case management is working diligently on placement. She will likely go to a [facility] home for further IV antibiotic therapy and rehabilitation. We will continue to monitor her blood glucose levels.
[2017-11-29] MEDS: Mirtazapine 15 MG TAB PO SCH (20:23)
[2017-11-29] MEDS: Atorvastatin Calcium 20 MG TAB PO SCH (20:23)
[2017-11-29] MEDS: Insulin Detemir 100 UNITS/ML 50 UNITS in Pre-Filled Syringe 1 EACH SC SCH (20:24)
[2017-11-29] MEDS: Acetaminophen 325 MG TAB PO PRN (20:28)
[2017-11-29] MEDS: Ibuprofen 800 MG TAB PO PRN (23:39)
--- NOTE | 2017-11-30 06:19 | PDOC.FM ---
- Subjective Subjective: This morning the patient states she is doing well. States she is eating and drinking well without any N/V/D. Denies any pain in the hands or the feet. Is continuing to walk around the unit on her own without difficulty. - Objective Vital Signs & Weight: Vital Signs (12 hours) Temp Pulse Resp BP Pulse Ox 11/29/17 20:00 98.6 F 112 H 16 142/88 H 99 Weight Admit Weight 46.357 kg Weight 45.813 kg I&O: 11/28/17 11/29/17 11/30/17 06:59 06:59 06:59 Intake Total 3630 2280 1250 Balance 3630 2280 1250 Result Diagrams: 11/27/17 11:03 11/27/17 11:03 Phys Exam - Physical Examination Constitutional: NAD HEENT: PERRLA dry oral mucosa Neck: no nodes, full ROM Respiratory: no wheezing, clear to auscultation bilateral Cardiovascular: RRR, no significant murmur Gastrointestinal: soft, non-tender, no distention, positive bowel sounds Musculoskeletal: no edema, pulses present Neurological: non-focal, moves all 4 limbs Psychiatric: normal affect, A&O x 3 Skin: no rash, cap refill <2 seconds Deviation from normal: wounds on fingers appear to be healing, no signs of increased inflammation Dx/Plan (1) Discitis of cervical region Code(s): M46.42 - DISCITIS, UNSPECIFIED, CERVICAL REGION Status: Acute (2) Dry gangrene Code(s): I96 - GANGRENE, NOT ELSEWHERE CLASSIFIED Status: Acute (3) Mental disability Code(s): F79 - UNSPECIFIED INTELLECTUAL DISABILITIES Status: Acute (4) Schizophrenia Code(s): F20.9 - SCHIZOPHRENIA, UNSPECIFIED Status: Acute Qualifiers: Schizophrenia type: unspecified Qualified Code(s): F20.9 - Schizophrenia, unspecified (5) Septic arthritis of cervical spine Code(s): M46.52 - OTHER INFECTIVE SPONDYLOPATHIES, CERVICAL REGION Status: Acute (6) CAD (coronary artery disease) Code(s): I25.10 - ATHSCL HEART DISEASE OF [place] CORONARY ARTERY W/O ANG PCTRS Status: Chronic Qualifiers: Associated angina: without angina (7) COPD (chronic obstructive pulmonary disease) Status: Chronic Qualifiers: COPD type: unspecified COPD Qualified Code(s): J44.9 - Chronic obstructive pulmonary disease, unspecified (8) HTN (hypertension) Code(s): I10 - ESSENTIAL (PRIMARY) HYPERTENSION Status: Chronic Qualifiers: Hypertension type: essential hypertension Qualified Code(s): I10 - Essential (primary) hypertension (9) Moderate protein-calorie malnutrition Code(s): E44.0 - MODERATE PROTEIN-CALORIE MALNUTRITION Status: Chronic (10) Osteomyelitis Code(s): M86.9 - OSTEOMYELITIS, UNSPECIFIED Status: Chronic Qualifiers: Osteomyelitis location: hand Laterality: left (11) PVD (peripheral vascular disease) Code(s): I73.9 - PERIPHERAL VASCULAR DISEASE, UNSPECIFIED Status: Chronic (12) Physical deconditioning Code(s): R53.81 - OTHER MALAISE Status: Chronic (13) Substance abuse Code(s): F19.10 - OTHER PSYCHOACTIVE SUBSTANCE ABUSE, UNCOMPLICATED Status: Chronic (14) Urge incontinence Code(s): N39.41 - URGE INCONTINENCE Status: Chronic (15) Type 2 diabetes mellitus with hyperglycemia Code(s): E11.65 - TYPE 2 DIABETES MELLITUS WITH HYPERGLYCEMIA Status: Suspected Qualifiers: Diabetes mellitus oil heaterman insulin use: with oil heaterman use Qualified Code( s): E11.65 - Type 2 diabetes mellitus with hyperglycemia; Z79.4 - termite control representative ( current) use of insulin; Z79.4 - termite control representative (current) use of insulin; Z79.4 - termite control representative (current) use of insulin; Z79.4 - termite control representative (current) use of insulin (16) ECTOR (acute kidney injury) Code(s): N17.9 - ACUTE KIDNEY FAILURE, UNSPECIFIED Status: Resolved (17) Endocarditis due to Staphylococcus Code(s): I33.0 - ACUTE AND SUBACUTE INFECTIVE ENDOCARDITIS; B95.8 - UNSP STAPHYLOCOCCUS THE CAUSE OF DISEASES CLASSD ELSWHR Status: Resolved - Plan Plan: Plan: 11/29/17 - increased metformin to 1,000 BID 11/26, lantus to 60 AM, 50 PM, accucheck qAC- HS, sugars well controlled on this regimen - working hard on dispo. Possibly home with step-dad. SSI application is submitted. Placement applications submitted to [facility]. - denied for [place] [facility], awaiting response from [place] - Rifampin through 11/28, Vanc through 12/08 - Increased Lisinopril to 20mg daily on 11/28 - Debridement of hands last week with Dr. Guerra - consulted [facility] for psych eval, patient has obvious mental disability researching psych history - Tachycardia likely 2/2 dehydration, EKG shows regular rhythm, no Qt prolongation, will encourage fluids today Discitis/Septic arthritis of C5-6 - Concern for this dx based on MRI - Dr Bosch has been consulted, will continue IV vanc until 12/08 (PICC line placed on 11/07 in L arm) - Neuro surgery on board, appreciate recs - Patient pending placement, but has been declined from 3 facilities so far. CM is working on placement, but this has proved difficult with patient's homeless status - Ibuprofen and tylenol for pain control Endocarditis s/p treatment with IV abx - MRSA with pulmonary emboli, renal emboli, osteomyelitis, and discitis of C5-6 - Negative cultures on 10/28/2017 - s/p treatment with 6 weeks vancomycin/daptomycin - Complications include PICC line infection with Klebsiella requiring treatment with levaquin at outside facility - Continue rifampin x1 month (end date 11/28) - Echo showed normal EF - Echo completed 10/31 Gangrenous Toes -S/p amputation R 5th toe. -Continue wound care Osteomyelitis R. Thumb -ESR elevated. X-ray shows early osteomyelitis/ S/p I&D -MRI UE- shows osteomyelitis of L. Thumb. Correlate with LE MRI as could be systemic disease as well. Scleroderma or Raynouds. -Hand Surgery consulted- Dr. Guerra- will follow recs -R thumb cx grew MRSA and chloe albicans, continue vanc -nail debridement and removal w/ Dr. Guerra 11/21 -Continue wound care Physical Deconditioning - Patient unable to walk without assistance since being hospitalized past two months for sepsis 2/2 endocarditis, NSTEMI, and DKA at [facility] - Unable to care for self and homeless - No family support - CM consulted; appreciate recs - D/C planning process started - Automobile Service Station Attendant consulted; appreciate recs - PT/OT to evaluate and treat patient - Working on placement Uncontrolled Type II DM with hyperglycemia - BG 599 on admission - SSI aggressive, required 8 units SSI yesterday. - have titrated up to Levemir 50units BID, this morning sugar wnl, will continue to monitor throughout the day, increase basal insulin tomorrow if not at goal. - accbertha TYLER Mental Disability with Schizophrenia 2/2 schizophrenia. The patient has decreased mental functional capacity. She functions at the level of a child. It is likely that this is part of the natural progression of her schizophrenia. The patient does not have the ability to care for herself in any capacity. - CM on board for placement - Continue Remeron and Quetiapine CAD s/p CO - Hospitalized recently at [facility]; discharged earlier this week. - Lovenox for DVT PPX - Continue medications from last hospitalization - Echo with normal EF, no plans for cardiac catheterization at outside hospital Moderate Protein-Calorie Malnutrition - Albumin 2.6. Prealbumin lower than 5 - P normal. Mag low replaced - Ensure high protein supplementation - Automobile Service Station Attendant consult; appreciate recommendations - TSH normal - continue PT/OT Chronic Normocytic Anemia - Stable - Has been iron deficiency in the past - Hg 9.4 on admission. At baseline - Continue to trend with weekly labs - Patient asymptomatic currently - Iron deficiency vs. ACD ECTOR on CKD- Resolved - Stable. 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 - Will monitor closely and adjust as needed COPD - Monitor O2 sats with goal >88% - Duoneb treatments PRN for shortness of breath/wheezing PVD - Pulses intact - CV surgery consulted- Will assess PAD for healing in legs. Will follow recs Mild anion gap metabolic acidosis-Resolved - Resolved Sacral decubitus ulcer - Consult wound care - Frequent turning of patient
[2017-11-30] MEDS: metFORMIN 500 MG TAB PO SCH ×2 (08:52→16:58)
[2017-11-30] MEDS: Aspirin 325 mg Enteric Coated Tablet PO SCH (08:52)
[2017-11-30] MEDS: Insulin Detemir 100 UNITS/ML 60 UNITS in Pre-Filled Syringe 1 EACH SC SCH (08:52)
[2017-11-30] MEDS: Metoprolol Tartrate 50 MG TAB PO SCH ×2 (08:52→20:32)
[2017-11-30] MEDS: Lisinopril 20 MG TAB PO SCH (08:52)
[2017-11-30] MEDS: Magnesium Chloride 64 MG TAB PO SCH ×2 (08:53→20:31)
[2017-11-30] MEDS: Polyethylene Glycol 3350 17 GM Packet PO SCH (08:53)
[2017-11-30] MEDS: Enoxaparin Sodium 40 MG/0.4 ML SYRINGE SC SCH (08:53)
[2017-11-30] MEDS: Vancomycin HCl 750 MG in Sodium Chloride 0.9% 250 ML 250 ML IVPB SCH (12:22)
--- NOTE | 2017-11-30 14:19 | ADD-PRG ---
DATE OF SERVICE: 11/30/2017 This is an addendum to the note of Dr. Dash Sanon. Ms. Stephenson is her usual happy self this morning. She has walked in the [place] without difficulty. We are awaiting placement in a special facility so she can continue her IV antibiotic therapy and gluco se monitoring for her type 2 diabetes.
[2017-11-30] MEDS: Atorvastatin Calcium 20 MG TAB PO SCH (20:31)
[2017-11-30] MEDS: Mirtazapine 15 MG TAB PO SCH (20:32)
[2017-11-30] MEDS: Insulin Detemir 100 UNITS/ML 50 UNITS in Pre-Filled Syringe 1 EACH SC SCH (20:33)
[2017-12-01 00:56] LABS: Vancomycin, Trough 15.8 ug/mL
[2017-12-01] MEDS: Vancomycin HCl 750 MG in Sodium Chloride 0.9% 250 ML 250 ML IVPB SCH ×2 (01:11→12:32)
[2017-12-01] MEDS: Ibuprofen 800 MG TAB PO PRN (01:17)
--- NOTE | 2017-12-01 06:49 | PDOC.FM ---
- Subjective Subjective: This morning the patient states that she is feeling well overall. She denies any fevers, chills, or sweats. She is excited that her sugars are more well controlled. She is planning to go home to live with her step-father when she is ready for d/c. - Objective Vital Signs & Weight: Vital Signs (12 hours) Temp Pulse Resp BP Pulse Ox 11/30/17 21:00 98.4 F 97 20 97 11/30/17 20:00 98.4 F 97 20 151/91 H 97 Weight Admit Weight 46.357 kg Weight 45.813 kg I&O: 11/29/17 11/30/17 12/01/17 06:59 06:59 06:59 Intake Total 2280 1250 270 Balance 2280 1250 270 Result Diagrams: 11/27/17 11:03 11/27/17 11:03 <Dash Sanon - Last Filed: 12/01/17 06:47> - Objective Vital Signs & Weight: Weight Admit Weight 46.357 kg Weight 45.813 kg I&O: 11/30/17 12/01/17 12/02/17 06:59 06:59 06:59 Intake Total 7883 828 3615 Balance 5332 156 5839 Result Diagrams: 11/27/17 11:03 11/27/17 11:03 <Ariane Arguelles - Last Filed: 12/01/17 21:52> Phys Exam - Physical Examination Constitutional: NAD HEENT: PERRLA, moist MMs Neck: no nodes, full ROM Respiratory: no wheezing, clear to auscultation bilateral Cardiovascular: RRR, no significant murmur Gastrointestinal: soft, non-tender, no distention, positive bowel sounds Musculoskeletal: no edema, pulses present R toe chronically blackened Neurological: non-focal, moves all 4 limbs Psychiatric: normal affect, A&O x 3 Skin: no rash, cap refill <2 seconds Deviation from normal: small wounds still present on the fingers <Dash Sanon - Last Filed: 12/01/17 06:47> Dx/Plan (1) Discitis of cervical region Code(s): M46.42 - DISCITIS, UNSPECIFIED, CERVICAL REGION Status: Acute (2) Dry gangrene Code(s): I96 - GANGRENE, NOT ELSEWHERE CLASSIFIED Status: Acute (3) Mental disability Code(s): F79 - UNSPECIFIED INTELLECTUAL DISABILITIES Status: Acute (4) Schizophrenia Code(s): F20.9 - SCHIZOPHRENIA, UNSPECIFIED Status: Acute QualifierTitle: Schizophrenia type: unspecified Qualified Code(s): F20.9 - Schizophrenia, unspecified (5) Septic arthritis of cervical spine Code(s): M46.52 - OTHER INFECTIVE SPONDYLOPATHIES, CERVICAL REGION Status: Acute (6) CAD (coronary artery disease) Code(s): I25.10 - ATHSCL HEART DISEASE OF [place] CORONARY ARTERY W/O ANG PCTRS Status: Chronic QualifierTitle: Associated angina: without angina (7) COPD (chronic obstructive pulmonary disease) Status: Chronic QualifierTitle: COPD type: unspecified COPD Qualified Code(s): J44.9 - Chronic obstructive pulmonary disease, unspecified (8) HTN (hypertension) Code(s): I10 - ESSENTIAL (PRIMARY) HYPERTENSION Status: Chronic QualifierTitle: Hypertension type: essential hypertension Qualified Code( s): I10 - Essential (primary) hypertension (9) Moderate protein-calorie malnutrition Code(s): E44.0 - MODERATE PROTEIN-CALORIE MALNUTRITION Status: Chronic (10) Osteomyelitis Code(s): M86.9 - OSTEOMYELITIS, UNSPECIFIED Status: Chronic QualifierTitle: Osteomyelitis location: hand Laterality: left (11) PVD (peripheral vascular disease) Code(s): I73.9 - PERIPHERAL VASCULAR DISEASE, UNSPECIFIED Status: Chronic (12) Physical deconditioning Code(s): R53.81 - OTHER MALAISE Status: Chronic (13) Substance abuse Code(s): F19.10 - OTHER PSYCHOACTIVE SUBSTANCE ABUSE, UNCOMPLICATED Status: Chronic (14) Urge incontinence Code(s): N39.41 - URGE INCONTINENCE Status: Chronic (15) Type 2 diabetes mellitus with hyperglycemia Code(s): E11.65 - TYPE 2 DIABETES MELLITUS WITH HYPERGLYCEMIA Status: Suspected QualifierTitle: Diabetes mellitus technician terminal and repeater insulin use: with snf use Qualified Code(s): E11.65 - Type 2 diabetes mellitus with hyperglycemia; Z79.4 - terminal system operator (current) use of insulin; Z79.4 - FDC (current) use of insulin; Z79.4 - FDC (current) use of insulin; Z79.4 - FDC (current ) use of insulin (16) ECTOR (acute kidney injury) Code(s): N17.9 - ACUTE KIDNEY FAILURE, UNSPECIFIED Status: Resolved (17) Endocarditis due to Staphylococcus Code(s): I33.0 - ACUTE AND SUBACUTE INFECTIVE ENDOCARDITIS; B95.8 - UNSP STAPHYLOCOCCUS THE CAUSE OF DISEASES CLASSD ELSWHR Status: Resolved - Plan Plan: 11/30/17 - increased metformin to 1,000 BID 11/26, lantus to 60 AM, 50 PM, accucheck qAC- HS, sugars well controlled on this regimen - one low overnight 11/30, will stay with this regimen for another night, difficult to control bc patient is using vending machine more often now that she is able to walk on her own once again - working hard on dispo. Home with step-dad when ready. SSI application is submitted. Placement applications submitted to [facility]. - denied for juana [place]iano [place] - Rifampin through 11/28, Vanc through 12/08 - Increased Lisinopril to 20mg daily on 11/28 - Dr. Guerra following hand wounds - [facility] saw patient, states not in psychiatric crisis, does not qualify for inpatient psych Discitis/Septic arthritis of C5-6 - Concern for this dx based on MRI - Dr Bosch has been consulted, will continue IV vanc until 12/08 (PICC line placed on 11/07 in L arm) - Neuro surgery on board, appreciate recs - Patient pending placement, but has been declined from 3 facilities so far. CM is working on placement, but this has proved difficult with patient's homeless status - Ibuprofen and tylenol for pain control Endocarditis s/p treatment with IV abx - MRSA with pulmonary emboli, renal emboli, osteomyelitis, and discitis of C5-6 - Negative cultures on 10/28/2017 - s/p treatment with 6 weeks vancomycin/daptomycin - Complications include PICC line infection with Klebsiella requiring treatment with levaquin at outside facility - Continue rifampin x1 month (end date 11/28) - Echo showed normal EF - Echo completed 10/31 Gangrenous Toes -S/p amputation R 5th toe. -Continue wound care Osteomyelitis R. Thumb -ESR elevated. X-ray shows early osteomyelitis/ S/p I&D -MRI UE- shows osteomyelitis of L. Thumb. Correlate with LE MRI as could be systemic disease as well. Scleroderma or Raynouds. -Hand Surgery consulted- Dr. Guerra- will follow recs -R thumb cx grew MRSA and chloe albicans, continue vanc -nail debridement and removal w/ Dr. Guerra 11/21 -Continue wound care Physical Deconditioning - Patient unable to walk without assistance since being hospitalized past two months for sepsis 2/2 endocarditis, NSTEMI, and DKA at [facility] - Unable to care for self and homeless - No family support - CM consulted; appreciate recs - D/C planning process started - Strategic Sourcing Specialist consulted; appreciate recs - PT/OT to evaluate and treat patient - Working on placement Uncontrolled Type II DM with hyperglycemia - BG 599 on admission - SSI aggressive, required 8 units SSI yesterday. - have titrated up to Levemir 50units BID, this morning sugar wnl, will continue to monitor throughout the day, increase basal insulin tomorrow if not at goal. - accuchecks ACHS Mental Disability with Schizophrenia 2/2 schizophrenia. The patient has decreased mental functional capacity. She functions at the level of a child. It is likely that this is part of the natural progression of her schizophrenia. The patient does not have the ability to care for herself in any capacity. - CM on board for placement - Continue Remeron and Quetiapine CAD s/p LA - Hospitalized recently at [facility]; discharged earlier this week. - Lovenox for DVT PPX - Continue medications from last hospitalization - Echo with normal EF, no plans for cardiac catheterization at outside hospital Moderate Protein-Calorie Malnutrition - Albumin 2.6. Prealbumin lower than 5 - P normal. Mag low replaced - Ensure high protein supplementation - Strategic Sourcing Specialist consult; appreciate recommendations - TSH normal - continue PT/OT Chronic Normocytic Anemia - Stable - Has been iron deficiency in the past - Hg 9.4 on admission. At baseline - Continue to trend with weekly labs - Patient asymptomatic currently - Iron deficiency vs. ACD ECTOR on CKD- Resolved - Stable. Monitor BMP Hx of Chronic Substance Abuse - Last used crack and marijuana 3-4 months ago - Head [employer] on cessation - Has been hospitalized last 2 months - Recent HIV, Hep B Ag, and RPR negative - UDS negative Urge Incontinence - resolved - continue bedside toileting and work up to bathroom toileting HTN - Continue metoprolol and lisinopril. - Will monitor closely and adjust as needed COPD - Monitor O2 sats with goal >88% - Duoneb treatments PRN for shortness of breath/wheezing PVD - Pulses intact - CV surgery consulted- Will assess PAD for healing in legs. Will follow recs Mild anion gap metabolic acidosis-Resolved - Resolved Sacral decubitus ulcer - Consult wound care - Frequent turning of patient <Dash Sanon - Last Filed: 12/01/17 06:47> Attending Addendum - Attending Addendum Date/Time: 12/01/17 618 I personally evaluated the patient and discussed the management with Dr. Sanon. I agree with the History, Examination, Assessment and Plan documented above with any addition or exceptions noted below. Patient continues IV antibiotics. She is ambulating in the hallways. She denies pain. Antibiotics continue on 12/08. <Ariane Arguelles - Last Filed: 12/01/17 21:52>
[2017-12-01] MEDS: Insulin Detemir 100 UNITS/ML 60 UNITS in Pre-Filled Syringe 1 EACH SC SCH (08:58)
[2017-12-01] MEDS: Metoprolol Tartrate 50 MG TAB PO SCH ×2 (08:59→20:34)
[2017-12-01] MEDS: Lisinopril 20 MG TAB PO SCH (08:59)
[2017-12-01] MEDS: Aspirin 325 mg Enteric Coated Tablet PO SCH (09:00)
[2017-12-01] MEDS: Magnesium Chloride 64 MG TAB PO SCH ×2 (09:00→20:34)
[2017-12-01] MEDS: metFORMIN 500 MG TAB PO SCH ×2 (09:00→17:14)
[2017-12-01] MEDS: Polyethylene Glycol 3350 17 GM Packet PO SCH (09:01)
[2017-12-01] MEDS: Enoxaparin Sodium 40 MG/0.4 ML SYRINGE SC SCH (09:01)
[2017-12-01] MEDS: Acetaminophen 325 MG TAB PO PRN ×2 (09:04→20:44)
--- NOTE | 2017-12-01 18:26 | EKG ---
Test Reason : Blood Pressure : / mmHG Vent. Rate : 098 BPM Atrial Rate : 098 BPM P-R Int : 130 ms QRS Dur : 082 ms QT Int : 356 ms P-R-T Axes : 031 -48 036 degrees QTc Int : 454 ms Normal sinus rhythm Left anterior fascicular block Minimal voltage criteria for LVH, may be normal variant Nonspecific T wave abnormality Abnormal ECG When compared with ECG of 31-AUG-2017 04:30, (Unconfirmed) Nonspecific T wave abnormality no longer evident in Anterior leads Nonspecific T wave abnormality, worse in Lateral leads Confirmed by MENDY MEI, STrudy ([id number]) on 12/01/2017 6:26:32 PM Referred By: CAMMIE Confirmed By:DR. Stephanie BROOKE MD
[2017-12-01] MEDS: Atorvastatin Calcium 20 MG TAB PO SCH (20:34)
[2017-12-01] MEDS: Mirtazapine 15 MG TAB PO SCH (20:34)
[2017-12-01] MEDS: Insulin Detemir 100 UNITS/ML 50 UNITS in Pre-Filled Syringe 1 EACH SC SCH (20:37)
--- NOTE | 2017-12-01 22:46 | PRG-2 ---
DATE OF SERVICE: 12/01/2017 This is a transition of care note for the team who [facility] SUBJECTIVE: This is a 52-year-old female with past medical history of schizophrenia, polysubstance a buse, uncontrolled diabetes mellitus type 2, IV drug use, and infective endocarditis. She spent 6 we eks at the [facility], being treated for the endocarditis. She was discharged. She went to the [facility] for 1 night and then presented to the [facility] and was admitte d for treatment of deconditioning, septic diskitis and osteomyelitis. This note is pertaining to events from 11/18/2017-12/01/2017. For summary of hospitalization before this time, please see excellent transfer care note from Hayde Molina on 11/18/2017. During the last 2 weeks, we have continued treatment of osteomyelitis and diskitis with IV vancomycin and rifampin. The rifampin course was finished on 11/28/2017. The IV vancomycin course will contin ue for 3 days, 12/08/2017. Blood cultures taken on 11/28/2017 came back with no growth. The patient 's blood sugars have been difficult to manage as she has recently begun to walk on her own. She has been walking to the vending machine and buying many snacks throughout the day, thus making her sugars hard to control. Her current regimen is metformin 1000 mg b.i.d., Lantus 60 units a.m., 50 units p. m. Her sugars have been relatively well controlled using this regimen. She has had a couple of lows , but we decided not to address the regimen because she was asymptomatic and we wanted to achieve bet ter control to promote wound healing. As for the diskitis, septic arthritis and osteomyelitis, the patient was taken to the OR for debridem ent by Dr. Guerra on 11/21/2017. He debrided wounds of the hand. As for the patient's physical deconditioning, she has been able to walk on her own around unit during the last week or so. She has benefited greatly from the attention of PT and OT. DISPOSITION PLANNING. The patient's disposition has been very difficult secondary to SSI applicatio n. The SSI application was partially submitted to [employer] by the family. It took many we eks of controlling to get them to finish the application and the hospital financial department could not assist as they had already started the process with this outside company. The patient was denied any from the [facility]. She did receive approval for SSI, but it will take weeks to months for this to process, so [facility] as her S SI is pending. Her stepfather has agreed to take her home. The patient states that this is a safe p lace and she is looking forward to going home with her stepfather. This is the plan that she will go home with her stepfather on 12/08/2017. The patient was evaluated by [facility] and they stated that she did not need inpatient psychiatric treatment at this time. The patient's family is concerned that sh paulo may go back to IV drug usage when she gets home and they had expressed concern that they wanted her to be in a senior living, but as this is not an option at this time, being with her stepfather will b e the best.
[2017-12-02] MEDS: Vancomycin HCl 750 MG in Sodium Chloride 0.9% 250 ML 250 ML IVPB SCH ×2 (00:42→12:44)
--- NOTE | 2017-12-02 05:22 | PDOC.FM ---
- Subjective Subjective: This morning patient states she is feeling well overall. She has been walking around the unit many times per day, states she is tired from walking so much yesterday. Denies pain in hands or feet. - Objective Vital Signs & Weight: Vital Signs (12 hours) Temp Pulse Resp BP Pulse Ox 12/01/17 21:56 97.5 F L 86 20 99 12/01/17 20:00 98.0 F 102 H 18 157/92 H 99 Weight Admit Weight 46.357 kg Weight 45.813 kg I&O: 11/30/17 12/01/17 12/02/17 06:59 06:59 06:59 Intake Total 6684 846 6046 Balance 9141 018 8212 Result Diagrams: 11/27/17 11:03 11/27/17 11:03 <Dash Sanon - Last Filed: 12/02/17 07:24> - Objective Vital Signs & Weight: Vital Signs (12 hours) Temp Pulse Resp BP BP Pulse Ox 12/02/17 08:57 161/100 H 12/02/17 08:33 97.8 F 83 20 161/100 H 98 12/02/17 08:00 97.8 F 83 20 98 Weight Admit Weight 46.357 kg Weight 45.813 kg I&O: 12/01/17 12/02/17 12/03/17 06:59 06:59 06:59 Intake Total 270 2500 Balance 270 2500 Result Diagrams: 11/27/17 11:03 11/27/17 11:03 <Ariane Arguelles - Last Filed: 12/02/17 16:26> Phys Exam - Physical Examination Constitutional: NAD HEENT: PERRLA, moist MMs Neck: no nodes, full ROM Respiratory: no wheezing, clear to auscultation bilateral Cardiovascular: RRR, no significant murmur Gastrointestinal: soft, non-tender, no distention, positive bowel sounds Musculoskeletal: no edema, pulses present R 1st toe blackened Neurological: non-focal, moves all 4 limbs Psychiatric: normal affect, A&O x 3 Skin: no rash, cap refill <2 seconds <Dash Sanon - Last Filed: 12/02/17 07:24> Dx/Plan (1) Discitis of cervical region Code(s): M46.42 - DISCITIS, UNSPECIFIED, CERVICAL REGION Status: Acute (2) Dry gangrene Code(s): I96 - GANGRENE, NOT ELSEWHERE CLASSIFIED Status: Acute (3) Mental disability Code(s): F79 - UNSPECIFIED INTELLECTUAL DISABILITIES Status: Acute (4) Schizophrenia Code(s): F20.9 - SCHIZOPHRENIA, UNSPECIFIED Status: Acute QualifierTitle: Schizophrenia type: unspecified Qualified Code(s): F20.9 - Schizophrenia, unspecified (5) Septic arthritis of cervical spine Code(s): M46.52 - OTHER INFECTIVE SPONDYLOPATHIES, CERVICAL REGION Status: Acute (6) CAD (coronary artery disease) Code(s): I25.10 - ATHSCL HEART DISEASE OF [place] CORONARY ARTERY W/O ANG PCTRS Status: Chronic QualifierTitle: Associated angina: without angina (7) COPD (chronic obstructive pulmonary disease) Status: Chronic QualifierTitle: COPD type: unspecified COPD Qualified Code(s): J44.9 - Chronic obstructive pulmonary disease, unspecified (8) HTN (hypertension) Code(s): I10 - ESSENTIAL (PRIMARY) HYPERTENSION Status: Chronic QualifierTitle: Hypertension type: essential hypertension Qualified Code( s): I10 - Essential (primary) hypertension (9) Moderate protein-calorie malnutrition Code(s): E44.0 - MODERATE PROTEIN-CALORIE MALNUTRITION Status: Chronic (10) Osteomyelitis Code(s): M86.9 - OSTEOMYELITIS, UNSPECIFIED Status: Chronic QualifierTitle: Osteomyelitis location: hand Laterality: left (11) PVD (peripheral vascular disease) Code(s): I73.9 - PERIPHERAL VASCULAR DISEASE, UNSPECIFIED Status: Chronic (12) Physical deconditioning Code(s): R53.81 - OTHER MALAISE Status: Chronic (13) Substance abuse Code(s): F19.10 - OTHER PSYCHOACTIVE SUBSTANCE ABUSE, UNCOMPLICATED Status: Chronic (14) Urge incontinence Code(s): N39.41 - URGE INCONTINENCE Status: Chronic (15) Type 2 diabetes mellitus with hyperglycemia Code(s): E11.65 - TYPE 2 DIABETES MELLITUS WITH HYPERGLYCEMIA Status: Suspected QualifierTitle: Diabetes mellitus fpc insulin use: with terminal operations supervisor use Qualified Code(s): E11.65 - Type 2 diabetes mellitus with hyperglycemia; Z79.4 - penitentiary (current) use of insulin; Z79.4 - oil heaterman (current) use of insulin; Z79.4 - oil heaterman (current) use of insulin; Z79.4 - oil heaterman (current ) use of insulin (16) ECTRO (acute kidney injury) Code(s): N17.9 - ACUTE KIDNEY FAILURE, UNSPECIFIED Status: Resolved (17) Endocarditis due to Staphylococcus Code(s): I33.0 - ACUTE AND SUBACUTE INFECTIVE ENDOCARDITIS; B95.8 - UNSP STAPHYLOCOCCUS THE CAUSE OF DISEASES CLASSD ELSWHR Status: Resolved - Plan Plan: 12/02/17 - increased metformin to 1,000 BID 11/26, lantus to 60 AM, 50 PM, accucheck qAC- HS, sugars well controlled on this regimen - one low overnight 11/30, will stay with this regimen for another night, difficult to control bc patient is using vending machine more often now that she is able to walk on her own once again - Home with step-dad when ready. SSI application is submitted, pending SSI, can take months. - denied for juana [place]iano [place] - Rifampin through 11/28, Vanc through 12/08 - Increased Lisinopril to 20mg daily on 11/28 - Dr. Guerra following hand wounds - MR saw patient, states not in psychiatric crisis, does not qualify for inpatient psych - Vanc trough 15.8 on 12/01, pharmacy is monitoring - R first toe should be evaluated before d/c Discitis/Septic arthritis of C5-6 - Concern for this dx based on MRI - Dr Bosch has been consulted, will continue IV vanc until 12/08 (PICC line placed on 11/07 in L arm) - Neuro surgery on board, appreciate recs - Patient pending placement, but has been declined from 3 facilities so far. CM is working on placement, but this has proved difficult with patient's homeless status - Ibuprofen and tylenol for pain control Endocarditis s/p treatment with IV abx - MRSA with pulmonary emboli, renal emboli, osteomyelitis, and discitis of C5-6 - Negative cultures on 10/28/2017 - s/p treatment with 6 weeks vancomycin/daptomycin - Complications include PICC line infection with Klebsiella requiring treatment with levaquin at outside facility - Continue rifampin x1 month (end date 11/28) - Echo showed normal EF - Echo completed 10/31 Gangrenous Toes -S/p amputation R 5th toe. -Continue wound care Osteomyelitis R. Thumb -ESR elevated. X-ray shows early osteomyelitis/ S/p I&D -MRI UE- shows osteomyelitis of L. Thumb. Correlate with LE MRI as could be systemic disease as well. Scleroderma or Raynouds. -Hand Surgery consulted- Dr. Guerra- will follow recs -R thumb cx grew MRSA and chloe albicans, continue vanc -nail debridement and removal w/ Dr. Guerra 11/21 -Continue wound care Physical Deconditioning - Patient unable to walk without assistance since being hospitalized past two months for sepsis 2/2 endocarditis, NSTEMI, and DKA at [facility] - Unable to care for self and homeless - No family support - CM consulted; appreciate recs - D/C planning process started - Lace Inspector consulted; appreciate recs - PT/OT to evaluate and treat patient - Working on placement Uncontrolled Type II DM with hyperglycemia - BG 599 on admission - SSI aggressive, required 8 units SSI yesterday. - have titrated up to Levemir 50units BID, this morning sugar wnl, will continue to monitor throughout the day, increase basal insulin tomorrow if not at goal. - accuchecks ACHS Mental Disability with Schizophrenia 2/2 schizophrenia. The patient has decreased mental functional capacity. She functions at the level of a child. It is likely that this is part of the natural progression of her schizophrenia. The patient does not have the ability to care for herself in any capacity. - CM on board for placement - Continue Remeron and Quetiapine CAD s/p [place] - Hospitalized recently at [facility]; discharged earlier this week. - Lovenox for DVT PPX - Continue medications from last hospitalization - Echo with normal EF, no plans for cardiac catheterization at outside hospital Moderate Protein-Calorie Malnutrition - Albumin 2.6. Prealbumin lower than 5 - P normal. Mag low replaced - Ensure high protein supplementation - Lace Inspector consult; appreciate recommendations - TSH normal - continue PT/OT Chronic Normocytic Anemia - Stable - Has been iron deficiency in the past - Hg 9.4 on admission. At baseline - Continue to trend with weekly labs - Patient asymptomatic currently - Iron deficiency vs. ACD ECTOR on CKD- Resolved - Stable. Monitor BMP Hx of Chronic Substance Abuse - Last used crack and marijuana 3-4 months ago - [employer] on cessation - Has been hospitalized last 2 months - Recent HIV, Hep B Ag, and RPR negative - UDS negative Urge Incontinence - resolved - continue bedside toileting and work up to bathroom toileting HTN - Continue metoprolol and lisinopril. - Will monitor closely and adjust as needed COPD - Monitor O2 sats with goal >88% - Duoneb treatments PRN for shortness of breath/wheezing PVD - Pulses intact - CV surgery consulted- Will assess PAD for healing in legs. Will follow recs Mild anion gap metabolic acidosis-Resolved - Resolved Sacral decubitus ulcer - Consult wound care - Frequent turning of patient <Dash Sanon - Last Filed: 12/02/17 07:24> Attending Addendum - Attending Addendum Date/Time: 12/02/17 8450 I personally evaluated the patient and discussed the management with Dr. Sanon. I agree with the History, Examination, Assessment and Plan documented above with any addition or exceptions noted below. Blood sugars are improved. She remains on IV antibiotics. Patient is ambulating frequently. <Ariane Arguelles - Last Filed: 12/02/17 16:26>
[2017-12-02] MEDS: Ibuprofen 800 MG TAB PO PRN ×2 (06:27→17:03)
[2017-12-02] MEDS: Lisinopril 20 MG TAB PO SCH (08:57)
[2017-12-02] MEDS: Metoprolol Tartrate 50 MG TAB PO SCH ×2 (08:57→20:26)
[2017-12-02] MEDS: Aspirin 325 mg Enteric Coated Tablet PO SCH (08:58)
[2017-12-02] MEDS: metFORMIN 500 MG TAB PO SCH ×2 (08:58→17:03)
[2017-12-02] MEDS: Enoxaparin Sodium 40 MG/0.4 ML SYRINGE SC SCH (08:59)
[2017-12-02] MEDS: Magnesium Chloride 64 MG TAB PO SCH ×2 (08:59→20:27)
[2017-12-02] MEDS: Polyethylene Glycol 3350 17 GM Packet PO SCH (09:00)
[2017-12-02] MEDS: Insulin Detemir 100 UNITS/ML 60 UNITS in Pre-Filled Syringe 1 EACH SC SCH (09:01)
[2017-12-02] MEDS: Mirtazapine 15 MG TAB PO SCH (20:26)
[2017-12-02] MEDS: Atorvastatin Calcium 20 MG TAB PO SCH (20:26)
[2017-12-02] MEDS: Insulin Detemir 100 UNITS/ML 50 UNITS in Pre-Filled Syringe 1 EACH SC SCH (20:28)
[2017-12-03] MEDS: Vancomycin HCl 750 MG in Sodium Chloride 0.9% 250 ML 250 ML IVPB SCH ×2 (00:25→13:10)
[2017-12-03] MEDS: Acetaminophen 325 MG TAB PO PRN ×2 (00:30→20:58)
[2017-12-03] MEDS: metFORMIN 500 MG TAB PO SCH ×2 (08:43→16:55)
[2017-12-03] MEDS: Aspirin 325 mg Enteric Coated Tablet PO SCH (08:43)
[2017-12-03] MEDS: Lisinopril 20 MG TAB PO SCH (08:44)
[2017-12-03] MEDS: Magnesium Chloride 64 MG TAB PO SCH ×2 (08:44→20:47)
[2017-12-03] MEDS: Metoprolol Tartrate 50 MG TAB PO SCH ×2 (08:44→20:47)
[2017-12-03] MEDS: Enoxaparin Sodium 40 MG/0.4 ML SYRINGE SC SCH (08:45)
[2017-12-03] MEDS: Insulin Detemir 100 UNITS/ML 60 UNITS in Pre-Filled Syringe 1 EACH SC SCH (08:45)
[2017-12-03] MEDS: Polyethylene Glycol 3350 17 GM Packet PO SCH (08:46)
--- NOTE | 2017-12-03 09:30 | PDOC.FM ---
- Subjective Subjective: No acute events overnight. Pt reports she is feeling well. Spoke with pt regarding positive T pallidum ABS and she states that she has been previously treated for syphillis "a while ago." Does not recall treatment modailty or duration or with what she was treated with. - Objective Vital Signs & Weight: Vital Signs (12 hours) Temp Pulse Resp BP BP Pulse Ox 12/03/17 08:44 159/95 H 12/03/17 07:39 97.6 F 90 16 159/95 H 98 Weight Admit Weight 46.357 kg Weight 45.813 kg I&O: 12/02/17 12/03/17 12/04/17 06:59 06:59 06:59 Intake Total 2500 2960 Balance 2500 2960 Result Diagrams: 11/27/17 11:03 11/27/17 11:03 <Danyel Marie - Last Filed: 12/03/17 11:13> - Objective Vital Signs & Weight: Vital Signs (12 hours) Temp Pulse Resp BP BP BP Pulse Ox 12/03/17 16:16 97.6 F 98 16 130/51 L 97 12/03/17 11:37 98 F 97 16 136/62 12/03/17 08:44 159/95 H 12/03/17 08:00 97.6 F 90 16 98 12/03/17 07:39 97.6 F 90 16 159/95 H 98 Weight Admit Weight 46.357 kg Weight 45.813 kg I&O: 12/02/17 12/03/17 12/04/17 06:59 06:59 06:59 Intake Total 2500 2960 Balance 2500 2960 Result Diagrams: 11/27/17 11:03 11/27/17 11:03 <Sheri Cardoza - Last Filed: 12/03/17 17:55> Phys Exam - Physical Examination Constitutional: NAD HEENT: PERRLA, sclera anicteric Neck: no nodes, no JVD Respiratory: no wheezing, no rales, no rhonchi, clear to auscultation bilateral Cardiovascular: RRR, no significant murmur, no rub Gastrointestinal: soft, non-tender, no distention, positive bowel sounds Musculoskeletal: no edema, pulses present Neurological: non-focal, moves all 4 limbs Deviation from normal: Dry gangrene 1st rt great toe <Danyel Marie - Last Filed: 12/03/17 11:13> Dx/Plan (1) Discitis of cervical region Code(s): M46.42 - DISCITIS, UNSPECIFIED, CERVICAL REGION Status: Acute (2) Dry gangrene Code(s): I96 - GANGRENE, NOT ELSEWHERE CLASSIFIED Status: Acute (3) Mental disability Code(s): F79 - UNSPECIFIED INTELLECTUAL DISABILITIES Status: Acute (4) Schizophrenia Code(s): F20.9 - SCHIZOPHRENIA, UNSPECIFIED Status: Acute QualifierTitle: Schizophrenia type: unspecified Qualified Code(s): F20.9 - Schizophrenia, unspecified (5) Septic arthritis of cervical spine Code(s): M46.52 - OTHER INFECTIVE SPONDYLOPATHIES, CERVICAL REGION Status: Acute (6) CAD (coronary artery disease) Code(s): I25.10 - ATHSCL HEART DISEASE OF [place] CORONARY ARTERY W/O ANG PCTRS Status: Chronic QualifierTitle: Associated angina: without angina (7) COPD (chronic obstructive pulmonary disease) Status: Chronic QualifierTitle: COPD type: unspecified COPD Qualified Code(s): J44.9 - Chronic obstructive pulmonary disease, unspecified (8) HTN (hypertension) Code(s): I10 - ESSENTIAL (PRIMARY) HYPERTENSION Status: Chronic QualifierTitle: Hypertension type: essential hypertension Qualified Code( s): I10 - Essential (primary) hypertension (9) Moderate protein-calorie malnutrition Code(s): E44.0 - MODERATE PROTEIN-CALORIE MALNUTRITION Status: Chronic (10) Osteomyelitis Code(s): M86.9 - OSTEOMYELITIS, UNSPECIFIED Status: Chronic QualifierTitle: Osteomyelitis location: hand Laterality: left (11) PVD (peripheral vascular disease) Code(s): I73.9 - PERIPHERAL VASCULAR DISEASE, UNSPECIFIED Status: Chronic (12) Substance abuse Code(s): F19.10 - OTHER PSYCHOACTIVE SUBSTANCE ABUSE, UNCOMPLICATED Status: Chronic (13) Type 2 diabetes mellitus with hyperglycemia Code(s): E11.65 - TYPE 2 DIABETES MELLITUS WITH HYPERGLYCEMIA Status: Suspected QualifierTitle: Diabetes mellitus supervisor intermediates insulin use: with skilled nursing use Qualified Code(s): E11.65 - Type 2 diabetes mellitus with hyperglycemia; Z79.4 - long term care administrator (current) use of insulin; Z79.4 - halfway (current) use of insulin; Z79.4 - halfway (current) use of insulin; Z79.4 - halfway (current ) use of insulin (14) Endocarditis due to Staphylococcus Code(s): I33.0 - ACUTE AND SUBACUTE INFECTIVE ENDOCARDITIS; B95.8 - UNSP STAPHYLOCOCCUS THE CAUSE OF DISEASES CLASSD ELSWHR Status: Resolved (15) Acquired syphilis Code(s): A53.9 - SYPHILIS, UNSPECIFIED Status: Acute - Plan Plan: Discitis/Septic arthritis of C5-6 - Continue IV abx until 12/08 - Ibuprofen and tylenol for pain control Endocarditis s/p treatment with IV abx - IV abx until 12/08 - ID consulted appreciate recs Gangrenous Toes -S/p amputation R 5th toe. -Continue wound care - touch base with gen surg today to make sure there is no future procedures planned Osteomyelitis R. Thumb -continue vanc and wound care Physical Deconditioning, improved - placement unavailable, plan for dc is to go home with step father after her last dose of IV vanc Uncontrolled Type II DM with hyperglycemia - have titrated up to Levemir 50units BID, this morning sugar wnl, will continue to monitor throughout the day, increase basal insulin tomorrow if not at goal. - accuchecks ACHS -goal BS <200 to promote wound healing - continue current regimen and SSI day and night Mental Disability with Schizophrenia 2/2 schizophrenia. - CM on board for placement - Continue Remeron and Quetiapine CAD s/p GA - stable, cont current meds Moderate Protein-Calorie Malnutrition - dietary consulted appreciate recs -protein calorie supplementation - continue PT/OT Chronic Normocytic Anemia - Stable Hx of Chronic Substance Abuse - Recent HIV, Hep B Ag, and RPR negative - UDS negative - FTS abs positive this admission, will get with ID concerning new T Pallidum results HTN - cont current meds COPD - Monitor O2 sats with goal >88% - Duoneb treatments PRN for shortness of breath/wheezing PVD - Pulses intact - CV surgery consulted- Will assess PAD for healing in legs. 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 -positive T Pallidum ABS - ID consulted, will call and touch base for recommendations - per pt h/o syphillis s/p treatment "a while ago" <Danyel Marie - Last Filed: 12/03/17 11:13> (1) Type 2 diabetes mellitus with hyperglycemia Code(s): E11.65 - TYPE 2 DIABETES MELLITUS WITH HYPERGLYCEMIA Status: Suspected Qualifiers: Diabetes mellitus skilled nursing insulin use: with skilled nursing use Qualified Code( s): E11.65 - Type 2 diabetes mellitus with hyperglycemia; Z79.4 - halfway ( current) use of insulin; Z79.4 - long term care administrator (current) use of insulin; Z79.4 - long term care administrator (current) use of insulin; Z79.4 - long term care administrator (current) use of insulin (2) Hyponatremia Code(s): E87.1 - HYPO-OSMOLALITY AND HYPONATREMIA Status: Acute (3) Moderate protein-calorie malnutrition Code(s): E44.0 - MODERATE PROTEIN-CALORIE MALNUTRITION Status: Chronic (4) CAD (coronary artery disease) Code(s): I25.10 - ATHSCL HEART DISEASE OF [place] CORONARY ARTERY W/O ANG PCTRS Status: Chronic Qualifiers: Associated angina: without angina (5) Chronic anemia Code(s): D64.9 - ANEMIA, UNSPECIFIED Status: Chronic (6) Physical deconditioning Code(s): R53.81 - OTHER MALAISE Status: Chronic (7) Substance abuse Code(s): F19.10 - OTHER PSYCHOACTIVE SUBSTANCE ABUSE, UNCOMPLICATED Status: Chronic (8) ECTOR (acute kidney injury) Code(s): N17.9 - ACUTE KIDNEY FAILURE, UNSPECIFIED Status: Resolved (9) Urge incontinence Code(s): N39.41 - URGE INCONTINENCE Status: Chronic (10) HTN (hypertension) Code(s): I10 - ESSENTIAL (PRIMARY) HYPERTENSION Status: Chronic Qualifiers: Hypertension type: essential hypertension Qualified Code(s): I10 - Essential (primary) hypertension (11) COPD (chronic obstructive pulmonary disease) Status: Chronic Qualifiers: COPD type: unspecified COPD Qualified Code(s): J44.9 - Chronic obstructive pulmonary disease, unspecified (12) PVD (peripheral vascular disease) Code(s): I73.9 - PERIPHERAL VASCULAR DISEASE, UNSPECIFIED Status: Chronic (13) Endocarditis due to Staphylococcus Code(s): I33.0 - ACUTE AND SUBACUTE INFECTIVE ENDOCARDITIS; B95.8 - UNSP STAPHYLOCOCCUS THE CAUSE OF DISEASES CLASSD ELSWHR Status: Resolved <Sheri Cardoza - Last Filed: 12/03/17 17:55> Attending Addendum - Attending Addendum Date/Time: 12/03/17 7851 I personally evaluated the patient and discussed the management with Dr. Marie and Dr. Garner I agree with the History, Examination, Assessment and Plan documented above with any addition or exceptions noted below. 52 yo female with multiple medical conditions admitted for MRSA infection. HD#33 ID following. Continue Vanc. Trend trough. Concern for worsening dry gangrene to toe. Will have gen surg evaluate. Concern for latent syphilis. Treatment in the past. RPR nonreactive. IgG/IgM indeterminate. FTA positive. This could indicate only the presents of a past infection due to negative nontreponemal test and positive treponemal and not latent. Will follow up with ID to confirm. ABrayMD <Sheri Cardoza - Last Filed: 12/03/17 17:55>
[2017-12-03] MEDS: HumaLOG 300 UNITS/3 ML VIAL SC PRN (16:57)
[2017-12-03] MEDS: Ibuprofen 800 MG TAB PO PRN (16:58)
[2017-12-03] MEDS: Mirtazapine 15 MG TAB PO SCH (20:47)
[2017-12-03] MEDS: Insulin Detemir 100 UNITS/ML 50 UNITS in Pre-Filled Syringe 1 EACH SC SCH (20:48)
[2017-12-03] MEDS: Atorvastatin Calcium 20 MG TAB PO SCH (20:58)
[2017-12-04] MEDS: Vancomycin HCl 750 MG in Sodium Chloride 0.9% 250 ML 250 ML IVPB SCH ×2 (00:29→13:22)
[2017-12-04] MEDS: metFORMIN 500 MG TAB PO SCH ×2 (09:16→17:15)
[2017-12-04] MEDS: Magnesium Chloride 64 MG TAB PO SCH ×2 (09:17→20:16)
[2017-12-04] MEDS: Lisinopril 20 MG TAB PO SCH (09:17)
[2017-12-04] MEDS: Aspirin 325 mg Enteric Coated Tablet PO SCH (09:17)
[2017-12-04] MEDS: Insulin Detemir 100 UNITS/ML 60 UNITS in Pre-Filled Syringe 1 EACH SC SCH (09:17)
[2017-12-04] MEDS: Metoprolol Tartrate 50 MG TAB PO SCH ×2 (09:17→20:17)
[2017-12-04] MEDS: Polyethylene Glycol 3350 17 GM Packet PO SCH (09:18)
[2017-12-04] MEDS: Enoxaparin Sodium 40 MG/0.4 ML SYRINGE SC SCH (09:18)
--- NOTE | 2017-12-04 09:31 | PDOC.FM ---
- Subjective Subjective: Pt had one episode of sweats and feeling bad asosciated with low bs. Feeling passed after juice and bs recovered. Otherwise no other complaints. - Objective Vital Signs & Weight: Vital Signs (12 hours) Temp Pulse Resp BP BP Pulse Ox 12/04/17 09:17 134/86 12/04/17 07:46 97.7 F 93 18 134/86 96 Weight Admit Weight 46.357 kg Weight 45.813 kg I&O: 12/03/17 12/04/17 12/05/17 06:59 06:59 06:59 Intake Total 2960 2290 Balance 2960 2290 Result Diagrams: 11/27/17 11:03 11/27/17 11:03 <Danyel Marie - Last Filed: 12/04/17 09:28> - Objective Vital Signs & Weight: Vital Signs (12 hours) Temp Pulse Resp BP BP Pulse Ox 12/04/17 09:17 134/86 12/04/17 08:00 97.7 F 93 18 96 12/04/17 07:46 97.7 F 93 18 134/86 96 Weight Admit Weight 46.357 kg Weight 45.813 kg I&O: 12/03/17 12/04/17 12/05/17 06:59 06:59 06:59 Intake Total 2960 2290 Balance 2960 2290 Result Diagrams: 12/04/17 12:04 12/04/17 12:04 <Sheri Cardoza - Last Filed: 12/04/17 17:49> Phys Exam - Physical Examination Constitutional: NAD HEENT: PERRLA Respiratory: no wheezing, no rales, no rhonchi, clear to auscultation bilateral Cardiovascular: RRR, no significant murmur, no rub Gastrointestinal: soft, non-tender, no distention, positive bowel sounds Musculoskeletal: no edema, pulses present Neurological: non-focal, moves all 4 limbs <Daynel Marie - Last Filed: 12/04/17 09:28> Dx/Plan (1) Discitis of cervical region Code(s): M46.42 - DISCITIS, UNSPECIFIED, CERVICAL REGION Status: Acute (2) Dry gangrene Code(s): I96 - GANGRENE, NOT ELSEWHERE CLASSIFIED Status: Acute (3) Mental disability Code(s): F79 - UNSPECIFIED INTELLECTUAL DISABILITIES Status: Acute (4) Schizophrenia Code(s): F20.9 - SCHIZOPHRENIA, UNSPECIFIED Status: Acute QualifierTitle: Schizophrenia type: unspecified Qualified Code(s): F20.9 - Schizophrenia, unspecified (5) Septic arthritis of cervical spine Code(s): M46.52 - OTHER INFECTIVE SPONDYLOPATHIES, CERVICAL REGION Status: Acute (6) CAD (coronary artery disease) Code(s): I25.10 - ATHSCL HEART DISEASE OF [place] CORONARY ARTERY W/O ANG PCTRS Status: Chronic QualifierTitle: Associated angina: without angina (7) COPD (chronic obstructive pulmonary disease) Status: Chronic QualifierTitle: COPD type: unspecified COPD Qualified Code(s): J44.9 - Chronic obstructive pulmonary disease, unspecified (8) HTN (hypertension) Code(s): I10 - ESSENTIAL (PRIMARY) HYPERTENSION Status: Chronic QualifierTitle: Hypertension type: essential hypertension Qualified Code( s): I10 - Essential (primary) hypertension (9) Moderate protein-calorie malnutrition Code(s): E44.0 - MODERATE PROTEIN-CALORIE MALNUTRITION Status: Chronic (10) Osteomyelitis Code(s): M86.9 - OSTEOMYELITIS, UNSPECIFIED Status: Chronic QualifierTitle: Osteomyelitis location: hand Laterality: left (11) PVD (peripheral vascular disease) Code(s): I73.9 - PERIPHERAL VASCULAR DISEASE, UNSPECIFIED Status: Chronic (12) Substance abuse Code(s): F19.10 - OTHER PSYCHOACTIVE SUBSTANCE ABUSE, UNCOMPLICATED Status: Chronic (13) Type 2 diabetes mellitus with hyperglycemia Code(s): E11.65 - TYPE 2 DIABETES MELLITUS WITH HYPERGLYCEMIA Status: Suspected QualifierTitle: Diabetes mellitus terminal system operator insulin use: with intermediate use Qualified Code(s): E11.65 - Type 2 diabetes mellitus with hyperglycemia; Z79.4 - group home (current) use of insulin; Z79.4 - buttermaker (current) use of insulin; Z79.4 - buttermaker (current) use of insulin; Z79.4 - group home (current ) use of insulin (14) Endocarditis due to Staphylococcus Code(s): I33.0 - ACUTE AND SUBACUTE INFECTIVE ENDOCARDITIS; B95.8 - UNSP STAPHYLOCOCCUS THE CAUSE OF DISEASES CLASSD ELSWHR Status: Resolved (15) Acquired syphilis Code(s): A53.9 - SYPHILIS, UNSPECIFIED Status: Acute - Plan Plan: Discitis/Septic arthritis of C5-6 - Continue IV abx until 12/08 - Ibuprofen and tylenol for pain control - no change, continue plan of care. Vanc trough yesterday 17. Endocarditis s/p treatment with IV abx - IV abx until 12/08 -continue plan of care Gangrenous Toes -S/p amputation R 5th toe. -Continue wound care - Gen surg to see pt today, appreciate recs Osteomyelitis R. Thumb -continue vanc and wound care Physical Deconditioning, improved - placement unavailable, plan for dc is to go home with step father after her last dose of IV vanc Uncontrolled Type II DM with hyperglycemia - -evening BS low over last 3 days, decrease HS dose to 40 U Mental Disability with Schizophrenia -2/2 schizophrenia. 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 -Possibly 2/2 prior infection -ID informed of results, recommend no treatment necessary <Danyel Marie - Last Filed: 12/04/17 09:28> (1) Type 2 diabetes mellitus with hyperglycemia Code(s): E11.65 - TYPE 2 DIABETES MELLITUS WITH HYPERGLYCEMIA Status: Suspected Qualifiers: Diabetes mellitus intermediate insulin use: with intermediate use Qualified Code( s): E11.65 - Type 2 diabetes mellitus with hyperglycemia; Z79.4 - group home ( current) use of insulin; Z79.4 - buttermaker (current) use of insulin; Z79.4 - buttermaker (current) use of insulin; Z79.4 - buttermaker (current) use of insulin (2) Hyponatremia Code(s): E87.1 - HYPO-OSMOLALITY AND HYPONATREMIA Status: Acute (3) Moderate protein-calorie malnutrition Code(s): E44.0 - MODERATE PROTEIN-CALORIE MALNUTRITION Status: Chronic (4) CAD (coronary artery disease) Code(s): I25.10 - ATHSCL HEART DISEASE OF [place] CORONARY ARTERY W/O ANG PCTRS Status: Chronic Qualifiers: Associated angina: without angina (5) Chronic anemia Code(s): D64.9 - ANEMIA, UNSPECIFIED Status: Chronic (6) Physical deconditioning Code(s): R53.81 - OTHER MALAISE Status: Chronic (7) Substance abuse Code(s): F19.10 - OTHER PSYCHOACTIVE SUBSTANCE ABUSE, UNCOMPLICATED Status: Chronic (8) ECTOR (acute kidney injury) Code(s): N17.9 - ACUTE KIDNEY FAILURE, UNSPECIFIED Status: Resolved (9) Urge incontinence Code(s): N39.41 - URGE INCONTINENCE Status: Chronic (10) HTN (hypertension) Code(s): I10 - ESSENTIAL (PRIMARY) HYPERTENSION Status: Chronic Qualifiers: Hypertension type: essential hypertension Qualified Code(s): I10 - Essential (primary) hypertension (11) COPD (chronic obstructive pulmonary disease) Status: Chronic Qualifiers: COPD type: unspecified COPD Qualified Code(s): J44.9 - Chronic obstructive pulmonary disease, unspecified (12) PVD (peripheral vascular disease) Code(s): I73.9 - PERIPHERAL VASCULAR DISEASE, UNSPECIFIED Status: Chronic (13) Endocarditis due to Staphylococcus Code(s): I33.0 - ACUTE AND SUBACUTE INFECTIVE ENDOCARDITIS; B95.8 - UNSP STAPHYLOCOCCUS THE CAUSE OF DISEASES CLASSD ELSWHR Status: Resolved <Sheri Cardoza - Last Filed: 12/04/17 17:49> Attending Addendum - Attending Addendum Date/Time: 12/04/17 2807 I personally evaluated the patient and discussed the management with Dr. Marie and Dr. Garner I agree with the History, Examination, Assessment and Plan documented above with any addition or exceptions noted below. 52 yo female with multiple medical conditions admitted for MRSA infection. HD#34 ID following. Continue Vanc. Trend trough. Concern for worsening dry gangrene to toe. Gen surg to see today. Will likely auto amputate. Adjust pm insulin due to hypoglycemia. ABrayMD <Sheri Cardoza - Last Filed: 12/04/17 17:49>
[2017-12-04 12:14] LABS: #Eosinphils 0.1 thou/uL (0.0-0.7); #Lymphocytes 2.2 thou/uL (1.20-3.40); #Monocytes 0.7 thou/uL (0.11-0.59); #Neutrophils 7.5 thou/uL (1.40-6.50); %Basophils 0.4 % (0.0-1.0); %Eosinophils 0.8 % (0.0-10.0); %Lymphocytes 20.6 % (21.0-51.0); %Monocytes 6.5 % (0.0-10.0); %Neutrophils 71.7 % (42.0-75.0); Hemoglobin 12.3 g/dL (12.0-16.0); Mean Corpuscular HGB CONC 31.4 g/dL (32.0-36.0); Mean Corpuscular Hemoglobin 29.2 pg (27.0-31.0); Mean Platelet Volume 6.5 fL (7.4-10.4); Platelet Count 438 thou/uL (130-400); Red Blood Cell (RBC) Count 4.22 mill/uL (4.20-5.40); White Blood Cell (WBC) Count 10.4 thou/uL (4.8-10.8)
[2017-12-04 12:41] LABS: Vancomycin, Trough 15.1 ug/mL
[2017-12-04 12:42] LABS: Anion Gap 15 mmol/L (10-20); BUN (Urea Nitrogen) 23 mg/dL (9.8-20.1); Calc. Creatinine Clearance 56 mL/min (70-130); Calcium 10.6 mg/dL (7.8-10.44); Carbon Dioxide 20 mmol/L (22-29); Chloride 105 mmol/L (98-107); Estimated GFR-MDRD 85; Glucose 163 mg/dL (70-105); Potassium 4.8 mmol/L (3.5-5.1); Sodium 135 mmol/L (136-145)
--- NOTE | 2017-12-04 16:15 | PRG ---
DATE OF SERVICE: 12/04/2017 Shanique [place] doing well. Amputation of her small toe wound is well healed. She has a dry gangren e of her great toe. There is no evidence of infection. This wound should heal spontaneously with ti me. She should wash the foot daily with soap and water, and apply antibiotic ointment as necessary. There is no current open wound and she could just wash with soap and water without antibiotic ointme nt. She should follow up in my office in the next 3-4 weeks. At this point, I will see as needed. No further surgical care is necessary.
[2017-12-04] MEDS: Acetaminophen 325 MG TAB PO PRN (17:15)
[2017-12-04] MEDS: Mirtazapine 15 MG TAB PO SCH (20:17)
[2017-12-04] MEDS: Atorvastatin Calcium 20 MG TAB PO SCH (20:17)
[2017-12-04] MEDS: Insulin Detemir 100 UNITS/ML 40 UNITS in Pre-Filled Syringe 1 EACH SC SCH (20:24)
[2017-12-04] MEDS: HumaLOG 300 UNITS/3 ML VIAL SC PRN (20:25)
[2017-12-05] MEDS: Vancomycin HCl 750 MG in Sodium Chloride 0.9% 250 ML 250 ML IVPB SCH ×2 (00:53→12:45)
[2017-12-05] MEDS: Acetaminophen 325 MG TAB PO PRN ×3 (00:56→17:36)
[2017-12-05] MEDS: Insulin Detemir 100 UNITS/ML 60 UNITS in Pre-Filled Syringe 1 EACH SC SCH (08:53)
[2017-12-05] MEDS: Aspirin 325 mg Enteric Coated Tablet PO SCH (08:54)
[2017-12-05] MEDS: Magnesium Chloride 64 MG TAB PO SCH ×2 (08:54→20:28)
[2017-12-05] MEDS: metFORMIN 500 MG TAB PO SCH ×2 (08:54→17:34)
[2017-12-05] MEDS: Lisinopril 20 MG TAB PO SCH (08:55)
[2017-12-05] MEDS: Metoprolol Tartrate 50 MG TAB PO SCH ×2 (08:56→20:28)
[2017-12-05] MEDS: Polyethylene Glycol 3350 17 GM Packet PO SCH (08:56)
[2017-12-05] MEDS: Enoxaparin Sodium 40 MG/0.4 ML SYRINGE SC SCH (08:57)
--- NOTE | 2017-12-05 09:21 | PDOC.FM ---
- Subjective Subjective: No acute events overnight. Pts BS remains labile, although noepisodes of hypoglycemia last night. - Objective Vital Signs & Weight: Vital Signs (12 hours) Temp Pulse Resp BP BP Pulse Ox 12/05/17 08:55 121/79 12/05/17 07:30 97.9 F 96 16 125/82 98 12/05/17 00:00 97.7 F 91 16 144/92 H 98 Weight Admit Weight 46.357 kg Weight 45.813 kg I&O: 12/04/17 12/05/17 12/06/17 06:59 06:59 06:59 Intake Total 2290 1170 Balance 2290 1170 Result Diagrams: 12/04/17 12:04 12/04/17 12:04 <Danyel Marie - Last Filed: 12/05/17 09:19> - Objective Vital Signs & Weight: Vital Signs (12 hours) Temp Pulse Resp BP BP Pulse Ox 12/05/17 08:55 121/79 12/05/17 08:00 97.9 F 96 16 98 12/05/17 07:30 97.9 F 96 16 125/82 98 Weight Admit Weight 46.357 kg Weight 45.813 kg I&O: 12/04/17 12/05/17 12/06/17 06:59 06:59 06:59 Intake Total 2290 1170 Balance 2290 1170 Result Diagrams: 12/04/17 12:04 12/04/17 12:04 <Sheri Cardoza - Last Filed: 12/05/17 15:20> Phys Exam - Physical Examination Constitutional: NAD HEENT: PERRLA, sclera anicteric Neck: no nodes, no JVD Respiratory: no wheezing, no rales, no rhonchi, clear to auscultation bilateral Cardiovascular: RRR, no significant murmur, no rub Gastrointestinal: soft, non-tender, no distention, positive bowel sounds Musculoskeletal: no edema, pulses present Neurological: non-focal, moves all 4 limbs Skin: no rash <Danyel Marie - Last Filed: 12/05/17 09:19> Dx/Plan (1) Discitis of cervical region Code(s): M46.42 - DISCITIS, UNSPECIFIED, CERVICAL REGION Status: Acute (2) Dry gangrene Code(s): I96 - GANGRENE, NOT ELSEWHERE CLASSIFIED Status: Acute (3) Schizophrenia Code(s): F20.9 - SCHIZOPHRENIA, UNSPECIFIED Status: Acute QualifierTitle: Schizophrenia type: unspecified Qualified Code(s): F20.9 - Schizophrenia, unspecified (4) Septic arthritis of cervical spine Code(s): M46.52 - OTHER INFECTIVE SPONDYLOPATHIES, CERVICAL REGION Status: Acute (5) CAD (coronary artery disease) Code(s): I25.10 - ATHSCL HEART DISEASE OF [place] CORONARY ARTERY W/O ANG PCTRS Status: Chronic QualifierTitle: Associated angina: without angina (6) COPD (chronic obstructive pulmonary disease) Status: Chronic QualifierTitle: COPD type: unspecified COPD Qualified Code(s): J44.9 - Chronic obstructive pulmonary disease, unspecified (7) HTN (hypertension) Code(s): I10 - ESSENTIAL (PRIMARY) HYPERTENSION Status: Chronic QualifierTitle: Hypertension type: essential hypertension Qualified Code( s): I10 - Essential (primary) hypertension (8) Moderate protein-calorie malnutrition Code(s): E44.0 - MODERATE PROTEIN-CALORIE MALNUTRITION Status: Chronic (9) Osteomyelitis Code(s): M86.9 - OSTEOMYELITIS, UNSPECIFIED Status: Chronic QualifierTitle: Osteomyelitis location: hand Laterality: left (10) PVD (peripheral vascular disease) Code(s): I73.9 - PERIPHERAL VASCULAR DISEASE, UNSPECIFIED Status: Chronic (11) Type 2 diabetes mellitus with hyperglycemia Code(s): E11.65 - TYPE 2 DIABETES MELLITUS WITH HYPERGLYCEMIA Status: Suspected QualifierTitle: Diabetes mellitus [facility] insulin use: with intermediate card tender use Qualified Code(s): E11.65 - Type 2 diabetes mellitus with hyperglycemia; Z79.4 - intermediate school teacher (current) use of insulin; Z79.4 - half-way (current) use of insulin; Z79.4 - intermediate school teacher (current) use of insulin; Z79.4 - intermediate school teacher (current ) use of insulin (12) Endocarditis due to Staphylococcus Code(s): I33.0 - ACUTE AND SUBACUTE INFECTIVE ENDOCARDITIS; B95.8 - UNSP STAPHYLOCOCCUS THE CAUSE OF DISEASES CLASSD ELSWHR Status: Resolved - Plan Plan: Discitis/Septic arthritis of C5-6 - Continue IV abx until 12/08 - Ibuprofen and tylenol for pain control - no change, continue plan of care. Vanc trough 15, remains therapeutic Endocarditis s/p treatment with IV abx -no changes, vanc trough 15 - IV abx until 12/08 -continue plan of care Gangrenous Toes -S/p amputation R 5th toe. -Continue wound care -Gen surg recommended wound care and will see pt 3-4 weeks OP. Osteomyelitis R. Thumb -continue vanc and wound care -no changes Physical Deconditioning, improved - pt ambulating the halls and continues to improve Uncontrolled Type II DM with hyperglycemia - no hypoglycemic episodes with decrese in PM insulin -will keep at current does and encourage pt to only eat food provided to her by hospital for better glycemic control Mental Disability with Schizophrenia -cont current meds CAD s/p [place] - stable, cont current meds -no changes from prior Moderate Protein-Calorie Malnutrition - dietary consulted appreciate recs -protein calorie supplementation - continue PT/OT - pt tolerating po and eating drinking well. Continues to improve HTN - cont current meds, no change COPD - Monitor O2 sats with goal >88% - Duoneb treatments PRN for shortness of breath/wheezing, no changes cont plan of care PVD - Pulses intact - stable -continue plan of care regarding infection above -no changes from prior <Danyel Marie - Last Filed: 12/05/17 09:19> (1) Type 2 diabetes mellitus with hyperglycemia Code(s): E11.65 - TYPE 2 DIABETES MELLITUS WITH HYPERGLYCEMIA Status: Suspected Qualifiers: Diabetes mellitus intermediate card tender insulin use: with intermediate card tender use Qualified Code( s): E11.65 - Type 2 diabetes mellitus with hyperglycemia; Z79.4 - half-way ( current) use of insulin; Z79.4 - half-way (current) use of insulin; Z79.4 - intermediate school teacher (current) use of insulin; Z79.4 - half-way (current) use of insulin (2) Hyponatremia Code(s): E87.1 - HYPO-OSMOLALITY AND HYPONATREMIA Status: Acute (3) Moderate protein-calorie malnutrition Code(s): E44.0 - MODERATE PROTEIN-CALORIE MALNUTRITION Status: Chronic (4) CAD (coronary artery disease) Code(s): I25.10 - ATHSCL HEART DISEASE OF [place] CORONARY ARTERY W/O ANG PCTRS Status: Chronic Qualifiers: Associated angina: without angina (5) Chronic anemia Code(s): D64.9 - ANEMIA, UNSPECIFIED Status: Chronic (6) Physical deconditioning Code(s): R53.81 - OTHER MALAISE Status: Chronic (7) Substance abuse Code(s): F19.10 - OTHER PSYCHOACTIVE SUBSTANCE ABUSE, UNCOMPLICATED Status: Chronic (8) ECTOR (acute kidney injury) Code(s): N17.9 - ACUTE KIDNEY FAILURE, UNSPECIFIED Status: Resolved (9) Urge incontinence Code(s): N39.41 - URGE INCONTINENCE Status: Chronic (10) HTN (hypertension) Code(s): I10 - ESSENTIAL (PRIMARY) HYPERTENSION Status: Chronic Qualifiers: Hypertension type: essential hypertension Qualified Code(s): I10 - Essential (primary) hypertension (11) COPD (chronic obstructive pulmonary disease) Status: Chronic Qualifiers: COPD type: unspecified COPD Qualified Code(s): J44.9 - Chronic obstructive pulmonary disease, unspecified (12) PVD (peripheral vascular disease) Code(s): I73.9 - PERIPHERAL VASCULAR DISEASE, UNSPECIFIED Status: Chronic (13) Endocarditis due to Staphylococcus Code(s): I33.0 - ACUTE AND SUBACUTE INFECTIVE ENDOCARDITIS; B95.8 - UNSP STAPHYLOCOCCUS THE CAUSE OF DISEASES CLASSD ELSWHR Status: Resolved <Sheri Cardoza - Last Filed: 12/05/17 15:20> Attending Addendum - Attending Addendum Date/Time: 12/05/17 2338 I personally evaluated the patient and discussed the management with Dr. Marie and Dr. Garner I agree with the History, Examination, Assessment and Plan documented above with any addition or exceptions noted below. 52 yo female with multiple medical conditions admitted for MRSA infection. HD#35 ID following. Continue Vanc. Trend trough. Fasting glucose improved with adjustment. Now hyperglycemia during the day. Will adjust insulin as needed and address dietary concerns. ABrayMD <Sheri Cardoza - Last Filed: 12/05/17 15:20>
[2017-12-05 12:13] LABS: Vancomycin, Trough 15.2 ug/mL
[2017-12-05] MEDS: Atorvastatin Calcium 20 MG TAB PO SCH (20:28)
[2017-12-05] MEDS: Mirtazapine 15 MG TAB PO SCH (20:28)
[2017-12-05] MEDS: Ibuprofen 800 MG TAB PO PRN (20:35)
[2017-12-05] MEDS: Insulin Detemir 100 UNITS/ML 40 UNITS in Pre-Filled Syringe 1 EACH SC SCH (20:40)
[2017-12-06] MEDS: Vancomycin HCl 750 MG in Sodium Chloride 0.9% 250 ML 250 ML IVPB SCH ×2 (00:52→14:06)
[2017-12-06] MEDS: Acetaminophen 325 MG TAB PO PRN ×3 (01:17→20:17)
[2017-12-06] MEDS: Ibuprofen 800 MG TAB PO PRN (07:55)
[2017-12-06] MEDS: Aspirin 325 mg Enteric Coated Tablet PO SCH (07:56)
[2017-12-06] MEDS: Lisinopril 20 MG TAB PO SCH (07:56)
[2017-12-06] MEDS: Metoprolol Tartrate 50 MG TAB PO SCH ×2 (07:56→20:14)
[2017-12-06] MEDS: Enoxaparin Sodium 40 MG/0.4 ML SYRINGE SC SCH (07:57)
[2017-12-06] MEDS: metFORMIN 500 MG TAB PO SCH ×2 (07:57→16:58)
[2017-12-06] MEDS: Polyethylene Glycol 3350 17 GM Packet PO SCH (07:58)
[2017-12-06] MEDS ORDERED: Insulin Detemir 100 UNITS/ML 65 UNITS in Pre-Filled Syringe 1 EACH SC SCH (09:00)
[2017-12-06] MEDS: Magnesium Chloride 64 MG TAB PO SCH ×2 (09:07→20:14)
--- NOTE | 2017-12-06 09:15 | PDOC.FM ---
- Subjective Subjective: No acute events overnight. No episodes of hypoglycemia. No complaints. - Objective Vital Signs & Weight: Vital Signs (12 hours) Temp Pulse Resp BP BP Pulse Ox 12/06/17 08:00 97.5 F L 91 16 139/92 H 99 12/06/17 07:56 139/92 H Weight Admit Weight 46.357 kg Weight 45.813 kg I&O: 12/05/17 12/06/17 12/07/17 06:59 06:59 06:59 Intake Total 1170 1420 Balance 1170 1420 Result Diagrams: 12/04/17 12:04 12/04/17 12:04 <Danyel Marie - Last Filed: 12/06/17 09:10> - Objective Vital Signs & Weight: Weight Admit Weight 46.357 kg Weight 45.813 kg I&O: 12/06/17 12/07/17 12/08/17 06:59 06:59 06:59 Intake Total 1420 1850 Balance 1420 1850 Result Diagrams: 12/04/17 12:04 12/04/17 12:04 <Sheri Cardoza - Last Filed: 12/07/17 08:03> Phys Exam - Physical Examination Constitutional: NAD HEENT: PERRLA, sclera anicteric Neck: no nodes, no JVD Respiratory: no wheezing, no rales, no rhonchi, clear to auscultation bilateral Cardiovascular: RRR, no significant murmur Gastrointestinal: soft, non-tender, no distention, positive bowel sounds Musculoskeletal: no edema Neurological: non-focal, moves all 4 limbs Skin: no rash <Danyel Marie - Last Filed: 12/06/17 09:10> Dx/Plan (1) Discitis of cervical region Code(s): M46.42 - DISCITIS, UNSPECIFIED, CERVICAL REGION Status: Acute (2) Dry gangrene Code(s): I96 - GANGRENE, NOT ELSEWHERE CLASSIFIED Status: Acute (3) Septic arthritis of cervical spine Code(s): M46.52 - OTHER INFECTIVE SPONDYLOPATHIES, CERVICAL REGION Status: Acute (4) CAD (coronary artery disease) Code(s): I25.10 - ATHSCL HEART DISEASE OF [place] CORONARY ARTERY W/O ANG PCTRS Status: Chronic QualifierTitle: Associated angina: without angina (5) COPD (chronic obstructive pulmonary disease) Status: Chronic QualifierTitle: COPD type: unspecified COPD Qualified Code(s): J44.9 - Chronic obstructive pulmonary disease, unspecified (6) HTN (hypertension) Code(s): I10 - ESSENTIAL (PRIMARY) HYPERTENSION Status: Chronic QualifierTitle: Hypertension type: essential hypertension Qualified Code( s): I10 - Essential (primary) hypertension (7) Osteomyelitis Code(s): M86.9 - OSTEOMYELITIS, UNSPECIFIED Status: Chronic QualifierTitle: Osteomyelitis location: hand Laterality: left (8) Moderate protein-calorie malnutrition Code(s): E44.0 - MODERATE PROTEIN-CALORIE MALNUTRITION Status: Chronic (9) Schizophrenia Code(s): F20.9 - SCHIZOPHRENIA, UNSPECIFIED Status: Acute QualifierTitle: Schizophrenia type: unspecified Qualified Code(s): F20.9 - Schizophrenia, unspecified (10) Type 2 diabetes mellitus with hyperglycemia Code(s): E11.65 - TYPE 2 DIABETES MELLITUS WITH HYPERGLYCEMIA Status: Suspected QualifierTitle: Diabetes mellitus senior living insulin use: with superintendent stations use Qualified Code(s): E11.65 - Type 2 diabetes mellitus with hyperglycemia; Z79.4 - seed cleaning manager (current) use of insulin; Z79.4 - halfway (current) use of insulin; Z79.4 - halfway (current) use of insulin; Z79.4 - halfway (current ) use of insulin (11) Endocarditis due to Staphylococcus Code(s): I33.0 - ACUTE AND SUBACUTE INFECTIVE ENDOCARDITIS; B95.8 - UNSP STAPHYLOCOCCUS THE CAUSE OF DISEASES CLASSD ELSWHR Status: Resolved - Plan Plan: Discitis/Septic arthritis of C5-6 - Continue IV abx until 12/08 - Ibuprofen and tylenol for pain control - no change, continue plan of care. Vanc trough 15.2 most recent, remains therapeutic Endocarditis s/p treatment with IV abx -no changes, vanc trough 15.2 most recently - IV abx until 12/08 -continue plan of care Gangrenous Toes -S/p amputation R 5th toe, wound care Osteomyelitis R. Thumb -continue vanc and wound care trough 15.2 -no changes Physical Deconditioning, improved - pt ambulating the halls and continues to improve, tolerating PO and cont 2000 arlyn diet Uncontrolled Type II DM with hyperglycemia - no hypoglycemic episodes with decrese in PM insulin -increased AM insulin yesterday 2/2 hyperglycemia, BS stable since adjustment -given that pt is unfunded will switch to more affordable insulin today and continue to monitor BS Mental Disability with Schizophrenia -cont current meds, no changes CAD s/p MD -cont current meds, stable Moderate Protein-Calorie Malnutrition - diet -continue plan of care HTN - cont current meds, no change, BP stable COPD -stable, prn pulse ox, monitor <Danyel Marie - Last Filed: 12/06/17 09:10> (1) Type 2 diabetes mellitus with hyperglycemia Code(s): E11.65 - TYPE 2 DIABETES MELLITUS WITH HYPERGLYCEMIA Status: Suspected Qualifiers: Diabetes mellitus senior living insulin use: with superintendent stations use Qualified Code( s): E11.65 - Type 2 diabetes mellitus with hyperglycemia; Z79.4 - halfway ( current) use of insulin; Z79.4 - seed cleaning manager (current) use of insulin; Z79.4 - halfway (current) use of insulin; Z79.4 - seed cleaning manager (current) use of insulin (2) Hyponatremia Code(s): E87.1 - HYPO-OSMOLALITY AND HYPONATREMIA Status: Acute (3) Moderate protein-calorie malnutrition Code(s): E44.0 - MODERATE PROTEIN-CALORIE MALNUTRITION Status: Chronic (4) CAD (coronary artery disease) Code(s): I25.10 - ATHSCL HEART DISEASE OF [place] CORONARY ARTERY W/O ANG PCTRS Status: Chronic Qualifiers: Associated angina: without angina (5) Chronic anemia Code(s): D64.9 - ANEMIA, UNSPECIFIED Status: Chronic (6) Physical deconditioning Code(s): R53.81 - OTHER MALAISE Status: Chronic (7) Substance abuse Code(s): F19.10 - OTHER PSYCHOACTIVE SUBSTANCE ABUSE, UNCOMPLICATED Status: Chronic (8) ECTOR (acute kidney injury) Code(s): N17.9 - ACUTE KIDNEY FAILURE, UNSPECIFIED Status: Resolved (9) Urge incontinence Code(s): N39.41 - URGE INCONTINENCE Status: Chronic (10) HTN (hypertension) Code(s): I10 - ESSENTIAL (PRIMARY) HYPERTENSION Status: Chronic Qualifiers: Hypertension type: essential hypertension Qualified Code(s): I10 - Essential (primary) hypertension (11) COPD (chronic obstructive pulmonary disease) Status: Chronic Qualifiers: COPD type: unspecified COPD Qualified Code(s): J44.9 - Chronic obstructive pulmonary disease, unspecified (12) PVD (peripheral vascular disease) Code(s): I73.9 - PERIPHERAL VASCULAR DISEASE, UNSPECIFIED Status: Chronic (13) Endocarditis due to Staphylococcus Code(s): I33.0 - ACUTE AND SUBACUTE INFECTIVE ENDOCARDITIS; B95.8 - UNSP STAPHYLOCOCCUS THE CAUSE OF DISEASES CLASSD ELSWHR Status: Resolved <Sehri Cardoza - Last Filed: 12/07/17 08:03> Attending Addendum - Attending Addendum Date/Time: 12/07/17 08 I personally evaluated the patient and discussed the management with Dr. Marie and Dr. Garner I agree with the History, Examination, Assessment and Plan documented above with any addition or exceptions noted below. 52 yo female with multiple medical conditions admitted for MRSA infection. HD#36 ID following. Continue Vanc. Trough stable at 15.2. Due to financial complications will change insulin dosing to 70/30 in preparation for dispo. ABrayMD <Sheri Cardoza - Last Filed: 12/07/17 08:03>
[2017-12-06 10:21] LABS: Fungus Culture Final report (.)
[2017-12-06] MEDS ORDERED: Insulin NPH/Reg Insulin Hm 300 UNITS/3 ML VIAL SC SCH ×2 (12:00→20:00)
[2017-12-06] MEDS: Mirtazapine 15 MG TAB PO SCH (20:14)
[2017-12-06] MEDS: Atorvastatin Calcium 20 MG TAB PO SCH (20:14)
[2017-12-07] MEDS: Vancomycin HCl 750 MG in Sodium Chloride 0.9% 250 ML 250 ML IVPB SCH ×2 (00:48→13:18)
[2017-12-07] MEDS: Acetaminophen 325 MG TAB PO PRN ×2 (02:35→17:05)
[2017-12-07] MEDS: Metoprolol Tartrate 50 MG TAB PO SCH ×2 (08:42→20:29)
[2017-12-07] MEDS: metFORMIN 500 MG TAB PO SCH ×2 (08:42→17:00)
[2017-12-07] MEDS: Aspirin 325 mg Enteric Coated Tablet PO SCH (08:43)
[2017-12-07] MEDS: Lisinopril 20 MG TAB PO SCH (08:43)
[2017-12-07] MEDS: Enoxaparin Sodium 40 MG/0.4 ML SYRINGE SC SCH (08:44)
[2017-12-07] MEDS: Polyethylene Glycol 3350 17 GM Packet PO SCH (08:44)
[2017-12-07] MEDS: Ibuprofen 800 MG TAB PO PRN ×2 (08:52→20:30)
[2017-12-07] MEDS: Magnesium Chloride 64 MG TAB PO SCH ×2 (08:52→20:29)
[2017-12-07] MEDS: Insulin NPH/Reg Insulin Hm 300 UNITS/3 ML VIAL SC SCH ×3 (08:52→17:03)
--- NOTE | 2017-12-07 10:05 | PDOC.FM ---
- Subjective Subjective: Pt had one episode of hypoglycemia this Am w/ BS of 55. Otherwise pt reports she is doing well and continues to ambulate frequnelty. We are currently in the process of transitioning her levemir to novolog 70/30 due to cost. Per nurse, she has been unable to administer her medication as she keeps crying hysterically and refusing to inject herself or even draw the medication up. - Objective Vital Signs & Weight: Vital Signs (12 hours) Temp Pulse Resp BP BP Pulse Ox 12/07/17 08:43 135/81 12/07/17 08:00 98.0 F 89 18 135/81 100 Weight Admit Weight 46.357 kg Weight 45.813 kg I&O: 12/06/17 12/07/17 12/08/17 06:59 06:59 06:59 Intake Total 1420 1850 Balance 1420 1850 Result Diagrams: 12/04/17 12:04 12/04/17 12:04 <Danyel Marie - Last Filed: 12/07/17 10:01> - Objective Vital Signs & Weight: Vital Signs (12 hours) Temp Pulse Resp BP BP Pulse Ox 12/07/17 08:43 135/81 12/07/17 08:00 98.0 F 89 18 135/81 100 Weight Admit Weight 46.357 kg Weight 45.813 kg I&O: 12/06/17 12/07/17 12/08/17 06:59 06:59 06:59 Intake Total 1420 1850 0 Balance 1420 1850 2049 Result Diagrams: 12/04/17 12:04 12/04/17 12:04 <Sheri Cardoza - Last Filed: 12/07/17 17:41> Phys Exam - Physical Examination Constitutional: NAD HEENT: PERRLA, sclera anicteric Neck: no nodes, no JVD Respiratory: no wheezing, no rales, no rhonchi, clear to auscultation bilateral Cardiovascular: RRR, no significant murmur, no rub Gastrointestinal: soft, non-tender, no distention, positive bowel sounds Musculoskeletal: no edema, pulses present Neurological: non-focal, moves all 4 limbs Skin: no rash <Danyel Marie - Last Filed: 12/07/17 10:01> Dx/Plan (1) Discitis of cervical region Code(s): M46.42 - DISCITIS, UNSPECIFIED, CERVICAL REGION Status: Acute (2) Dry gangrene Code(s): I96 - GANGRENE, NOT ELSEWHERE CLASSIFIED Status: Acute (3) Septic arthritis of cervical spine Code(s): M46.52 - OTHER INFECTIVE SPONDYLOPATHIES, CERVICAL REGION Status: Acute (4) CAD (coronary artery disease) Code(s): I25.10 - ATHSCL HEART DISEASE OF [place] CORONARY ARTERY W/O ANG PCTRS Status: Chronic QualifierTitle: Associated angina: without angina (5) COPD (chronic obstructive pulmonary disease) Status: Chronic QualifierTitle: COPD type: unspecified COPD Qualified Code(s): J44.9 - Chronic obstructive pulmonary disease, unspecified (6) HTN (hypertension) Code(s): I10 - ESSENTIAL (PRIMARY) HYPERTENSION Status: Chronic QualifierTitle: Hypertension type: essential hypertension Qualified Code( s): I10 - Essential (primary) hypertension (7) Osteomyelitis Code(s): M86.9 - OSTEOMYELITIS, UNSPECIFIED Status: Chronic QualifierTitle: Osteomyelitis location: hand Laterality: left (8) Schizophrenia Code(s): F20.9 - SCHIZOPHRENIA, UNSPECIFIED Status: Acute QualifierTitle: Schizophrenia type: unspecified Qualified Code(s): F20.9 - Schizophrenia, unspecified (9) Type 2 diabetes mellitus with hyperglycemia Code(s): E11.65 - TYPE 2 DIABETES MELLITUS WITH HYPERGLYCEMIA Status: Suspected QualifierTitle: Diabetes mellitus intermediate school teacher insulin use: with intermediate school teacher use Qualified Code(s): E11.65 - Type 2 diabetes mellitus with hyperglycemia; Z79.4 - FDC (current) use of insulin; Z79.4 - FDC (current) use of insulin; Z79.4 - intermission coordinator (current) use of insulin; Z79.4 - FDC (current ) use of insulin (10) Endocarditis due to Staphylococcus Code(s): I33.0 - ACUTE AND SUBACUTE INFECTIVE ENDOCARDITIS; B95.8 - UNSP STAPHYLOCOCCUS THE CAUSE OF DISEASES CLASSD ELSWHR Status: Resolved - Plan Plan: Discitis/Septic arthritis of C5-6 - Continue IV abx until 12/08 - Ibuprofen and tylenol for pain control - will cont abx and last dose should be tomorrow @ 1pm. -pt discharge is prepped and she will be able to go home after last administered dose of abx, medications are being resolved by CM who is working to make sure she has available medications upon DC. Endocarditis s/p treatment with IV abx -treatment same as above -continue plan of care Gangrenous Toes, stable -S/p amputation R 5th toe, wound care -surgery has signed off and will see pt OP in 3-4 weeks -On IV ABX Osteomyelitis R. Thumb -continue vanc and wound care, last does tomorrow @ 1pm -no changes Uncontrolled Type II DM with hyperglycemia - hypoglycemic episode this morning with the levemir. She will be transitioned to 70/30 today due to cost. She has baseline ID and does not seem to understand the importance of her insulin. Will provide pt DM education and proper use of injection pen. She has become upset and refused to inject herself when prompted by nurse. Ultimately, her closest of kin who will be caring for her may need to be providing her medication for her. Mental Disability with Schizophrenia -cont current meds, no changes -she has refused seroquel -medications sent to pharmacy, [place] tomorrow after abx CAD s/p [place] -cont current meds, stable HTN - cont current meds, no change, BP stable COPD -stable, prn pulse ox, monitor <Danyel Marie - Last Filed: 12/07/17 10:01> (1) Type 2 diabetes mellitus with hyperglycemia Code(s): E11.65 - TYPE 2 DIABETES MELLITUS WITH HYPERGLYCEMIA Status: Suspected Qualifiers: Diabetes mellitus correction insulin use: with correction use Qualified Code( s): E11.65 - Type 2 diabetes mellitus with hyperglycemia; Z79.4 - FDC ( current) use of insulin; Z79.4 - intermission coordinator (current) use of insulin; Z79.4 - intermission coordinator (current) use of insulin; Z79.4 - intermission coordinator (current) use of insulin (2) Hyponatremia Code(s): E87.1 - HYPO-OSMOLALITY AND HYPONATREMIA Status: Acute (3) Moderate protein-calorie malnutrition Code(s): E44.0 - MODERATE PROTEIN-CALORIE MALNUTRITION Status: Chronic (4) CAD (coronary artery disease) Code(s): I25.10 - ATHSCL HEART DISEASE OF [place] CORONARY ARTERY W/O ANG PCTRS Status: Chronic Qualifiers: Associated angina: without angina (5) Chronic anemia Code(s): D64.9 - ANEMIA, UNSPECIFIED Status: Chronic (6) Physical deconditioning Code(s): R53.81 - OTHER MALAISE Status: Chronic (7) Substance abuse Code(s): F19.10 - OTHER PSYCHOACTIVE SUBSTANCE ABUSE, UNCOMPLICATED Status: Chronic (8) ECTOR (acute kidney injury) Code(s): N17.9 - ACUTE KIDNEY FAILURE, UNSPECIFIED Status: Resolved (9) Urge incontinence Code(s): N39.41 - URGE INCONTINENCE Status: Chronic (10) HTN (hypertension) Code(s): I10 - ESSENTIAL (PRIMARY) HYPERTENSION Status: Chronic Qualifiers: Hypertension type: essential hypertension Qualified Code(s): I10 - Essential (primary) hypertension (11) COPD (chronic obstructive pulmonary disease) Status: Chronic Qualifiers: COPD type: unspecified COPD Qualified Code(s): J44.9 - Chronic obstructive pulmonary disease, unspecified (12) PVD (peripheral vascular disease) Code(s): I73.9 - PERIPHERAL VASCULAR DISEASE, UNSPECIFIED Status: Chronic (13) Endocarditis due to Staphylococcus Code(s): I33.0 - ACUTE AND SUBACUTE INFECTIVE ENDOCARDITIS; B95.8 - UNSP STAPHYLOCOCCUS THE CAUSE OF DISEASES CLASSD ELSWHR Status: Resolved <Sheri Cardoza - Last Filed: 12/07/17 17:41> Attending Addendum - Attending Addendum Date/Time: 12/07/17 0363 I personally evaluated the patient and discussed the management with Dr. Marie and Dr. Garner I agree with the History, Examination, Assessment and Plan documented above with any addition or exceptions noted below. 52 yo female with multiple medical conditions admitted for MRSA infection. HD#37 Continue vanc. 70/30 not started until today. Will adjust dosing throughout the day based on accu checks. Patient will be d/c to stay with her step-father. Arrangements have been made. Patient to check her sugar and give herself shots from now on. ABrayMD <Sheri Cardoza - Last Filed: 12/07/17 17:41>
[2017-12-07] MEDS ORDERED: Insulin NPH/Reg Insulin Hm 300 UNITS/3 ML VIAL SC SCH (13:45)
[2017-12-07] MEDS: Atorvastatin Calcium 20 MG TAB PO SCH (20:29)
[2017-12-07] MEDS: Mirtazapine 15 MG TAB PO SCH (20:29)
[2017-12-08] MEDS: Vancomycin HCl 750 MG in Sodium Chloride 0.9% 250 ML 250 ML IVPB SCH ×2 (01:19→12:11)
[2017-12-08] MEDS: Insulin NPH/Reg Insulin Hm 300 UNITS/3 ML VIAL SC SCH ×3 (09:08→17:49)
[2017-12-08] MEDS: Metoprolol Tartrate 50 MG TAB PO SCH (09:10)
[2017-12-08] MEDS: Aspirin 325 mg Enteric Coated Tablet PO SCH (09:11)
[2017-12-08] MEDS: metFORMIN 500 MG TAB PO SCH ×2 (09:11→17:48)
[2017-12-08] MEDS: Lisinopril 20 MG TAB PO SCH (09:11)
[2017-12-08] MEDS: Polyethylene Glycol 3350 17 GM Packet PO SCH (09:12)
[2017-12-08] MEDS: Enoxaparin Sodium 40 MG/0.4 ML SYRINGE SC SCH (09:12)
[2017-12-08] MEDS: Ibuprofen 800 MG TAB PO PRN (09:21)
--- NOTE | 2017-12-08 11:44 | PDOC.FM ---
- Subjective Subjective: No acute events overnight. Last two glucose checks 94 and 74. Pt states she is not scared to take her insulin injections anymore. She is ready to go home. - Objective MAR Reviewed: Yes Vital Signs & Weight: Vital Signs (12 hours) Temp Pulse Resp BP BP Pulse Ox 12/08/17 09:11 160/97 H 12/08/17 08:00 98.1 F 92 16 99 12/08/17 07:52 98.1 F 92 16 160/97 H 99 Weight Admit Weight 46.357 kg Weight 45.813 kg I&O: 12/07/17 12/08/17 12/09/17 06:59 06:59 06:59 Intake Total 1850 2750 Output Total 2500 Balance 1850 250 Result Diagrams: 12/04/17 12:04 12/04/17 12:04 <Aimee Kenny - Last Filed: 12/08/17 11:41> - Objective Vital Signs & Weight: Vital Signs (12 hours) Temp Pulse Resp BP BP Pulse Ox 12/08/17 09:11 160/97 H 12/08/17 08:00 98.1 F 92 16 99 12/08/17 07:52 98.1 F 92 16 160/97 H 99 Weight Admit Weight 46.357 kg Weight 45.813 kg I&O: 12/07/17 12/08/17 12/09/17 06:59 06:59 06:59 Intake Total 1850 2750 Output Total 2500 Balance 1850 250 Result Diagrams: 12/04/17 12:04 12/04/17 12:04 <Kevin Kelley - Last Filed: 12/08/17 11:48> Phys Exam - Physical Examination Constitutional: NAD HEENT: PERRLA, moist MMs Respiratory: no wheezing, no rales, no rhonchi, clear to auscultation bilateral Cardiovascular: RRR, no significant murmur, no rub Gastrointestinal: soft, non-tender, no distention Musculoskeletal: no edema, pulses present Neurological: non-focal Psychiatric: normal affect, A&O x 3 Skin: no rash, normal turgor <Aimee Kenny - Last Filed: 12/08/17 11:41> Dx/Plan (1) Discitis of cervical region Code(s): M46.42 - DISCITIS, UNSPECIFIED, CERVICAL REGION Status: Acute (2) Dry gangrene Code(s): I96 - GANGRENE, NOT ELSEWHERE CLASSIFIED Status: Acute (3) Mental disability Code(s): F79 - UNSPECIFIED INTELLECTUAL DISABILITIES Status: Acute (4) Schizophrenia Code(s): F20.9 - SCHIZOPHRENIA, UNSPECIFIED Status: Acute QualifierTitle: Schizophrenia type: unspecified Qualified Code(s): F20.9 - Schizophrenia, unspecified (5) Septic arthritis of cervical spine Code(s): M46.52 - OTHER INFECTIVE SPONDYLOPATHIES, CERVICAL REGION Status: Acute (6) CAD (coronary artery disease) Code(s): I25.10 - ATHSCL HEART DISEASE OF [place] CORONARY ARTERY W/O ANG PCTRS Status: Chronic QualifierTitle: Associated angina: without angina (7) HTN (hypertension) Code(s): I10 - ESSENTIAL (PRIMARY) HYPERTENSION Status: Chronic QualifierTitle: Hypertension type: essential hypertension Qualified Code( s): I10 - Essential (primary) hypertension (8) Osteomyelitis Code(s): M86.9 - OSTEOMYELITIS, UNSPECIFIED Status: Chronic QualifierTitle: Osteomyelitis location: hand Laterality: left (9) PVD (peripheral vascular disease) Code(s): I73.9 - PERIPHERAL VASCULAR DISEASE, UNSPECIFIED Status: Chronic (10) Type 2 diabetes mellitus with hyperglycemia Code(s): E11.65 - TYPE 2 DIABETES MELLITUS WITH HYPERGLYCEMIA Status: Suspected QualifierTitle: Diabetes mellitus continuous churn buttermaker insulin use: with senior care use Qualified Code(s): E11.65 - Type 2 diabetes mellitus with hyperglycemia; Z79.4 - correction (current) use of insulin; Z79.4 - terminal make up operator (current) use of insulin; Z79.4 - correction (current) use of insulin; Z79.4 - correction (current ) use of insulin (11) Endocarditis due to Staphylococcus Code(s): I33.0 - ACUTE AND SUBACUTE INFECTIVE ENDOCARDITIS; B95.8 - UNSP STAPHYLOCOCCUS THE CAUSE OF DISEASES CLASSD ELSWHR Status: Resolved - Plan Plan: Plan: Discitis/Septic arthritis of C5-6 - Continue IV abx until 12/08 @ 1300, then pt can be discharged after that. -pt discharge is prepped and she will be able to go home after last administered dose of abx, medications are being resolved by CM who is working to make sure she has available medications upon DC. Endocarditis s/p treatment with IV abx -treatment same as above -continue plan of care Gangrenous Toes, stable -S/p amputation R 5th toe, wound care -surgery has signed off and will see pt OP in 3-4 weeks -On IV ABX Osteomyelitis R. Thumb -continue vanc and wound care, last does today @ 1pm -no changes Uncontrolled Type II DM with hyperglycemia - hypoglycemic episode yesterday am with the levemir. She was transitioned to 70 /30 due to cost. Will provide pt DM education and proper use of injection pen. Mental Disability with Schizophrenia -cont current meds, no changes -she has refused seroquel CAD s/p [place] -cont current meds, stable HTN - cont current meds, no change, BP stable COPD -stable, prn pulse ox, monitor <Aimee Kenny - Last Filed: 12/08/17 11:41> Attending Addendum - Attending Addendum Date/Time: 12/08/17 [id number] I personally evaluated the patient and discussed the management with Dr. Lin Rodrigez. I agree with the History, Examination, Assessment and Plan documented above with any addition or exceptions noted below. After very lengthy hospital stay, patient has finally completed her IV antibiotic course and is ready for discharge. Her glucose levels are improved on current dose of insulin, and patient is proud that she is able to give herself her injections. Her medications have been delivered to her, and she is stable for discharge later today after her last dose of antibiotics. <Kevin Kelley - Last Filed: 12/08/17 11:48>
[2017-12-08] MEDS: Magnesium Chloride 64 MG TAB PO SCH (12:11)
[2017-12-08 12:32] LABS: Vancomycin, Trough 15.5 ug/mL
[2017-12-08 15:38] VITALS: BP 161/96; TEMP 97.9
--- NOTE | 2017-12-14 13:51 | DIS-2 ---
DATE OF ADMISSION: 10/31/2017 DATE OF DISCHARGE: 12/08/2017 RESIDENT PHYSICIAN: Danyel Marie D.O. ADMITTING ATTENDING: Sheri Cardoza M.D. COSIGNER: Kevin Kelley M.D. CONSULTATIONS 1. Infectious Disease, Dr. Bosch. 2. Orthopedic Surgery, Dr. Beau Guerra. 3. General Surgery, Dr. Ryder. PROCEDURES: 1. Foot x-ray done on 11/01/2017 showed evidence of erosion involving itself and distal aspect of the distal phalanx of the fifth toe. 2. Hand x-ray done on 11/01/2017 showed no radiographic evidence for an acute osseous abnormality. Early changes of osteomyelitis may be occult. If there is concern recommend evaluation of the further MRI and upper extremity MRI done on 11/01/2017 showed some abnormal marrow signal within the proximal distal phalanx of the thumb with some associated soft tissue changes as well as some T2 hyperintensity and edematous changes and thickening of the thumbnail. These findings certainly could represent osteomyelitis; although given the abnormal changes of the right first and fifth toes, some other type of acroosteolysis including scleroderma or Raynaud's are considerations. Correlate with clinical findings. 3. Lower extremity MRI done on 11/01/2017 showed a bony destructive changes distal portion of the distal phalanx of the fifth toe associated with soft tissue loss abnormal marrow signal in the soft tissue distal aspect of the great toe. 4. Chest x-ray done on 11/02/2017 showed no evidence of infiltrate. Questionable nodular density in the left upper lobe may be vascular. Recommend follow up PA and lateral views. 5. Chest x-ray done on 11/03/2017 showed no acute process. 6. Cervical spine MRI done on 11/03/2017 showed findings concerning for prominent diskitis/osteomyelitis at C5-C6 extending into the prevertebral regions of bilateral neural foraminal and central stenosis. In addition, there may be septic arthritis of the first costovertebral joint on the left. There is abnormal signal intensity in bilateral facet joints of C5 and C6, which may represent bilateral facet joint septic arthritis. 7. PICC line placement on 11/07/2017 showed successful left basilic vein fluoroscopic and ultrasound guided PICC line placement. Operative note on 11/21/2017, procedures include removal of nail, left thumb; debridement of wound, left thumb; and index finger debridement. PRIMARY DIAGNOSES: 1. Septic arthritis of cervical spine. 2. Diskitis, cervical region. 3. Substance abuse. 4. Endocarditis due to Staphylococcus. SECONDARY DIAGNOSES: 1. Type 2 diabetes. 2. Hyponatremia. 3. Moderate protein calorie malnutrition. 4. Coronary artery disease. 5. Chronic anemia. 6. Hypertension. 7. Chronic obstructive pulmonary disease. 8. Peripheral vascular disease. 9. Endocarditis due to Staphylococcus. 10. Dry gangrene. 11. Schizophrenia. 12. Mental disability. DISCHARGE MEDICATIONS: 1. Aspirin 325 mg daily. 2. Atorvastatin 20 mg p.o. at bedtime. 3. Novolin 70/30, 20 units subcu t.i.d. with meals. 4. Lisinopril 20 mg daily. 5. Magnesium chloride 64 mg p.o. b.i.d. 6. Metformin 1000 mg p.o. b.i.d. 7. Metoprolol tartrate 50 mg p.o. b.i.d. 8. Potassium chloride 20 mEq p.o. q.a.m. with meals. 9. Seroquel 50 mg p.o. at bedtime. DISCONTINUED MEDICATIONS: None. HISTORY OF PRESENT ILLNESS AND HOSPITAL COURSE: The patient is a 52-year-old female with past medical history of polysubstance abuse, schizophrenia, type 2 diabetes, COPD, peripheral vascular disease who presented on 11/28/2017 after discharge from [facility] where she was treated for DKA and NSTEMI and MRSA endocarditis where she received IV daptomycin for 6 weeks. She had a PICC line associated infection at that time with Klebsiella prior treatment with Levaquin. She came in to the hospital, presenting with weakness , found to have elevated blood sugar 599 and additionally she was severely deconditioned and unable to care for herself. She was found to have multiple septic emboli secondary to endocarditis resulting in diskitis and septic joint and C5-C6 with necrotic right fifth toe bony destruction changes noted on MRI as listed above. On initial presentation, the patient's white count was slightly elevated at 13.5, but down trended after a few days of hospitalizations. The initial blood cultures drawn on admission were negative 5 days post-admission. On 11/01/2017 patient had surgical debridement of her left hand ulceration by Dr. Guerra for concern for osteomyelitis of left thumb. On 11/02/2017, the patient had amputation of the right fifth toe by Dr. Ryder for concern of osteomyelitis and necrotic ulceration with dark dry gangrene. On 11/03/2017, MRI was done which showed diskitis and possible osteomyelitis at C5-C6. At this time, the patient was continued on IV vancomycin and given her unfunded status required IV vancomycin until 12/08/2017, so decision was made to keep the patient in the hospital for continued IV antibiotic use. Throughout the remainder of the patient's hospital stay was found to be rather difficult to control the patient's blood sugar as she is making frequent trips to the vending machine. Ultimately, the patient was transitioned to Novolin 70/ 30 given that she is unfunded and she was sent home on 20 units t.i.d. with meals and instructed to follow up with [facility] or [facility] for control of her multiple comorbidities. Regarding the infection after surgical debridement and IV antibiotics, the patient had relatively uncomplicated hospital course in that regard. Regarding the patient's deconditioning and malnutrition throughout her hospital stay, the patient continued to make improvements with her physical activity and upon discharge, the patient was actively walking the halls and gaining weight appropriately with normal p.o. intake. DISPOSITION: 1. The patient left the hospital in stable condition. 2. Location: Home. 3. Diet: Heart healthy, consistent carb. 4. Activity: Ad isai. 5. Follow up with [facility] at [place] in 1 week following discharge. 6. Follow up with Dr. Brian Ryder in 3 to 4 weeks following discharge. [facility]
== END 2017-12-08 18:34 | disposition home or self-care (01) | DRG 616 ==
LOC: ERS 15:08 → 2NO 19:43 → OBSVTOIN 19:43 → T4-B 11-06 15:38
PROVIDERS: ADMIT Student in an Organized Health Care Education/Training Program; ATTEND Student in an Organized Health Care Education/Training Program
PROC: 0JBK0ZZ Excision of Left Hand Subcutaneous Tissue and Fascia, Open Approach (ICD-10-PCS; principal; 2017-10-31)
PROC: 0Y6X0Z1 Detachment at Right 5th Toe, High, Open Approach (ICD-10-PCS; 2017-11-02)
DX: E11.65 Type 2 diabetes mellitus with hyperglycemia (principal); I33.0 Acute and subacute infective endocarditis; E43 Unspecified severe protein-calorie malnutrition; I96 Gangrene, not elsewhere classified; L89.201 Pressure ulcer of unspecified hip, stage 1; E11.42 Type 2 diabetes mellitus with diabetic polyneuropathy; E44.0 Moderate protein-calorie malnutrition; E87.2 Acidosis; E87.1 Hypo-osmolality and hyponatremia; Z68.1 Body mass index [BMI] 19.9 or less, adult; E11.52 Type 2 diabetes mellitus with diabetic peripheral angiopathy with gangrene; M86.8X7 Other osteomyelitis, ankle and foot; M46.22 Osteomyelitis of vertebra, cervical region; B95.7 Other staphylococcus as the cause of diseases classified elsewhere; I25.10 Atherosclerotic heart disease of native coronary artery without angina pectoris; D64.9 Anemia, unspecified; F19.10 Other psychoactive substance abuse, uncomplicated; J44.9 Chronic obstructive pulmonary disease, unspecified; Z79.4 Long term (current) use of insulin; Z79.84 Long term (current) use of oral hypoglycemic drugs; Z59.0 Homelessness; I10 Essential (primary) hypertension; F20.9 Schizophrenia, unspecified; Z91.14 Patient's other noncompliance with medication regimen; L03.012 Cellulitis of left finger; E11.621 Type 2 diabetes mellitus with foot ulcer; L97.519 Non-pressure chronic ulcer of other part of right foot with unspecified severity; M46.42 Discitis, unspecified, cervical region; Z87.891 Personal history of nicotine dependence; Z79.82 Long term (current) use of aspirin; B37.2 Candidiasis of skin and nail; M46.52 Other infective spondylopathies, cervical region
CPT/HCPCS: 36415; 36416; 36569; 71045; 71046; 72141; 80048; 80053; 80202; 80306; 82010; 82330; 82803; 83036; 83735; 84100; 84134; 84443; 85025; 85652; 86593; 86780; 87040; 87070; 87077; 87102; 87116; 87186; 87205; 87206; 87389; 87521; 88305; 88311; 93005; 93010; 93306; 96361; 96374; A4216; A4353; C1751; G8978-GP-CK; G8978-GP-CL; G8979-GP-CJ; G8987-GO-CJ; G8987-GO-CK; G8988-GO-CI; G8988-GO-CJ; G8989-GO-CJ; J1100; J1644; J1650; J1815; J2001; J2060; J2405; J2704; J3010; J3370; J3475; J3490; J7050

== ENCOUNTER 2018-01-09 16:04 | Emergency (ER) | payer SELFPAY ==
[2018-01-09] MEDS ORDERED: Morphine 4 MG/ML VIAL ONE (16:43)
[2018-01-09 17:17] LABS: Hemoglobin 13.2 g/dL (12.0-16.0); Mean Corpuscular HGB CONC 33.8 g/dL (32.0-36.0); Mean Corpuscular Hemoglobin 30.9 pg (27.0-31.0); Mean Corpuscular Volume 91.3 fl (81.0-99.0); Mean Platelet Volume 6.9 fL (7.4-10.4); Platelet Count 317 thou/uL (130-400); RBC Distribution Width 13.8 % (11.5-14.5); Red Blood Cell (RBC) Count 4.26 mill/uL (4.20-5.40)
[2018-01-09 17:32] LABS: Eosinophils 3 % (0-10); Lymphocytes 53 % (21-51); MDiff Complete? YES; Monocytes 2 % (0-10); Neutrophil 40 % (42-75); PLT Morphology Comment Appears Adequate; RBC Morphology Normal
[2018-01-09 17:43] LABS: Anion Gap 14 mmol/L (10-20); BUN (Urea Nitrogen) 18 mg/dL (9.8-20.1); Calc. Creatinine Clearance 0 mL/min (70-130); Calcium 10.3 mg/dL (7.8-10.44); Carbon Dioxide 22 mmol/L (22-29); Chloride 100 mmol/L (98-107); Estimated GFR-MDRD 55; Glucose 400 mg/dL (70-105); Potassium 4.4 mmol/L (3.5-5.1); Sodium 132 mmol/L (136-145)
[2018-01-09] MEDS ORDERED: Insulin Regular 300 UNITS/3 ML VIAL ONE (18:06)
== END 2018-01-09 18:44 | disposition home or self-care (01) ==
LOC: ERS 16:04
DX: M62.271 Nontraumatic ischemic infarction of muscle, right ankle and foot (principal); E11.65 Type 2 diabetes mellitus with hyperglycemia; F31.9 Bipolar disorder, unspecified; F41.9 Anxiety disorder, unspecified; F17.210 Nicotine dependence, cigarettes, uncomplicated; D50.9 Iron deficiency anemia, unspecified; I10 Essential (primary) hypertension; F20.9 Schizophrenia, unspecified
CPT/HCPCS: 36415; 80048; 83605; 85025; 96374; 96375; J1815; J2270

== ENCOUNTER 2018-02-12 12:02 | Emergency (ER) | payer SELFPAY ==
[2018-02-12 12:49] LABS: #Eosinphils 0.1 thou/uL (0.0-0.7); #Lymphocytes 2.5 thou/uL (1.20-3.40); #Monocytes 0.4 thou/uL (0.11-0.59); %Basophils 0.7 % (0.0-1.0); %Eosinophils 1.2 % (0.0-10.0); %Lymphocytes 41.4 % (21.0-51.0); %Neutrophils 49.7 % (42.0-75.0); Hemoglobin 13.8 g/dL (12.0-16.0); Mean Corpuscular HGB CONC 33.5 g/dL (32.0-36.0); Mean Corpuscular Hemoglobin 29.9 pg (27.0-31.0); Mean Corpuscular Volume 89.1 fl (81.0-99.0); Mean Platelet Volume 6.9 fL (7.4-10.4); Platelet Count 293 thou/uL (130-400); Red Blood Cell (RBC) Count 4.61 mill/uL (4.20-5.40)
[2018-02-12 13:18] LABS: ALT (SGPT) 8 U/L (8-55); AST (SGOT) 13 U/L (5-34); Albumin 4.1 g/dL (3.5-5.0); Alkaline Phosphatase 136 U/L (40-150); Anion Gap 14 mmol/L (10-20); BUN (Urea Nitrogen) 17 mg/dL (9.8-20.1); Bilirubin, Total 0.2 mg/dL (0.2-1.2); CRP (Inflammatory) Less than 0.50 mg/dL (= or < 0.5); Calc. Creatinine Clearance 0 mL/min (70-130); Calcium 10.4 mg/dL (7.8-10.44); Carbon Dioxide 22 mmol/L (22-29); Chloride 99 mmol/L (98-107); Estimated GFR-MDRD 55; Globulin 5.5 g/dL (2.4-3.5); Glucose 506 mg/dL (70-105); Protein, Total 9.6 g/dL (6.0-8.3); Sodium 131 mmol/L (136-145)
--- NOTE | 2018-02-12 13:27 | RAD ---
RIGHT FOOT 3 VIEWS: HISTORY: Necrotic right toe. FINDINGS: There has been amputation of the little toe at the level of the base of the proximal phalanx. The iza alberta are demineralized. There is some loss of the normal cortical line along the lateral aspect of th e distal phalanx of the great toe, although this was to some extent present on the prior examination and on the AP projection, it appears more pronounced and findings would be suspicious for some develo ping underlying osteomyelitis. IMPRESSION: 1. Findings are suspicious for some developing osteomyelitis of the distal phalanx of the great toe. 2. Generalized bony demineralization. POS: ALYSIA
[2018-02-12] MEDS ORDERED: Insulin Regular 300 UNITS/3 ML VIAL ONE (13:37)
--- NOTE | 2018-02-12 18:37 | HP ---
HISTORY OF PRESENT ILLNESS: A 52-year-old black female with history of IV drug abuse now living with a relative. She previously was in remission. She presents to the emergency room with a gangrenous great toe. X-ray performed read out as osteomyelitis, but in fact this is just desiccated bone, not infection. There is no clinical evidence of infection. There is no cellulitis, no swelling. The hansel cooper previously has been seen by Dr. Roger Abraham. She had palpable proximal pulses, nonpalpable d istal pulses, but dopplerable pedal pulses. It was felt that she had embolic disease to both her ronquillo d and foot. She did undergo amputation on 11/02/2017, right small toe through the proximal phalanx h ealed secondarily without problems. She has had dry gangrene of the distal third of the great toe an d this has been x-rayed revealing the above findings. PHYSICAL EXAMINATION: Reveals palpable femoral and popliteal pulse. The right great toe shows dista l gangrene. It was well demarcated. There is no evidence of infection. ASSESSMENT AND PLAN: Dry gangrene distal toe, probably secondary to embolic phenomenon. Continue wa shing it daily with soap and water. Follow up in my office in 3-4 weeks or sooner as needed. No ind ication for admission. No indication for antibiotics, p.o. or IV. Continue outpatient management.
== END 2018-02-12 16:07 | disposition home or self-care (01) ==
LOC: ERS 12:02
DX: E11.52 Type 2 diabetes mellitus with diabetic peripheral angiopathy with gangrene (principal); I96 Gangrene, not elsewhere classified; D50.9 Iron deficiency anemia, unspecified; I10 Essential (primary) hypertension; F20.9 Schizophrenia, unspecified; F41.9 Anxiety disorder, unspecified; F31.9 Bipolar disorder, unspecified; Z87.891 Personal history of nicotine dependence; Z79.4 Long term (current) use of insulin; Z79.899 Other long term (current) drug therapy
CPT/HCPCS: 36415; 36416; 80053; 85025; 86140; 96361; 96374; J1815

== ENCOUNTER 2018-03-26 11:51 | Emergency (ER) | payer SELFPAY ==
[2018-03-26] MEDS ORDERED: ISOVUE-370 76%-LOCM 1 ML ONE (12:32)
[2018-03-26 13:13] LABS: Bilirubin Negative (Negative); Blood, Urine Negative (Negative); Clarity CLEAR (Clear); Glucose, Urine (Dipstick) >=1000 mg/dL (Negative); Leukocyte Negative (Negative); Nitrite Negative (Negative); Protein, Urine (Dipstick) Negative (Neg-Trace); Urobilinogen 0.2 mg/dL (0.2-1.0); pH, Urine 6.5 (5.0-9.0)
[2018-03-26 13:13] LABS: #Lymphocytes 2.2 thou/uL (1.20-3.40); #Monocytes 0.5 thou/uL (0.11-0.59); #Neutrophils 4.3 thou/uL (1.40-6.50); %Basophils 0.4 % (0.0-1.0); %Eosinophils 0.3 % (0.0-10.0); %Lymphocytes 31.8 % (21.0-51.0); %Monocytes 6.7 % (0.0-10.0); %Neutrophils 60.8 % (42.0-75.0); Hemoglobin 13.1 g/dL (12.0-16.0); Mean Corpuscular HGB CONC 33.9 g/dL (32.0-36.0); Mean Corpuscular Hemoglobin 30.2 pg (27.0-31.0); Mean Platelet Volume 6.1 fL (7.4-10.4); Platelet Count 358 thou/uL (130-400); RBC Distribution Width 12.8 % (11.5-14.5); Red Blood Cell (RBC) Count 4.34 mill/uL (4.20-5.40); White Blood Cell (WBC) Count 7.1 thou/uL (4.8-10.8)
[2018-03-26] MEDS ORDERED: Ketorolac Tromethamine 30 MG/ML VIAL ONE (13:32)
[2018-03-26 13:38] LABS: ALT (SGPT) 12 U/L (8-55); AST (SGOT) 13 U/L (5-34); Albumin 3.7 g/dL (3.5-5.0); Alkaline Phosphatase 126 U/L (40-150); Anion Gap 10 mmol/L (10-20); BUN (Urea Nitrogen) 12 mg/dL (9.8-20.1); Bilirubin, Total 0.3 mg/dL (0.2-1.2); Calc. Creatinine Clearance 0 mL/min (70-130); Calcium 9.8 mg/dL (7.8-10.44); Carbon Dioxide 21 mmol/L (22-29); Chloride 103 mmol/L (98-107); Estimated GFR-MDRD 67; Globulin 4.4 g/dL (2.4-3.5); Glucose 328 mg/dL (70-105); Lipase 29 U/L (8-78); Potassium 4.4 mmol/L (3.5-5.1); Protein, Total 8.1 g/dL (6.0-8.3); Sodium 130 mmol/L (136-145)
--- NOTE | 2018-03-26 14:19 | CT ---
CT ABDOMEN AND PELVIS WITH IV CONTRAST: History: Abdominal pain, bleeding. Comparison: 10-05-10 FINDINGS: Lung bases are clear. Cysts arise from the cortex of the left kidney. Urinary bladder is incompletely distended. Lack of oral contrast limits evaluation of the bowel. No evidence of obstruction. Uterus is markedly enlarged with heterogeneous masses throughout the myometrium and scattered areas o f dystrophic calcification. IMPRESSION: Severe fibroid involvement of the enlarged uterus. POS: YOCASTA
== END 2018-03-26 14:51 | disposition home or self-care (01) ==
LOC: ERS 11:51
DX: D25.9 Leiomyoma of uterus, unspecified (principal); E11.52 Type 2 diabetes mellitus with diabetic peripheral angiopathy with gangrene; I96 Gangrene, not elsewhere classified; D50.9 Iron deficiency anemia, unspecified; I10 Essential (primary) hypertension; F41.9 Anxiety disorder, unspecified; F31.9 Bipolar disorder, unspecified; Z87.891 Personal history of nicotine dependence; Z79.84 Long term (current) use of oral hypoglycemic drugs; Z79.899 Other long term (current) drug therapy
CPT/HCPCS: 36415; 74177; 80053; 81003; 82010; 83690; 85025; 96361; 96374; J1885

== ENCOUNTER 2018-05-14 10:03 | Emergency (ER) | payer SELFPAY ==
[2018-05-14 11:41] LABS: #Lymphocytes 2.1 thou/uL (1.20-3.40); #Monocytes 0.4 thou/uL (0.11-0.59); #Neutrophils 5.4 thou/uL (1.40-6.50); %Basophils 0.5 % (0.0-1.0); %Eosinophils 0.6 % (0.0-10.0); %Lymphocytes 26.2 % (21.0-51.0); %Monocytes 4.7 % (0.0-10.0); Mean Corpuscular HGB CONC 33.1 g/dL (32.0-36.0); Mean Corpuscular Hemoglobin 30.2 pg (27.0-31.0); Mean Corpuscular Volume 91.2 fL (78.0-98.0); Mean Platelet Volume 6.8 fL (7.4-10.4); Platelet Count 406 thou/uL (130-400); RBC Distribution Width 12.7 % (11.5-14.5); White Blood Cell (WBC) Count 7.9 thou/uL (4.8-10.8)
--- NOTE | 2018-05-14 12:24 | RAD ---
THREE VIEWS OF THE RIGHT FOOT ON PATROL GUARD: COMPARISON: 02/12/18. HISTORY: Diabetes with gangrene in his right big toe. FINDINGS: Three views of the right foot show diffuse osteopenia. The patient is status post amputation of the small toe through the proximal phalanx. There is erosion of the distal phalanx of the great toe whic h has worsened compared to the prior examination and is consistent with osteomyelitis. Soft tissue s welling of all of the toes is seen. No fracture is appreciated. IMPRESSION: Progressive erosion of the distal phalanx of the great toe is consistent with osteomyelitis. POS: YOCASTA
[2018-05-14] MEDS ORDERED: Bacitracin Zinc 1 Packet ONE (13:34)
== END 2018-05-14 13:45 | disposition home or self-care (01) ==
LOC: ERS 10:03
DX: E11.52 Type 2 diabetes mellitus with diabetic peripheral angiopathy with gangrene (principal); I96 Gangrene, not elsewhere classified; M86.9 Osteomyelitis, unspecified; D50.0 Iron deficiency anemia secondary to blood loss (chronic); I10 Essential (primary) hypertension; J44.9 Chronic obstructive pulmonary disease, unspecified; F20.9 Schizophrenia, unspecified; F41.9 Anxiety disorder, unspecified; F31.9 Bipolar disorder, unspecified; Z87.891 Personal history of nicotine dependence; Z79.84 Long term (current) use of oral hypoglycemic drugs; Z79.899 Other long term (current) drug therapy
CPT/HCPCS: 36415; 85025

== ENCOUNTER 2018-09-18 09:41 | Emergency (ER) | payer SELFPAY ==
[2018-09-18 10:37] LABS: #Basophils 0.1 thou/uL (0.0-0.2); #Eosinphils 0.1 thou/uL (0.0-0.7); #Lymphocytes 2.1 thou/uL (1.20-3.40); #Monocytes 0.4 thou/uL (0.11-0.59); #Neutrophils 5.4 thou/uL (1.40-6.50); %Basophils 0.6 % (0.0-1.0); %Eosinophils 0.7 % (0.0-10.0); %Lymphocytes 26.3 % (21.0-51.0); %Monocytes 5.2 % (0.0-10.0); %Neutrophils 67.1 % (42.0-75.0); Hemoglobin 11.2 g/dL (12.0-16.0); Mean Corpuscular HGB CONC 30.5 g/dL (32.0-36.0); Mean Corpuscular Hemoglobin 25.1 pg (27.0-31.0); Mean Corpuscular Volume 82.3 fL (78.0-98.0); Mean Platelet Volume 6.4 fL (7.4-10.4); Platelet Count 471 thou/uL (130-400); RBC Distribution Width 13.5 % (11.5-14.5); Red Blood Cell (RBC) Count 4.47 mill/uL (4.20-5.40); White Blood Cell (WBC) Count 8.1 thou/uL (4.8-10.8)
[2018-09-18 10:58] LABS: ALT (SGPT) 12 U/L (8-55); AST (SGOT) 16 U/L (5-34); Albumin 3.8 g/dL (3.5-5.0); Alkaline Phosphatase 125 U/L (40-150); Anion Gap 14 mmol/L (10-20); BUN (Urea Nitrogen) 14 mg/dL (9.8-20.1); Bilirubin, Total 0.2 mg/dL (0.2-1.2); Calc. Creatinine Clearance 0 mL/min (70-130); Calcium 9.4 mg/dL (7.8-10.44); Carbon Dioxide 19 mmol/L (22-29); Chloride 106 mmol/L (98-107); Estimated GFR-MDRD 71; Globulin 4.6 g/dL (2.4-3.5); Glucose 232 mg/dL (70-105); Potassium 4.1 mmol/L (3.5-5.1); Protein, Total 8.4 g/dL (6.0-8.3); Sodium 135 mmol/L (136-145)
--- NOTE | 2018-09-18 11:12 | RAD ---
RIGHT FOOT THREE VIEWS: HISTORY: Right foot pain. COMPARISON: 05/14/2018 FINDINGS: Three views of the right foot show loss of the distal aspect of the great toe and small toe. The dis sancho phalanx of the great toe appears to have more osseous compared to the prior examination. This ma y be secondary to post surgical change or secondary to osteomyelitis. Diffuse soft tissue swelling i s seen. There appears to be a minimally displaced fracture of the distal aspect of the proximal phal anx of the second toe. This is not definitely seen on the prior examination. IMPRESSION: 1. Proximal phalanx second toe fracture. 2. Increased loss of bone of the distal phalanx of the great toe may represent post surgical change or osteomyelitis. POS: YOCASTA
== END 2018-09-18 12:55 | disposition home or self-care (01) ==
LOC: ERS 09:41
DX: M79.671 Pain in right foot (principal); M25.512 Pain in left shoulder; E11.9 Type 2 diabetes mellitus without complications; I10 Essential (primary) hypertension; D50.9 Iron deficiency anemia, unspecified; J44.9 Chronic obstructive pulmonary disease, unspecified; F31.9 Bipolar disorder, unspecified; F20.9 Schizophrenia, unspecified; F41.9 Anxiety disorder, unspecified; Z87.891 Personal history of nicotine dependence
CPT/HCPCS: 36415; 80053; 83605; 85025

== ENCOUNTER 2019-05-13 15:38 | Emergency (ER) | payer OTHER, SELFPAY ==
[2019-05-13 16:28] LABS: #Eosinphils 0.1 thou/uL (0.0-0.7); #Lymphocytes 2.6 thou/uL (1.20-3.40); #Monocytes 0.4 thou/uL (0.11-0.59); %Basophils 0.1 % (0.0-1.0); %Eosinophils 1.2 % (0.0-10.0); %Lymphocytes 36.8 % (21.0-51.0); %Monocytes 5.8 % (0.0-10.0); %Neutrophils 56.1 % (42.0-75.0); Hemoglobin 11.8 g/dL (12.0-16.0); Mean Corpuscular HGB CONC 33.5 g/dL (32.0-36.0); Mean Corpuscular Hemoglobin 28.7 pg (27.0-31.0); Mean Corpuscular Volume 85.7 fL (78.0-98.0); Mean Platelet Volume 7.1 fL (7.4-10.4); Platelet Count 358 thou/uL (130-400); RBC Distribution Width 13.7 % (11.5-14.5); Red Blood Cell (RBC) Count 4.11 mill/uL (4.20-5.40); White Blood Cell (WBC) Count 7.2 thou/uL (4.8-10.8)
--- NOTE | 2019-05-13 16:36 | RAD ---
RADIOGRAPH CHEST 2 VIEWS: DATE: 05/13/2019 HISTORY: 54-year-old female with chest pain FINDINGS: There is no airspace density, pulmonary edema, pleural effusion, pneumothorax, or cardiomegaly. IMPRESSION: No acute cardiopulmonary findings.
[2019-05-13 16:49] LABS: ALT (SGPT) 14 U/L (8-55); AST (SGOT) 16 U/L (5-34); Albumin 3.9 g/dL (3.5-5.0); Alkaline Phosphatase 125 U/L (40-150); Anion Gap 12 mmol/L (10-20); BUN (Urea Nitrogen) 23 mg/dL (9.8-20.1); Bilirubin, Total 0.2 mg/dL (0.2-1.2); Calc. Creatinine Clearance 0 mL/min (70-130); Calcium 9.9 mg/dL (7.8-10.44); Carbon Dioxide 24 mmol/L (22-29); Chloride 101 mmol/L (98-107); Estimated GFR-MDRD 44; Globulin 4.5 g/dL (2.4-3.5); Glucose 375 mg/dL (70-105); Lipase 91 U/L (8-78); Potassium 4.4 mmol/L (3.5-5.1); Protein, Total 8.4 g/dL (6.0-8.3); Sodium 133 mmol/L (136-145)
[2019-05-13] MEDS ORDERED: Ondansetron ODT 4 MG TAB ONE (17:55)
[2019-05-13] MEDS ORDERED: Lidocaine Viscous Sol 2% 15 ml UD Cup ONE (17:56)
[2019-05-13] MEDS ORDERED: Mag-Al 1200 mg/1200 mg/30 ML UDCUP ONE (17:56)
== END 2019-05-13 18:35 | disposition home or self-care (01) ==
LOC: ERS 15:38
DX: K29.70 Gastritis, unspecified, without bleeding (principal); E11.9 Type 2 diabetes mellitus without complications; D50.9 Iron deficiency anemia, unspecified; I10 Essential (primary) hypertension; J44.9 Chronic obstructive pulmonary disease, unspecified; F20.9 Schizophrenia, unspecified; F41.9 Anxiety disorder, unspecified; F31.9 Bipolar disorder, unspecified; Z87.891 Personal history of nicotine dependence; Z79.4 Long term (current) use of insulin; Z79.899 Other long term (current) drug therapy
CPT/HCPCS: 36415; 71046; 80053; 83690; 84484; 85025; 93005; Q0162

== ENCOUNTER 2020-12-20 11:44 | Emergency (ER) | payer OTHER ==
[2020-12-20] MEDS ORDERED: Naproxen 500 MG TAB ONE (13:50)
== END 2020-12-20 13:52 | disposition home or self-care (01) ==
LOC: ERS 11:44
DX: M72.2 Plantar fascial fibromatosis (principal); E11.9 Type 2 diabetes mellitus without complications; J44.9 Chronic obstructive pulmonary disease, unspecified; I10 Essential (primary) hypertension; F17.210 Nicotine dependence, cigarettes, uncomplicated; Z79.899 Other long term (current) drug therapy

== ENCOUNTER 2021-06-27 18:00 | Emergency (ER) | payer OTHER ==
[2021-06-27] MEDS ORDERED: Ketorolac Tromethamine 30 MG/ML VIAL ONE (19:56)
== END 2021-06-27 20:13 | disposition home or self-care (01) ==
LOC: ERS 18:00
DX: M25.561 Pain in right knee (principal); M25.461 Effusion, right knee; E11.9 Type 2 diabetes mellitus without complications; D50.9 Iron deficiency anemia, unspecified; I10 Essential (primary) hypertension; J44.9 Chronic obstructive pulmonary disease, unspecified; F17.210 Nicotine dependence, cigarettes, uncomplicated; Z79.4 Long term (current) use of insulin; Z79.899 Other long term (current) drug therapy
CPT/HCPCS: 96372; J1885

== ENCOUNTER 2024-02-20 11:39 | Outpatient (CLI) | payer OTHER | END 2024-02-20 11:40 | disposition home or self-care (01) | LOC: BICMAMMO 11:39 | PROVIDERS: ATTEND Nurse Practitioner Family | DX: Z12.31 Encounter for screening mammogram for malignant neoplasm of breast (principal) | CPT/HCPCS: 77067 ==